=== PATIENT | male | born 1935 | race Caucasian/White ===

== ENCOUNTER → 2016-06-12 | Day surgery (SDC) | payer MEDICARE ==
[~2016-06-12] VITALS: Ht 170.2 cm; Wt 77.3 kg
[~2016-06-12] MED LIST: ASPI1TAB69 PO; ATOR10TA15 PO; DO NOT ADM ANY ANTICOAGULANT DRUGS XX PRN; INSULIN HUMAN REGULAR 1,000 UNITS/10 ML VIAL SQ PRN; LACTATED RINGER'S 1000 ML IV SCH; LANO0.2510 PO; LEVO50TA4 PO; METOPROLOL TARTRATE 25 MG TAB PO PRN; MIDAZOLAM HCL 2 MG/2 ML VIAL ONE; MULT-135 PO; PROPOFOL 200 MG/20 ML AMP IV ONE; RESP: ALBUTEROL 2.5 MG/3 ML NEB (SCH) ONE; RESP: LIDOCAINE HCL 4% PF 5 ML NEB ONE; SODIUM CHLORID 0.9% 500 ML IV SCH; TETRACAINE 0.5% OPTH SOLN 15 ML BTL EACH EYE ONE; TYLE650T9 PO; VITA100T2 PO
[2016-06-12 13:48] VITALS: BP 165/85; PULSE 76; RESP 18; TEMP 98.5; O2SAT 97
[2016-06-12 14:00] LABS: AUTOMATED NEUTROPHIL # 5.6 TH/MM3 (1.8-7.7); BASOPHIL # 0.1 TH/MM3 (0-0.2); BASOPHIL % 1.4 % (0.0-2.0); EOSINOPHIL # 0.2 TH/MM3 (0-0.4); EOSINOPHIL % 2.1 % (0.0-4.0); HEMATOCRIT 35.1 % (39.0-51.0); HEMO FLAGS DIFF FINAL; LYMPH % 29.6 % (9.0-44.0); MEAN CELL VOLUME 90.6 FL (80.0-100.0); MEAN CORPUSCULAR HEMOGLOBIN 30.8 PG (27.0-34.0); MONO % 11.4 % (0.0-8.0); NEUT % 55.5 % (16.0-70.0); PLATELET COUNT 243 TH/MM3 (150-450); RED BLOOD COUNT 3.87 MIL/MM3 (4.50-5.90); RED CELL DISTRIBUTION WIDTH 13.9 % (11.6-17.2)
[2016-06-12 14:09] LABS: APTT (PATIENT) 27.3 SEC (24.3-30.1); PROTHROMBIN TIME - PATIENT 11.6 SEC (9.8-11.6)
--- NOTE | 2016-06-12 16:33 | RADRPT ---
EXAM DATE/TIME: 06/12/2016 15:55 [facility] COMPARISON: CHEST SINGLE AP, July 17, 2012, 13:16. INDICATIONS : Post bronchoscopy. MEDICAL HISTORY : Cardiovascular disease. Cerebrovascular disease. Hypertension. SURGICAL HISTORY : None. ENCOUNTER: Initial ACUITY: 1 day PAIN SCORE: Non-responsive. LOCATION: Bilateral chest FINDINGS: A single view of the chest demonstrates the lungs to be symmetrically aerated without evidence of mas s, infiltrate or effusion. The cardiomediastinal contours are unremarkable. Osseous structures are intact. CONCLUSION: No acute disease. Milton Sams MD on June 12, 2016 at 16:26 Board Certified Radiologist. This report was verified electronically.
--- NOTE | 2016-06-12 16:48 | MR ---
cc: RYAN PALMERMARISELA DATE: 06/12/2016 PROCEDURE PERFORMED Bronchoscopy. PREOPERATIVE DIAGNOSIS: Diagnosis of hemoptysis. POSTOPERATIVE DIAGNOSIS Fresh blood seen at the right lower lobe. No active bleeding seen. PROCEDURE Informed consent was obtained from the patient. The complications including complication. pneumothorax, scarring, chest tube, bleeding complication, injury to the blood vessels, lungs nerves, arrhythmia, hypoxia were explained and he consented for the procedure. PROCEDURE The patient was brought to operating room under general anesthesia and the main tube was placed by anesthesiologist. Bronchoscopy done per LMA tube. Vocal cords are normal. Trachea is normal, main payton is sharp. Bronchoscope advanced to the right lung with some blood seen in the right lung and fresh blood seen at the right lower lobe. No endobronchial lesion was seen. Right lower lobe washings were done, then bronchoscope pulled back and advanced to the left lung. Left upper lingula, lower lobe were visualized a small amount of old blood was suctioned. No endobronchial mucosal lesion was seen. Bronchial washings sent for routine culture, AFB fungal culture and cytology. Postprocedure chest x-rays were ordered to rule out pneumothorax. MD PRAVEEN Veliz/hermes /3:35 PM /1:02 PM
[2016-06-12 17:55] VITALS: BP 178/71; PULSE 63; RESP 18; TEMP 97.3; O2SAT 100
--- NOTE | 2016-06-13 12:20 | MH ---
cc: RYAN PALMER ROXY MD DATE OF ADMISSION: 06/12/2016 HISTORY OF PRESENT ILLNESS Mr. Leach is a pleasant 81-year-old male with history of hypertension, rheumatoid arthritis, atrial fibrillation. The patient was recently admitted at [facility]. He had a CT scan of the chest done which shows multiple lung nodule, largest measured 14 mm. He also had biapical emphysematous changes. The patient started having hemoptysis. He has small amount of bright red blood coming with his sputum. He saw Dr. Jaymie Ramirez and he was given Keflex. PAST MEDICAL HISTORY 1. History of hypertension, 2. Atrial fibrillation 3. Rheumatoid arthritis 4. Knee surgery. MEDICATIONS 1. Aspirin 81 mg a day. 2. Lipitor 10 mg. 3. Digoxin 0.25 mg 4. Levothyroxine 750 mcg. 5. Protonix 40 mg. 6. Keflex 500 mg four times a day. ALLERGIES NO KNOWN DRUG ALLERGIES. SOCIAL HISTORY He is , has history of smoking which he quit at age 27. He used to have his own [employer] FAMILY HISTORY He has three children. Once son of cancer at age 53. REVIEW OF SYSTEMS He has no headache or dizziness. No DVT or pulmonary embolism. PHYSICAL EXAMINATION General: Elderly male not in acute distress. VITAL SIGNS: blood pressure 120/62, heart rate 74, respirations 18, oxygen saturation 92%. HEENT: Examination unremarkable NECK: Supple. JVP not raised. CHEST: Equal bilaterally. No rhonchi. CARDIOVASCULAR: S1, S2 normal. ABDOMEN: Benign. EXTREMITIES: No edema. IMPRESSION 1. Hemoptysis, need to rule out endobronchial lesion. It may very well be related to bronchitis. 2. Multiple lung nodules. 3. Atrial fibrillation. 4. Alcohol use. 5. Rheumatoid arthritis. PLAN I discussed with the patient. He will need bronchoscopy. I explained to him the procedure and the complications including complication of anesthesia, pneumothorax requiring chest tube bleeding complication, injury to the blood vessels, lungs, nerves, arrhythmia, biopsy which he understands well and wants to proceed with it. He will be scheduled for bronchoscopy at [facility]. Ryan Palmer MD ADA/ /11:13 PM /12:19 PM
--- NOTE | 2016-07-13 12:33 | MH ---
cc: RYAN PALMERMARISELA DATE OF ADMISSION: 06/12/2016 CHIEF COMPLAINT The patient will come for CT-guided lung biopsy. HISTORY OF PRESENT ILLNESS Mr. Leach is an 81-year-old male with history of hypertension, rheumatoid arthritis, atrial fibrillation and history of hemoptysis. He had a bronchoscopy done which shows small oozing from the lung but no endobronchial lesion was seen. He was sent for a PET scan which shows he has intense uptake for multiple pulmonary nodules within both lungs consistent with widespread metastatic disease. He also has an intense uptake in the lesion projecting off the capsule of the liver, a small area of induration in the left calf, and large left inguinal hernia. I discussed the findings with Dr. Tomer Faye. The liver lesion is too deep and he suggests that the left lung nodule is accessible with needle biopsy. The patient is agreeable for the biopsy. PAST MEDICAL HISTORY: 1. History of hypertension. 2. Atrial fibrillation. 3. Rheumatoid arthritis. 4. Knee surgery. MEDICATIONS: 1. Aspirin 81 milligrams 2. Lipitor 10 milligrams 3. Digoxin 0.25 milligrams daily. 4. Levothyroxine 50 micrograms a day. 5. Protonix 20 milligrams a day. ALLERGIES NO KNOWN DRUG ALLERGIES. SOCIAL HISTORY He is , has history of smoking which he quit when he was 27 years old. He used to drink heavily which he cut down. 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 FAMILY HISTORY: He has three children. One son of cancer at age 53. REVIEW OF SYSTEMS: He denies any weight loss, no headache or dizziness. He had hemoptysis. PHYSICAL EXAMINATION: An elderly male, not in any acute distress. VITAL SIGNS: Blood pressure 120/70, heart rate 74, respiratory rate 16, oxygen saturation 95%. HEENT: Unremarkable. Neck: Supple. JVP not raised. Chest: Equal air entry. No rhonchi. CV: S1-S2 normal. Abdomen: Benign. Extremities: No edema. IMPRESSION 1 . Multiple lung lesions. Positive on PET scan suggestive of metastatic disease. 5. Liver lesion. 6. Hypertension. 7. Rheumatoid arthritis 8. Atrial fibrillation. PLAN: I discussed with the patient CT guided left lung biopsy. I explained to him the procedure and the complications including complication of hemothorax, pneumothorax requiring chest tube, bleeding complication, blood vessels, lungs, nerves, arrhythmia, hypoxia and possibility of nondiagnostic biopsy. He is agreeable for it and will be scheduled for CT-guided left lung biopsy at [facility]. MD PRAVEEN Veliz/KITTY /11:54 AM /12:22 PM
== END | disposition home or self-care (01) ==
LOC: HSDC 12:56
PROVIDERS: ATTEND Specialist
DX: R91.8 Other nonspecific abnormal finding of lung field (principal); I48.91 Unspecified atrial fibrillation; I25.10 Atherosclerotic heart disease of native coronary artery without angina pectoris; I10 Essential (primary) hypertension; M06.9 Rheumatoid arthritis, unspecified; R04.2 Hemoptysis; Z79.82 Long term (current) use of aspirin; Z87.891 Personal history of nicotine dependence
CPT/HCPCS: 00520; 31622; 71010; 85025; 85610; 85730; 87015; 87070; 87102; 87116; 87205; 87206; 88112; 88305; 94664; J2250; J7613

== ENCOUNTER 2016-07-30 06:27 | Day surgery (SDC) | payer MEDICARE ==
[2016-07-30] VITALS (8 sets, daily range): BP systolic 136–170; BP diastolic 60–79; PULSE 60–85; RESP 16–20; TEMP 97.8; O2SAT 96–100
[~2016-07-30] VITALS: Ht 170.2 cm; Wt 78.6 kg
[~2016-07-30 06:27] MED LIST changes: -DO NOT ADM ANY ANTICOAGULANT DRUGS XX PRN; -INSULIN HUMAN REGULAR 1,000 UNITS/10 ML VIAL SQ PRN; -LACTATED RINGER'S 1000 ML IV SCH; -METOPROLOL TARTRATE 25 MG TAB PO PRN; -MIDAZOLAM HCL 2 MG/2 ML VIAL ONE; -PROPOFOL 200 MG/20 ML AMP IV ONE; -RESP: ALBUTEROL 2.5 MG/3 ML NEB (SCH) ONE; -RESP: LIDOCAINE HCL 4% PF 5 ML NEB ONE; -SODIUM CHLORID 0.9% 500 ML IV SCH; -TETRACAINE 0.5% OPTH SOLN 15 ML BTL EACH EYE ONE
[2016-07-30 07:32] LABS: AUTOMATED NEUTROPHIL # 3.1 TH/MM3 (1.8-7.7); BASOPHIL # 0.2 TH/MM3 (0-0.2); BASOPHIL % 2.4 % (0.0-2.0); EOSINOPHIL # 0.2 TH/MM3 (0-0.4); HEMO FLAGS DIFF FINAL; LYMPH % 42.5 % (9.0-44.0); LYMPHOCYTE # 3.2 TH/MM3 (1.0-4.8); MEAN CELL VOLUME 91.2 FL (80.0-100.0); MEAN CORPUSCULAR HEMOGLOBIN 31.4 PG (27.0-34.0); MEAN CORPUSCULAR HGB CONC 34.5 % (32.0-36.0); MONO % 11.1 % (0.0-8.0); PLATELET COUNT 193 TH/MM3 (150-450); RED BLOOD COUNT 4.06 MIL/MM3 (4.50-5.90); RED CELL DISTRIBUTION WIDTH 12.6 % (11.6-17.2); WHITE BLOOD COUNT 7.5 TH/MM3 (4.0-11.0)
[2016-07-30 07:42] LABS: APTT (PATIENT) 26.7 SEC (24.3-30.1); INTERNATIONAL NORMALIZED RATIO 1.1 RATIO; PROTHROMBIN TIME - PATIENT 11.8 SEC (9.8-11.6)
[2016-07-30] MEDS ORDERED: SODIUM CHLOR 0.9% 1000 ML IV SCH (08:00)
[2016-07-30] MEDS ORDERED: LIDOCAINE 1%/EPINEPHrine 1:100,000 SOLN 20 ML VIAL ONE (08:05)
[2016-07-30] MEDS ORDERED: SODIUM BICARBONATE 8.4% INJ 50 ML ONE (08:06)
[2016-07-30] MEDS ORDERED: fentaNYL CITRATE 250 MCG/5 ML AMP ONE (08:22)
[2016-07-30] MEDS ORDERED: MIDAZOLAM HCL 5 MG/5 ML VIAL ONE (08:22)
--- NOTE | 2016-07-30 09:45 | RADRPT ---
EXAM DATE/TIME: 07/30/2016 08:26 [facility] COMPARISON: CT THORAX W CONTRAST, May 11, 2016, 19:43. INDICATIONS : Left lung nodule. SEDATION TIME: 30 minutes BIOPSY SITE: Left posterior lung. MEDICATION(S): 1.) 100 mcg fentanyl (Sublimaze) IV 2.) 2 mg midazolam (Versed) IV DEVICE(S): 1.) 20 gauge Temno core biopsy needle 15 cm MEDICAL HISTORY : Hypertension. A-fib. Ex smoker. SURGICAL HISTORY : None. ENCOUNTER: Initial ACUITY: 1 day PAIN SCORE: 0/10 LOCATION: Left posterior lung. A total of five core specimen(s) were obtained and sent to the laboratory for pathologic evaluation. PROCEDURE: 1. CT guided lung biopsy. 2. Conscious sedation with continuous EKG and oximetry monitoring. Prior to the procedure informed consent was obtained. Any appropriate prior imaging studies were rev iewed. Using automated exposure control and adjustment of the mA and/or kV according to patient size, radiation dose was kept as low as reasonably achievable to obtain optimal diagnostic quality images. The site was prepped in a sterile fashion. Full sterile technique was used, including cap, mask, oly rile gloves and gown and a large sterile sheet. Hand hygiene and 2% chlorhexidine and/or betadine/al cohol prep was utilized per protocol for cutaneous antisepsis. The skin and subcutaneous tissues wer e infiltrated with local anesthetic solution. With CT guidance the left lower lobe lung nodule was localized. Biopsy was performed using the prescr ibed needle as above. Adequate hemostasis was obtained with compression at the puncture site. Follow-up CT scan reveals no pneumothorax or significant abnormality. Conscious sedation was performed with the prescribed dosages and duration as above in the presence of an independent trained radiology nurse to assist in the monitoring of the patient. EKG and oximetry remained stable throughout the procedure. The patient tolerated the procedure well and there were no complications. The patient was sent to Radiology Outpatient Unit in stable condition. CONCLUSION: Uncomplicated CT guided biopsy of the left lower lobe pulmonary nodule. Eris Sanchez MD on July 30, 2016 at 9:42 Board Certified Radiologist. This report was verified electronically.
[2016-07-30] MEDS ORDERED: oxyCODONE/ACETAMINOPHEN 5 MG/325 MG TAB PO PRN (10:15)
--- NOTE | 2016-07-30 11:10 | RADRPT ---
EXAM DATE/TIME: 07/30/2016 10:38 [facility] COMPARISON: CT NEEDLE BIOPSY LUNG, LEFT, July 30, 2016, 8:26. CHEST SINGLE AP, June 12, 2016, 15:55. INDICATIONS : S/p left side lung bx MEDICAL HISTORY : Cardiovascular disease. Cerebrovascular disease. SURGICAL HISTORY : None. ENCOUNTER: Initial ACUITY: 1 day PAIN SCORE: 0/10 LOCATION: Bilateral chest FINDINGS: A single frontal expiratory view of the chest was performed. The lungs are symmetrically aerated and clear. No evidence of pneumothorax. Mediastinal structures are in the midline. The cardio-mediastinal contours and bronchopulmonary markings are unremarkable for an expiratory exam . Osseous structures are intact. CONCLUSION: No pneumothorax seen after left lung biopsy. Eris Rios MD on July 30, 2016 at 11:07 Board Certified Radiologist. This report was verified electronically.
--- NOTE | 2016-07-30 12:44 | RADRPT ---
EXAM DATE/TIME: 07/30/2016 12:00 [facility] COMPARISON: CHEST EXPIRATION ONLY, July 30, 2016, 10:38. INDICATIONS : Status post lung biopsy. MEDICAL HISTORY : None. SURGICAL HISTORY : Total knee replacement, left. ENCOUNTER: Subsequent ACUITY: 1 day PAIN SCORE: 0/10 LOCATION: chest FINDINGS: Portable upright expiratory view of the chest demonstrates a normal-sized cardiac silhouette. No pneu mothorax is identified following recent left lung nodule biopsy. Overall, stable exam. CONCLUSION: No pneumothorax is visualized. Eris Sanchez MD on July 30, 2016 at 12:40 Board Certified Radiologist. This report was verified electronically.
== END 2016-07-30 13:25 | disposition home or self-care (01) ==
LOC: HRAD 06:27 → HRIP 06:28 → EDSTATUS 07:00 → HRAD 13:25
PROVIDERS: ATTEND Specialist
DX: C34.32 Malignant neoplasm of lower lobe, left bronchus or lung (principal); I10 Essential (primary) hypertension; I48.91 Unspecified atrial fibrillation; Z87.891 Personal history of nicotine dependence
CPT/HCPCS: 32405; 71010; 77012; 85025; 85610; 85730; 88305; 88341; 88342; J2250; J3010; J7030; 81210

== ENCOUNTER 2017-02-27 15:54 | Inpatient (IN) | payer MEDICARE ==
[~2017-02-27] VITALS: Ht 177.8 cm; Wt 92.0 kg
[2017-02-27] VITALS (8 sets, daily range): BP systolic 144–206; BP diastolic 61–86; PULSE 39–60; RESP 14–20; TEMP 97.6–98.1; O2SAT 97–100
[~2017-02-27 15:54] MED LIST changes: -MULT-135 PO; -TYLE650T9 PO; -VITA100T2 PO
--- NOTE | 2017-02-27 16:19 | PD ---
HPI Chief Complaint: Fall Time Seen by Provider: 16:06 Travel History International Travel<30 days: No Contact w/Intl Traveler<30days: No Traveled to known affect area: No History of Present Illness HPI 82-year-old male came to the emergency room with history of fall and hitting his head causing a facial laceration. His brought him in. The is giving most of the history. As per her patient has history of frequent falls. Last fall was 4 days ago. He usually requires a walker to ambulate but frequently trips and falls. No history of chest pain. No history of loss of consciousness. Patient was bradycardic upon arrival but awake and answering questions. [facility] Past Medical History Narrative Medical List of his past medical, surgical, social and family history is reviewed from the nursing note. Hx Anticoagulant Therapy: Yes (aspirin 325 daily) Arthritis: Yes (RA) Asthma: No Atrial Fibrillation: Yes Blood Disorders: No Anxiety: No Depression: No Heart Rhythm Problems: Yes Cancer: Yes (SKIN melanoma) Cardiac Catheterization: No Cardiovascular Problems: No High Cholesterol: Yes Chemotherapy: No Chest Pain: No Congestive Heart Failure: No COPD: No Cerebrovascular Accident: Yes (TIA) Coronary Artery Disease: Yes Diabetes: No Diminished Hearing: Yes (BILAT HEARING AIDS) Gastrointestinal Disorders: Yes GERD: No Glaucoma: No Genitourinary: No Headaches: No Hepatitis: No Hiatal Hernia: Yes Hypertension: Yes Immune Disorder: No Kidney Stones: No Musculoskeletal: Yes (ARTHRITIS) Neurologic: No Psychiatric: No Reproductive: No Respiratory: No Myocardial Infarction: No Radiation Therapy: No Renal Failure: No Seizures: No Sleep Apnea: No Thyroid Disease: Yes (hypothyroid disease) Triglycerides - High: Yes Ulcer: No Past Surgical History Abdominal Surgery: No AICD: No Cardiac Surgery: No Coronary Artery Bypass Graft: No Ear Surgery: No Endocrine Surgery: No Eye Surgery: Yes (Bilateral cataracts) Genitourinary Surgery: No Gynecologic Surgery: No Joint Replacement: Yes (LEFT KNEE) Neurologic Surgery: No Oral Surgery: No Pacemaker: No Thoracic Surgery: No Other Surgery: Yes (RIGHT MIDDLE TOE AMPUTATED) Social History Alcohol Use: Yes (4 BEERS DAILY) Tobacco Use: No Substance Use: No Allergies-Medications (Allergen,Severity, Reaction): Coded Allergies: No Known Allergies (Verified , 02/27/17) Comments No known drug allergies. Reported Meds & Prescriptions Reported Meds & Active Scripts Active Reported Opdivo (Nivolumab) 40 Mg/4 Ml Inj Vitamin B-1 (Thiamine HCl) 100 Mg Tab 100 Mg PO DAILY Multi For Him 50+ (Multiple Vitamins W/ Minerals) 0.4 Mg-2 Mg-250 Mcg Tab Carac (Fluorouracil (Topical)) 0.5 % Cre Aspirin 81 Mg Chew 81 Mg CHEW DAILY Digoxin 0.25 Mg Tab 0.25 Mg PO DAILY Levothyroxine (Levothyroxine Sodium) 50 Mcg Tab 50 Mcg PO DAILY Atorvastatin (Atorvastatin Calcium) 10 Mg Tab 10 Mg PO DAILY Narrative Medication List of his home medications reviewed from the nursing note. Review of Systems Except as stated in HPI: all other systems reviewed are Neg Physical Exam Narrative GENERAL: Awake, alert, elderly, frail SKIN: Focused skin assessment warm/dry. Right eyebrow laceration HEAD: Atraumatic. Normocephalic. EYES: Pupils equal and round. No scleral icterus. No injection or drainage. ENT: No nasal bleeding or discharge. Mucous membranes pink and moist. NECK: Trachea midline. No JVD. CARDIOVASCULAR: Regular rate and rhythm. Bradycardia. No murmur appreciated. RESPIRATORY: No accessory muscle use. Clear to auscultation. Breath sounds equal bilaterally. GASTROINTESTINAL: Abdomen soft, non-tender, nondistended. Hepatic and splenic margins not palpable. MUSCULOSKELETAL: No obvious deformities. No clubbing. No cyanosis. No edema. NEUROLOGICAL: Awake and alert. No obvious cranial nerve deficits. Motor grossly within normal limits. Normal speech. PSYCHIATRIC: Appropriate mood and affect; insight and judgment normal. Data Data Last Documented VS Vital Signs Date Time Temp Pulse Resp B/P (MAP) Pulse Ox O2 Delivery O2 Flow Rate FiO2 02/27/17 17:44 39 18 194/79 (117) 100 Room Air 02/27/17 16:01 97.9 Orders Orders Complete Blood Count With Diff (02/27/17 16:24) Basic Metabolic Panel (Bmp) (02/27/17 16:24) Digoxin (02/27/17 16:24) Ct Brain W/O Iv Contrast(Rout) (02/27/17 ) Electrocardiogram (02/27/17 ) Lidocaine 1% Inj (50 Ml) (Xylocaine 1% I (02/27/17 16:45) Potassium Chlor 20 Meq Premix (Kcl 20 Me (02/27/17 18:00) Potassium Chloride (Kcl) (02/27/17 18:00) Admit Order (Ed Use Only) (02/27/17 18:11) Troponin I (02/27/17 17:04) Creatine Kinase (Cpk) (02/27/17 17:04) Labs Laboratory Tests Test 02/27/17 17:04 White Blood Count 11.1 TH/MM3 Red Blood Count 3.59 MIL/MM3 Hemoglobin 11.4 GM/DL Hematocrit 32.0 % Mean Corpuscular Volume 89.1 FL Mean Corpuscular Hemoglobin 31.6 PG Mean Corpuscular Hemoglobin Concent 35.5 % Red Cell Distribution Width 14.8 % Platelet Count 177 TH/MM3 Mean Platelet Volume 8.4 FL Neutrophils (%) (Auto) 56.4 % Lymphocytes (%) (Auto) 26.9 % Monocytes (%) (Auto) 10.7 % Eosinophils (%) (Auto) 4.9 % Basophils (%) (Auto) 1.1 % Neutrophils # (Auto) 6.2 TH/MM3 Lymphocytes # (Auto) 3.0 TH/MM3 Monocytes # (Auto) 1.2 TH/MM3 Eosinophils # (Auto) 0.5 TH/MM3 Basophils # (Auto) 0.1 TH/MM3 CBC Comment DIFF FINAL Differential Comment Blood Urea Nitrogen 24 MG/DL Creatinine 1.14 MG/DL Random Glucose 101 MG/DL Calcium Level 10.7 MG/DL Sodium Level 141 MEQ/L Potassium Level 2.7 MEQ/L Chloride Level 109 MEQ/L Carbon Dioxide Level 24.0 MEQ/L Anion Gap 8 MEQ/L Estimat Glomerular Filtration Rate 61 ML/MIN Total Creatine Kinase 55 U/L Troponin I 0.07 NG/ML Digoxin Level 1.1 NG/ML [facility] Medical Decision Making Medical Screen Exam Complete: Yes Emergency Medical Condition: Yes Medical Record Reviewed: Yes Interpretation(s) Twelve-lead EKG was reviewed by me. Junctional bradycardia, left axis deviation , questionable digitalis toxicity/left ST depression. Heart rate of 40 bpm. Differential Diagnosis Digitalis toxicity, electrolyte abnormality, intracranial bleed, facial laceration Narrative Course 6 PM blood test results are back. Patient has significant hypokalemia. Patient continues to be bradycardic. I would like to admit him at this point for bradycardia and hypokalemia. I've ordered for potassium replacement. I discussed this with the patient and his and they're okay with the plan. The forehead laceration was sutured by the PA and the medical student. Please refer to his note for the procedure details. Critical Care Narrative Aggregate critical care time was 30 minutes. Time to perform other separately billable procedures was not included in the critical care time. My time did not include minutes spent treating any other patients simultaneously or on activities that did not directly contribute to the patient's treatment. The services I provided to this patient were to treat and/or prevent clinically significant deterioration that could result in: Symptomatic bradycardia, hypokalemia I provided critical care services requiring my management, as noted below: Chart data review, documentation time, medication orders and management, vital sign assessments/reviewing monitor data, ordering and reviewing lab tests, ordering and interpreting/reviewing x-rays and diagnostic studies, care of the patient and discussion of the patient with the admitting physicians. Procedures EKG Prior to Arrival: No Diagnosis Primary Impression: Symptomatic bradycardia Additional Impressions: Hypokalemia Frequent falls Head injury Qualified Codes: S09.90XA - Unspecified injury of head, initial encounter Facial laceration Qualified Codes: S01.81XA - Laceration without foreign body of other part of head, initial encounter Admitting Information Admitting Physician Requests: Observation Colleen Jefferson MD Feb 27, 2017 16:19
[2017-02-27] MEDS ORDERED: NIVO1INJ (16:24)
[2017-02-27] MEDS ORDERED: DIGO0.25 PO (16:24)
[2017-02-27] MEDS ORDERED: ASPI81CH CHEW (16:24)
[2017-02-27] MEDS ORDERED: VITA100T54 PO (16:24)
[2017-02-27] MEDS ORDERED: CARA0.5C (16:24)
[2017-02-27] MEDS ORDERED: MULTTAB23 (16:24)
[2017-02-27] MEDS ORDERED: LIDOCAINE HCL 1% 50 ML VIAL INFIL ONE (16:45)
--- NOTE | 2017-02-27 17:05 | RADRPT ---
EXAM DATE/TIME: 02/27/2017 16:37 [facility] COMPARISON: CT BRAIN W/O CONTRAST, May 11, 2016, 18:28. INDICATIONS : Patient fell, laceration to right side of head. RADIATION DOSE: 41.32 CTDIvol (mGy) MEDICAL HISTORY : Cardiovascular disease. TIA. SURGICAL HISTORY : None. ENCOUNTER: Initial ACUITY: 1 day PAIN SCALE: 2/10 LOCATION: cranial TECHNIQUE: Multiple contiguous axial images were obtained of the head. Using automated exposure control and adj ustment of the mA and/or kV according to patient size, radiation dose was kept as low as reasonably a chievable to obtain optimal diagnostic quality images. DICOM format image data is available electro nically for review and comparison. FINDINGS: CEREBRUM: Moderate diffuse cerebral volume loss. The ventricles are normal for degree of atrophy. No evidence of midline shift, mass lesion, hemorrhage or acute infarction. No extra-axial fluid collections are seen. POSTERIOR FOSSA: The cerebellum and brainstem are intact. The 4th ventricle is midline. The cerebellopontine angle i s unremarkable. EXTRACRANIAL: The visualized portion of the orbits is intact. Small soft tissue hematoma overlying the right fronta l scalp region. SKULL: The calvaria is intact. No evidence of skull fracture. CONCLUSION: 1. No acute intracranial abnormality. Almas Meyers MD on February 27, 2017 at 17:03 Board Certified Radiologist. This report was verified electronically.
[2017-02-27 17:14] LABS: AUTOMATED NEUTROPHIL # 6.2 TH/MM3 (1.8-7.7); BASOPHIL # 0.1 TH/MM3 (0-0.2); BASOPHIL % 1.1 % (0.0-2.0); EOSINOPHIL # 0.5 TH/MM3 (0-0.4); EOSINOPHIL % 4.9 % (0.0-4.0); HEMO FLAGS DIFF FINAL; LYMPH % 26.9 % (9.0-44.0); MEAN CELL VOLUME 89.1 FL (80.0-100.0); MEAN CORPUSCULAR HEMOGLOBIN 31.6 PG (27.0-34.0); MEAN CORPUSCULAR HGB CONC 35.5 % (32.0-36.0); MONO % 10.7 % (0.0-8.0); NEUT % 56.4 % (16.0-70.0); PLATELET COUNT 177 TH/MM3 (150-450); RED BLOOD COUNT 3.59 MIL/MM3 (4.50-5.90); RED CELL DISTRIBUTION WIDTH 14.8 % (11.6-17.2); WHITE BLOOD COUNT 11.1 TH/MM3 (4.0-11.0)
--- NOTE | 2017-02-27 17:40 | PD ---
Physical Exam Date Seen by Provider: Feb 27, 2017 Time Seen by Provider: 17:39 Narrative 82-year-old male that presents to the ED for evaluation of laceration. I was asked by my attending to repair laceration. Please refer to her note. Data Data Last Documented VS Vital Signs Date Time Temp Pulse Resp B/P (MAP) Pulse Ox O2 Delivery O2 Flow Rate FiO2 02/27/17 16:26 (110) 02/27/17 16:09 43 14 99 Room Air 02/27/17 16:01 97.9 Orders Orders Complete Blood Count With Diff (02/27/17 16:24) Basic Metabolic Panel (Bmp) (02/27/17 16:24) Digoxin (02/27/17 16:24) Ct Brain W/O Iv Contrast(Rout) (02/27/17 ) Electrocardiogram (02/27/17 ) Lidocaine 1% Inj (50 Ml) (Xylocaine 1% I (02/27/17 16:45) Labs Laboratory Tests Test 02/27/17 17:04 White Blood Count 11.1 TH/MM3 Red Blood Count 3.59 MIL/MM3 Hemoglobin 11.4 GM/DL Hematocrit 32.0 % Mean Corpuscular Volume 89.1 FL Mean Corpuscular Hemoglobin 31.6 PG Mean Corpuscular Hemoglobin Concent 35.5 % Red Cell Distribution Width 14.8 % Platelet Count 177 TH/MM3 Mean Platelet Volume 8.4 FL Neutrophils (%) (Auto) 56.4 % Lymphocytes (%) (Auto) 26.9 % Monocytes (%) (Auto) 10.7 % Eosinophils (%) (Auto) 4.9 % Basophils (%) (Auto) 1.1 % Neutrophils # (Auto) 6.2 TH/MM3 Lymphocytes # (Auto) 3.0 TH/MM3 Monocytes # (Auto) 1.2 TH/MM3 Eosinophils # (Auto) 0.5 TH/MM3 Basophils # (Auto) 0.1 TH/MM3 CBC Comment DIFF FINAL Differential Comment MDM Medical Record Reviewed: Yes Supervised Visit with NATALIO: No Procedures Procedure Narrative LACERATION LOCATION: Right forehead LENGTH: 1 cm NUMBER OF STITCHES/KODAK: 4 sutures REPAIR: The area of the laceration was prepped with Betadine and sterilely draped. The laceration was infiltrated with 1% Xylocaine. The wound was copiously irrigated and explored without evidence of foreign body, tendon injury or neurovascular injury. The wound was closed using 4-0 Ethilone. This was a 1 layer repair. A sterile dressing was applied. The patient was advised to keep the dressing clean and dry. Patient tolerated the procedure well. Kenneth Brown Feb 27, 2017 17:40
[2017-02-27 17:48] LABS: DIGOXIN 1.1 NG/ML (0.8-2.0)
[2017-02-27 17:50] LABS: POTASSIUM 2.7 MEQ/L (3.5-5.1)
[2017-02-27] MEDS ORDERED: POTASSIUM CHLOR 20 MEQ PREMIX 100 ML IV ONE (18:00)
[2017-02-27] MEDS ORDERED: POTASSIUM CHLORIDE 20 MEQ CONTROLLED RELEASE TAB PO ONE (18:00)
[2017-02-27] MEDS ORDERED: MAGNESIUM HYDROXIDE SUSP 30 ML CUP PO PRN (18:15)
[2017-02-27] MEDS ORDERED: SODIUM CHLORIDE 0.9% FLUSH 10 ML FLUSH IV FLUSH PRN (18:15)
[2017-02-27] MEDS ORDERED: NALOXONE HCL 0.4 MG/ML AMP IV PUSH PRN ×2 (18:15)
[2017-02-27] MEDS ORDERED: ONDANSETRON HCL 4 MG/2 ML VIAL IVP PRN (18:15)
[2017-02-27] MEDS ORDERED: ACETAMINOPHEN 325 MG TAB PO PRN ×2 (18:15)
--- NOTE | 2017-02-27 18:55 | HHI.HP ---
[facility] Jaymie Ramirez MD Admission Diagnosis symptomatically bradycardia, fall, head injury, facial laceration Diagnoses: (1) Symptomatic bradycardia (2) Frequent falls (3) Facial laceration Chief Complaint: Frequent falls Travel History International Travel<30 Days: No Contact w/Intl Traveler <30 Da: No Traveled to Known Affected Are: No History of Present Illness 82-year-old male with a history of melanoma was brought to the ED for evaluation of recurrent and frequent fall. Per 's account, however the past 2 weeks patient has been having frequent falls. He did fall today leading to his right eye. Laceration. However in the ED patient was observed to have heart rate is low 40s. Patient is a poor historian and wasn't able to tell whether he had any symptoms of lightheadedness today prior to his fall. He denies any chest pain or shortness of breath. Review of Systems Except as stated in HPI: all other systems reviewed are Neg Past Family Social History Past Medical History Rheumatoid Arthritis, [place], A. fib, history of melanoma and Alcohol Abuse Past Surgical History Left Knee Surgery, Right Middle Toe Amputation, excision of skin cancer Allergies: Coded Allergies: No Known Allergies (Verified , 02/27/17) Family History No h/o DM or CAD Social History Drinks 2 beers daily. Negative for tobacco or drugs. Lives at home with . Physical Exam Vital Signs Vital Signs Date Time Temp Pulse Resp B/P (MAP) Pulse Ox O2 Delivery O2 Flow Rate FiO2 02/27/17 17:44 39 18 194/79 (117) 100 Room Air 02/27/17 16:26 (110) 02/27/17 16:09 43 14 188/72 (110) 99 Room Air 02/27/17 16:01 97.9 54 15 144/61 (88) 100 Physical Exam GENERAL: Frail elderly appearing patient SKIN: No rashes, ecchymoses or lesions. Cool and dry.Right eyebrow laceration HEAD: Atraumatic. Normocephalic. No temporal or scalp tenderness. EYES: Pupils equal round and reactive. Extraocular motions intact. No scleral icterus. No injection or drainage. ENT: Nose without bleeding, purulent drainage or septal hematoma. Throat without erythema, tonsillar hypertrophy or exudate. Uvula midline. Airway patent. NECK: Trachea midline. No JVD or lymphadenopathy. Supple, nontender, no meningeal signs. CARDIOVASCULAR: Regular rate and rhythm without murmurs, gallops, or rubs. RESPIRATORY: Clear to auscultation. Breath sounds equal bilaterally. No wheezes , rales, or rhonchi. GASTROINTESTINAL: Abdomen soft, non-tender, nondistended. No hepato-splenomegaly , or palpable masses. No guarding. MUSCULOSKELETAL: Extremities without clubbing, cyanosis, or edema. No joint tenderness, effusion, or edema noted. No calf tenderness. Negative Homans sign bilaterally. NEUROLOGICAL: Awake and alert. Cranial nerves II through XII intact. Motor and sensory grossly within normal limits. Five out of 5 muscle strength in all muscle groups. Normal speech. Laboratory Laboratory Tests Test 02/27/17 17:04 White Blood Count 11.1 Red Blood Count 3.59 Hemoglobin 11.4 Hematocrit 32.0 Mean Corpuscular Volume 89.1 Mean Corpuscular Hemoglobin 31.6 Mean Corpuscular Hemoglobin Concent 35.5 Red Cell Distribution Width 14.8 Platelet Count 177 Mean Platelet Volume 8.4 Neutrophils (%) (Auto) 56.4 Lymphocytes (%) (Auto) 26.9 Monocytes (%) (Auto) 10.7 Eosinophils (%) (Auto) 4.9 Basophils (%) (Auto) 1.1 Neutrophils # (Auto) 6.2 Lymphocytes # (Auto) 3.0 Monocytes # (Auto) 1.2 Eosinophils # (Auto) 0.5 Basophils # (Auto) 0.1 CBC Comment DIFF FINAL Differential Comment Blood Urea Nitrogen 24 Creatinine 1.14 Random Glucose 101 Calcium Level 10.7 Sodium Level 141 Potassium Level 2.7 Chloride Level 109 Carbon Dioxide Level 24.0 Anion Gap 8 Estimat Glomerular Filtration Rate 61 Digoxin Level 1.1 Result Diagram: 02/27/17 1704 02/27/17 1704 Imaging Last Impressions Head CT 02/27/17 0000 Signed Impressions: Service Date/Time: Monday, February 27, 2017 16:37 - CONCLUSION: 1. No acute intracranial abnormality. MD Florian Berman VTE Risk Assessment Florian VTE Risk Assessment: Mod/High Risk (score >= 2) Regisrini Risk Assessment Model Point Value = 1 Point Value = 2 Point Value = 3 Point Value = 5 Age 41-60 Minor surgery BMI > 25 kg/m2 Swollen legs Varicose veins or History of unexplained or recurrent spontaneous Oral contraceptives or hormone replacement Sepsis (< 1 month) Serious lung disease, including pneumonia (< 1 month) Abnormal pulmonary function Acute myocardial infarction Congestive heart failure (< 1 month) History of inflammatory bowel disease Medical patient at bed rest Age 61-74 Arthroscopic surgery Major open surgery (> 45 min) Laparoscopic surgery (> 45 min) Malignancy Confined to bed (> 72 hours) Immobilizing plaster cast Central venous access Age >= 75 History of VTE Family history of VTE Factor V Leiden Prothrombin [id number] Lupus anticoagulant Anticardiolipin antibodies Elevated serum homocysteine Heparin-induced thrombocytopenia Other congenital or acquired thrombophilia Stroke (< 1 month) Elective arthroplasty Hip, pelvis, or leg fracture Acute spinal cord injury (< 1 month) Prophylaxis Regimen Total Risk Factor Score Risk Level Prophylaxis Regimen 0-1 Low Early ambulation 2 Moderate Order ONE of the following: *Sequential Compression Device (SCD) *Heparin 5000 units SQ BID 3-4 Higher Order ONE of the following medications: *Heparin 5000 units SQ TID *Enoxaparin/Lovenox 40 mg SQ daily (WT < 150 kg, CrCl > 30 mL/min) *Enoxaparin/Lovenox 30 mg SQ daily (WT < 150 kg, CrCl > 10-29 mL/min) *Enoxaparin/Lovenox 30 mg SQ BID (WT < 150 kg, CrCl > 30 mL/min) AND/OR *Sequential Compression Device (SCD) 5 or more Highest Order ONE of the following medications: *Heparin 5000 units SQ TID (Preferred with Epidurals) *Enoxaparin/Lovenox 40 mg SQ daily (WT < 150 kg, CrCl > 30 mL/min) *Enoxaparin/Lovenox 30 mg SQ daily (WT < 150 kg, CrCl > 10-29 mL/min) *Enoxaparin/Lovenox 30 mg SQ BID (WT < 150 kg, CrCl > 30 mL/min) AND *Sequential Compression Device (SCD) Assessment and Plan Problem List: (1) Symptomatic bradycardia ICD Code: R00.1 - Bradycardia, unspecified Status: Acute (2) Frequent falls ICD Code: R29.6 - Repeated falls Status: Acute (3) Hypokalemia ICD Code: E87.6 - Hypokalemia Status: Acute (4) Facial laceration ICD Code: S01.81XA - Laceration without foreign body of other part of head, initial encounter Status: Acute Assessment and Plan 82-year-old man with Symptomatic bradycardia Check 2-D echo ACS ruled out per protocol with serial cardiac enzyme and EKG Consult cardiology for evaluation for AICD placement versus others Hold digoxin History of atrial fibrillation Currently rate control Hold digoxin pending further evaluation from cardiology Continue aspirin Hyperlipidemia Resume statin Recurrent history of frequent fall Head CT noted and review by me without any acute finding Fall precautions Hypokalemia Replace electrolyte and monitor Right eyebrow laceration Status post repair Start Bactroban Leukocytosis Check UA and treat accordingly DVT prophylaxis: Bilateral SCDs Code Status Full code Discussed Condition With Patient, , ED physician Problem Qualifiers (1) Facial laceration: Qualified Codes: S01.81XA - Laceration without foreign body of other part of head, initial encounter Serafin Jennings MD Feb 27, 2017 18:55
[2017-02-27] MEDS ORDERED: hydrALAZINE HCL 20 MG/ML VIAL IV PUSH ONE (20:00)
[2017-02-27 20:10] LABS: BLOOD, URINE NEG (NEG); COMMENT (UR) CULT NOT INDICATED; CULTURE IF INDICATED CULT NOT INDICATED; GLUCOSE,URINE NEG (NEG); HYALINE CAST, URINE 3 /lpf (RARE); KETONE, URINE NEG (NEG); NITRITE,URINE NEG (NEG); URINE COLOR YELLOW (YELLW/STRAW)
[2017-02-27] MEDS ORDERED: MUPIROCIN 2% OINT 22 GM TUBE TOPICAL SCH (21:00)
[2017-02-27] MEDS: SODIUM CHLORIDE 0.9% FLUSH 10 ML FLUSH IV FLUSH SCH (22:31)
[2017-02-28] VITALS (8 sets, daily range): BP systolic 153–205; BP diastolic 66–79; PULSE 40–60; RESP 18–21; TEMP 96.9–97.9; O2SAT 99–100
[2017-02-28] MEDS: MUPIROCIN 2% CREAM 15 GM TOPICAL SCH ×3 (00:49→21:37)
--- NOTE | 2017-02-28 05:09 | EKG ---
Date Performed: 02/27/2017 Time Performed: 16:54:48 PTAGE: 82 years EKG: SUPRAVENTRICULAR BRADYCARDIA SEPTAL MYOCARDIAL INFARCTION ABNORMAL ECG PREVIOUS TRACING : 05/11/2016 17.33 DOCTOR: Orlando Marrufo Interpretating Date/Time 02/28/2017 05:04:56
[2017-02-28] MEDS: LEVOTHYROXINE SODIUM 50 MCG TAB PO SCH (06:28)
[2017-02-28 07:27] LABS: AUTOMATED NEUTROPHIL # 5.9 TH/MM3 (1.8-7.7); BASOPHIL # 0.1 TH/MM3 (0-0.2); BASOPHIL % 1.2 % (0.0-2.0); EOSINOPHIL # 0.6 TH/MM3 (0-0.4); EOSINOPHIL % 5.2 % (0.0-4.0); HEMATOCRIT 32.5 % (39.0-51.0); HEMO FLAGS DIFF FINAL; LYMPH % 35.4 % (9.0-44.0); LYMPHOCYTE # 4.4 TH/MM3 (1.0-4.8); MEAN CELL VOLUME 89.6 FL (80.0-100.0); MEAN CORPUSCULAR HEMOGLOBIN 32.1 PG (27.0-34.0); MEAN CORPUSCULAR HGB CONC 35.8 % (32.0-36.0); MONO % 9.9 % (0.0-8.0); NEUT % 48.3 % (16.0-70.0); PLATELET COUNT 194 TH/MM3 (150-450); RED BLOOD COUNT 3.63 MIL/MM3 (4.50-5.90); RED CELL DISTRIBUTION WIDTH 14.9 % (11.6-17.2); WHITE BLOOD COUNT 12.3 TH/MM3 (4.0-11.0)
[2017-02-28 08:11] LABS: ALKALINE PHOSPHATASE 80 U/L (45-117); ALT (GPT) 19 U/L (12-78); ANION GAP 10 MEQ/L (5-15); AST (GOT) 14 U/L (15-37); BICARBONATE 20.4 MEQ/L (21.0-32.0); BLOOD UREA NITROGEN 20 MG/DL (7-18); CHLORIDE 111 MEQ/L (98-107); GLOMERULAR FILTRATION RATE 72 ML/MIN (>89); SODIUM (NA) 141 MEQ/L (136-145); TOTAL BILIRUBIN ADULT 1.2 MG/DL (0.2-1.0)
[2017-02-28 08:31] LABS: POTASSIUM 2.8 MEQ/L (3.5-5.1)
[2017-02-28] MEDS: hydrALAZINE HCL 25 MG TAB PO SCH ×2 (08:46→21:36)
[2017-02-28] MEDS: SODIUM CHLORIDE 0.9% FLUSH 10 ML FLUSH IV FLUSH SCH ×2 (08:47→21:36)
[2017-02-28] MEDS: ASPIRIN 81 MG CHEW TAB CHEW SCH (08:47)
[2017-02-28] MEDS: ATORVASTATIN 10 MG TAB PO SCH (08:47)
--- NOTE | 2017-02-28 10:05 | PD.CONS ---
HPI Consult Requested By Primary Care Physician Jaymie Ramirez MD History of Present Illness 82-year-old male with a history of melanoma was brought to the ED for evaluation of recurrent and frequent fall. Per 's account, however the past 2 weeks patient has been having frequent falls. In the ED heart rate is low 40s. He denies any chest pain or shortness of breath. EKG shows slow atrial fibrillation. Review of Systems Consitutional: COMPLAINS OF: Fatigue Eyes: DENIES: Amaurosis [place], Change in vision HEENT: DENIES: Lightheadedness, Change in hearing Respiratory: DENIES: See HPI, Cough, Snoring, Shortness of breath, Wheezing, Sputum production Cardiovascular: DENIES: See HPI, Chest pain, Palpitations, Syncope, Tachycardia Gastrointestinal: DENIES: Nausea, Vomiting, Change in bowel habits, Reflux, Bloody stools, Melena Genitourinary: DENIES: Urinary incontinence, Difficulty voiding Integumentary: DENIES: Rash Neurologic: DENIES: Tingling or numbness, Memory problems, Poor Balance, Stroke symptoms Musculoskeletal: DENIES: Joint pain, Muscle pain, Limited range of motion, Back pain Psychiatric: DENIES: Anxiety, Depression, Sleep disturbances Hematologic: DENIES: Bruising tendencies, Bleeding tendencies Endocrine: DENIES: Weight gain, Weight loss, Thyroid disease Past Family Social History Allergies: Coded Allergies: No Known Allergies (Verified , 02/27/17) Past Medical History Rheumatoid Arthritis, [place], A. fib, history of melanoma and Alcohol Abuse Past Surgical History Left Knee Surgery, Right Middle Toe Amputation, excision of skin cancer Reported Medications Reported Meds & Active Scripts Active Reported Opdivo (Nivolumab) 40 Mg/4 Ml Inj Vitamin B-1 (Thiamine HCl) 100 Mg Tab 100 Mg PO DAILY Multi For Him 50+ (Multiple Vitamins W/ Minerals) 0.4 Mg-2 Mg-250 Mcg Tab Carac (Fluorouracil (Topical)) 0.5 % Cre Aspirin 81 Mg Chew 81 Mg CHEW DAILY Digoxin 0.25 Mg Tab 0.25 Mg PO DAILY Levothyroxine (Levothyroxine Sodium) 50 Mcg Tab 50 Mcg PO DAILY Atorvastatin (Atorvastatin Calcium) 10 Mg Tab 10 Mg PO DAILY Active Ordered Medications Current Medications Medications (Trade) Dose Ordered Sig/Mariela Route Start Time Stop Time Status Last Admin (NS Flush) 2 ml UNSCH PRN IV FLUSH 02/27/17 18:15 (NS Flush) 2 ml BID IV FLUSH 02/27/17 21:00 02/28/17 08:47 (Tylenol) 650 mg Q4H PRN PO 02/27/17 18:15 (Zofran Inj) 4 mg Q6H PRN IVP 02/27/17 18:15 (Tylenol) 650 mg Q6H PRN PO 02/27/17 18:15 (Milk Of Magnesia Liq) 30 ml Q12H PRN PO 02/27/17 18:15 (Narcan Inj) 0.4 mg UNSCH PRN IV PUSH 02/27/17 18:15 (Aspirin Chew) 81 mg DAILY CHEW 02/28/17 09:00 02/28/17 08:47 (Lipitor) 10 mg DAILY PO 02/28/17 09:00 02/28/17 08:47 (Synthroid) 50 mcg DAILY@0600 PO 02/28/17 06:00 02/28/17 06:28 (Bactroban 2% Cream) 1 applic Q12HR TOPICAL 02/27/17 23:45 02/28/17 08:48 (Apresoline) 25 mg Q12HR PO 02/28/17 09:00 02/28/17 08:46 Family History No h/o DM or CAD Social History Drinks 2 beers daily. Negative for tobacco or drugs. Lives at home with . Physical Exam Vital Signs Vital Signs Date Time Temp Pulse Resp B/P (MAP) Pulse Ox O2 Delivery O2 Flow Rate FiO2 02/28/17 08:37 178/72 (107) 02/28/17 08:15 43 179/77 (111) 99 02/28/17 08:00 96.9 60 18 205/79 (121) 100 02/28/17 04:22 97.6 40 20 153/66 (95) 100 02/27/17 23:57 98.1 42 20 164/70 (101) 100 02/27/17 22:05 97.6 56 20 185/77 (113) 98 02/27/17 21:37 02/27/17 20:57 41 18 183/77 (112) 97 Room Air 02/27/17 20:09 44 18 175/75 (108) 97 Room Air 02/27/17 19:46 60 18 206/86 (126) 97 Room Air 02/27/17 17:44 39 18 194/79 (117) 100 Room Air 02/27/17 16:26 (110) 02/27/17 16:09 43 14 188/72 (110) 99 Room Air 02/27/17 16:01 97.9 54 15 144/61 (88) 100 Physical Exam GENERAL: Well-nourished, well-developed patient. SKIN: Warm and dry. HEAD: Normocephalic. EYES: No scleral icterus. No injection or drainage. NECK: Supple, trachea midline. No JVD or lymphadenopathy. CARDIOVASCULAR: Regular rate and rhythm without murmurs, gallops, or rubs. RESPIRATORY: Breath sounds equal bilaterally. No accessory muscle use. GASTROINTESTINAL: Abdomen soft, non-tender, nondistended. EXTREMITIES: No cyanosis, or edema. NEUROLOGICAL: Awake, alert, and oriented x 3. Non-focal. Laboratory Laboratory Tests Test 02/27/17 17:04 02/27/17 19:49 02/28/17 00:58 02/28/17 06:45 White Blood Count 11.1 12.3 Red Blood Count 3.59 3.63 Hemoglobin 11.4 11.6 Hematocrit 32.0 32.5 Mean Corpuscular Volume 89.1 89.6 Mean Corpuscular Hemoglobin 31.6 32.1 Mean Corpuscular Hemoglobin Concent 35.5 35.8 Red Cell Distribution Width 14.8 14.9 Platelet Count 177 194 Mean Platelet Volume 8.4 8.7 Neutrophils (%) (Auto) 56.4 48.3 Lymphocytes (%) (Auto) 26.9 35.4 Monocytes (%) (Auto) 10.7 9.9 Eosinophils (%) (Auto) 4.9 5.2 Basophils (%) (Auto) 1.1 1.2 Neutrophils # (Auto) 6.2 5.9 Lymphocytes # (Auto) 3.0 4.4 Monocytes # (Auto) 1.2 1.2 Eosinophils # (Auto) 0.5 0.6 Basophils # (Auto) 0.1 0.1 CBC Comment DIFF FINAL DIFF FINAL Differential Comment Blood Urea Nitrogen 24 20 Creatinine 1.14 0.99 Random Glucose 101 102 Calcium Level 10.7 11.0 Sodium Level 141 141 Potassium Level 2.7 2.8 Chloride Level 109 111 Carbon Dioxide Level 24.0 20.4 Anion Gap 8 10 Estimat Glomerular Filtration Rate 61 72 Total Creatine Kinase 55 59 Troponin I 0.07 0.08 Digoxin Level 1.1 Urine Color YELLOW Urine Turbidity CLEAR Urine pH 7.0 Urine Specific [place] 1.014 Urine Protein NEG Urine Glucose (UA) NEG Urine Ketones NEG Urine Occult Blood NEG Urine Nitrite NEG Urine Bilirubin NEG Urine Urobilinogen LESS THAN 2.0 Urine Leukocyte Esterase NEG Urine WBC 2 Urine Hyaline Casts 3 Microscopic Urinalysis Comment CULT NOT INDICATED Total Protein 7.4 Albumin 3.3 Alkaline Phosphatase 80 Aspartate Amino Transf (AST/SGOT) 14 Alanine Aminotransferase (ALT/SGPT) 19 Total Bilirubin 1.2 Result Diagram: 02/28/17 0645 02/28/17 0645 Imaging Last Impressions Head CT 02/27/17 0000 Signed Impressions: Service Date/Time: Monday, February 27, 2017 16:37 - CONCLUSION: 1. No acute intracranial abnormality. Almas Meyers MD Assessment and Plan Problem List: (1) Atrial fibrillation ICD Codes: I48.91 - Unspecified atrial fibrillation Status: Acute Plan: slow heart rate in the setting of severe hypokalemia vs. sick sinus syndrome Recommendations: Hold digoxin Avoid AV Blocking agents Telemetry monitoring Avoid electrolytes abnormalities, Replace K+ Not candidate for OAC given frequent falls BP control 2DECHO Lexiscan stress test (2) Failure to thrive in adult ICD Codes: R62.7 - Adult failure to thrive Status: Acute (3) Head injury ICD Codes: S09.90XA - Unspecified injury of head, initial encounter Status: Acute (4) Hypokalemia ICD Codes: E87.6 - Hypokalemia Status: Acute (5) Frequent falls ICD Codes: R29.6 - Repeated falls Status: Acute (6) Symptomatic bradycardia ICD Codes: R00.1 - Bradycardia, unspecified Status: Acute Problem Qualifiers (1) Atrial fibrillation: Qualified Codes: I48.2 - Chronic atrial fibrillation (2) Head injury: Qualified Codes: S09.90XA - Unspecified injury of head, initial encounter Orlando Marrufo MD Feb 28, 2017 10:05
[2017-02-28] MEDS ORDERED: POTASSIUM CHLORIDE 10 MEQ CONTROLLED RELEASE TAB PO ONE (10:30)
--- NOTE | 2017-02-28 11:02 | HHI.PR ---
Subjective Remarks Follow up symptomatic bradycardia/Frequent falls 02/28/17-Patient seen and examined; no acute event overnight. He denies any chest pain or shortness of breath. BP up Objective Vitals Vital Signs Date Time Temp Pulse Resp B/P (MAP) Pulse Ox O2 Delivery O2 Flow Rate FiO2 02/28/17 08:37 178/72 (107) 02/28/17 08:15 43 179/77 (111) 99 02/28/17 08:00 96.9 60 18 205/79 (121) 100 02/28/17 04:22 97.6 40 20 153/66 (95) 100 02/27/17 23:57 98.1 42 20 164/70 (101) 100 02/27/17 22:05 97.6 56 20 185/77 (113) 98 02/27/17 21:37 02/27/17 20:57 41 18 183/77 (112) 97 Room Air 02/27/17 20:09 44 18 175/75 (108) 97 Room Air 02/27/17 19:46 60 18 206/86 (126) 97 Room Air 02/27/17 17:44 39 18 194/79 (117) 100 Room Air 02/27/17 16:26 (110) 02/27/17 16:09 43 14 188/72 (110) 99 Room Air 02/27/17 16:01 97.9 54 15 144/61 (88) 100 I/O 02/27/17 02/27/17 02/27/17 02/28/17 02/28/17 02/28/17 06:59 14:59 22:59 06:59 14:59 22:59 Intake Total 100 ml 240 ml Output Total 400 ml Balance 100 ml -160 ml Intake Oral 240 ml IV Total 100 ml Output Urine Total 400 ml # Bowel Movements 1 Result Diagram: 02/28/17 0645 02/28/17 0645 Imaging Last Impressions Head CT 02/27/17 0000 Signed Impressions: Service Date/Time: Monday, February 27, 2017 16:37 - CONCLUSION: 1. No acute intracranial abnormality. Almas Meyers MD Objective Remarks GENERAL: NAD SKIN: Warm and dry. HEAD: Normocephalic. EYES: No scleral icterus. No injection or drainage. right eye laceration NECK: Supple, trachea midline. No JVD or lymphadenopathy. CARDIOVASCULAR: Regular rate and rhythm without murmurs, gallops, or rubs. RESPIRATORY: Breath sounds equal bilaterally. No accessory muscle use. GASTROINTESTINAL: Abdomen soft, non-tender, nondistended. MUSCULOSKELETAL: No cyanosis, or edema. BACK: Nontender without obvious deformity. No CVA tenderness. A/P Problem List: (1) Symptomatic bradycardia ICD Code: R00.1 - Bradycardia, unspecified Status: Acute (2) Frequent falls ICD Code: R29.6 - Repeated falls Status: Acute (3) Hypokalemia ICD Code: E87.6 - Hypokalemia Status: Acute (4) Facial laceration ICD Code: S01.81XA - Laceration without foreign body of other part of head, initial encounter Status: Acute Assessment and Plan 82-year-old man with Symptomatic bradycardia 2-D echo pending ACS with elevated Troponin I therefore will order Nuclear Stress test for today 02/28/17 Appreciate input from Cardiology Continue to Hold digoxin History of atrial fibrillation Currently rate control continue to Hold digoxin. Appreciate input cardiology Continue aspirin Hyperlipidemia Continue statin Recurrent history of frequent fall Head CT noted and review by me without any acute finding Fall precautions Hypokalemia Replace electrolyte and monitor Right eyebrow laceration Status post repair Continue Bactroban Leukocytosis UA negative Labile Benign Hypertension start Hydralazine 25mg BID today 02/28/17 DVT prophylaxis: Bilateral SCDs Problem Qualifiers (1) Facial laceration: Qualified Codes: S01.81XA - Laceration without foreign body of other part of head, initial encounter Serafin Jennings MD Feb 28, 2017 11:02
--- NOTE | 2017-02-28 14:22 | EKG ---
Date Performed: 02/28/2017 Time Performed: 01:05:12 PTAGE: 82 years EKG: SUPRAVENTRICULAR BRADYCARDIA SEPTAL MYOCARDIAL INFARCTION ST DEPRESSION, CONSIDER SUBENDOCA RDIAL INJURY ABNORMAL ECG PREVIOUS TRACING : 02/27/2017 16.54 DOCTOR: Orlando Marrufo Interpretating Date/Time 02/28/2017 14:16:39
[2017-02-28] MEDS ORDERED: REGADENOSON INJ 0.4 MG/5 ML SYR ONE (14:49)
--- NOTE | 2017-02-28 16:07 | RADRPT ---
EXAM DATE/TIME: 02/28/2017 12:11 [place] COMPARISON: No previous studies available for comparison. INDICATIONS : Frequent falls and syncope. Atrial fibrillation. DOSE: 25.4 mCi Tc99m Myoview at stress. 8.7 mCi Tc99m Myoview at rest. 0.4 mg Lexiscan STRESS SYMPTOMS: Dyspnea. EJECTION FRACTION: > 70% MEDICAL HISTORY : Atrial fibrillation, failure to thrive and hypokalemia. SURGICAL HISTORY : Left knee. ENCOUNTER: Initial ACUITY: 1 day PAIN SCALE: 0/10 LOCATION: chest TECHNIQUE: The patient underwent pharmacologic stress with infusion of prescribed dose. Continuous ECG tracing was monitored during stress. Gated SPECT imaging was performed after stress and conventional SPECT i maging was performed at rest. The examination was performed on a SPECT/CT scanner, both attenuation and non-corrected datasets were reviewed. FINDINGS: DISTRIBUTION: The maximum perfused segment at stress is in the anterolateral wall. PERFUSION STUDY: There is moderately diminished relative perfusion involving the posterolateral wall and the inferior wall extending to the cardiac apex. There is mild-moderate redistribution present GATED STUDY: There is intact wall motion and thickening without hypokinetic or dyskinetic segments. CONCLUSION: Posterolateral, inferior and apical perfusion abnormalities with mild-moderate redistribution present . RISK CATEGORY: Intermediate (1-3% Annual Mortality Rate) Eris Yeager MD on February 28, 2017 at 15:58 Board Certified Radiologist. This report was verified electronically.
[2017-03-01] VITALS (15 sets, daily range): BP systolic 119–191; BP diastolic 46–81; PULSE 40–50; RESP 16–20; TEMP 97.4–98; O2SAT 99–100
[2017-03-01] MEDS: LEVOTHYROXINE SODIUM 50 MCG TAB PO SCH (05:34)
[2017-03-01 08:09] LABS: AUTOMATED NEUTROPHIL # 4.8 TH/MM3 (1.8-7.7); BASOPHIL # 0.1 TH/MM3 (0-0.2); BASOPHIL % 1.4 % (0.0-2.0); EOSINOPHIL # 0.6 TH/MM3 (0-0.4); HEMATOCRIT 31.4 % (39.0-51.0); HEMO FLAGS DIFF FINAL; LYMPH % 33.3 % (9.0-44.0); LYMPHOCYTE # 3.2 TH/MM3 (1.0-4.8); MEAN CELL VOLUME 89.6 FL (80.0-100.0); MEAN CORPUSCULAR HEMOGLOBIN 31.8 PG (27.0-34.0); MEAN CORPUSCULAR HGB CONC 35.4 % (32.0-36.0); MONO % 10.1 % (0.0-8.0); NEUT % 49.2 % (16.0-70.0); PLATELET COUNT 183 TH/MM3 (150-450); RED BLOOD COUNT 3.51 MIL/MM3 (4.50-5.90); RED CELL DISTRIBUTION WIDTH 15.2 % (11.6-17.2); WHITE BLOOD COUNT 9.7 TH/MM3 (4.0-11.0)
[2017-03-01 08:38] LABS: BICARBONATE 21.4 MEQ/L (21.0-32.0)
--- NOTE | 2017-03-01 09:07 | PD.CARD.PN ---
Subjective Subjective Remarks no overnight events stress test results noted Objective Medications Current Medications Medications (Trade) Dose Ordered Sig/Mariela Route Start Time Stop Time Status Last Admin (NS Flush) 2 ml UNSCH PRN IV FLUSH 02/27/17 18:15 (NS Flush) 2 ml BID IV FLUSH 02/27/17 21:00 02/28/17 21:36 (Tylenol) 650 mg Q4H PRN PO 02/27/17 18:15 (Zofran Inj) 4 mg Q6H PRN IVP 02/27/17 18:15 (Tylenol) 650 mg Q6H PRN PO 02/27/17 18:15 (Milk Of Magnesia Liq) 30 ml Q12H PRN PO 02/27/17 18:15 (Narcan Inj) 0.4 mg UNSCH PRN IV PUSH 02/27/17 18:15 (Aspirin Chew) 81 mg DAILY CHEW 02/28/17 09:00 02/28/17 08:47 (Lipitor) 10 mg DAILY PO 02/28/17 09:00 02/28/17 08:47 (Synthroid) 50 mcg DAILY@0600 PO 02/28/17 06:00 03/01/17 05:34 (Bactroban 2% Cream) 1 applic Q12HR TOPICAL 02/27/17 23:45 02/28/17 21:37 (Apresoline) 50 mg Q12HR PO 03/01/17 09:00 Vital Signs / I&O Vital Signs Date Time Temp Pulse Resp B/P (MAP) Pulse Ox O2 Delivery O2 Flow Rate FiO2 03/01/17 07:54 97.5 43 16 191/81 (117) 99 03/01/17 04:10 41 03/01/17 04:00 97.4 45 20 173/72 (105) 99 03/01/17 00:00 97.9 47 20 160/70 (100) 99 02/28/17 20:15 42 02/28/17 20:15 49 02/28/17 20:00 97.9 50 20 178/72 (107) 100 02/28/17 17:21 97.6 56 21 170/73 (105) 100 02/28/17 10:50 52 I/O 02/28/17 02/28/17 02/28/17 03/01/17 03/01/1703/01/17 07:00 15:00 23:00 07:00 15:00 23:00 Intake Total 240 ml 480 ml Output Total 400 ml 150 ml Balance -160 ml 330 ml Intake Oral 240 ml 480 ml Output Urine Total 400 ml 150 ml # Voids 3 # Bowel Movements 1 Physical Exam GENERAL: Well-nourished, well-developed patient. SKIN: Warm and dry. HEAD: Normocephalic. EYES: No scleral icterus. No injection or drainage. NECK: Supple, trachea midline. No JVD or lymphadenopathy. CARDIOVASCULAR: Regular rate and rhythm without murmurs, gallops, or rubs. RESPIRATORY: Breath sounds equal bilaterally. No accessory muscle use. GASTROINTESTINAL: Abdomen soft, non-tender, nondistended. EXTREMITIES: No cyanosis, or edema. NEUROLOGICAL: Awake, alert, and oriented x 3. Non-focal. Laboratory Laboratory Tests Test 03/01/17 07:12 White Blood Count 9.7 TH/MM3 Red Blood Count 3.51 MIL/MM3 Hemoglobin 11.1 GM/DL Hematocrit 31.4 % Mean Corpuscular Volume 89.6 FL Mean Corpuscular Hemoglobin 31.8 PG Mean Corpuscular Hemoglobin Concent 35.4 % Red Cell Distribution Width 15.2 % Platelet Count 183 TH/MM3 Mean Platelet Volume 8.5 FL Neutrophils (%) (Auto) 49.2 % Lymphocytes (%) (Auto) 33.3 % Monocytes (%) (Auto) 10.1 % Eosinophils (%) (Auto) 6.0 % Basophils (%) (Auto) 1.4 % Neutrophils # (Auto) 4.8 TH/MM3 Lymphocytes # (Auto) 3.2 TH/MM3 Monocytes # (Auto) 1.0 TH/MM3 Eosinophils # (Auto) 0.6 TH/MM3 Basophils # (Auto) 0.1 TH/MM3 CBC Comment DIFF FINAL Differential Comment Blood Urea Nitrogen 18 MG/DL Creatinine 0.89 MG/DL Random Glucose 91 MG/DL Calcium Level 10.3 MG/DL Sodium Level 143 MEQ/L Potassium Level 3.0 MEQ/L Chloride Level 113 MEQ/L Carbon Dioxide Level 21.4 MEQ/L Anion Gap 9 MEQ/L Estimat Glomerular Filtration Rate 82 ML/MIN Imaging Last Impressions Myocardial Perfusion Scan Nuc Med 02/28/17 0000 Signed Impressions: Service Date/Time: Tuesday, February 28, 2017 12:11 - CONCLUSION: Posterolateral, inferior and apical perfusion abnormalities with mild-moderate redistribution present. RISK CATEGORY: Intermediate (1-3%% Annual Mortality Rate) Eris Yeager MD Head CT 02/27/17 0000 Signed Impressions: Service Date/Time: Monday, February 27, 2017 16:37 - CONCLUSION: 1. No acute intracranial abnormality. Almas Meyers MD Assessment and Plan Problem List: (1) Atrial fibrillation ICD Codes: I48.91 - Unspecified atrial fibrillation Status: Acute Plan: Slow heart rate in the setting of severe hypokalemia vs. sick sinus syndrome. Lexiscan results noted. Will need LHC for CAD risk stratification if negative will need EP consult for PPM evaluation. Recommendations: Hold digoxin Avoid AV Blocking agents Telemetry monitoring Avoid electrolytes abnormalities, Replace K+ Not candidate for OAC given frequent falls BP control 2DECHO Keep NPO aftermidnight for LHC (2) Failure to thrive in adult ICD Codes: R62.7 - Adult failure to thrive Status: Acute (3) Head injury ICD Codes: S09.90XA - Unspecified injury of head, initial encounter Status: Acute (4) Hypokalemia ICD Codes: E87.6 - Hypokalemia Status: Acute (5) Frequent falls ICD Codes: R29.6 - Repeated falls Status: Acute (6) Symptomatic bradycardia ICD Codes: R00.1 - Bradycardia, unspecified Status: Acute Problem Qualifiers (1) Atrial fibrillation: Qualified Codes: I48.2 - Chronic atrial fibrillation (2) Head injury: Qualified Codes: S09.90XA - Unspecified injury of head, initial encounter Orlando Marrufo MD Mar 01, 2017 09:07
[2017-03-01] MEDS: ASPIRIN 81 MG CHEW TAB CHEW SCH (09:13)
[2017-03-01] MEDS: ATORVASTATIN 10 MG TAB PO SCH (09:14)
[2017-03-01] MEDS: MUPIROCIN 2% CREAM 15 GM TOPICAL SCH ×2 (09:14→21:00)
[2017-03-01] MEDS: hydrALAZINE HCL 25 MG TAB PO SCH ×2 (09:14→22:10)
[2017-03-01] MEDS: SODIUM CHLORIDE 0.9% FLUSH 10 ML FLUSH IV FLUSH SCH ×2 (09:14→22:10)
--- NOTE | 2017-03-01 11:21 | HHI.PR ---
Subjective Remarks Follow up symptomatic bradycardia/Frequent falls 02/28/17-Patient seen and examined; no acute event overnight. He denies any chest pain or shortness of breath. BP up 03/01/17-patient seen and examined, continued to have low heart rate. Nuclear stress test negative. Denies any chest pain, complains of lightheadedness. Case discussed with caseworker protective services Objective Vitals Vital Signs Date Time Temp Pulse Resp B/P (MAP) Pulse Ox O2 Delivery O2 Flow Rate FiO2 03/01/17 08:05 40 03/01/17 07:54 97.5 43 16 191/81 (117) 99 03/01/17 04:10 41 03/01/17 04:00 97.4 45 20 173/72 (105) 99 03/01/17 00:00 97.9 47 20 160/70 (100) 99 02/28/17 20:15 42 02/28/17 20:15 49 02/28/17 20:00 97.9 50 20 178/72 (107) 100 02/28/17 17:21 97.6 56 21 170/73 (105) 100 I/O 02/28/17 02/28/17 02/28/17 03/01/17 03/01/17 03/01/17 07:00 15:00 23:00 07:00 15:00 23:00 Intake Total 240 ml 480 ml Output Total 400 ml 150 ml Balance -160 ml 330 ml Intake Oral 240 ml 480 ml Output Urine Total 400 ml 150 ml # Voids 3 # Bowel Movements 1 Result Diagram: 03/01/1771103/01/17711 Objective Remarks GENERAL: NAD SKIN: Warm and dry. HEAD: Normocephalic. EYES: No scleral icterus. No injection or drainage. right eye laceration NECK: Supple, trachea midline. No JVD or lymphadenopathy. CARDIOVASCULAR: Regular rate and rhythm without murmurs, gallops, or rubs. RESPIRATORY: Breath sounds equal bilaterally. No accessory muscle use. GASTROINTESTINAL: Abdomen soft, non-tender, nondistended. MUSCULOSKELETAL: No cyanosis, or edema. BACK: Nontender without obvious deformity. No CVA tenderness. A/P Problem List: (1) Symptomatic bradycardia ICD Code: R00.1 - Bradycardia, unspecified Status: Acute (2) Frequent falls ICD Code: R29.6 - Repeated falls Status: Acute (3) Hypokalemia ICD Code: E87.6 - Hypokalemia Status: Acute (4) Facial laceration ICD Code: S01.81XA - Laceration without foreign body of other part of head, initial encounter Status: Acute Assessment and Plan 82-year-old man with Symptomatic bradycardia 2-D echo pending Nuclear Stress test negative 02/28/17 As patient continued to be symptomatic from bradycardia, he would have left heart catheterization tomorrow 03/02/17 follow-up possible by AICD placement. Therefore will admit inpatient Appreciate input from Cardiology Continue to Hold digoxin History of atrial fibrillation Currently rate control continue to Hold digoxin. Appreciate input cardiology Continue aspirin Hyperlipidemia Continue statin Recurrent history of frequent fall Head CT noted and review by me without any acute finding Fall precautions Hypokalemia Give potassium 60 mEq 1 now Right eyebrow laceration Status post repair Continue Bactroban Leukocytosis UA negative Labile Benign Hypertension Increase Hydralazine to 50mg BID today 03/01/17 DVT prophylaxis: Bilateral SCDs Change admission to inpatient Problem Qualifiers (1) Facial laceration: Qualified Codes: S01.81XA - Laceration without foreign body of other part of head, initial encounter Serafin Jennings MD Mar 01, 2017 11:21
[2017-03-01] MEDS ORDERED: POTASSIUM CHLORIDE 20 MEQ CONTROLLED RELEASE TAB PO ONE (12:00)
--- NOTE | 2017-03-01 22:51 | ECHRPT ---
Indication: Shortness of breath CONCLUSIONS Normal left ventricular size and wall thickness. The left ventricular systolic function is normal wi th an estimated ejection fraction in the range of 60-65%. Left ventricular diastolic function parameters a re normal. Mild aortic valve regurgitation. Mild mitral valve regurgitation. There is mild to moderate tricuspid valve regurgitation. The estimated pulmonary arterial pressure is 42.3 mmHg. BP: / HR: 47 Rhythm: Sinus MEASUREMENTS (Male / Female) Normal Values Technical Quality:Good 2D ECHO LV Diastolic Diameter PLAX 4.5 cm 4.2 - 5.9 / 3.9 - 5.3 cm LV Systolic Diameter PLAX 3.4 cm IVS Diastolic Thickness 1.0 cm 0.6 - 1.0 / 0.6 - 0.9 cm LVPW Diastolic Thickness 1.0 cm 0.6 - 1.0 / 0.6 - 0.9 cm LV Relative Wall Thickness 0.4 LVOT Diameter 2.2 cm M-MODE Aortic Root Diameter MM 3.7 cm LA Systolic Diameter MM 5.3 cm LA Ao Ratio MM 1.4 AV Cusp Separation MM 2.1 cm DOPPLER AV Peak Velocity 177.0 cm/s AV Peak Gradient 12.5 mmHg AI Peak Velocity 370.0 cm/s AI Peak Gradient 54.8 mmHg AI Pressure Half Time 780.0 ms LVOT Peak Velocity 132.0 cm/s LVOT Peak Gradient 7.0 mmHg AV Area Cont Eq pk 2.8 cm MR Peak Velocity 453.0 cm/s MR Peak Gradient 82.1 mmHg TR Peak Velocity 284.0 cm/s TR Peak Gradient 32.3 mmHg Right Atrial Pressure 10.0 mmHg Pulmonary Artery Systolic Pressu 42.3 mmHg Right Ventricular Systolic Press 42.3 mmHg PV Peak Velocity 97.7 cm/s PV Peak Gradient 3.8 mmHg FINDINGS LEFT VENTRICLE Normal left ventricular size and wall thickness. The left ventricular systolic function is normal wi th an estimated ejection fraction in the range of 60-65%. Left ventricular diastolic function parameters a re normal. RIGHT VENTRICLE Normal right ventricular size and systolic function. LEFT ATRIUM The left atrial size is normal. RIGHT ATRIUM The right atrial size is normal. ATRIAL SEPTUM Normal atrial septal thickness without atrial level shunting by limited color doppler interrogation. AORTA The aortic root and proximal ascending aorta are normal in size on limited imaging. MITRAL VALVE Mild mitral valve regurgitation. AORTIC VALVE Mild aortic valve regurgitation. TRICUSPID VALVE There is mild to moderate tricuspid valve regurgitation. The estimated pulmonary arterial pressure is 42.3 mmHg. PULMONARY VALVE No pulmonary valve regurgitation or stenosis. VESSELS The inferior vena cava is normal in size. Orlando Marrufo MD (Electronically Signed) Final Date:01 March 2017 22:50
[2017-03-02] VITALS (35 sets, daily range): BP systolic 122–171; BP diastolic 44–68; PULSE 40–66; RESP 16; TEMP 97.4–98; O2SAT 97–100
[2017-03-02] MEDS: LEVOTHYROXINE SODIUM 50 MCG TAB PO SCH (06:24)
[2017-03-02 07:34] LABS: BICARBONATE 19.2 MEQ/L (21.0-32.0); POTASSIUM 3.1 MEQ/L (3.5-5.1)
[2017-03-02] MEDS: ATORVASTATIN 10 MG TAB PO SCH (09:30)
[2017-03-02] MEDS: ASPIRIN 81 MG CHEW TAB CHEW SCH (09:30)
[2017-03-02] MEDS: hydrALAZINE HCL 25 MG TAB PO SCH ×2 (09:30→23:13)
[2017-03-02] MEDS: SODIUM CHLORIDE 0.9% FLUSH 10 ML FLUSH IV FLUSH SCH ×2 (09:31→21:31)
[2017-03-02] MEDS: MUPIROCIN 2% CREAM 15 GM TOPICAL SCH ×2 (10:16→21:00)
--- NOTE | 2017-03-02 11:00 | HHI.PR ---
Subjective Remarks Follow up symptomatic bradycardia/Frequent falls 02/28/17-Patient seen and examined; no acute event overnight. He denies any chest pain or shortness of breath. BP up 03/01/17-patient seen and examined, continued to have low heart rate. Nuclear stress test negative. Denies any chest pain, complains of lightheadedness. Case discussed with medical case worker 03/02/17-patient seen and examined, BP improving however patient still with heart rate in the low 40s. Currently nothing by mouth pending left heart catheterization. While by the bedside. No acute event overnight Objective Vitals Vital Signs Date Time Temp Pulse Resp B/P (MAP) Pulse Ox O2 Delivery O2 Flow Rate FiO2 03/02/17 08:40 40 03/02/17 07:32 97.7 42 16 147/58 (87) 97 03/02/17 07:00 42 03/02/17 06:00 44 03/02/17 05:00 40 03/02/17 04:00 42 03/02/17 03:00 40 03/02/17 03:00 98.0 42 16 122/54 (76) 97 03/02/17 02:00 42 03/02/17 01:00 42 03/02/17 00:00 42 03/01/17 23:00 42 03/01/17 23:00 97.8 45 16 149/58 (88) 100 03/01/17 22:00 44 03/01/17 21:00 44 03/01/17 20:00 50 03/01/17 19:00 46 03/01/17 19:00 98.0 49 16 119/46 (70) 99 03/01/17 18:10 44 03/01/17 17:04 45 03/01/17 16:02 48 03/01/17 15:46 97.6 49 18 133/62 (85) 99 03/01/17 15:46 49 03/01/17 11:28 97.4 50 16 153/67 (95) 100 I/O 03/01/17 03/01/17 03/01/17 03/02/17 03/02/17 03/02/17 07:00 15:00 23:00 07:00 15:00 23:00 Intake Total 480 ml 240 ml 480 ml Output Total 150 ml 600 ml 350 ml Balance 330 ml -360 ml 130 ml Intake Oral 480 ml 240 ml 480 ml Output Urine Total 150 ml 600 ml 350 ml # Voids 3 Result Diagram: 03/01/17 0712 03/02/17 0620 Objective Remarks GENERAL: NAD SKIN: Warm and dry. HEAD: Normocephalic. EYES: No scleral icterus. No injection or drainage. right eye laceration NECK: Supple, trachea midline. No JVD or lymphadenopathy. CARDIOVASCULAR: Regular rate and rhythm without murmurs, gallops, or rubs. RESPIRATORY: Breath sounds equal bilaterally. No accessory muscle use. GASTROINTESTINAL: Abdomen soft, non-tender, nondistended. MUSCULOSKELETAL: No cyanosis, or edema. BACK: Nontender without obvious deformity. No CVA tenderness. A/P Problem List: (1) Symptomatic bradycardia ICD Code: R00.1 - Bradycardia, unspecified Status: Acute (2) Frequent falls ICD Code: R29.6 - Repeated falls Status: Acute (3) Hypokalemia ICD Code: E87.6 - Hypokalemia Status: Acute (4) Facial laceration ICD Code: S01.81XA - Laceration without foreign body of other part of head, initial encounter Status: Acute Assessment and Plan 82-year-old man with Symptomatic bradycardia 2-D echo EF 60-65% Nuclear Stress test negative 02/28/17 Plan for left heart catheterization to today 03/02/17 follow-up possible by AICD placement if LHC negative. Appreciate input from Cardiology Continue to Hold digoxin History of atrial fibrillation Currently rate control continue to Hold digoxin. Appreciate input cardiology Continue aspirin Hyperlipidemia Continue statin Recurrent history of frequent fall Head CT without any acute finding Fall precautions PT to treat and eval Hypokalemia Give potassium 60 mEq 1 Right eyebrow laceration Status post repair Continue Bactroban Leukocytosis UA negative Labile Benign Hypertension-improving Currently on Hydralazine 50mg BID DVT prophylaxis: Bilateral SCDs Problem Qualifiers (1) Facial laceration: Qualified Codes: S01.81XA - Laceration without foreign body of other part of head, initial encounter Serafin Jennings MD Mar 02, 2017 11:00
[2017-03-02] MEDS ORDERED: HEPARIN-NS/PF INJ 1,000 ML ONE (11:27)
[2017-03-02] MEDS ORDERED: MIDAZOLAM HCL 2 MG/2 ML VIAL ONE (11:29)
--- NOTE | 2017-03-02 12:21 | CATHPROC ---
Scancell HIS Report Study Information Study Number Admission Scheduled Start Study Start [id number] Mar 01 2017 11:14AM 03/02/2017 Mar 02 2017 11:05AM [place] Service Cardiac Catheterization Admit Source Facility Department Emergency department [facility] - Archivist Economic History Physician and Clinical Staff Initial MD Marrufo, Orlando Construction Technician Fiorella Pimentel,RN Recorder Yoly Cotton,ROCKET ENGINE COMPONENT MECHANIC TECH2 Scrub Hosterman, Abdullahi,RT(R) Procedures Performed Procedure Location (Site) Vessel Name Coronary Angiograms LCA Left Coronary Coronary Angiograms RCA Right Coronary LV Gram-hand inj. LV LV Ventricle Equipment Time Electric Cutter Operator Description Size Mfg Part Number Used/Scraped MYNX ANATOMICAL EMBALMER CLOSURE DEVICE [id number] 12:06 ACCESS CLOSURE INC. FR 5 Used TAVR *[id number] TAVR TRANSDUCER, TRUWAVE [id number] 11:57 RUIZ HINDS * Used W/STOCKCOCK *[id number]- INTRODUCER SET, 11:57 COOK INC. FR 5 SC-NT-U-SST Used MICROPUNCTURE, STIFFENED *[id number] [id number] *[id number] 534-521T *[id number] [id number] *[id number] 11:57 [employer]Now INDUSTRIES PACK, CCL CUSTOM * Used *[id number] 11:57 Experifun MEDICAL WIRE, 3MMJ .035 180CM 180CM Used *[id number] 11:57 NAMIC MANIFOLD, 4 PORT * Used *[id number] 11:57 NYCOMED OMNIPAQUE, 350 MG, 150ML 150ML [id number] Used [id number] 11:57 CHAUDHRY MEDICAL BLANKET,WARM AIR CCL * Used *[id number] 11:57 TERUMO MEDICAL SHEATH, FR5 TERUMO (10CM) FR 5 Used *[id number] Equipment Model, Serial, Lot Number and Expiration Data Description Model Number Serial Number Lot Number Expiration Date MYNX ANATOMICAL EMBALMER CLOSURE DEVICE TAVR [id number] 01-22-2019 History: Allergies Allergy Reaction No Known Allergies History: Risk Factors Family History of Hypertension Dyslipidemia Previous [place] Previous Heart Failure Premature CAD Yes Yes No No No Prior Valve Prior PCI Prior CABG Surgery No No No Cerebrovascular Peripheral Artery Chronic Lung On Dialysis Diabetes Disease Disease Disease No Yes Yes No No History: Symptoms/Diagnosis Selection Items Syncope History: Stress Tests Stress or Imaging Studies Performed Yes Standard Exercise Stress Test No Stress Echo No Stress Test SPECT Stress Test SPECT Result Stress Test SPECT Ischemia Risk/Extent Yes Positive Intermediate Stress Test CMR No Cardiac CTA Coronary Calcium Score No No History: Arrhythmias Selection Items Atrial fibrillation History: Other Current Smoker Method Quit Packs a Day Years Used Pack Years No Cigarettes 50 Years Ago 1 25 25 Labs Hgb (g/dl) Hct (%) WBC (l/cumm) Platelets (thousands) 11.60-17.00 35.00-51.00 4.00-11.00 150.00-450.00 11.1 31.4 9.7 183 Glucose (mg/dl) BUN (mg/dl) Creatinine (mg/dl) BUN:Creatinine (1:x) 74.00-106.00 7.00-18.00 0.50-1.30 10.00-20.00 91 18 0.8 22.5 Na (meq/l) K (meq/l) 136.00-145.00 3.50-5.10 143 3 Troponin I (ng/ml) CPK (u/l) CPK-MB (ng/ML) 0.02-0.05 26.00-308.00 0.50-3.60 0.08 59 Not Drawn Medication Medication Total Dose (Bolus/Oral) Medication Total Dosage/Unit 1% XYLOCAINE 20 mL FENTANYL 100 mcg OXYGEN 2 l/min VERSED 0.5 mg Medications (Bolus/Oral) Medication Time Given Dosage/Unit Administered By Reason OXYGEN 03/02/2017 11:37:38 AM 2 l/min Fiorella Pimentel 2 l/min OXYGEN given in lab by Fiorella Pimentel, ROXANNE via Nasal. FENTANYL 03/02/2017 11:42:08 AM 50 mcg Fiorella Pimentel 50 mcg FENTANYL given in lab by Fiorella Pimentel, ROXANNE in Right Antecubital via Peripheral IV. FENTANYL 03/02/2017 11:54:16 AM 50 mcg Fiorella Pimentel 50 mcg FENTANYL given in lab by Fiorella Pimentel, RN in Right Antecubital via Peripheral IV. 1% XYLOCAINE 03/02/2017 11:55:13 AM 20 mL Lin Marruforo 20 mL 1% XYLOCAINE given in lab by Orlando Marrufo in Right Groin via Subcutaneous. VERSED 03/02/2017 11:58:50 AM 0.5 mg Fiorella Pimentel 0.5 mg VERSED given in lab by Fiorella Pimentel RN in Right Antecubital via Peripheral IV. Ordered by Orlando Marrufo. Medication (Drip) Medication Time Given Dosage/Unit Concentration/Unit Diluent (ml) Solution IV Solutions 03/02/2017 11:24:47 AM 0 mL (IV) NaCl .9 IV Solutions given in lab by Fiorella Pimentel RN in Right Antecubital via Peripheral IV. Pump/Drip Fl ow = 20 ml/hr using NaCl .9. Initial Case Assessment Cardiovascular HR Rhythm NIBP Chest Pain 52 sb 156/84 0 Circulatory - Right Pulses Dorsalis Pedis Femoral 3 3 Scale (0,1,2,3,4,d) Circulatory - Left Pulses Dorsalis Pedis Femoral 1 3 Scale (0,1,2,3,4,d) Neurological State Oriented to time-place- Alert Moves all extremities person Respiration - General Respiration Rate (B/min) 20 Chronological Log Time Study Chronological Log 11:18:10 Patient arrived via Bed. 11:18:11 Patient Name, D.O.B, / Armband Verified By R.N. 11:18:12 Consent signed by the physician and the patient and verified by the Archivist Economic History staff. 11:18:13 Pre-op and post- op instructions given; patient acknowledges understanding of instructions. 11:18:15 Presedation assessment performed by Archivist Economic History RN. 11:18:19 Immediate Presedation assesment performed by physician. 11:18:22 Patient has been NPO for More than 6Hrs. 11:18:24 Skin Breakdown- laceration on the right eye, skin tears bilateral legs, brusing on right león nd, abrasion on right shoulder 11:24:34 A # 20 IV was noted in the Antecubital (right). Grade = 0 IV Solutions given in lab by Fiorella Pimentel RN in Right Antecubital via Peripheral IV. Pump/D rip Flow = 20 ml/hr 11:24:47 using NaCl .9. Vitals capture started with the following parameters, Patient=Adult, Interval=5 min, Initial Pr ispqyk=094 mmHg, 11:26:15 Deflation Rate=5 mmHg 11:26:20 Reference ECG taken 11:26:59 History and physical on the chart or being dictated. Assessment: Initial Case, HR=52 BPM, Rhythm=sb, JDHJ=711/84 mmhg, Chest Pain=0 Right Pulses: Parviz Ped=3, Femoral=3 11:27:01 Left Pulses: Parviz Ped=1, Femoral=3 Neurological: State=Alert, Ox3, HWANG Respiration: Resp=20 B/min 11:27:39 HR=54 bpm, LIBQ=819/84 mmhg, SpO2=92 %, Resp=17 B/min 11:28:00 Bilateral groins prepped with 2% chlorhexidine, and draped after a 3 minute waiting time. 11:32:36 HR=50 bpm, UATG=500/62 mmhg, SpO2=98.0 %, Resp=19 B/min 11:37:00 HR=49 bpm, QMAH=219/56 mmhg, SpO2=95.0 %, Resp=18 B/min 11:37:38 2 l/min OXYGEN given in lab by Fiorella Pimentel RN via Nasal. 11:38:13 Pressure channel 1 zeroed. 11:41:10 MD paged 11:42:03 HR=47 bpm, UAHD=680/54 mmhg, PpW3=717.0 %, Resp=17 B/min 11:42:08 50 mcg FENTANYL given in lab by Fiorella Pimentel, ROXANNE in Right Antecubital via Peripheral IV. 11:46:58 HR=44 bpm, PDZC=599/53 mmhg, FgX8=631.0 %, Resp=15 B/min 11:51:59 HR=43 bpm, NXZP=119/52 mmhg, TcL8=925.0 %, Resp=16 B/min 11:52:02 MD arrived. 11:54:16 50 mcg FENTANYL given in lab by Fiorella Pimentel, ROXANNE in Right Antecubital via Peripheral IV. Time Out. Correct patient, correct procedure, correct physician, power injector not loaded, micki gical team present. Time 11:54:20 Out Concurred by MD and individual staff in procedure. 11:55:12 Case Start 11:55:13 20 mL 1% XYLOCAINE given in lab by Orlando Marrufo in Right Groin via Subcutaneous. 11:56:14 Access site was Right Femoral Artery. A INTRODUCER SET, MICROPUNCTURE, STIFFENED FR 5 was advanced into the Fem Art (right) using the 11:56:20 Percutaneous technique. 11:57:02 HR=47 bpm, UFUH=171/55 mmhg, SpO2=98.0 %, Resp=14 B/min A SHEATH, FR5 TERUMO (10CM) FR 5 was exchanged in the Fem Art (right). This was necessary in or morgan to 11:57:27 accomodate a larger catheter. A JR 4.0 INFINITI CATHETER FR 5 was advanced over a wire. OMNIPAQUE, 350 MG, 150ML 150ML was us ed for 11:57:36 injections. 0.5 mg VERSED given in lab by Fiorella Pimentel RN in Right Antecubital via Peripheral IV. Order ed by Yaron, 11:58:50 Orlando. 11:59:31 The RCA was injected and visualized at various angles. OMNIPAQUE, 350 MG, 150ML 150ML used . After removing the current catheter a JL 4.0 INFINITI CATHETER FR 5 was advanced over a WIRE, 3 MMJ .035 180CM 12:00:01 180CM. Recorded Pressure: Ao, HR=50, Condition=Condition 1 12:00:29 (Aorta) Ao 128/30/68 12:00:56 The LCA was injected and visualized at various angles. OMNIPAQUE, 350 MG, 150ML 150ML used . 12:01:59 HR=44 bpm, VOLZ=903/56 mmhg, ZpX8=328.0 %, Resp=14 B/min After removing the current catheter a PIGTAIL ANG. INFINITI CATHETER FR 5 was advanced over a W KRYSTA, 3MMJ .035 12:02:19 180CM 180CM. Recorded Pressure: LV, HR=49, Condition=Condition 1 12:03:48 (Left Ventricle) LV 125/-3/12 12:03:50 The LV was manually injected with 10 cc's and visualized. OMNIPAQUE, 350 MG, 150ML 150ML us ed. Recorded Pressure: LV, Ao, HR=55, Condition=Condition 1 12:04:27 (Left Ventricle) LV 134/-2/7, (Aorta) Ao 137/22/53 12:05:19 Catheter was removed 12:05:28 MYNX ANATOMICAL EMBALMER CLOSURE DEVICE TAVR FR 5 placement in the Fem Art (right) 12:07:02 HR=45 bpm, IFBX=720/51 mmhg, TkP2=307.0 %, Resp=14 B/min 12:09:34 Case End 12:10:29 Sterile dressing applied to site 12:10:46 Cine recording checked. 12:10:48 Bedside Report will be given. 12:10:49 Implantable Device card placed in patient's chart. 12:11:57 HR=46 bpm, IFGF=421/59 mmhg, IrW9=151.0 %, Resp=15 B/min, Pain=0, Warner=2 12:16:56 Vitals capture stopped. 12:17:52 Patient moved to BED 12:18:49 Patient transported to [facility] End Study - Contrast Media Used In Study Contrast Total Opened (mL) Total Used (mL) Total Wasted (mL) Omnipaque 55 55 0 End Study - Maximum Contrast Load Max Contrast Load (mL) 468.8 End Study - Radiation Exposure Fluoro Time (minutes) 2.6 End Study - Sheaths Sheaths Pulled By Sheath Hold Time (min) Orlando Marrufo End Study - Patient Disposition Complications Transferred To Interventional Outcome No Telemetry Bed No attempt made
[2017-03-02] MEDS ORDERED: ONDANSETRON HCL 4 MG/2 ML VIAL IV PUSH PRN (12:30)
[2017-03-02] MEDS ORDERED: MISC INFORMATION XX ONE (12:30)
[2017-03-02] MEDS ORDERED: ATROPINE SULFATE 1 MG/ML VIAL IV PUSH PRN (12:30)
[2017-03-02] MEDS ORDERED: IOHEXOL 350 MG/ML 100 ML BTL (for Cath Lab) OTHER ONE (12:36)
--- NOTE | 2017-03-02 12:56 | MA ---
cc: CHRISTINEAUGUSTINE Frye DATE: 03/02/2017 DATE OF : 1935 PROCEDURE PERFORMED 1. Left heart catheterization. 2. Selective right and left coronary angiography. 3. Left ventriculogram. APPROACH Right transfemoral. INDICATIONS Syncope, positive stress test, slow atrial fibrillation. DESCRIPTION OF PROCEDURE Consent was signed. The patient was brought into the cardiac labor supervisor in a fasting state. The right groin was prepped and draped in a sterile fashion using 1% lidocaine for local anesthesia and a micropuncture kit. A 5 Maldivian sheath was introduced in the right common femoral artery. Then selective right and left coronary angiography was performed with a JR4 and a JL4 diagnostic catheter. Angiography was performed in multiple views. Then an angled pigtail over a wire was introduced into the ventricle followed by pressure recordings and left ventriculogram on pullback. The patient tolerated the procedure well without complications. ESTIMATED BLOOD LOSS Less than 20 cc. TOTAL CONTRAST 55 cc. HEMOSTASIS The right groin access site was closed with a Mynx. RESULTS LEFT VENTRICLE The left ventricular pressure was 134/-2 with an LVEDP of 7. The aortic pressure was 137/22 with a mean of 53. There was no gradient upon pullback from the left ventricle to the aorta. The left ventriculogram revealed a symmetrically usman ventricle with an estimated ejection fraction of 60%. ANGIOGRAPHY 1. The right coronary artery is mildly calcified. It is a dominant vessel giving off the PDA and a significant PLV branch. There is no significant obstructive coronary artery disease. 2. The left main is long and patent, It is giving off the LAD, the ramus intermedius and the left circumflex artery. 3. The LAD is a transapical vessel. It is mildly calcified. There is a prominent first diagonal vessel which is patent with JIMBO-III flow. The LAD is patent with JIMBO-III flow and nonobstructive coronary artery disease. 4. The left circumflex artery is of adequate size and does not have any obstructive coronary artery disease. It is giving one prominent OM vessel. 5. There is a ramus intermedius vessel which bifurcates into the apex and it is patent with JIMBO-III flow and nonobstructive coronary artery disease. CONCLUSIONS 1. Nonobstructive coronary artery disease. 2. Preserved systolic function. 3. Sick sinus syndrome RECOMMENDATIONS 1. EP consult, Dr. Dickson, for pacemaker evaluation. 2. Post cath care 3. Aggressive medical therapy for primary prevention of CAD MD KALYAN Fontana/BT /12:13 PM /12:36 PM SREEDHAR
[2017-03-02] MEDS ORDERED: POTASSIUM CHLORIDE 10 MEQ CONTROLLED RELEASE TAB PO ONE (16:00)
[2017-03-03] VITALS (27 sets, daily range): BP systolic 111–170; BP diastolic 42–58; PULSE 42–62; RESP 12–16; TEMP 97.1–98.4; O2SAT 95–98
[2017-03-03] MEDS: LEVOTHYROXINE SODIUM 50 MCG TAB PO SCH (06:19)
[2017-03-03] MEDS: hydrALAZINE HCL 25 MG TAB PO SCH ×2 (09:31→20:11)
[2017-03-03] MEDS: ATORVASTATIN 10 MG TAB PO SCH (09:33)
[2017-03-03] MEDS: MUPIROCIN 2% CREAM 15 GM TOPICAL SCH ×2 (09:33→20:11)
[2017-03-03] MEDS: ASPIRIN 81 MG CHEW TAB CHEW SCH (09:34)
[2017-03-03] MEDS: SODIUM CHLORIDE 0.9% FLUSH 10 ML FLUSH IV FLUSH SCH ×2 (09:35→20:17)
--- NOTE | 2017-03-03 11:33 | MB ---
cc: LAMAR HUANG M.D.,MARISELA QUEZADA DATE OF CONSULTATION 03/03/2017 REASON FOR CONSULTATION Atrial fibrillation, symptomatic bradycardia, recurrent falls. HISTORY OF PRESENT ILLNESS Mr. Leach is an 82-year-old gentleman with a history of atrial fibrillation, recurrent falls. Apparently he is not a good candidate for anticoagulation, admitted due to severe bradycardia and shortness of breath. During hospitalization the heart rate dropped in the 30s-40s. Left heart catheterization was done by Dr. Rincon that indicated nonocclusive disease, normal ejection fraction. I was consulted for evaluation and possible pacemaker insertion. The chart was reviewed. The patient was evaluated. I did have a long conversation with the patient, his , his daughter and his son-in-law. ALLERGIES None reported. SOCIAL HISTORY The patient has two beers per day. FAMILY HISTORY Non-contributory to his current medical condition. MEDICATIONS At home he was on - 1. Aspirin. 2. Levoxyl. 3. Atorvastatin. 4. He takes digoxin occasionally. During hospitalization the patient is on heparin subcu. He is on Apresoline 50 mg q. 12 hours. REVIEW OF SYSTEMS He refers feeling better. No chest pain. No chest discomfort. No fever. PHYSICAL EXAMINATION GENERAL: Alert, fully oriented. VITAL SIGNS: Blood pressure this morning 170/56, pulse currently in the telemetry around 48, respiratory rate 18. LUNGS: Ventilated. CARDIOVASCULAR: S1, S2. Irregular. No gallop. ABDOMEN: Soft, no mass. EXTREMITIES: No edema. ELECTROCARDIOGRAM Indicates atrial fibrillation, junctional rhythm, ST-T wave changes. LABORATORY DATA Hemoglobin 11.1, white blood cell count 9.7. Potassium 3.1, creatinine 0.90. 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 He has high blood pressure also. He has severe bradycardia. The gentleman was on no significant negative chronotropic medication except for digoxin he was taking intermittently for rate control. He will need a pacemaker insertion. He has symptomatic bradycardia. The risks, the nature and the benefit of the procedure are clearly stated to him. The risks include pneumothorax, cardiac perforation, stroke and even . He understood and agreed to proceed. A Micra intracardiac pacemaker will be inserted. Also, the patient has atrial fibrillation, VERNA-Vasc 2, 3 at the most, recurrent falls. He is not a good candidate and also the patient is not too enthusiastic about taking anticoagulation. For now we will continue an aspirin. I will closely monitor him during the hospitalization. MD JENNIFER Lindquist/SSB /11:07 AM /11:13 AM
--- NOTE | 2017-03-03 13:16 | HHI.PR ---
Subjective Remarks Follow up symptomatic bradycardia/Frequent falls 02/28/17-Patient seen and examined; no acute event overnight. He denies any chest pain or shortness of breath. BP up 03/01/17-patient seen and examined, continued to have low heart rate. Nuclear stress test negative. Denies any chest pain, complains of lightheadedness. Case discussed with case maker 03/02/17-patient seen and examined, BP improving however patient still with heart rate in the low 40s. Currently nothing by mouth pending left heart catheterization. While by the bedside. No acute event overnight 03/03/17-patient seen and examined, appreciate input from fisher sponge hooking. No acute event overnight. Patient still with heart rate in the lows 40s Objective Vitals Vital Signs Date Time Temp Pulse Resp B/P (MAP) Pulse Ox O2 Delivery O2 Flow Rate FiO2 03/03/17 12:22 49 03/03/17 11:18 62 03/03/17 11:08 97.6 62 14 127/42 (70) 98 03/03/17 10:04 52 03/03/17 09:15 45 03/03/17 08:35 52 03/03/17 07:30 97.1 52 16 170/56 (94) 97 03/03/17 07:30 48 03/03/17 06:00 42 03/03/17 05:00 50 03/03/17 04:00 44 03/03/17 03:30 46 14 131/48 (75) 98 03/03/17 03:00 42 03/03/17 02:00 44 03/03/17 01:00 42 03/03/17 00:00 44 03/02/17 23:00 50 16 171/67 (101) 100 03/02/17 23:00 64 03/02/17 22:00 48 03/02/17 21:00 48 03/02/17 20:00 50 03/02/17 19:30 97.7 51 16 126/45 (72) 100 03/02/17 19:00 66 03/02/17 18:30 49 132/57 (82) 03/02/17 18:00 48 03/02/17 17:30 48 127/44 (71) 03/02/17 17:00 48 03/02/17 16:30 42 135/54 (81) 03/02/17 16:00 46 03/02/17 15:30 48 146/53 (84) 03/02/17 15:05 97.4 42 16 153/54 (87) 03/02/17 15:00 63 165/68 (100) 03/02/17 15:00 43 03/02/17 14:30 41 150/52 (84) 03/02/17 14:00 40 142/51 (81) 03/02/17 14:00 40 03/02/17 13:30 40 152/51 (84) 03/02/17 13:15 44 149/51 (83) I/O 03/02/17 03/02/17 03/02/17 03/03/17 03/03/17 03/03/17 06:59 14:59 22:59 06:59 14:59 22:59 Intake Total 480 ml 480 ml 315 ml Output Total 350 ml 225 ml 325 ml Balance 130 ml 255 ml -10 ml Intake Oral 480 ml 480 ml 315 ml Output Urine Total 350 ml 225 ml 325 ml # Bowel Movements 0 Result Diagram: 03/01/17 0712 03/02/17 0620 Objective Remarks GENERAL: NAD SKIN: Warm and dry. HEAD: Normocephalic. EYES: No scleral icterus. No injection or drainage. right eye laceration NECK: Supple, trachea midline. No JVD or lymphadenopathy. CARDIOVASCULAR: Regular rate and rhythm without murmurs, gallops, or rubs. RESPIRATORY: Breath sounds equal bilaterally. No accessory muscle use. GASTROINTESTINAL: Abdomen soft, non-tender, nondistended. MUSCULOSKELETAL: No cyanosis, or edema. BACK: Nontender without obvious deformity. No CVA tenderness. A/P Problem List: (1) Symptomatic bradycardia ICD Code: R00.1 - Bradycardia, unspecified Status: Acute (2) Frequent falls ICD Code: R29.6 - Repeated falls Status: Acute (3) Hypokalemia ICD Code: E87.6 - Hypokalemia Status: Acute (4) Facial laceration ICD Code: S01.81XA - Laceration without foreign body of other part of head, initial encounter Status: Acute Assessment and Plan 82-year-old man with Symptomatic bradycardia 2-D echo EF 60-65% Nuclear Stress test negative 02/28/17 s/p left heart catheterization 03/02/17 Appreciate input from fisher sponge hooking, and plan for pacemaker placement Appreciate input from Cardiology Continue to Hold digoxin History of atrial fibrillation Currently rate control continue to Hold digoxin. Appreciate input cardiology Continue aspirin Hyperlipidemia Continue statin Recurrent history of frequent fall Head CT without any acute finding Fall precautions PT to treat and eval Hypokalemia Status post replacement Right eyebrow laceration Status post repair Continue Bactroban Leukocytosis UA negative Labile Benign Hypertension-improving Currently on Hydralazine 50mg BID DVT prophylaxis: Bilateral SCDs Problem Qualifiers (1) Facial laceration: Qualified Codes: S01.81XA - Laceration without foreign body of other part of head, initial encounter Serafin Jennings MD Mar 03, 2017 13:16
[2017-03-04] VITALS (34 sets, daily range): BP systolic 111–161; BP diastolic 43–90; PULSE 40–62; RESP 12–20; TEMP 97.9–98.5; O2SAT 97–100
[2017-03-04] MEDS: LEVOTHYROXINE SODIUM 50 MCG TAB PO SCH (05:49)
[2017-03-04] MEDS ORDERED: SODIUM CHLOR 0.9% 250 ML INJ 250 ML ONE (07:18)
[2017-03-04] MEDS ORDERED: VANCOMYCIN HCL 1000 MG VIAL ONE (07:18)
[2017-03-04] MEDS ORDERED: HEPARIN SODIUM - IV 10,000 UNITS/10 ML VIAL ONE (07:46)
[2017-03-04] MEDS ORDERED: ATROPINE SULFATE 1 MG/ML VIAL IV PUSH PRN (08:00)
[2017-03-04] MEDS ORDERED: ONDANSETRON HCL 4 MG/2 ML VIAL IV PUSH PRN (08:00)
[2017-03-04] MEDS ORDERED: METOCLOPRAMIDE HCL 10 MG/2 ML VIAL IV PUSH PRN (08:00)
[2017-03-04] MEDS ORDERED: LIDOCAINE HCL 1% 50 ML VIAL INFIL PRN (08:00)
[2017-03-04] MEDS ORDERED: SODIUM CHLOR 0.9% 250 ML INJ 250 ML IV PRN (08:00)
[2017-03-04] MEDS ORDERED: LORazepam 2 MG/ML VIAL IV PUSH PRN (08:00)
--- NOTE | 2017-03-04 08:11 | CATHPROC ---
[facility] HIS Report Study Information Study Number Admission Scheduled Start Study Start [id number] Mar 01 2017 11:14AM 03/04/2017 Mar 04 2017 6:46AM [place] [facility] Cardiac Pacer/ICD Admit Source Facility Department Other [facility] Physician and Clinical Staff Initial Zafar Lawler Machine Puller Over Randall Dalton,RT(R) Other Anesthesia, DEPORTATION EXAMINER Recorder Giselle Lord,RN Scrub Rebeca Vargas,RT(R) TECH2 Procedures Performed Procedure Location (Site) Vessel Name Wire insertion Fem Vein (right) Femoral Vein Equipment Time Superintendent [employer] Description Size Mfg Part Number Used/Scraped WIRE, GUIDE AMPLATZ STIFF [id number] 07:37 COOK/PACER 3MMJ Used 180CM *[id number] 07:09 ZenCard PACK, CCL CUSTOM * Used *[id number] 07:06 ZenCard SUTURE, STRIP PLUS 1/2" * Used *[id number] 07:06 V[employer] PACER RAM, LIMB * 2530 *[id number] Used SUTURE, 0 ETHIBOND [CT1] (CX21D), 8pk SUTURE, 2-0 VICRYL [CT1] ([id number]) [id number] 07:06 [employer],WARM AIR CCL * Used *[id number] 07:07 VITATRON [employer] SHEATH, INTRODUCER (MICRA) Used *[id number] SYSTEM, TRANS-CATHETER [id number] 07:07 VITATRON [employer] Used PACING (MICRA) *[id number] Equipment Model, Serial, Lot Number and Expiration Data Description Model Number Serial Number Lot Number Expiration Date WIRE, GUIDE AMPLATZ STIFF [id number] 01-05-2022 180CM History: Allergies Allergy Reaction No Known Allergies History: Risk Factors Family History of Hypertension Dyslipidemia Previous ID Previous Heart Failure Premature CAD Yes Yes No No No Prior Valve Prior PCI Prior CABG Surgery No No No Cerebrovascular Peripheral Artery Chronic Lung On Dialysis Diabetes Disease Disease Disease No Yes Yes No No History: Symptoms/Diagnosis Selection Items Syncope History: Stress Tests Stress or Imaging Studies Performed Yes Standard Exercise Stress Test No Stress Echo No Stress Test SPECT Stress Test SPECT Result Stress Test SPECT Ischemia Risk/Extent Yes Positive Intermediate Stress Test CMR No Cardiac CTA Coronary Calcium Score No No History: Arrhythmias Selection Items Atrial fibrillation History: Other Current Smoker Method Quit Packs a Day Years Used Pack Years No Cigarettes 50 Years Ago 1 25 Labs Hgb (g/dl) Hct (%) RBC (MIL/MM3) WBC (l/cumm) Platelets (thousands) 11.60-17.00 35.00-51.00 4.00-5.90 4.00-11.00 150.00-450.00 11.1 31.4 3.5 9.7 183 Glucose (mg/dl) BUN (mg/dl) Creatinine (mg/dl) BUN:Creatinine (1:x) 74.00-106.00 7.00-18.00 0.50-1.30 10.00-20.00 90 18 0.9 20 Na (meq/l) K (meq/l) Cl (meq/l) CO2 (mmol/L) Ca (mg/dl) 136.00-145.00 3.50-5.10 98.00-107.00 21.00-32.00 8.50-10.10 142 3.1 113 19.2 9.8 Troponin I (ng/ml) Troponin T (ng/ml) 0.02-0.05 0.40-2.10 0.07 0.08 Medication (Drip) Medication Time Given Dosage/Unit Concentration/Unit Diluent (ml) Solution VANCOMYCIN DRIP 03/04/2017 7:25:00 AM 1 g 1 g VANCOMYCIN DRIP given in lab by Anesthesia, DEPORTATION EXAMINER in Right Antecubital via Peripheral IV. Ordered by Zafar Dickson. Initial Case Assessment Cardiovascular HR Rhythm NIBP Chest Pain 41 SB 160/71 0 Edema Present Skin color Skin None Normal Warm Dry Circulatory - Right Pulses Dorsalis Pedis 1 Scale (0,1,2,3,4,d) Circulatory - Left Pulses Dorsalis Pedis 1 Scale (0,1,2,3,4,d) Neurological State Oriented to time-place- Alert Moves all extremities person Respiration - General Respiration Rate SpO2 (%) O2 (lpm) (B/min) 18 100 2 Chronological Log Time Study Chronological Log 6:45:00 Patient arrived via Bed. 6:45:10 Patient Name, D.O.B, / Armband Verified By R.N. 6:55:00 Anesthesia at bedside. Assumes care of patient. 7:04:14 Pre-op and post- op instructions given; patient acknowledges understanding of instructions. 7:04:25 Patient has been NPO for More than 6Hrs. Skin Breakdown- RIGHT SHOULDER BANDAGE INTACT, RIGHT EYE BROW STITCHES IN TACT, RIGHT GROIN BA NDAGE 7:04:26 REMOVED FROM HEART CATH WITH MYNX CLOSURE, SCATTERED BRUISES NOTED ON BILAT ARMS 7:05:55 Patient Warmer Placed on the Table. 7:05:56 Disposable Defibrillator Pads Placed On Patient. 7:05:57 Ann Prominences Protected 7:06:02 A # 20 IV was noted in the Antecubital (left). Grade = 0 7:06:10 A # 20 IV was noted in the Antecubital (right). Grade = 0 7:06:15 History and physical on the chart or being dictated. Assessment: Initial Case, HR=41 BPM, Rhythm=SB, SJHE=817/71 mmhg, Chest Pain=0, Edema=None, [place] r=Normal, Skin = Warm, Dry Right Pulses: Parviz Ped=1 7:06:16 Left Pulses: Parviz Ped=1 Neurological: State=Alert, Ox3, HWANG Respiration: Resp=18 B/min, NoW8=646 %, O2=2 lpm 7:09:13 Table restraints applied according to hospital policy 7:09:14 Bilateral groins prepped with 2% chlorhexidine, and draped after a 3 minute waiting time. 7:09:43 Bovie ground pad applied to: RIGHT THIGH 7:24:54 Reference ECG taken 1 g VANCOMYCIN DRIP given in lab by Anesthesia, DEPORTATION EXAMINER in Right Antecubital via Peripheral IV. Ord ered by Randolph, 7:25:00 Zafar. Time Out. Correct patient, procedure, procedure equipment, site and side verified with physician present. Time 7:36:10 concurred by MD, individual staff and DEPORTATION EXAMINER. Time Out #2 - Consents verified, patient in correct position, all results are labled and display ed, safety precautions 7:36:15 taken, antibiotics administered. Time out concurred by MD, individual staff and DEPORTATION EXAMINER in procedur e 7:36:55 Case Start 7:38:12 Vascular access was obtained in the Fem Vein (right). 7:38:34 A WIRE, GUIDE AMPLATZ STIFF 180CM 3MMJ was inserted via Fem Vein (right). 7:39:59 STITCH INSERTED IN GROIN FOR CLOSURE WHEN PROCEDURE COMPLETE DIALATIED FROM 8F TO 12F 7:40:54 7:41:07 DIALATED FROM 12F TO 16F 7:41:56 DIALATED FROM 16F TO 18F 7:44:46 A sheath was advanced into the Fem Vein (right) using the Modified Seldinger technique. 7:47:47 A eps was advanced vis Fem Vein (right) and placed in the LV. Placement was visually confirm ed under fluoroscopy. 7:48:11 MICRA DELIVERY SYSTEM INSERTED 7:49:37 MICRA DEPLOYED 7:49:52 PULL TEST COMPLETE PLACEMENT VERIFIED UNDER FLURO 7:51:07 The RV impedance and threshold being tested. 7:51:23 RATE OF 70 0.5 ACUTE THRESHOLD, 2ND IMPEDANCE 0.5 THRESHOLD RATE RESPONSE 60-110 7:54:30 DELIEVERY DEVICE REMOVED 7:54:40 PACEMAKER DEPLOYED WITH GOOD NUMBERS 7:54:58 FIGURE 8 CREATED AND 20 MIN PRESSURE HELD STURTUE REMOVED AT 4PM 7:55:27 Case End 8:00:52 CIC called. Spoke to DANIEL 8:02:28 Catheter(s) removed without difficulty 8:02:29 Sheath removed; pressure applied to access site. X20 MIN 8:04:58 Sterile dressing applied to site 8:04:59 No case complications noted. 8:05:00 Cine recording checked. 8:05:01 Bedside Report will be given. 8:05:02 Implantable Device card placed in patient's chart. 8:05:06 Defibrillator and ground pads removed. Skin intact. 8:18:15 [facility] Study - Contrast Media Used In Study Contrast Total Opened (mL) Total Used (mL) Total Wasted (mL) Omnipaque 40 40 0 End Study - Maximum Contrast Load Max Contrast Load (mL) 408.3 End Study - Radiation Exposure Fluoro Time (minutes) 2.6 End Study - Patient Disposition Complications Transferred To Interventional Outcome No Telemetry Bed successful
--- NOTE | 2017-03-04 08:29 | MP ---
cc: LAMAR HUANG M.D., ERIC MARRESE, ROXY DATE OF SURGERY: 03/04/2017 PROCEDURE Permanent pacemaker single-chamber Micra insertion. INDICATION Mr. Leach is an 80-year-old gentleman with a history of atrial fibrillation symptomatic, recurrent falls, multiple skin lesions, to undergo a Micra single-chamber permanent pacemaker insertion for symptomatic bradycardia and near syncope. Micra was used because of low risk of infection and scan of patient. Also, the patient's risk of dislodgement is very high. The risks, the nature and the benefit of the procedure were clearly stated to him and his family. The risks include pneumothorax, cardiac perforation, stroke, need for open heart surgery and even . The patient understood and agreed to proceed. DETAILS OF PROCEDURE After written informed consent was obtained, the patient was brought to the EP lab where he was prepped and draped in the usual sterile fashion. Conscious sedation was initiated and maintained throughout the procedure by the anesthesiologist. Once sedation was verified, the right inguinal area was anesthetized with 2% Xylocaine. Using modified Seldinger technique, the right femoral vein was cannulated on one occasion and one guidewire was advanced. The guidewire was advanced all the way to the superior vena cava. A Stiff Amplatz was advanced. Then subsequently a less than a centimeter incision was made at the access point. Them the vein was pre-dilated using a 8, 12, 18 and 20 Upper Sorbian dilator. Subsequently a 27 Upper Sorbian dilator and introducer was advanced over the sheath and placed at the mid right atrium. At that point the dilator and the wire were removed. Through the sheath the Micra delivery system was advanced. It was placed at the mid septal. Venography showed trabeculation and the sheath in good position. Subsequently the Micra was released. After adequate pacing and sensing thresholds were obtained there was good opening and closure of the leg of the device. Subsequently the Micra was tested again. There was adequate pacing and sensing thresholds. At that point the Micra was released. The delivery system and the sheath were removed. 2-0 Ethibond suture was placed at the exit point to prevent back bleeding. No incident report. The patient tolerated the procedure. Blood loss minimal. IMPLANTED HARDWARE The implanted permanent pacemaker is a UKDN Waterflow, model [id number], serial number [id number]. SENSING The device is sensing at 6.6 mV. THRESHOLDS The right ventricular pacing threshold in the bipolar mode was 0.5 volts at 0.24 milliseconds. Lead impedance 610 ohms. R-wave at 6.6 MV. SETTINGS The device is set in a VVIR 60, upper rate limit 110 beats per minute. CONCLUSION Successful permanent pacemaker insertion. COMMENT/RECOMMENDATION The patient is going to be transferred to the telemetry unit. Beta-joshua will be initiated. When stable the patient can be discharged home. Lamar Huang MD HS/BRITTANI /7:58 AM /9:16 AM
[2017-03-04] MEDS: MUPIROCIN 2% CREAM 15 GM TOPICAL SCH ×2 (09:00→21:00)
[2017-03-04] MEDS ORDERED: BACITRACIN OINT 0.9 GM PKT TOP ONE (10:00)
[2017-03-04] MEDS: ATORVASTATIN 10 MG TAB PO SCH (10:58)
[2017-03-04] MEDS: SODIUM CHLORIDE 0.9% FLUSH 10 ML FLUSH IV FLUSH SCH ×2 (10:58→21:00)
[2017-03-04] MEDS: hydrALAZINE HCL 25 MG TAB PO SCH ×2 (10:58→21:00)
[2017-03-04] MEDS: ASPIRIN 81 MG CHEW TAB CHEW SCH (10:59)
--- NOTE | 2017-03-04 12:25 | HHI.PR ---
Subjective Remarks Follow up symptomatic bradycardia/Frequent falls 02/28/17-Patient seen and examined; no acute event overnight. He denies any chest pain or shortness of breath. BP up 03/01/17-patient seen and examined, continued to have low heart rate. Nuclear stress test negative. Denies any chest pain, complains of lightheadedness. Case discussed with case hardener 03/02/17-patient seen and examined, BP improving however patient still with heart rate in the low 40s. Currently nothing by mouth pending left heart catheterization. While by the bedside. No acute event overnight 03/03/17-patient seen and examined, appreciate input from nematologist. No acute event overnight. Patient still with heart rate in the lows 40s 03/04/17-patient seen and examined, he is status post pacer/ICD placement Objective Vitals Vital Signs Date Time Temp Pulse Resp B/P (MAP) Pulse Ox O2 Delivery O2 Flow Rate FiO2 03/04/17 11:11 60 14 161/68 (99) 99 03/04/17 11:10 60 03/04/17 10:05 59 14 151/63 (92) 03/04/17 10:04 59 03/04/17 09:30 60 14 153/56 (88) 100 03/04/17 09:19 60 03/04/17 08:49 98.0 60 16 157/90 (112) 100 03/04/17 08:46 60 03/04/17 08:43 98.0 14 143/90 (107) 100 03/04/17 06:00 42 03/04/17 05:00 40 03/04/17 04:00 42 03/04/17 03:00 41 03/04/17 03:00 97.9 47 12 111/43 (65) 97 03/04/17 02:00 42 03/04/17 01:00 46 03/04/17 00:00 46 03/03/17 23:00 98.4 46 12 111/43 (65) 97 03/03/17 23:00 46 03/03/17 22:00 46 03/03/17 21:00 48 03/03/17 20:00 50 03/03/17 19:00 98.2 51 12 153/58 (89) 98 03/03/17 19:00 52 03/03/17 18:00 48 03/03/17 17:00 48 03/03/17 16:00 52 03/03/17 16:00 52 03/03/17 15:13 98.1 53 16 129/58 (81) 95 03/03/17 15:00 54 03/03/17 14:00 52 03/03/17 13:00 52 I/O 03/03/17 03/03/17 03/03/17 03/04/17 03/04/17 03/04/17 07:00 15:00 23:00 07:00 15:00 23:00 Intake Total 315 ml 240 ml 240 ml Output Total 325 ml 150 ml 250 ml Balance -10 ml 90 ml -10 ml Intake Oral 315 ml 240 ml 240 ml Output Urine Total 325 ml 150 ml 250 ml # Voids 3 # Bowel Movements 0 Result Diagram: 03/01/17 0712 03/02/17 0620 Objective Remarks GENERAL: NAD SKIN: Warm and dry. HEAD: Normocephalic. EYES: No scleral icterus. No injection or drainage. right eye laceration NECK: Supple, trachea midline. No JVD or lymphadenopathy. CARDIOVASCULAR: Regular rate and rhythm without murmurs, gallops, or rubs. Dressing over incision site RESPIRATORY: Breath sounds equal bilaterally. No accessory muscle use. GASTROINTESTINAL: Abdomen soft, non-tender, nondistended. MUSCULOSKELETAL: No cyanosis, or edema. BACK: Nontender without obvious deformity. No CVA tenderness. Procedures Status post Permanent pacemaker single-chamber Micra insertion 03/04/17 A/P Problem List: (1) Symptomatic bradycardia ICD Code: R00.1 - Bradycardia, unspecified Status: Acute (2) Frequent falls ICD Code: R29.6 - Repeated falls Status: Acute (3) Hypokalemia ICD Code: E87.6 - Hypokalemia Status: Acute (4) Facial laceration ICD Code: S01.81XA - Laceration without foreign body of other part of head, initial encounter Status: Acute Assessment and Plan 82-year-old man with Symptomatic bradycardia 2-D echo EF 60-65% Nuclear Stress test negative 02/28/17 s/p left heart catheterization 03/02/17 Status post Permanent pacemaker single-chamber Micra insertion 03/04/17 and appreciate input from nematologist Continue to Hold digoxin History of atrial fibrillation Currently rate control continue to Hold digoxin. Appreciate input cardiology Continue aspirin Hyperlipidemia Continue statin Recurrent history of frequent fall Head CT without any acute finding Fall precautions PT to treat and eval Hypokalemia Status post replacement Right eyebrow laceration Status post repair Continue Bactroban Leukocytosis UA negative Labile Benign Hypertension-improving Currently on Hydralazine 50mg BID DVT prophylaxis: Bilateral SCDs Discharge Planning Likely discharge 03/05/17 Problem Qualifiers (1) Facial laceration: Qualified Codes: S01.81XA - Laceration without foreign body of other part of head, initial encounter Serafin Jennings MD Mar 04, 2017 12:25
[2017-03-04] MEDS ORDERED: POTASSIUM CHLORIDE 25 MEQ EFFERVESCENT TAB PO ONE (13:15)
[2017-03-04] MEDS ORDERED: DO NOT ADM ANY ANTICOAGULANT DRUGS PRN (13:30)
[2017-03-05] VITALS (12 sets, daily range): BP systolic 122–151; BP diastolic 44–62; PULSE 54–63; RESP 16; TEMP 96.7–98.5; O2SAT 100
[2017-03-05] MEDS: LEVOTHYROXINE SODIUM 50 MCG TAB PO SCH (05:56)
[2017-03-05 06:53] LABS: BASOPHIL # 0.1 TH/MM3 (0-0.2); BASOPHIL % 1.4 % (0.0-2.0); EOSINOPHIL # 0.5 TH/MM3 (0-0.4); HEMATOCRIT 32.1 % (39.0-51.0); HEMO FLAGS DIFF FINAL; LYMPH % 29.8 % (9.0-44.0); LYMPHOCYTE # 2.3 TH/MM3 (1.0-4.8); MEAN CELL VOLUME 92.1 FL (80.0-100.0); MEAN CORPUSCULAR HEMOGLOBIN 30.9 PG (27.0-34.0); MEAN CORPUSCULAR HGB CONC 33.5 % (32.0-36.0); NEUT % 50.8 % (16.0-70.0); PLATELET COUNT 174 TH/MM3 (150-450); RED BLOOD COUNT 3.48 MIL/MM3 (4.50-5.90); RED CELL DISTRIBUTION WIDTH 15.4 % (11.6-17.2); WHITE BLOOD COUNT 7.8 TH/MM3 (4.0-11.0)
[2017-03-05 07:43] LABS: BICARBONATE 20.7 MEQ/L (21.0-32.0); POTASSIUM 3.9 MEQ/L (3.5-5.1)
[2017-03-05] MEDS: ATORVASTATIN 10 MG TAB PO SCH (09:46)
[2017-03-05] MEDS: hydrALAZINE HCL 25 MG TAB PO SCH (09:47)
[2017-03-05] MEDS: SODIUM CHLORIDE 0.9% FLUSH 10 ML FLUSH IV FLUSH SCH (09:47)
[2017-03-05] MEDS: ASPIRIN 81 MG CHEW TAB CHEW SCH (09:47)
[2017-03-05] MEDS: MUPIROCIN 2% CREAM 15 GM TOPICAL SCH (09:47)
--- NOTE | 2017-03-05 10:01 | HHI.FF ---
Face to Face Verification Diagnosis: (1) Symptomatic bradycardia (2) Frequent falls (3) Hypokalemia Physical Therapy Order: Evaluate and Treat Home Health Nursing Order: Signs/symptoms of disease process I have seen patient Neel Leach on 03/05/17. My clinical findings support the need for the requested home health care services because: Deconditioned w/ increased weakness I certify that my clinical findings support that this patient is homebound because: Poor cardiac reserve Serafin Jennings MD Mar 05, 2017 10:01
[2017-03-05] MEDS ORDERED: HYDR-3799 PO (10:03)
--- NOTE | 2017-03-05 10:05 | HHI.PR ---
Subjective Remarks Follow up symptomatic bradycardia/Frequent falls 02/28/17-Patient seen and examined; no acute event overnight. He denies any chest pain or shortness of breath. BP up 03/01/17-patient seen and examined, continued to have low heart rate. Nuclear stress test negative. Denies any chest pain, complains of lightheadedness. Case discussed with returned case inspector 03/02/17-patient seen and examined, BP improving however patient still with heart rate in the low 40s. Currently nothing by mouth pending left heart catheterization. While by the bedside. No acute event overnight 03/03/17-patient seen and examined, appreciate input from boiling house hand. No acute event overnight. Patient still with heart rate in the lows 40s 03/04/17-patient seen and examined, he is status post pacer/ICD placement 03/05/17-patient seen and examined, stable and heart rate above 60. Patient denies any shortness of breath. Objective Vitals Vital Signs Date Time Temp Pulse Resp B/P (MAP) Pulse Ox O2 Delivery O2 Flow Rate FiO2 03/05/17 09:00 60 03/05/17 08:00 60 03/05/17 07:00 59 03/05/17 07:00 96.7 63 16 151/62 (91) 03/05/17 06:00 60 03/05/17 05:00 60 03/05/17 04:00 60 03/05/17 03:40 98.2 60 16 122/58 (79) 100 03/05/17 03:00 59 03/05/17 02:00 60 03/05/17 01:00 60 03/05/17 00:00 60 03/05/17 00:00 98.5 60 16 136/44 (74) 100 03/04/17 23:00 59 03/04/17 22:00 60 03/04/17 21:00 60 03/04/17 20:21 98.5 60 16 141/60 (87) 100 03/04/17 20:00 60 03/04/17 19:00 60 03/04/17 18:00 60 03/04/17 17:00 62 03/04/17 16:00 60 03/04/17 15:14 60 20 131/54 (79) 100 03/04/17 15:00 60 03/04/17 14:00 60 03/04/17 13:00 60 03/04/17 12:50 60 03/04/17 12:00 60 03/04/17 11:11 60 14 161/68 (99) 99 03/04/17 11:10 60 03/04/17 11:00 60 03/04/17 10:05 59 14 151/63 (92) I/O 03/04/17 03/04/17 03/04/17 03/05/17 03/05/17 03/05/17 06:59 14:59 22:59 06:59 14:59 22:59 Intake Total 240 ml 680 ml 240 ml Output Total 250 ml 550 ml 650 ml Balance -10 ml 130 ml -410 ml Intake Oral 240 ml 680 ml 240 ml Output Urine Total 250 ml 550 ml 650 ml # Voids 3 Result Diagram: 03/05/17 0602 03/05/17 0602 Imaging Last Impressions Myocardial Perfusion Scan Nuc Med 02/28/17 0000 Signed Impressions: Service Date/Time: Tuesday, February 28, 2017 12:11 - CONCLUSION: Posterolateral, inferior and apical perfusion abnormalities with mild-moderate redistribution present. RISK CATEGORY: Intermediate (1-3%% Annual Mortality Rate) Eris Yeager MD Head CT 02/27/17 0000 Signed Impressions: Service Date/Time: Monday, February 27, 2017 16:37 - CONCLUSION: 1. No acute intracranial abnormality. Almas Meyers MD Objective Remarks GENERAL: NAD SKIN: Warm and dry. HEAD: Normocephalic. EYES: No scleral icterus. No injection or drainage. right eye laceration NECK: Supple, trachea midline. No JVD or lymphadenopathy. CARDIOVASCULAR: Regular rate and rhythm without murmurs, gallops, or rubs. Dressing over incision site RESPIRATORY: Breath sounds equal bilaterally. No accessory muscle use. GASTROINTESTINAL: Abdomen soft, non-tender, nondistended. MUSCULOSKELETAL: No cyanosis, or edema. BACK: Nontender without obvious deformity. No CVA tenderness. Procedures Status post Permanent pacemaker single-chamber Micra insertion 03/04/17 A/P Problem List: (1) Symptomatic bradycardia ICD Code: R00.1 - Bradycardia, unspecified Status: Acute (2) Frequent falls ICD Code: R29.6 - Repeated falls Status: Acute (3) Hypokalemia ICD Code: E87.6 - Hypokalemia Status: Acute (4) Facial laceration ICD Code: S01.81XA - Laceration without foreign body of other part of head, initial encounter Status: Acute Assessment and Plan 82-year-old man with Symptomatic bradycardia-resolved 2-D echo EF 60-65% Nuclear Stress test negative 02/28/17 s/p left heart catheterization 03/02/17 Status post Permanent pacemaker single-chamber Micra insertion 03/04/17 and appreciate input from boiling house hand Continue to Hold digoxin History of atrial fibrillation Currently rate control continue to Hold digoxin. Appreciate input cardiology Continue aspirin Hyperlipidemia Continue statin Recurrent history of frequent fall Head CT without any acute finding Fall precautions PT to treat and eval Hypokalemia Status post replacement Right eyebrow laceration Status post repair Continue Bactroban Leukocytosis UA negative Labile Benign Hypertension-improving Currently on Hydralazine 50mg BID DVT prophylaxis: Bilateral SCDs Discharge Planning Likely discharge 03/05/17 Problem Qualifiers (1) Facial laceration: Qualified Codes: S01.81XA - Laceration without foreign body of other part of head, initial encounter Serafin Jennings MD Mar 05, 2017 10:05
--- NOTE | 2017-03-05 10:07 | HHI.DS ---
Discharge Summary Admission Date Mar 01, 2017 at 11:14 Discharge Date: Mar 05, 2017 Admitting Diagnosis symptomatically bradycardia, fall, head injury, facial laceration (1) Symptomatic bradycardia ICD Code: R00.1 - Bradycardia, unspecified Status: Acute (2) Frequent falls ICD Code: R29.6 - Repeated falls Status: Acute (3) Hypokalemia ICD Code: E87.6 - Hypokalemia Status: Acute (4) Facial laceration ICD Code: S01.81XA - Laceration without foreign body of other part of head, initial encounter Status: Acute Procedures Status post Permanent pacemaker single-chamber Micra insertion 03/04/17 Brief History - From Admission 82-year-old male with a history of melanoma was brought to the ED for evaluation of recurrent and frequent fall. Per 's account, however the past 2 weeks patient has been having frequent falls. He did fall today leading to his right eye. Laceration. However in the ED patient was observed to have heart rate is low 40s. Patient is a poor historian and wasn't able to tell whether he had any symptoms of lightheadedness today prior to his fall. He denies any chest pain or shortness of breath. CBC/BMP: 03/05/17 0602 03/05/17 0602 Significant Findings Laboratory Tests Test 03/05/17 06:02 Red Blood Count 3.48 MIL/MM3 (4.50-5.90) Hemoglobin 10.7 GM/DL (13.0-17.0) Hematocrit 32.1 % (39.0-51.0) Monocytes (%) (Auto) 11.0 % (0.0-8.0) Eosinophils (%) (Auto) 7.0 % (0.0-4.0) Eosinophils # (Auto) 0.5 TH/MM3 (0-0.4) Blood Urea Nitrogen 20 MG/DL (7-18) Chloride Level 114 MEQ/L (98-107) Carbon Dioxide Level 20.7 MEQ/L (21.0-32.0) Estimat Glomerular Filtration Rate 70 ML/MIN (>89) Imaging Last Impressions Myocardial Perfusion Scan Nuc Med 10/7/17 0000 Signed Impressions: Service Date/Time: Tuesday, February 28, 2017 12:11 - CONCLUSION: Posterolateral, inferior and apical perfusion abnormalities with mild-moderate redistribution present. RISK CATEGORY: Intermediate (1-3%% Annual Mortality Rate) Eris Yeager MD Head CT 02/27/17 0000 Signed Impressions: Service Date/Time: Monday, February 27, 2017 16:37 - CONCLUSION: 1. No acute intracranial abnormality. Almas Meyers MD PE at Discharge GENERAL: NAD SKIN: Warm and dry. HEAD: Normocephalic. EYES: No scleral icterus. No injection or drainage. right eye laceration NECK: Supple, trachea midline. No JVD or lymphadenopathy. CARDIOVASCULAR: Regular rate and rhythm without murmurs, gallops, or rubs. Dressing over incision site RESPIRATORY: Breath sounds equal bilaterally. No accessory muscle use. GASTROINTESTINAL: Abdomen soft, non-tender, nondistended. MUSCULOSKELETAL: No cyanosis, or edema. BACK: Nontender without obvious deformity. No CVA tenderness. Hospital Course Patient was admitted secondary to symptomatic bradycardia for which cardiology was consulted and he had a negative stress test. ACS was ruled out per protocol with serial cardiac enzyme and EKGs. Electrophysiology was consulted and patient underwent a placement of ICD. Blood pressure medication was adjusted accordingly and patient was started on hydralazine 50 mg twice a day. DVT and GI prophylaxis were provided. Physical therapy was consulted. Prior to discharge, patient's condition improved and vital remained stable. Pt Condition on Discharge: Stable Discharge Disposition: Disch w/ Home Health Serv Discharge Time: > 30 minutes Discharge Instructions DIET: Follow Instructions for: Heart Healthy Diet Activities you can perform: Regular-No Restrictions Follow up Referrals: PCP Follow-up - 1 Week New Medications: Hydralazine HCl (Hydralazine HCl) 25 Mg Tablet 50 MG PO Q12HR for Blood Pressure Management, #60 MG 11 Refills Continued Medications: Aspirin (Aspirin) 81 Mg Chew 81 MG CHEW DAILY, TAB 0 Refills Atorvastatin (Atorvastatin) 10 Mg Tab 10 MG PO DAILY for Cholesterol Management, #30 TAB 0 Refills Fluorouracil (Topical) (Carac) 0.5 % Cre Levothyroxine (Levothyroxine) 50 Mcg Tab 50 MCG PO DAILY for Thyroid, #30 TAB 0 Refills Multiple Vitamins W/ Minerals (Multi For Him 50+) 0.4 Mg-2 Mg-250 Mcg Tab Nivolumab (Opdivo) 40 Mg/4 Ml Inj Thiamine (Vitamin B-1) 100 Mg Tab 100 MG PO DAILY for Nutritional Supplement, TAB 0 Refills Serafin Jennings MD Mar 05, 2017 10:06
--- NOTE | 2017-03-05 13:38 | EKG ---
Date Performed: 03/05/2017 Time Performed: 06:21:08 PTAGE: 82 years EKG: Ventricular pacing Pacemaker rhythm - no further analysis The underlying rhythm may be atri al fibrillation but it is hard to be certain in the setting of the pacing. Interrogation of the devic e to confirm atrial fibrillation is recommended. This tracing is not directly comparable to the prior tracing as the rhythm is now paced. Abnormal ECG PREVIOUS TRACING : 02/28/2017 01.05 DOCTOR: Taylor Sweet Interpretating Date/Time 03/05/2017 13:37:23
== END 2017-03-05 11:20 | disposition home health service (06) | DRG 244 ==
LOC: NEPE 15:54 → NEDA 18:13 → NEPHCDU 21:47 → OBSVTOIN 03-01 11:14 → HCIN 03-01 15:09
PROVIDERS: ADMIT Hospitalist; ATTEND Hospitalist
PROC: 0HQ1XZZ Repair Face Skin, External Approach (ICD-10-PCS; 2017-02-27)
PROC: 4A023N7 Measurement of Cardiac Sampling and Pressure, Left Heart, Percutaneous Approach (ICD-10-PCS; 2017-03-02)
PROC: B2111ZZ Fluoroscopy of Multiple Coronary Arteries using Low Osmolar Contrast (ICD-10-PCS; 2017-03-02)
PROC: B2151ZZ Fluoroscopy of Left Heart using Low Osmolar Contrast (ICD-10-PCS; 2017-03-02)
PROC: 02HK3JZ Insertion of Pacemaker Lead into Right Ventricle, Percutaneous Approach (ICD-10-PCS; 2017-03-04)
PROC: 0JH604Z Insertion of Pacemaker, Single Chamber into Chest Subcutaneous Tissue and Fascia, Open Approach (ICD-10-PCS; principal; 2017-03-04 07:30)
DX: I49.5 Sick sinus syndrome (principal); I48.2 Chronic atrial fibrillation; M06.9 Rheumatoid arthritis, unspecified; I10 Essential (primary) hypertension; S01.81XA Laceration without foreign body of other part of head, initial encounter; E03.9 Hypothyroidism, unspecified; E87.6 Hypokalemia; K44.9 Diaphragmatic hernia without obstruction or gangrene; H91.93 Unspecified hearing loss, bilateral; I25.10 Atherosclerotic heart disease of native coronary artery without angina pectoris; Z86.73 Personal history of transient ischemic attack (TIA), and cerebral infarction without residual deficits; Z85.820 Personal history of malignant melanoma of skin; E78.00 Pure hypercholesterolemia, unspecified; Z79.82 Long term (current) use of aspirin; Z96.652 Presence of left artificial knee joint; R29.6 Repeated falls; W19.XXXA Unspecified fall, initial encounter; Y92.9 Unspecified place or not applicable; R62.7 Adult failure to thrive; E78.5 Hyperlipidemia, unspecified
CPT/HCPCS: 0387T; 12011; 70450; 78452; 80048; 80053; 80162; 81001; 82550; 84484; 85025; 93005; 93017; 93306; 93458; 96365; 96366; 96375; 96376; A9502; C1760; C1769; C1893; G0269; G0378; J0360; J1644; J2250; J2785; J3010; J3370; J3480; J7050; Q9967

== ENCOUNTER 2017-09-30 12:37 | Inpatient (IN) | payer MEDICARE ==
[~2017-09-30] VITALS: Ht 170.2 cm; Wt 70.0 kg
[~2017-09-30 12:37] MED LIST changes: +ASPI-516 CHEW; -ASPI1TAB69 PO; +CARA0.5C; +DIGO0.25 PO; +HYDR-3799 PO; -LANO0.2510 PO; +MULTTAB23; +NIVO1INJ; +VITA100T54 PO
[2017-09-30 12:46] VITALS: BP 128/60; PULSE 60; RESP 21; TEMP 97.7; O2SAT 97
--- NOTE | 2017-09-30 12:47 | PD ---
HPI Chief Complaint: Fall Time Seen by Provider: 12:45 Travel History International Travel<30 days: No Contact w/Intl Traveler<30days: No Traveled to known affect area: No History of Present Illness HPI Patient was brought in by EMS, from private residence, where the patient had a trip and fall from a low-lying bed. Per patient's is out of town and he is just taking care of himself. Patient accidentally struck the top of his head , however it is unclear if there was any LOC, patient denies however there WERE no witnesses. However per EMS apparently after getting bandaged and placed on the gurney, the patient started to have one episode of vomiting. Patient denies any headache, LOC, fever, rash, chest pain, back pain, diarrhea or rash. No known drug allergy Past medical history significant for hypothyroidism, bilateral cataracts, bilateral hearing aids, TIA, hypercholesterolemia, hyperlipidemia, atrial fibrillation, hiatal hernia, GERD, PFSH Past Medical History Hx Anticoagulant Therapy: Yes (aspirin 325 daily) Arthritis: Yes (RA) Asthma: No Atrial Fibrillation: Yes Blood Disorders: No Anxiety: No Depression: No Heart Rhythm Problems: Yes Cancer: Yes (SKIN melanoma, LUNG ) Cardiac Catheterization: No Cardiovascular Problems: Yes High Cholesterol: Yes Chemotherapy: No Chest Pain: No Congestive Heart Failure: No COPD: No Cerebrovascular Accident: Yes (TIA) Coronary Artery Disease: Yes Diabetes: No Diminished Hearing: Yes (BILAT HEARING AIDS) Endocrine: Yes Gastrointestinal Disorders: Yes (REFLUX) GERD: No Glaucoma: No Genitourinary: No Headaches: No Hepatitis: No Hiatal Hernia: Yes Heparin Induced Thrombocytopen: No Hypertension: Yes Immune Disorder: No Kidney Stones: No Musculoskeletal: Yes (ARTHRITIS) Neurologic: No Psychiatric: No Reproductive: No Respiratory: No Myocardial Infarction: No Radiation Therapy: No Renal Failure: No Seizures: No Sleep Apnea: No Thyroid Disease: Yes (hypothyroid disease) Triglycerides - High: Yes Ulcer: No Past Surgical History Abdominal Surgery: No AICD: No Cardiac Surgery: No Coronary Artery Bypass Graft: No Ear Surgery: No Endocrine Surgery: No Eye Surgery: Yes (Bilateral cataracts) Genitourinary Surgery: No Gynecologic Surgery: No Insulin Pump: No Joint Replacement: Yes (LEFT KNEE) Neurologic Surgery: No Oral Surgery: No Pacemaker: No Thoracic Surgery: No Other Surgery: Yes (RIGHT MIDDLE TOE AMPUTATED) Social History Alcohol Use: Yes (2 BEERS DAILY) Tobacco Use: No Substance Use: No Allergies-Medications (Allergen,Severity, Reaction): Coded Allergies: No Known Allergies (Verified , 02/27/17) Reported Meds & Prescriptions Reported Meds & Active Scripts Active Hydralazine HCl 25 Mg Tablet 50 Mg PO Q12HR Reported Preservision Areds (Multiple Vitamins W/ Minerals) 1 Tab 1 Tab PO DAILY Opdivo (Nivolumab) 40 Mg/4 Ml Inj Vitamin B-1 (Thiamine HCl) 100 Mg Tab 100 Mg PO DAILY Multi For Him 50+ (Multiple Vitamins W/ Minerals) 0.4 Mg-2 Mg-250 Mcg Tab Aspirin 81 Mg Chew 81 Mg CHEW DAILY Levothyroxine (Levothyroxine Sodium) 50 Mcg Tab 50 Mcg PO DAILY Atorvastatin (Atorvastatin Calcium) 10 Mg Tab 10 Mg PO DAILY Review of Systems Except as stated in HPI: all other systems reviewed are Neg General / Constitutional: No: Fever Eyes: No: Visual changes HENT: No: Headaches Cardiovascular: No: Chest Pain or Discomfort Respiratory: No: Shortness of Breath Gastrointestinal: Positive: Vomiting Genitourinary: No: Dysuria Musculoskeletal: No: Pain Skin: Positive Other (Abrasion to the top of scalp) Neurologic: No: Weakness Psychiatric: No: Depression Endocrine: No: Polydipsia Hematologic/Lymphatic: No: Easy Bruising Physical Exam Narrative GENERAL: SKIN: Warm and dry. Y SHAPED SCALP LACERATION 3 CM IN DIAMETER HEAD: Atraumatic. Normocephalic. EYES: Pupils equal and round. No scleral icterus. No injection or drainage. ENT: No nasal bleeding or discharge. Mucous membranes pink and moist. NECK: Trachea midline. No JVD. CARDIOVASCULAR: Regular rate and rhythm. RESPIRATORY: No accessory muscle use. Clear to auscultation. Breath sounds equal bilaterally. GASTROINTESTINAL: Abdomen soft, non-tender, nondistended. Hepatic and splenic margins not palpable. MUSCULOSKELETAL: Extremities without clubbing, cyanosis, or edema. No obvious deformities. NEUROLOGICAL: Awake and alert. No obvious cranial nerve deficits. Motor grossly within normal limits. Five out of 5 muscle strength in the arms and legs. Normal speech. PSYCHIATRIC: Appropriate mood and affect; insight and judgment normal. Data Data Last Documented VS Vital Signs Date Time Temp Pulse Resp B/P (MAP) Pulse Ox O2 Delivery O2 Flow Rate FiO2 09/30/17 12:46 97.7 60 21 128/60 (82) 97 Room Air Orders Orders Complete Blood Count With Diff (09/30/17 12:54) Comprehensive Metabolic Panel (09/30/17 12:54) Troponin I (09/30/17 12:54) B-Type Natriuretic Peptide (09/30/17 12:54) Prothrombin Time / Inr (Pt) (09/30/17 12:54) Act Partial Throm Time (Ptt) (09/30/17 12:54) Lipase (09/30/17 12:54) Urinalysis - C+S If Indicated (09/30/17 12:54) Thyroid Stimulating Hormone (09/30/17 12:54) Ct Brain W/O Iv Contrast(Rout) (09/30/17 12:54) Iv Access Insert/Monitor (09/30/17 12:54) Ecg Monitoring (09/30/17 12:54) Oximetry (09/30/17 12:54) Ct Cerv Spine W/O Contrast (09/30/17 12:54) Chest, Single Ap (09/30/17 12:54) Pelvis, Ap Only (Routine) (09/30/17 12:54) Electrocardiogram (09/30/17 ) Ondansetron Inj (Zofran Inj) (09/30/17 13:26) Ondansetron Odt (Zofran Odt) (09/30/17 13:30) Ondansetron Inj (Zofran Inj) (09/30/17 14:15) Admit Order (Ed Use Only) (09/30/17 16:10) Labs Laboratory Tests Test 09/30/17 13:00 White Blood Count 14.4 TH/MM3 Red Blood Count 3.84 MIL/MM3 Hemoglobin 12.4 GM/DL Hematocrit 37.5 % Mean Corpuscular Volume 97.6 FL Mean Corpuscular Hemoglobin 32.2 PG Mean Corpuscular Hemoglobin Concent 33.0 % Red Cell Distribution Width 15.3 % Platelet Count 211 TH/MM3 Mean Platelet Volume 8.5 FL Neutrophils (%) (Auto) 75.7 % Lymphocytes (%) (Auto) 14.0 % Monocytes (%) (Auto) 9.5 % Eosinophils (%) (Auto) 0.1 % Basophils (%) (Auto) 0.7 % Neutrophils # (Auto) 10.9 TH/MM3 Lymphocytes # (Auto) 2.0 TH/MM3 Monocytes # (Auto) 1.4 TH/MM3 Eosinophils # (Auto) 0.0 TH/MM3 Basophils # (Auto) 0.1 TH/MM3 CBC Comment DIFF FINAL Differential Comment Prothrombin Time 11.6 SEC Prothromb Time International Ratio 1.1 RATIO Activated Partial Thromboplast Time 22.4 SEC Blood Urea Nitrogen 34 MG/DL Creatinine 2.07 MG/DL Random Glucose 95 MG/DL Total Protein 6.8 GM/DL Albumin 3.3 GM/DL Calcium Level 9.9 MG/DL Alkaline Phosphatase 81 U/L Aspartate Amino Transf (AST/SGOT) 32 U/L Alanine Aminotransferase (ALT/SGPT) 18 U/L Total Bilirubin 0.2 MG/DL Sodium Level 151 MEQ/L Potassium Level 3.3 MEQ/L Chloride Level 128 MEQ/L Carbon Dioxide Level 10.7 MEQ/L Anion Gap 12 MEQ/L Estimat Glomerular Filtration Rate 31 ML/MIN Troponin I 0.06 NG/ML B-Type Natriuretic Peptide 149 PG/ML Lipase 146 U/L Thyroid Stimulating Hormone 3rd Gen 1.680 uIU/ML [facility] Medical Decision Making Medical Screen Exam Complete: Yes Emergency Medical Condition: Yes Medical Record Reviewed: Yes Interpretation(s) EKG shows pacemaker rhythm, in the 70s Differential Diagnosis Syncope versus skull fracture versus intracranial hemorrhage versus electrolyte abnormality versus STEMI Narrative Course CBC shows 14,000 white count, H&H 12/38, 76% neutrophil which is not a great left shift Correlation profiles within normal limits Electrolyte abnormalities consistent with GI losses, shows hemoconcentration with hypernatremia 151, chloride of 128 bicarb of 10, anion gap of only 12, BUN of 34, creatinine of 2.07. This is consistent with renal failure, and acute non -anion gap acidosis which may be related to renal tubular acidosis Liver functions are within normal limits lipase function is within normal limits , beta natruretic peptide of 149 which is normal Elevated troponin of 0.06 Chest x-ray read as negative by radiologist Pelvis shows as no fracture read by radiologist Head CT shows no mass, no intracranial hemorrhage, only an extra-axial hemorrhage noted. Cervical C-spine shows some degenerative changes and loss of disc height on bone articulation C5 through C6 inferiorly. There is also high-grade 1 anterolisthesis of C4 on C5. There is also narrowing leftward at C6-C7 with possible compromise of the left C7 nerve root, no fracture, no dislocation, no subluxation. These are all chronic findings Critical Care Narrative CRITICAL CARE NOTE: With evaluation of the patient, labs, EKG, receipt of radiologic studies, administration of medications, reevaluation the patient and discussion of the patient with the admitting physicians, the total critical care time was [45] minutes. Time to perform other separately billable procedures was not included in the critical care time. Procedures Procedure Narrative LACERATION LOCATION: [Top of skull-] LENGTH: [3 cm diameter-] NUMBER OF STITCHES/KODAK: [1 single interrupted, 2 horizontal mattress-] REPAIR: The area of the laceration was prepped with Betadine and sterilely draped. The laceration was infiltrated with [2 mL 1% lidocaine with epi]. The wound was copiously irrigated and explored without evidence of foreign body, tendon injury or neurovascular injury. The wound was closed using [3-0 Ethilon, ]. This was a [-single] layer repair. A sterile dressing was applied. The patient was advised to keep the dressing clean and dry. Patient tolerated the procedure well. Diagnosis Primary Impression: ACUTE RENAL FALURE Additional Impressions: DEHYDRATION ELEV TROPONIN SCALP LAC S/P REPAIR Admitting Information Admitting Physician Requests: Ashish Gray MD September 30, 2017 12:47
[2017-09-30] MEDS ORDERED: OCUVTAB4 PO (13:17)
[2017-09-30] MEDS ORDERED: ONDANSETRON HCL 4 MG/2 ML VIAL ONE ×2 (13:26→18:54)
[2017-09-30 13:28] LABS: AUTOMATED NEUTROPHIL # 10.9 TH/MM3 (1.8-7.7); BASOPHIL # 0.1 TH/MM3 (0-0.2); BASOPHIL % 0.7 % (0.0-2.0); EOSINOPHIL % 0.1 % (0.0-4.0); HEMATOCRIT 37.5 % (39.0-51.0); HEMOGLOBIN 12.4 GM/DL (13.0-17.0); MEAN CELL VOLUME 97.6 FL (80.0-100.0); MEAN CORPUSCULAR HEMOGLOBIN 32.2 PG (27.0-34.0); MEAN PLATELET VOLUME 8.5 FL (7.0-11.0); MONO % 9.5 % (0.0-8.0); MONOCYTE # 1.4 TH/MM3 (0-0.9); NEUT % 75.7 % (16.0-70.0); PLATELET COUNT 211 TH/MM3 (150-450); RED BLOOD COUNT 3.84 MIL/MM3 (4.50-5.90); RED CELL DISTRIBUTION WIDTH 15.3 % (11.6-17.2); WHITE BLOOD COUNT 14.4 TH/MM3 (4.0-11.0)
[2017-09-30] MEDS ORDERED: ONDANSETRON ODT 4 MG TAB PO ONE (13:30)
[2017-09-30 13:34] LABS: INTERNATIONAL NORMALIZED RATIO 1.1 RATIO; PROTHROMBIN TIME - PATIENT 11.6 SEC (9.8-11.6)
[2017-09-30 13:45] LABS: ALBUMIN 3.3 GM/DL (3.4-5.0); AST (GOT) 32 U/L (15-37); BICARBONATE 10.7 MEQ/L (21.0-32.0); BLOOD UREA NITROGEN 34 MG/DL (7-18); CALCIUM 9.9 MG/DL (8.5-10.1); CHLORIDE 128 MEQ/L (98-107); CREATININE 2.07 MG/DL (0.60-1.30); GLOMERULAR FILTRATION RATE 31 ML/MIN (>89); GLUCOSE,RANDOM 95 MG/DL (74-106); SODIUM (NA) 151 MEQ/L (136-145)
[2017-09-30 13:47] LABS: ALT (GPT) 18 U/L (12-78)
[2017-09-30 13:56] LABS: ALKALINE PHOSPHATASE 81 U/L (45-117); TOTAL BILIRUBIN ADULT 0.2 MG/DL (0.2-1.0); TOTAL PROTEIN 6.8 GM/DL (6.4-8.2); TROPONIN I 0.06 NG/ML (0.02-0.05)
--- NOTE | 2017-09-30 14:11 | RADRPT ---
EXAM DATE/TIME: 09/30/2017 13:35 [facility] COMPARISON: CHEST EXPIRATION ONLY, July 30, 2016, 12:00. INDICATIONS : Shortness of breath after fall. MEDICAL HISTORY : Cardiovascular disease. Cerebrovascular disease. Hypertension. SURGICAL HISTORY : None. ENCOUNTER: Initial ACUITY: 1 day PAIN SCORE: 0/10 LOCATION: Bilateral chest FINDINGS: Lungs are focally clear. No pleural effusion is evident. Cardiomediastinal contours are satisfactory for technique and projection. CONCLUSION: No acute disease Eris Yeager MD on September 30, 2017 at 14:08 Board Certified Radiologist. This report was verified electronically.
--- NOTE | 2017-09-30 14:13 | RADRPT ---
EXAM DATE/TIME: 09/30/2017 13:38 [facility] COMPARISON: No previous studies available for comparison. INDICATIONS : Pelvic pain after fall. MEDICAL HISTORY : Cardiovascular disease. Cerebrovascular disease. Hypertension. SURGICAL HISTORY : None. ENCOUNTER: Initial ACUITY: 1 day PAIN SCORE: 5/10 LOCATION: pelvis FINDINGS: Hips are symmetric with mild degenerative changes. There is no evidence of fracture or dislocation. N o displaced pelvic fracture is noted. CONCLUSION: No acute bony injury Eris Yeager MD on September 30, 2017 at 14:09 Board Certified Radiologist. This report was verified electronically.
[2017-09-30] MEDS ORDERED: ONDANSETRON HCL 4 MG/2 ML VIAL IV PUSH ONE (14:15)
--- NOTE | 2017-09-30 14:16 | RADRPT ---
EXAM DATE/TIME: 09/30/2017 13:27 [facility] COMPARISON: No previous studies available for comparison. INDICATIONS : Trauma; fall with vomiting afterwards. RADIATION DOSE: 56.35 CTDIvol (mGy) MEDICAL HISTORY : Cardiovascular disease. SURGICAL HISTORY : Pacemaker. ENCOUNTER: Initial ACUITY: 1 day PAIN SCALE: 4/10 LOCATION: occipital TECHNIQUE: Multiple contiguous axial images were obtained of the head. Using automated exposure control and adj ustment of the mA and/or kV according to patient size, radiation dose was kept as low as reasonably a chievable to obtain optimal diagnostic quality images. DICOM format image data is available electro nically for review and comparison. FINDINGS: There is a small focus of subdural hemorrhage in the high convexity right frontal region near the serge belle with thickness of only about 6 mm the underlying brain parenchyma is atraumatic in appearance. Th e brain is elsewhere symmetric and benign. There is mucosal thickening or fluid in the right maxillar y sinus. Extracranial structures are otherwise unremarkable. CONCLUSION: Small focus of extra-axial hemorrhage in the high convexity right frontal region. Eris Yeager MD on September 30, 2017 at 14:11 Board Certified Radiologist. This report was verified electronically.
--- NOTE | 2017-09-30 14:35 | RADRPT ---
EXAM DATE/TIME: 09/30/2017 13:27 [place] COMPARISON: CT CERVICAL SPINE W/O CONTRAST, May 11, 2016, 18:28. INDICATIONS : Trauma; fall. RADIATION DOSE: 15.83 CTDIvol (mGy) MEDICAL HISTORY : Cardiovascular disease. SURGICAL HISTORY : Pacemaker. ENCOUNTER: Initial ACUITY: 1 day PAIN SCALE: 4/10 LOCATION: neck TECHNIQUE: Volumetric scanning of the cervical spine was performed. Multiplanar reconstructions in the sagittal, coronal and oblique axial planes were performed. Using automated exposure control and adjustment o f the mA and/or kV according to patient size, radiation dose was kept as low as reasonably achievable to obtain optimal diagnostic quality images. DICOM format image data is available electronically f or review and comparison. FINDINGS: Sagittal and coronal reconstructions show multilevel degenerative disc disease with severe loss of di sc height from C5-C6 inferiorly. Associated marginal spurs encroach on the anterior epidural space. H igh grade I. anterolisthesis of C4 on 5. No fracture. C2-C3: The bony spinal canal is normal in size. No evidence of disc bulge or herniation. The neural forami na are bilaterally patent. C3-C4: Right-sided facet hypertrophy with minimal encroachment on the right neural foramina. Spinal canal an d neural foramina are adequate C4-C5: The bony spinal canal is normal in size. No evidence of disc bulge or herniation. The neural forami na are bilaterally patent. C5-C6: Marked uncovertebral ridging with encroachment on the anterior epidural space. Some encroachment on b oth neural foramina bilaterally the spinal canal and neural foramina remain adequate. C6-C7: Marked uncovertebral ridging with some encroachment on both neural foramina, left greater than right. This may narrow the left foramina and compromise the left C7 nerve root. Spinal canal and right neur al foramina are adequate C7-T1: Uncovertebral ridging but the spinal canal and neural foramina are adequate CONCLUSION: 1. Multilevel degenerative disc disease with severe loss of disc height and near bone on bone articul ation C5-C6 inferiorly. High grade one anterolisthesis of C4 on 5. 2. Uncovertebral ridging and facet hypertrophy encroach on the spinal canal and neural foramina at mu ltiple levels. However, I believe the only significant narrowing is leftward C6-7 with possible compr omise of the left C7 nerve root. 3. No fracture. Naveen Ramos MD on September 30, 2017 at 14:21 Board Certified Radiologist. This report was verified electronically.
[2017-09-30] MEDS ORDERED: NALOXONE HCL 0.4 MG/ML AMP IV PUSH PRN (17:15)
[2017-09-30] MEDS ORDERED: BISACODYL 10 MG SUPP RECTAL PRN (17:15)
[2017-09-30] MEDS ORDERED: SODIUM CHLORIDE 0.9% FLUSH 10 ML FLUSH IV FLUSH PRN (17:15)
[2017-09-30] MEDS ORDERED: ACETAMINOPHEN 325 MG TAB PO PRN (17:15)
[2017-09-30] MEDS ORDERED: SODIUM CHLOR 0.9% 1000 ML INJ 1,000 ML IV SCH (17:15)
[2017-09-30] MEDS ORDERED: SENNOSIDES 8.6 MG TAB PO PRN (17:15)
[2017-09-30] MEDS ORDERED: LACTULOSE SYRUP 20 GM/30 ML CUP PO PRN (17:15)
[2017-09-30] MEDS ORDERED: MAGNESIUM HYDROXIDE SUSP 30 ML CUP PO PRN (17:15)
[2017-09-30] MEDS ORDERED: CALCIUM CARBONATE 500 MG CHEWABLE TAB CHEW PRN (17:30)
--- NOTE | 2017-09-30 17:32 | HHI.HP ---
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 Barboza. The patient is a poor historian, most of the History obtained from his daughter and is also limited. He normally lives with his who is currently out of town. 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 Patient reports he got out of bed and tripped. He landed on a carpet floor but sustained a scalp laceration. He denies any LOC. No lightheadedness, no chest pain or shortness of breath. Patient's daughter reports that he has been declining over the past couple of months with worsening appetite and weight loss. Recent CT showed mild progression of the lung lesions and he is due for outpatient PET scan. For the past few weeks the patient also has been having issues with dyspepsia and vomiting episodes. He goes through bottles of tums within days. He denies epigastric pain. He did have an episode of non bloody emesis during my evaluation. He has been worked up outpatient for dysphagia by his PCP and had a normal barium swallow. PCP notes reviewed. Review of Systems Constitutional: COMPLAINS OF: Fatigue, Weight loss, Change in appetite, DENIES : Fever, Chills Respiratory: COMPLAINS OF: Shortness of breath, DENIES: Cough Cardiovascular: DENIES: Chest pain, Palpitations, Syncope, Lower Extremity Edema Neurologic: COMPLAINS OF: Poor Balance, DENIES: Localized weakness Except as stated in HPI: all other systems reviewed are Neg Past Family Social History Past Medical History Hypertension Hypothyroidism Chronic A-fib TIA Hyperlipidemia GERD Lung cancer with mets to liver per family report Past Surgical History Left knee surgery Cataract surgery Pacemaker placement Reported Medications Reported Meds & Active Scripts Active Hydralazine HCl 25 Mg Tablet 50 Mg PO Q12HR Reported Preservision Areds (Multiple Vitamins W/ Minerals) 1 Tab 1 Tab PO DAILY Opdivo (Nivolumab) 40 Mg/4 Ml Inj Vitamin B-1 (Thiamine HCl) 100 Mg Tab 100 Mg PO DAILY Multi For Him 50+ (Multiple Vitamins W/ Minerals) 0.4 Mg-2 Mg-250 Mcg Tab Aspirin 81 Mg Chew 81 Mg CHEW DAILY Levothyroxine (Levothyroxine Sodium) 50 Mcg Tab 50 Mcg PO DAILY Atorvastatin (Atorvastatin Calcium) 10 Mg Tab 10 Mg PO DAILY Allergies: Coded Allergies: No Known Allergies (Verified , 02/27/17) Family History Reviewed and is non contributory Social History Alcohol Use: Yes (2 BEERS DAILY) Tobacco Use: No Substance Use: No Physical Exam Vital Signs Vital Signs Date Time Temp Pulse Resp B/P (MAP) Pulse Ox O2 Delivery O2 Flow Rate FiO2 09/30/17 12:46 97.7 60 21 128/60 (82) 97 Room Air Physical Exam GENERAL: Elderly and frail male SKIN: Bilateral LE with venous stasis changes. HEAD: S/P repair of scalp laceration. Dressing looks intact EYES: Pupils equal round and reactive. Extraocular motions intact. No scleral icterus. No injection or drainage. ENT: Nose without bleeding, purulent drainage or septal hematoma. Throat without erythema, tonsillar hypertrophy or exudate. Uvula midline. Airway patent. NECK: Trachea midline. No JVD or lymphadenopathy. Supple, nontender, no meningeal signs. CARDIOVASCULAR: Regular rate and rhythm without murmurs, gallops, or rubs. RESPIRATORY: Clear to auscultation. Breath sounds equal bilaterally. No wheezes , rales, or rhonchi. GASTROINTESTINAL: Abdomen soft, non-tender, nondistended. No hepato-splenomegaly , or palpable masses. No guarding. MUSCULOSKELETAL: Extremities without clubbing, cyanosis, or edema. No joint tenderness, effusion, or edema noted. No calf tenderness. Negative Homans sign bilaterally. NEUROLOGICAL: Awake and alert. Moves all extremity. Generalized weakness. Some mild short term memory impairment. Chronic per family. Laboratory Laboratory Tests Test 09/30/17 13:00 White Blood Count 14.4 Red Blood Count 3.84 Hemoglobin 12.4 Hematocrit 37.5 Mean Corpuscular Volume 97.6 Mean Corpuscular Hemoglobin 32.2 Mean Corpuscular Hemoglobin Concent 33.0 Red Cell Distribution Width 15.3 Platelet Count 211 Mean Platelet Volume 8.5 Neutrophils (%) (Auto) 75.7 Lymphocytes (%) (Auto) 14.0 Monocytes (%) (Auto) 9.5 Eosinophils (%) (Auto) 0.1 Basophils (%) (Auto) 0.7 Neutrophils # (Auto) 10.9 Lymphocytes # (Auto) 2.0 Monocytes # (Auto) 1.4 Eosinophils # (Auto) 0.0 Basophils # (Auto) 0.1 CBC Comment DIFF FINAL Differential Comment Prothrombin Time 11.6 Prothromb Time International Ratio 1.1 Activated Partial Thromboplast Time 22.4 Blood Urea Nitrogen 34 Creatinine 2.07 Random Glucose 95 Total Protein 6.8 Albumin 3.3 Calcium Level 9.9 Alkaline Phosphatase 81 Aspartate Amino Transf (AST/SGOT) 32 Alanine Aminotransferase (ALT/SGPT) 18 Total Bilirubin 0.2 Sodium Level 151 Potassium Level 3.3 Chloride Level 128 Carbon Dioxide Level 10.7 Anion Gap 12 Estimat Glomerular Filtration Rate 31 Troponin I 0.06 B-Type Natriuretic Peptide 149 Lipase 146 Thyroid Stimulating Hormone 3rd Gen 1.680 Result Diagram: 09/30/17 1300 09/30/17 1300 Caprini VTE Risk Assessment Caprini VTE Risk Assessment: Mod/High Risk (score >= 2) Caprini Risk Assessment Model Point Value = 1 Point Value = 2 Point Value = 3 Point Value = 5 Age 41-60 Minor surgery BMI > 25 kg/m2 Swollen legs Varicose veins or History of unexplained or recurrent spontaneous Oral contraceptives or hormone replacement Sepsis (< 1 month) Serious lung disease, including pneumonia (< 1 month) Abnormal pulmonary function Acute myocardial infarction Congestive heart failure (< 1 month) History of inflammatory bowel disease Medical patient at bed rest Age 61-74 Arthroscopic surgery Major open surgery (> 45 min) Laparoscopic surgery (> 45 min) Malignancy Confined to bed (> 72 hours) Immobilizing plaster cast Central venous access Age >= 75 History of VTE Family history of VTE Factor V Leiden Prothrombin [id number] Lupus anticoagulant Anticardiolipin antibodies Elevated serum homocysteine Heparin-induced thrombocytopenia Other congenital or acquired thrombophilia Stroke (< 1 month) Elective arthroplasty Hip, pelvis, or leg fracture Acute spinal cord injury (< 1 month) Prophylaxis Regimen Total Risk Factor Score Risk Level Prophylaxis Regimen 0-1 Low Early ambulation 2 Moderate Order ONE of the following: *Sequential Compression Device (SCD) *Heparin 5000 units SQ BID 3-4 Higher Order ONE of the following medications: *Heparin 5000 units SQ TID *Enoxaparin/Lovenox 40 mg SQ daily (WT < 150 kg, CrCl > 30 mL/min) *Enoxaparin/Lovenox 30 mg SQ daily (WT < 150 kg, CrCl > 10-29 mL/min) *Enoxaparin/Lovenox 30 mg SQ BID (WT < 150 kg, CrCl > 30 mL/min) AND/OR *Sequential Compression Device (SCD) 5 or more Highest Order ONE of the following medications: *Heparin 5000 units SQ TID (Preferred with Epidurals) *Enoxaparin/Lovenox 40 mg SQ daily (WT < 150 kg, CrCl > 30 mL/min) *Enoxaparin/Lovenox 30 mg SQ daily (WT < 150 kg, CrCl > 10-29 mL/min) *Enoxaparin/Lovenox 30 mg SQ BID (WT < 150 kg, CrCl > 30 mL/min) AND *Sequential Compression Device (SCD) Assessment and Plan Problem List: (1) Fall ICD Code: W19.XXXA - Unspecified fall, initial encounter Plan: Seems to be mechanical. Based on review of records, it appears that he has frequent falls. Family reports that he has been declining over the past few months. Could be related to worsening cancer burden and poor oral intake PT to evaluate. May need SNF or C with PT. (2) Scalp laceration ICD Code: S01.01XA - Laceration without foreign body of scalp, initial encounter Plan: Secondary to fall. Head CT images personally reviewed. Extra axial, small fluid collection. Laceration sutured by ED physician. (3) Chronic a-fib ICD Code: I48.2 - Chronic atrial fibrillation Plan: Records reviewed. Patient is on Aspirin. Per Olap Developer note, not anticoagulated due to frequent falls. S/P Pacemaker placement for history of V-bradycardia. (4) Acute renal failure ICD Code: N17.9 - Acute kidney failure, unspecified Status: Acute Plan: Probably pre-renal azotemia from dehydration Check CK Gentle hydration with IVF and follow up BMP in AM. (5) Debility ICD Code: R53.81 - Other malaise Plan: May be secondary to worsening cancer burden. PT to evaluate. (6) Hypertension ICD Code: I10 - Essential (primary) hypertension Status: Acute Plan: Currently normotensive, given recurrent falls and weight loss, Hold Hydralazine for now and monitor. (7) Hypernatremia ICD Code: E87.0 - Hyperosmolality and hypernatremia Plan: Relative free water deficit. Hypotonic saline. F/U BMP in AM. (8) Lung cancer ICD Code: C34.90 - Malignant neoplasm of unspecified part of unspecified bronchus or lung Plan: Mild progression per recent CT. Due for PET scan outpatient. Will need follow up with Oncologist Dr. Barboza. (9) Dyspepsia ICD Code: R10.13 - Epigastric pain Plan: Has been using tums around the clock. Episodes of vomiting GI consulted Start PPI. Tums PRN (10) Dysphagia ICD Code: R13.10 - Dysphagia, unspecified Plan: GI consulted for ongoing dysphagia and vomiting. Had normal barium swallow outpatient. Has been using tums around the clock. (11) Vomiting ICD Code: R11.10 - Vomiting, unspecified (12) Hypokalemia ICD Code: E87.6 - Hypokalemia Plan: Replace and monitor (13) Hypothyroidism ICD Code: E03.9 - Hypothyroidism, unspecified Status: Chronic Plan: Continue Synthroid, TSH OK (14) Elevated troponin ICD Code: R74.8 - Abnormal levels of other serum enzymes Plan: Likely due to renal failure. No CV complaints. Trend cardiac enzymes. Physician Certification 2 Midnight Certification Type: Admission for Inpatient Services Order for Inpatient Services The services are ordered in accordance with Medicare regulations or non- Medicare payer requirements, as applicable. In the case of services not specified as inpatient-only, they are appropriately provided as inpatient services in accordance with the 2-midnight benchmark. Estimated LOS (days): 3 days is the estimated time the patient will need to remain in the hospital, assuming treatment plan goals are met and no additional complications. Post-Hospital Plan: Not yet determined Problem Qualifiers (1) Vomiting: Samia Valverde MD September 30, 2017 17:32
[2017-09-30] MEDS: D5-1/2 NS + KCL 20 MEQ INJ 1,000 ML IV SCH (19:04)
[2017-09-30 19:05] VITALS: BP 138/65; PULSE 67; RESP 15; O2SAT 100
[2017-09-30] MEDS: ONDANSETRON HCL 4 MG/2 ML VIAL IVP PRN (19:05)
[2017-09-30] MEDS: HEPARIN SODIUM - SQ 10,000 UNITS/ML VIAL SQ SCH (21:00)
[2017-09-30] MEDS: SODIUM CHLORIDE 0.9% FLUSH 10 ML FLUSH IV FLUSH SCH (23:01)
[2017-09-30 23:57] LABS: TROPONIN I 0.13 NG/ML (0.02-0.05)
[2017-10-01] VITALS: BP 124/59; PULSE 72; RESP 18; TEMP 97.4; O2SAT 100
[2017-10-01] MEDS: PANTOPRAZOLE SOD 40 MG DELAYED RELEASE TAB PO SCH ×2 (00:09→08:04)
[2017-10-01] MEDS: ONDANSETRON HCL 4 MG/2 ML VIAL IVP PRN ×3 (00:12→14:42)
[2017-10-01 00:59] LABS: BACTERIA, URINE RARE /hpf; BILIRUBIN, URINE NEG (NEG); BLOOD, URINE MOD (NEG); GLUCOSE,URINE NEG (NEG); HYALINE CAST, URINE 37 /lpf (RARE); KETONE, URINE NEG (NEG); MUCUS URINE FEW /lpf (OCC); NITRITE,URINE NEG (NEG); PH, URINE 6.5 (5.0-8.5); SQUAMOUS EPITHELIAL CELL URINE <1 /hpf (0-5); URINE COLOR YELLOW (YELLW/STRAW); URINE LEUKOCYTE ESTERASE NEG (NEG)
[2017-10-01] MEDS: D5-1/2 NS + KCL 20 MEQ INJ 1,000 ML IV SCH ×2 (03:30→08:12)
[2017-10-01 04:00] VITALS: BP 114/56; PULSE 70; RESP 16; TEMP 97.3; O2SAT 100
[2017-10-01] MEDS: LEVOTHYROXINE SODIUM 50 MCG TAB PO SCH (04:54)
[2017-10-01 08:00] VITALS: BP 116/52; PULSE 67; RESP 16; TEMP 97.1; O2SAT 100
[2017-10-01] MEDS: SODIUM CHLORIDE 0.9% FLUSH 10 ML FLUSH IV FLUSH SCH ×2 (08:03→21:05)
[2017-10-01] MEDS: ATORVASTATIN 10 MG TAB PO SCH (08:04)
[2017-10-01] MEDS: ASPIRIN 81 MG CHEW TAB CHEW SCH (08:04)
[2017-10-01] MEDS: HEPARIN SODIUM - SQ 10,000 UNITS/ML VIAL SQ SCH ×2 (08:06→21:03)
[2017-10-01 08:07] LABS: AUTOMATED NEUTROPHIL # 9.3 TH/MM3 (1.8-7.7); BASOPHIL # 0.1 TH/MM3 (0-0.2); BASOPHIL % 0.6 % (0.0-2.0); HEMATOCRIT 32.9 % (39.0-51.0); HEMOGLOBIN 10.9 GM/DL (13.0-17.0); LYMPH % 20.5 % (9.0-44.0); LYMPHOCYTE # 2.8 TH/MM3 (1.0-4.8); MEAN CORPUSCULAR HEMOGLOBIN 32.2 PG (27.0-34.0); MEAN CORPUSCULAR HGB CONC 33.2 % (32.0-36.0); MEAN PLATELET VOLUME 8.5 FL (7.0-11.0); MONO % 11.7 % (0.0-8.0); MONOCYTE # 1.6 TH/MM3 (0-0.9); NEUT % 67.2 % (16.0-70.0); PLATELET COUNT 189 TH/MM3 (150-450); WHITE BLOOD COUNT 13.8 TH/MM3 (4.0-11.0)
[2017-10-01 08:40] LABS: ALBUMIN 2.8 GM/DL (3.4-5.0); ALKALINE PHOSPHATASE 68 U/L (45-117); ALT (GPT) 32 U/L (12-78); AST (GOT) 107 U/L (15-37); BICARBONATE 10.5 MEQ/L (21.0-32.0); BLOOD UREA NITROGEN 60 MG/DL (7-18); CALCIUM 8.9 MG/DL (8.5-10.1); CHLORIDE 131 MEQ/L (98-107); CREATININE 2.39 MG/DL (0.60-1.30); GLOMERULAR FILTRATION RATE 26 ML/MIN (>89); GLUCOSE,RANDOM 107 MG/DL (74-106); SODIUM (NA) 154 MEQ/L (136-145); TOTAL BILIRUBIN ADULT 0.3 MG/DL (0.2-1.0); TROPONIN I 0.14 NG/ML (0.02-0.05)
[2017-10-01 12:00] VITALS: BP 128/63; PULSE 85; RESP 16; TEMP 97.2; O2SAT 100
[2017-10-01] MEDS ORDERED: DIATRIZOATE MEGLUM/DIATRIZOATE SOD 9 ML CUP PO ONE (13:15)
--- NOTE | 2017-10-01 13:31 | PD.CONS ---
HPI History of Present Illness This is a 82 year old with PMH significant of HTN, lung cancer with metastasis to the liver (per , chronic a-fib, hypothyroidism, GERD, and history of TIA. Pt presented to the ER after a trip and fall at home with scalp laceration. Our service has been consulted to evaluate pt for complaints of vomiting and weight loss. Pt is a poor historian, able to answer some questions, but other history has been obtained through chart review. He reports vomiting has been intermittent for the past week, denies hematemesis or coffee ground emesis. States unrelated to PO intake. He has not had much of an appetite and also has been having issues swallowing and therefore has not been eating much. He reports that he has been losing weight but is unsure of how much weight and states he thinks it is because he hasn't been able to eat. Pt eating ice cream during my exam, he denies food getting stuck when he swallows. States the food seems to stay in his mouth for a long period of time before he is able to get it down. Denies odynophagia. Per admission HPI, pt had a recent barium swallow outpatient which was normal. Reports heartburn that has been increasing in frequency over the past week. According to records pt has been taking a lot of Tums recently. Pt does admit to 2 beers a day. Denies smoking, NSAID use. Does not think he has ever had an EGD or colonoscopy. (Delphine Meneses) PFSH Past Medical History Hypertension Hypothyroidism Chronic A-fib TIA Hyperlipidemia GERD Lung cancer with mets to liver per family report Past Surgical History Left knee surgery Cataract surgery Pacemaker placement (Delphine Meneses) Coded Allergies: No Known Allergies (Verified , 02/27/17) Family History Reviewed and is non contributory Social History Alcohol Use: Yes (2 BEERS DAILY) Tobacco Use: No Substance Use: No (Delphine Meneses) Review of Systems Gastrointestinal: COMPLAINS OF: Nausea, Vomiting, Difficulty Swallowing, Heartburn, DENIES: Abdominal pain, Black stools, Bloody stools, Constipation, Diarrhea, Odynophagia, Swelling of Abdomen, Hematemesis (Delphine Meneses) GI Exam Vitals I&O Vital Signs Date Time Temp Pulse Resp B/P (MAP) Pulse Ox O2 Delivery O2 Flow Rate FiO2 10/01/17 12:00 97.2 85 16 128/63 (84) 100 10/01/17 08:00 97.1 67 16 116/52 (73) 100 10/01/17 04:00 97.3 70 16 114/56 (75) 100 10/01/17 00:00 97.4 72 18 124/59 (80) 100 09/30/17 20:28 09/30/17 19:05 67 15 138/65 (89) 100 I/O 09/30/17 09/30/17 09/30/17 10/01/17 10/01/17 10/01/17 07:00 15:00 23:00 07:00 15:00 23:00 Intake Total 120 ml Output Total 300 ml 100 ml Balance -300 ml 20 ml Intake Oral 120 ml Output Urine Total 300 ml 100 ml Imaging Last Impressions Pelvis X-Ray 09/30/17 1254 Signed Impressions: Service Date/Time: Saturday, September 30, 2017 13:38 - CONCLUSION: No acute bony injury Eris Yeager MD Head CT 09/30/17 1254 Signed Impressions: Service Date/Time: Saturday, September 30, 2017 13:27 - CONCLUSION: Small focus of extra-axial hemorrhage in the high convexity right frontal region. Eris Yeager MD Chest X-Ray 09/30/17 125 Signed Impressions: Service Date/Time: Saturday, September 30, 2017 13:35 - CONCLUSION: No acute disease Eris Yeager MD Cervical Spine CT 09/30/17 1254 Signed Impressions: Service Date/Time: Saturday, September 30, 2017 13:27 - CONCLUSION: 1. Multilevel degenerative disc disease with severe loss of disc height and near bone on bone articulation C5-C6 inferiorly. High grade one anterolisthesis of C4 on 5. 2. Uncovertebral ridging and facet hypertrophy encroach on the spinal canal and neural foramina at multiple levels. However, I believe the only significant narrowing is leftward C6-7 with possible compromise of the left C7 nerve root. 3. No fracture. Naveen Ramos MD Laboratory Test 09/30/17 22:31 10/01/17 00:30 10/01/17 07:35 Total Creatine Kinase 3136 U/L Creatine Kinase MB 28.1 NG/ML Creatine Kinase MB % 0.9 % Troponin I 0.13 NG/ML 0.14 NG/ML Urine Color YELLOW Urine Turbidity CLEAR Urine pH 6.5 Urine Specific [place] 1.015 Urine Protein 30 mg/dL Urine Glucose (UA) NEG mg/dL Urine Ketones NEG mg/dL Urine Occult Blood MOD Urine Nitrite NEG Urine Bilirubin NEG Urine Urobilinogen LESS THAN 2.0 MG/DL Urine Leukocyte Esterase NEG Urine RBC 2 /hpf Urine WBC 3 /hpf Urine Squamous Epithelial Cells <1 /hpf Urine Bacteria RARE /hpf Urine Hyaline Casts 37 /lpf Urine Granular Casts 3 /lpf Urine Mucus FEW /lpf Microscopic Urinalysis Comment CULT NOT INDICATED White Blood Count 13.8 TH/MM3 Red Blood Count 3.40 MIL/MM3 Hemoglobin 10.9 GM/DL Hematocrit 32.9 % Mean Corpuscular Volume 97.0 FL Mean Corpuscular Hemoglobin 32.2 PG Mean Corpuscular Hemoglobin Concent 33.2 % Red Cell Distribution Width 15.0 % Platelet Count 189 TH/MM3 Mean Platelet Volume 8.5 FL Neutrophils (%) (Auto) 67.2 % Lymphocytes (%) (Auto) 20.5 % Monocytes (%) (Auto) 11.7 % Eosinophils (%) (Auto) 0.0 % Basophils (%) (Auto) 0.6 % Neutrophils # (Auto) 9.3 TH/MM3 Lymphocytes # (Auto) 2.8 TH/MM3 Monocytes # (Auto) 1.6 TH/MM3 Eosinophils # (Auto) 0.0 TH/MM3 Basophils # (Auto) 0.1 TH/MM3 CBC Comment DIFF FINAL Differential Comment Blood Urea Nitrogen 60 MG/DL Creatinine 2.39 MG/DL Random Glucose 107 MG/DL Total Protein 6.0 GM/DL Albumin 2.8 GM/DL Calcium Level 8.9 MG/DL Alkaline Phosphatase 68 U/L Aspartate Amino Transf (AST/SGOT) 107 U/L Alanine Aminotransferase (ALT/SGPT) 32 U/L Total Bilirubin 0.3 MG/DL Sodium Level 154 MEQ/L Potassium Level 3.5 MEQ/L Chloride Level 131 MEQ/L Carbon Dioxide Level 10.5 MEQ/L Anion Gap 13 MEQ/L Estimat Glomerular Filtration Rate 26 ML/MIN Physical Examination HEENT: Normocephalic; atraumatic CHEST: Even/unlabored CARDIAC: Irregularly irregular ABDOMEN: Soft, nondistended, nontender; bowel sounds active SKIN: Normal; no rash; no jaundice. BULWARK CARPENTER: Alert and oriented times three. (Delphine Meneses) Assessment and Plan Plan Assessment: - Nausea and vomiting- pt reports for the past week, denies association to food. Denies hematemesis and coffee ground emesis - Heartburn- has been taking a lot of Tums recently. Does not think he has ever had an EGD - Dysphagia- states the food sits in his mouth a long time before he is able to swallow it. Denies odynophagia. Denies food getting stuck. - Weight loss- unsure how much, he attributes this to poor appetite and trouble swallowing - Constipation- takes Prune juice as needed with good relief - Elevated AST- WNL on admission, ETOH- 2 beers a day, reports of lung cancer metastasis to liver, no imaging - Lung cancer, possible mets to the liver per family according to chart, followed by Dr. Barboza - Chronic a-fib- not on anticoagulation at home due to frequent falls - AMI with elevated troponin and electrolyte imbalance Plan: CT abdomen W pelvis WO IV contrast EGD tomorrow Obtain consent NPO after MN Hold morning dose of Heparin Protonix Antiemetics PRN CAREER AGENT evaluation Further recommendations based on clinical course and results of above Pt has been seen and examined by myself and Dr. Taylor and this note is written on his behalf (Delphine Meneses) Physician Comments Seen and examined with PATRICIO, no N/V at this time but family reports N/V and sore throat over a period of time. Family concerned about bowel obstruction. Previous colonoscopy timing unknown. Ct abd/pelvis with po contrast. EGD tomorrow. Discussed with Dr Mccracken. Thank you (Lucas Taylor MD) Delphine Meneses October 01, 2017 13:31 Lucas Taylor MD October 01, 2017 14:50
[2017-10-01] MEDS ORDERED: DEXTROSE 5%-NACL 0.225% INJ 1,000 ML IV SCH (15:00)
[2017-10-01 16:00] VITALS: BP 129/63; PULSE 73; RESP 16; TEMP 97.1; O2SAT 99
--- NOTE | 2017-10-01 17:21 | PD.CONS ---
HPI Service Nephrology Consult Requested By Dr. Jarad Bentley Reason for Consult Worsening acute kidney injury Primary Care Physician Jaymie Ramirez MD History of Present Illness Patient is a 82 Y/O male with a past medical history significant for Hypertension, 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 Barboza. Presented to hospital after he reportedly got out of bed and tripped. He landed on a carpet floor and sustained a scalp laceration. Per family he possibly could have been down for 2 hours. Nephrology is consulted for elevated renal indices with a creatinine of 2.39 from 2.07 on admission. His baseline creatinine from records was 1.02 in February of 2017. Patient is also noted to be hypernatremic at 154 which has increased since admission and CO2 of 10.5. CPK last night was at 3136 so patient has rhabdomyolysis. Will recheck labs in AM. IVF are ordered. (Kristen Howard) Review of Systems Constitutional: COMPLAINS OF: Fatigue Respiratory: DENIES: Cough, Sputum production, Shortness of breath Cardiovascular: DENIES: Chest pain, Dyspnea on Exertion, Lower Extremity Edema Gastrointestinal: COMPLAINS OF: Abdominal pain, Nausea, Vomiting, Difficulty Swallowing Musculoskeletal: COMPLAINS OF: Muscle aches (Kristen Howard) Past Family Social History Allergies: Coded Allergies: No Known Allergies (Verified , 02/27/17) Past Medical History Hypertension Hypothyroidism Chronic A-fib TIA Hyperlipidemia GERD Lung cancer with mets to liver per family report Past Surgical History Left knee surgery Cataract surgery Pacemaker placement Active Ordered Medications Current Medications Medications (Trade) Dose Ordered Sig/Mariela Route Start Time Stop Time Status Last Admin (NS Flush) 2 ml UNSCH PRN IV FLUSH 09/30/17 17:15 (NS Flush) 2 ml BID IV FLUSH 09/30/17 21:00 10/01/17 08:03 (Tylenol) 650 mg Q4H PRN PO 09/30/17 17:15 (Zofran Inj) 4 mg Q6H PRN IVP 09/30/17 17:15 10/01/17 14:42 (Heparin Inj) 5,000 units Q12H SQ 09/30/17 21:00 Future hold (Narcan Inj) 0.4 mg UNSCH PRN IV PUSH 09/30/17 17:15 (Milk Of Magnesia Liq) 30 ml Q12H PRN PO 09/30/17 17:15 (Senokot) 17.2 mg Q12H PRN PO 09/30/17 17:15 (Dulcolax Supp) 10 mg DAILY PRN RECTAL 09/30/17 17:15 (Lactulose Liq) 30 ml DAILY PRN PO 09/30/17 17:15 (Tums Chew) 500 mg Q2H PRN CHEW 09/30/17 17:30 (Lipitor) 10 mg DAILY PO 10/01/17 09:00 10/01/17 08:04 (Synthroid) 50 mcg DAILY@0600 PO 10/01/17 06:00 10/01/17 04:54 (Protonix) 40 mg DAILY PO 09/30/17 23:30 10/01/17 08:04 (Aspirin Chew) 81 mg DAILY CHEW 10/01/17 09:00 10/01/17 08:04 Sodium Bicarbonate 50 meq/Dextrose 1,050 ml @ 100 mls/hr [id number] IV 10/01/17 17:00 Social History Alcohol Use: Yes (2 BEERS DAILY) Tobacco Use: No Substance Use: No (Kristen Howard) Physical Exam Vital Signs Vital Signs Date Time Temp Pulse Resp B/P (MAP) Pulse Ox O2 Delivery O2 Flow Rate FiO2 10/01/17 12:00 97.2 85 16 128/63 (84) 100 10/01/17 08:00 97.1 67 16 116/52 (73) 100 10/01/17 04:00 97.3 70 16 114/56 (75) 100 10/01/17 00:00 97.4 72 18 124/59 (80) 100 09/30/17 20:28 09/30/17 19:05 67 15 138/65 (89) 100 Physical Exam GENERAL: alert and oriented SKIN: Warm and dry. HEAD: Normocephalic. EYES: No scleral icterus. No injection or drainage. NECK: Supple, trachea midline. No JVD or lymphadenopathy. CARDIOVASCULAR: Regular rate and rhythm without murmurs, gallops, or rubs. RESPIRATORY: Breath sounds equal bilaterally. No accessory muscle use. GASTROINTESTINAL: Abdomen soft, non-tender, nondistended. MUSCULOSKELETAL: No cyanosis, or edema. BACK: Nontender without obvious deformity. No CVA tenderness. Laboratory Laboratory Tests Test 09/30/17 22:31 10/01/17 00:30 10/01/17 07:35 Total Creatine Kinase 3136 Creatine Kinase MB 28.1 Creatine Kinase MB % 0.9 Troponin I 0.13 0.14 Urine Color YELLOW Urine Turbidity CLEAR Urine pH 6.5 Urine Specific [place] 1.015 Urine Protein 30 Urine Glucose (UA) NEG Urine Ketones NEG Urine Occult Blood MOD Urine Nitrite NEG Urine Bilirubin NEG Urine Urobilinogen LESS THAN 2.0 Urine Leukocyte Esterase NEG Urine RBC 2 Urine WBC 3 Urine Squamous Epithelial Cells <1 Urine Bacteria RARE Urine Hyaline Casts 37 Urine Granular Casts 3 Urine Mucus FEW Microscopic Urinalysis Comment CULT NOT INDICATED White Blood Count 13.8 Red Blood Count 3.40 Hemoglobin 10.9 Hematocrit 32.9 Mean Corpuscular Volume 97.0 Mean Corpuscular Hemoglobin 32.2 Mean Corpuscular Hemoglobin Concent 33.2 Red Cell Distribution Width 15.0 Platelet Count 189 Mean Platelet Volume 8.5 Neutrophils (%) (Auto) 67.2 Lymphocytes (%) (Auto) 20.5 Monocytes (%) (Auto) 11.7 Eosinophils (%) (Auto) 0.0 Basophils (%) (Auto) 0.6 Neutrophils # (Auto) 9.3 Lymphocytes # (Auto) 2.8 Monocytes # (Auto) 1.6 Eosinophils # (Auto) 0.0 Basophils # (Auto) 0.1 CBC Comment DIFF FINAL Differential Comment Blood Urea Nitrogen 60 Creatinine 2.39 Random Glucose 107 Total Protein 6.0 Albumin 2.8 Calcium Level 8.9 Alkaline Phosphatase 68 Aspartate Amino Transf (AST/SGOT) 107 Alanine Aminotransferase (ALT/SGPT) 32 Total Bilirubin 0.3 Sodium Level 154 Potassium Level 3.5 Chloride Level 131 Carbon Dioxide Level 10.5 Anion Gap 13 Estimat Glomerular Filtration Rate 26 (Kristen Howard) Result Diagram: 10/01/17 0735 10/01/17 0735 Imaging Last Impressions Pelvis X-Ray 09/30/17 1254 Signed Impressions: Service Date/Time: Saturday, September 30, 2017 13:38 - CONCLUSION: No acute bony injury Eris Yeager MD Head CT 09/30/17 1254 Signed Impressions: Service Date/Time: Saturday, September 30, 2017 13:27 - CONCLUSION: Small focus of extra-axial hemorrhage in the high convexity right frontal region. Eris Yeager MD Chest X-Ray 09/30/17 1254 Signed Impressions: Service Date/Time: Saturday, September 30, 2017 13:35 - CONCLUSION: No acute disease Eris Yeager MD Cervical Spine CT 09/30/17 1254 Signed Impressions: Service Date/Time: Saturday, September 30, 2017 13:27 - CONCLUSION: 1. Multilevel degenerative disc disease with severe loss of disc height and near bone on bone articulation C5-C6 inferiorly. High grade one anterolisthesis of C4 on 5. 2. Uncovertebral ridging and facet hypertrophy encroach on the spinal canal and neural foramina at multiple levels. However, I believe the only significant narrowing is leftward C6-7 with possible compromise of the left C7 nerve root. 3. No fracture. Naveen Ramos MD (Kristen Howard) Assessment and Plan Problem List: (1) Acute kidney injury ICD Codes: N17.9 - Acute kidney failure, unspecified Plan: Acute kidney injury with a creatinine of 2.39 from admission creatinine of 2.07 Baseline creatinine 03/10 was 1.02 Acute kidney injury could possibly be prerenal from poor intake with dysphagia but also from rhabdomyolysis. Plan Continue IVF with bicarbonate, CO2 at 10.5 Will need to monitor labs and obtain serial CPK's Will order urine osmolarity, sodium and creatinine Maintain strict I+O's Labs in AM CT of abdomen and pelvis is pending which will visual kidneys Plan for EGD tomorrow. (2) Hypernatremia ICD Codes: E87.0 - Hyperosmolality and hypernatremia Plan: Continue IVF (Kristen Howard) Problem List: (1) Acute kidney injury ICD Codes: N17.9 - Acute kidney failure, unspecified Plan: Acute kidney injury with a creatinine of 2.39 from admission creatinine of 2.07 Baseline creatinine 03/10 was 1.02 Acute kidney injury could possibly be prerenal from poor intake with dysphagia but also from rhabdomyolysis. Plan Continue IVF with bicarbonate, CO2 at 10.5 Will need to monitor labs and obtain serial CPK's Will order urine osmolarity, sodium and creatinine Maintain strict I+O's Labs in AM CT of abdomen and pelvis is pending which will visual kidneys Plan for EGD tomorrow. Patient seen and examined, agree with above. Has AMI, and metabolic acidosis. Follow the urine out put and BMP. Continue IVF with NaHco3. (2) Hypernatremia ICD Codes: E87.0 - Hyperosmolality and hypernatremia Plan: Continue IVF (Yasmin Fishman MD) Kristen Howard October 01, 2017 17:21 Yasmin Fishman MD October 01, 2017 18:49
--- NOTE | 2017-10-01 17:28 | RADRPT ---
EXAM DATE/TIME: 10/01/2017 16:20 [facility] COMPARISON: No previous studies available for comparison. INDICATIONS : Abdominal pain ORAL CONTRAST: Partial prescribed oral contrast ingested. RADIATION DOSE: 7.13 CTDIvol (mGy) MEDICAL HISTORY : Cardiovascular disease. Rheumatoid arthritis. Cerebrovascular disease.Lung cancer, liver mets, skin c ancer, acute renal failure SURGICAL HISTORY : Pacemaker. ENCOUNTER: Initial ACUITY: 1 day PAIN SCALE: 4/10 LOCATION: Bilateral Abdomen TECHNIQUE: Volumetric scanning of the abdomen and pelvis was performed. Using automated exposure control and ad justment of the mA and/or kV according to patient size, radiation dose was kept as low as reasonably achievable to obtain optimal diagnostic quality images. DICOM format image data is available electro nically for review and comparison. FINDINGS: There is a 1 cm nodule right lung base. This area was previously obscured by consolidation but the pr evious lung nodules have decreased in size. No acute findings in the liver, spleen, adrenals, kidneys or pancreas. Lobulated liver characteristic of cirrhosis. Nonobstructing calcifications in both kidneys. No free fluid. No bowel obstruction. No adenopathy. There is a left-sided inguinal hernia containing a loop of distal colon but without evidence for colonic obstruction. No acute bony abnormalities. Deg enerative rotatory dextroscoliosis. CONCLUSION: 1. Decrease in size of nodules at the lung bases since April 2016. Small right pleural effusion. 2. Left inguinal hernia containing loop of colon without evidence for obstruction. 3. 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 No ascites. 4. Enlarged prostate. Mild constipation. 5. Nonobstructing tiny bilateral renal calcifications. Tomer Rincon MD on October 01, 2017 at 17:19 Board Certified Radiologist. This report was verified electronically.
[2017-10-01] MEDS: SODIUM BICARBONATE 8.4% INJ 50 MEQ in DEXTROSE 5% IN WATE 1000ML INJ 1,000 ML IV SCH ×2 (17:55)
--- NOTE | 2017-10-01 19:54 | EKG ---
Date Performed: 09/30/2017 Time Performed: 12:46:07 PTAGE: 82 years EKG: Atrial fibrillation, left ventricular demand pacing. Similar to the previous tracing. ABNOR MAL RHYTHM ECG PREVIOUS TRACING : 03/05/2017 06.21.08 DOCTOR: Hugo Segura Interpretating Date/Time 10/01/2017 19:53:36
[2017-10-01 20:00] VITALS: BP 131/64; PULSE 83; RESP 16; TEMP 97.2; O2SAT 100
[2017-10-01 22:05] LABS: CREATININE, RANDOM URINE 72.3 MG/DL
[2017-10-01] MEDS ORDERED: CHLORHEXIDINE GLUCONATE 2 % 1 PACK (2 CLOTHS) TOPICAL PRN (23:15)
[2017-10-01] MEDS ORDERED: INSULIN HUMAN REGULAR 1,000 UNITS/10 ML VIAL SQ PRN (23:15)
[2017-10-01] MEDS ORDERED: SODIUM CHLORID 0.9% 500 ML IV PRN (23:15)
[2017-10-01] MEDS ORDERED: LACTATED RINGER'S 1000 ML IV PRN (23:15)
[2017-10-01] MEDS ORDERED: POVIDONE IODINE 5% (ANTISEPSIS KIT) 4 APPLICATIONS EACH NARE PRN (23:15)
[2017-10-01] MEDS ORDERED: METOPROLOL TARTRATE 25 MG TAB PO PRN (23:15)
[2017-10-02] VITALS: BP 95/53; PULSE 70; RESP 18; TEMP 97.7; O2SAT 98
[2017-10-02] MEDS: SODIUM BICARBONATE 8.4% INJ 50 MEQ in DEXTROSE 5% IN WATE 1000ML INJ 1,000 ML IV SCH ×6 (03:30→21:01)
[2017-10-02 04:00] VITALS: BP 114/53; PULSE 65; RESP 18; TEMP 98.6; O2SAT 98
[2017-10-02] MEDS: LEVOTHYROXINE SODIUM 50 MCG TAB PO SCH (05:23)
[2017-10-02 06:09] LABS: AUTOMATED NEUTROPHIL # 7.2 TH/MM3 (1.8-7.7); BASOPHIL % 0.4 % (0.0-2.0); EOSINOPHIL # 0.1 TH/MM3 (0-0.4); EOSINOPHIL % 0.6 % (0.0-4.0); HEMATOCRIT 29.6 % (39.0-51.0); HEMOGLOBIN 10.1 GM/DL (13.0-17.0); LYMPH % 30.7 % (9.0-44.0); LYMPHOCYTE # 3.9 TH/MM3 (1.0-4.8); MEAN CELL VOLUME 96.5 FL (80.0-100.0); MEAN CORPUSCULAR HEMOGLOBIN 32.9 PG (27.0-34.0); MEAN CORPUSCULAR HGB CONC 34.1 % (32.0-36.0); MEAN PLATELET VOLUME 8.7 FL (7.0-11.0); MONO % 10.6 % (0.0-8.0); MONOCYTE # 1.3 TH/MM3 (0-0.9); NEUT % 57.7 % (16.0-70.0); PLATELET COUNT 175 TH/MM3 (150-450); RED BLOOD COUNT 3.06 MIL/MM3 (4.50-5.90); RED CELL DISTRIBUTION WIDTH 15.1 % (11.6-17.2); WHITE BLOOD COUNT 12.5 TH/MM3 (4.0-11.0)
[2017-10-02 06:30] LABS: ALBUMIN 2.8 GM/DL (3.4-5.0); ALT (GPT) 36 U/L (12-78); AST (GOT) 97 U/L (15-37); BICARBONATE 11.6 MEQ/L (21.0-32.0); BLOOD UREA NITROGEN 54 MG/DL (7-18); CALCIUM 8.2 MG/DL (8.5-10.1); CHLORIDE 129 MEQ/L (98-107); CREATININE 2.22 MG/DL (0.60-1.30); GLOMERULAR FILTRATION RATE 29 ML/MIN (>89); GLUCOSE,RANDOM 93 MG/DL (74-106); MAGNESIUM 2.6 MG/DL (1.5-2.5); PHOSPHORUS 1.9 MG/DL (2.5-4.9); SODIUM (NA) 152 MEQ/L (136-145)
[2017-10-02 06:43] LABS: ALKALINE PHOSPHATASE 71 U/L (45-117); TOTAL BILIRUBIN ADULT 0.4 MG/DL (0.2-1.0); TOTAL PROTEIN 5.9 GM/DL (6.4-8.2)
[2017-10-02 08:00] VITALS: BP 109/49; PULSE 64; RESP 16; TEMP 97.5; O2SAT 100
[2017-10-02] MEDS: SODIUM CHLORIDE 0.9% FLUSH 10 ML FLUSH IV FLUSH SCH ×2 (09:00→20:54)
--- NOTE | 2017-10-02 09:25 | GIPROC ---
[facility] [address] [facility]. [facility] [place], [address] EGD PROCEDURE REPORT EXAM DATE: 10/02/2017 PATIENT NAME: Neel Leach MR #: [id number] BIRTHDATE: 1935 ATTENDING: Lucas Taylor MD ORDER #: [id number] SUPERVISOR PLASTERING: Kandis Fuller and Carine Rivera STATUS: inpatient INDICATIONS: The patient is a 82 yr old male here for an EGD due to acute post hemorrhagic anemia and iron deficiency anemia PROCEDURE PERFORMED: EGD w/ ablation MEDICATIONS: None and Per Anesthesia. TOPICAL ANESTHETIC: CONSENT: The patient understands the risks and benefits of the procedure and understands that these risks include, but are not limited to: sedation, allergic reaction, infection, perforation and/or bleeding. Alternative means of evaluation and treatment include, among others: physical exam, x-rays, and/or surgical intervention. The patient elects to proceed with this endoscopic procedure. medical equipment was checked for proper function. Hand hygiene and appropriate measures for infection prevention was taken. After the risks, benefits and alternatives of the procedure were thoroughly explained, Informed consent was verified, confirmed and timeout was successfully executed by the treatment team. The patient was anesthetized with topical anesthesia and the Pentax [id number] endoscope was introduced through the mouth and advanced to the second portion of the duodenum. Retroflexed views revealed a hiatal hernia The gastroscope was then slowly withdrawn and removed. ESOPHAGUS: There was LA Class D esophagitis noted. STOMACH: There was erythematous moderate gastritis in the gastric antrum. DUODENUM: A single bleeding, shallow and round ulcer ranging between 5-9mm in size with surrounding edema and a visible vessel was found in the 1st part of the duodenum. Argon plasma coagulation was applied to the site. With complete hemostasis achieved. ADVERSE EVENTS: There were no complications. IMPRESSIONS: 1. There was LA Class D esophagitis noted 2. There was erythematous gastritis in the gastric antrum 3. Single ulcer ranging between 5-9mm in size was found in the 1st part of the duodenum; Argon plasma coagulation was applied to the site; with complete hemostasis achieved 4. Retroflexed views revealed a hiatal hernia RECOMMENDATIONS: 1. Anti-reflux regimen 2. Continue PPI 3. Avoid NSAIDS 4. Carafate 1 gm po tid ac PATIENT CONDITION: stable DISPOSITION: Inpatient REPEAT EXAM: Return 3 months EGD Lucas Taylor MD eSigned: Lucas Taylor MD 10/02/2017 9:24 AM cc: PATIENT NAME: HayleeNeel MR#: [id number]
--- NOTE | 2017-10-02 09:46 | HHI.PR ---
Subjective Remarks late entry - patient seen on 10/01/17 at 3 pm denies cp/sob Sitting in chair daughter at bedside Denies fevers or chills Objective Vitals Vital Signs Date Time Temp Pulse Resp B/P (MAP) Pulse Ox O2 Delivery O2 Flow Rate FiO2 10/02/17 09:32 97.5 66 18 96/49 (65) 100 10/02/17 08:00 97.5 64 16 109/49 (69) 100 10/02/17 04:00 98.6 65 18 114/53 (73) 98 10/02/17 00:00 97.7 70 18 95/53 (67) 98 10/01/17 20:00 97.2 83 16 131/64 (86) 100 10/01/17 16:00 97.1 73 16 129/63 (85) 99 10/01/17 12:00 97.2 85 16 128/63 (84) 100 I/O 10/01/17 10/01/17 10/01/17 10/02/17 10/02/17 10/02/17 07:00 15:00 23:00 07:00 15:00 23:00 Intake Total 120 ml 600 ml 120 ml 300 ml Output Total 300 ml 100 ml 400 ml Balance -300 ml 20 ml 600 ml -280 ml 300 ml Intake Oral 120 ml 100 ml 120 ml IV Total 500 ml Other 300 ml Output Urine Total 300 ml 100 ml 400 ml # Voids 1 # Bowel Movements 2 Result Diagram: 10/02/17 0544 10/02/17 0544 Imaging Last Impressions Abdomen/Pelvis CT 10/01/17 0000 Signed Impressions: Service Date/Time: September 16:20 - CONCLUSION: 1. Decrease in size of nodules at the lung bases since April 2016. Small right pleural effusion. 2. Left inguinal hernia containing loop of colon without evidence for obstruction. 3. 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 No ascites. 4. Enlarged prostate. Mild constipation. 5. Nonobstructing tiny bilateral renal calcifications. Tomer Rincon MD Pelvis X-Ray 09/30/17 1258 Signed Impressions: Service Date/Time: Saturday, September 30, 2017 13:38 - CONCLUSION: No acute bony injury Eris Yeager MD Head CT 09/30/17 1250 Signed Impressions: Service Date/Time: Saturday, September 30, 2017 13:27 - CONCLUSION: Small focus of extra-axial hemorrhage in the high convexity right frontal region. Eris Yeager MD Chest X-Ray 09/30/17 1254 Signed Impressions: Service Date/Time: Saturday, September 30, 2017 13:35 - CONCLUSION: No acute disease Eris Yeager MD Cervical Spine CT 09/30/17 1254 Signed Impressions: Service Date/Time: Saturday, September 30, 2017 13:27 - CONCLUSION: 1. Multilevel degenerative disc disease with severe loss of disc height and near bone on bone articulation C5-C6 inferiorly. High grade one anterolisthesis of C4 on 5. 2. Uncovertebral ridging and facet hypertrophy encroach on the spinal canal and neural foramina at multiple levels. However, I believe the only significant narrowing is leftward C6-7 with possible compromise of the left C7 nerve root. 3. No fracture. Naveen Ramos MD Objective Remarks GENERAL: Elderly and frail male SKIN: Bilateral LE with venous stasis changes. HEAD: S/P repair of scalp laceration. Dressing looks intact EYES: Pupils equal round and reactive. Extraocular motions intact. No scleral icterus. No injection or drainage. ENT: Nose without bleeding, purulent drainage or septal hematoma. Throat without erythema, tonsillar hypertrophy or exudate. Uvula midline. Airway patent. NECK: Trachea midline. No JVD or lymphadenopathy. Supple, nontender, no meningeal signs. CARDIOVASCULAR: Regular rate and rhythm without murmurs, gallops, or rubs. RESPIRATORY: Clear to auscultation. Breath sounds equal bilaterally. No wheezes , rales, or rhonchi. GASTROINTESTINAL: Abdomen soft, non-tender, nondistended. No hepato-splenomegaly , or palpable masses. No guarding. MUSCULOSKELETAL: Extremities without clubbing, cyanosis, or edema. No joint tenderness, effusion, or edema noted. No calf tenderness. Negative Homans sign bilaterally. NEUROLOGICAL: Awake and alert. Moves all extremity. Generalized weakness. Some mild short term memory impairment. Chronic per family. A/P Problem List: (1) Fall ICD Code: W19.XXXA - Unspecified fall, initial encounter Plan: Seems to be mechanical. Based on review of records, it appears that he has frequent falls. Family reports that he has been declining over the past few months. Could be related to worsening cancer burden and poor oral intake PT to evaluate. May need SNF or C with PT. (2) Scalp laceration ICD Code: S01.01XA - Laceration without foreign body of scalp, initial encounter Plan: Secondary to fall. Head CT images personally reviewed. Extra axial, small fluid collection. Laceration sutured by ED physician. (3) Chronic a-fib ICD Code: I48.2 - Chronic atrial fibrillation Plan: Records reviewed. Patient is on Aspirin. Per Public Health Educator note, not anticoagulated due to frequent falls. S/P Pacemaker placement for history of V-bradycardia. (4) Acute renal failure ICD Code: N17.9 - Acute kidney failure, unspecified Status: Acute Plan: 10/01 worsening AMI with worsening metabolic acidosis due to AMI. Switch IV fluids to D5 + Bicarb Strict I's and O's consult nephrology avoid nephrotoxins (5) Debility ICD Code: R53.81 - Other malaise Plan: PT following. (6) Hypertension ICD Code: I10 - Essential (primary) hypertension Status: Acute Plan: Currently normotensive, given recurrent falls and weight loss, Hold Hydralazine for now and monitor. (7) Hypernatremia ICD Code: E87.0 - Hyperosmolality and hypernatremia Plan: 10/01 Worsening hyponatremia. Will change IV fluids to D5 + Bicarb. Monitor sodium. (8) Lung cancer ICD Code: C34.90 - Malignant neoplasm of unspecified part of unspecified bronchus or lung Plan: Mild progression per recent CT. Due for PET scan outpatient. Will need follow up with Oncologist Dr. Barboza. (9) Dyspepsia ICD Code: R10.13 - Epigastric pain Plan: Has been using tums around the clock. Episodes of vomiting GI consulted Continue PPI For EGD in am (10) Dysphagia ICD Code: R13.10 - Dysphagia, unspecified Plan: GI consulted for ongoing dysphagia and vomiting. Had normal barium swallow outpatient. Has been using tums around the clock. (11) Vomiting ICD Code: R11.10 - Vomiting, unspecified Plan: Vomiting much improved and resolved. Continue Zofran as needed. (12) Hypokalemia ICD Code: E87.6 - Hypokalemia Status: Acute Plan: Replace and monitor (13) Hypothyroidism ICD Code: E03.9 - Hypothyroidism, unspecified Status: Chronic Plan: Continue Synthroid, TSH WNR (14) Elevated troponin ICD Code: R74.8 - Abnormal levels of other serum enzymes Plan: Likely due to renal failure. No CV complaints. Trend cardiac enzymes. Consult cardiology (15) Metabolic acidosis ICD Code: E87.2 - Acidosis Status: Acute Plan: Due to AMI. D5 + Bicarb Monitor BMP (16) Rhabdomyolysis ICD Code: M62.82 - Rhabdomyolysis Status: Acute Plan: CK elevated. Continue IV fluids Monitor Total ck Assessment and Plan DVT proph: heparin Sq Discharge Planning Monitor in the medical floor Problem Qualifiers (1) Hypertension: Qualified Codes: I10 - Essential (primary) hypertension (2) Vomiting: Jameel Ovalle MD October 02, 2017 09:46
[2017-10-02] MEDS: PANTOPRAZOLE SOD 40 MG DELAYED RELEASE TAB PO SCH (11:41)
[2017-10-02] MEDS: ATORVASTATIN 10 MG TAB PO SCH (11:42)
[2017-10-02] MEDS: ASPIRIN 81 MG CHEW TAB CHEW SCH (11:42)
[2017-10-02] MEDS: POTASSIUM CHLORIDE 25 MEQ EFFERVESCENT TAB PO SCH (11:43)
[2017-10-02] MEDS: SUCRALFATE 1 GM/10 ML CUP PO SCH ×3 (11:51→20:50)
[2017-10-02 12:00] VITALS: BP 132/61; PULSE 79; RESP 16; TEMP 97.7; O2SAT 100
[2017-10-02] MEDS ORDERED: PROPOFOL 200 MG/20 ML AMP IV ONE (12:00)
[2017-10-02] MEDS ORDERED: PHENYLEPH/NS 1000 MCG/10 ML SYR IV ONE (12:00)
--- NOTE | 2017-10-02 12:35 | HHI.PR ---
Subjective Remarks Denies cp/sob Afebrile Objective Vitals Vital Signs Date Time Temp Pulse Resp B/P (MAP) Pulse Ox O2 Delivery O2 Flow Rate FiO2 10/02/17 12:00 97.7 79 16 132/61 (84) 100 10/02/17 09:32 97.5 66 18 96/49 (65) 100 10/02/17 08:00 97.5 64 16 109/49 (69) 100 10/02/17 04:00 98.6 65 18 114/53 (73) 98 10/02/17 00:00 97.7 70 18 95/53 (67) 98 10/01/17 20:00 97.2 83 16 131/64 (86) 100 10/01/17 16:00 97.1 73 16 129/63 (85) 99 I/O 10/01/17 10/01/17 10/01/17 10/02/17 10/02/17 10/02/17 07:00 15:00 23:00 07:00 15:00 23:00 Intake Total 120 ml 600 ml 120 ml 1300 ml Output Total 300 ml 100 ml 400 ml Balance -300 ml 20 ml 600 ml -280 ml 1300 ml Intake Oral 120 ml 100 ml 120 ml IV Total 500 ml 1000 ml Other 300 ml Output Urine Total 300 ml 100 ml 400 ml # Voids 1 # Bowel Movements 2 Result Diagram: 10/02/1744 10/02/17543 Objective Remarks GENERAL: Elderly and frail male SKIN: Bilateral LE with venous stasis changes. HEAD: S/P repair of scalp laceration. Dressing looks intact EYES: Pupils equal round and reactive. Extraocular motions intact. No scleral icterus. No injection or drainage. ENT: Nose without bleeding, purulent drainage or septal hematoma. Throat without erythema, tonsillar hypertrophy or exudate. Uvula midline. Airway patent. NECK: Trachea midline. No JVD or lymphadenopathy. Supple, nontender, no meningeal signs. CARDIOVASCULAR: Regular rate and rhythm without murmurs, gallops, or rubs. RESPIRATORY: Clear to auscultation. Breath sounds equal bilaterally. No wheezes , rales, or rhonchi. GASTROINTESTINAL: Abdomen soft, non-tender, nondistended. No hepato-splenomegaly , or palpable masses. No guarding. MUSCULOSKELETAL: Extremities without clubbing, cyanosis, or edema. No joint tenderness, effusion, or edema noted. No calf tenderness. Negative Homans sign bilaterally. NEUROLOGICAL: Awake and alert. Moves all extremity. Generalized weakness. Some mild short term memory impairment. Chronic per family. A/P Problem List: (1) Fall ICD Code: W19.XXXA - Unspecified fall, initial encounter Plan: Seems to be mechanical. Based on review of records, it appears that he has frequent falls. Family reports that he has been declining over the past few months. Could be related to worsening cancer burden and poor oral intake PT to evaluate. May need SNF or C with PT. (2) Scalp laceration ICD Code: S01.01XA - Laceration without foreign body of scalp, initial encounter Plan: Secondary to fall. Head CT images personally reviewed. Extra axial, small fluid collection. Laceration sutured by ED physician. (3) Chronic a-fib ICD Code: I48.2 - Chronic atrial fibrillation Plan: Records reviewed. Patient is on Aspirin. Per Cable Tool Driller note, not anticoagulated due to frequent falls. S/P Pacemaker placement for history of V-bradycardia. (4) Acute renal failure ICD Code: N17.9 - Acute kidney failure, unspecified Status: Acute Plan: 10/01 worsening AMI with worsening metabolic acidosis due to AMI. Switch IV fluids to D5 + Bicarb Strict I's and O's consult nephrology avoid nephrotoxins 10/02 appreciate nephrology recommendations. Creatinine trending down. Continue to monitor Bun/Creatinine. (5) Debility ICD Code: R53.81 - Other malaise Plan: PT following. (6) Hypertension ICD Code: I10 - Essential (primary) hypertension Status: Acute (7) Hypernatremia ICD Code: E87.0 - Hyperosmolality and hypernatremia Plan: 10/01 Worsening hypernatremia. Will change IV fluids to D5 + Bicarb. 10/02 Hypernatremia improving. Continue hypotonic fluids with d5 + Na Bicarb. Monitor BMP. (8) Lung cancer ICD Code: C34.90 - Malignant neoplasm of unspecified part of unspecified bronchus or lung Plan: Mild progression per recent CT. Due for PET scan outpatient. Will need follow up with Oncologist Dr. Barboza. (9) Dyspepsia ICD Code: R10.13 - Epigastric pain Plan: Has been using tums around the clock. Episodes of vomiting GI consulted Continue PPI 10/02 SP EGD with the following findings: 1. There was LA Class D esophagitis noted 2. There was erythematous gastritis in the gastric antrum 3. Single ulcer ranging between 5-9mm in size was found in the 1st part of the duodenum; Argon plasma coagulation was applied to the site; with complete hemostasis achieved 4. Retroflexed views revealed a hiatal hernia Continue PPI. (10) Dysphagia ICD Code: R13.10 - Dysphagia, unspecified Plan: GI consulted for ongoing dysphagia and vomiting. Had normal barium swallow outpatient. Has been using tums around the clock. (11) Vomiting ICD Code: R11.10 - Vomiting, unspecified Plan: Vomiting much improved and resolved. Continue Zofran as needed. (12) Hypokalemia ICD Code: E87.6 - Hypokalemia Status: Acute Plan: Replace and monitor (13) Hypothyroidism ICD Code: E03.9 - Hypothyroidism, unspecified Status: Chronic Plan: Continue Synthroid, TSH WNR (14) Elevated troponin ICD Code: R74.8 - Abnormal levels of other serum enzymes Plan: Likely due to renal failure. No CV complaints. Trend cardiac enzymes. Consult cardiology (15) Metabolic acidosis ICD Code: E87.2 - Acidosis Status: Acute Plan: Due to AMI. D5 + Bicarb Monitor BMP (16) Rhabdomyolysis ICD Code: M62.82 - Rhabdomyolysis Status: Acute Plan: CK elevated. Continue IV fluids Monitor Total ck 10/02 CK trending down. Continue IV fluids. Assessment and Plan DVT proph: heparin Sq Discharge Planning Monitor in the medical floor Problem Qualifiers (1) Hypertension: Qualified Codes: I10 - Essential (primary) hypertension (2) Dysphagia: Qualified Codes: R13.13 - Dysphagia, pharyngeal phase (3) Vomiting: Jameel Ovalle MD October 02, 2017 12:35
--- NOTE | 2017-10-02 13:16 | HHI.NPPN ---
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 Barboza. Presented to hospital after he reportedly got out of bed and tripped. He landed on a carpet floor and sustained a scalp laceration. Additional Remarks Patient is alert, no SOB, not eating well, not in distress. Objective Data Data 10/02/17 10/03/17 19:00 07:00 Intake Total 1300 ml Balance 1300 ml IV Total 1000 ml Other 300 ml Vital Signs Date Time Temp Pulse Resp B/P (MAP) Pulse Ox O2 Delivery O2 Flow Rate FiO2 10/02/17 12:00 97.7 79 16 132/61 (84) 100 10/02/17 09:32 97.5 66 18 96/49 (65) 100 10/02/17 08:00 97.5 64 16 109/49 (69) 100 10/02/17 04:00 98.6 65 18 114/53 (73) 98 10/02/17 00:00 97.7 70 18 95/53 (67) 98 10/01/17 20:00 97.2 83 16 131/64 (86) 100 10/01/17 16:00 97.1 73 16 129/63 (85) 99 -: 10/02/17 0544 10/02/17 0544 Physical Exam General Appearance: No Acute Distress, Comfortable, Anxious, Malnourished Eyes Eye Exam: Pupils Equal Pulmonary Resp Exam: Breath Sounds Equal, No Distress, Rhonchi, Decreased Bases Cardiology CV Exam: Regular, Normal Sinus Rhythm Gastrointestinal/Abdomen GI Exam: Soft, Non-Tender, Bowel Sounds Present Extremeties Extremities Exam: Trace Edema Neurologic Neuro Exam: Alert, Awake Assessment/Plan Problem List: (1) Acute kidney injury ICD Codes: N17.9 - Acute kidney failure, unspecified Plan: Acute kidney injury with a creatinine of 2.39 from admission creatinine of 2.07 Baseline creatinine 03/10 was 1.02 Acute kidney injury could possibly be prerenal from poor intake with dysphagia but also from rhabdomyolysis. Plan Continue IVF with bicarbonate, CO2 at 10.5 Will need to monitor labs and obtain serial CPK's Will order urine osmolarity, sodium and creatinine Maintain strict I+O's CT of abdomen and pelvis noted. Creatinine is slightly better. K and Po4 low and replaced. CPK is improving. (2) Hypernatremia ICD Codes: E87.0 - Hyperosmolality and hypernatremia Plan: Continue IVF Yasmin Fishman MD October 02, 2017 13:16
[2017-10-02 16:00] VITALS: BP 121/58; PULSE 62; RESP 16; TEMP 97.7; O2SAT 100
[2017-10-02] MEDS: POTASSIUM PHOSPHATE/SODIUM PHOSPHATE 250 MG TAB PO SCH ×2 (16:17→20:47)
[2017-10-02 20:00] VITALS: BP 148/63; PULSE 72; RESP 22; TEMP 97.3; O2SAT 98
[2017-10-02] MEDS: FAMOTIDINE 20 MG TAB PO SCH (20:47)
[2017-10-03] VITALS (7 sets, daily range): BP systolic 94–152; BP diastolic 42–72; PULSE 60–76; RESP 17–22; TEMP 96.9–98.7; O2SAT 97–100
[2017-10-03] MEDS: LEVOTHYROXINE SODIUM 50 MCG TAB PO SCH (04:27)
[2017-10-03] MEDS: POTASSIUM PHOSPHATE/SODIUM PHOSPHATE 250 MG TAB PO SCH ×3 (04:27→21:41)
[2017-10-03 04:53] LABS: AUTOMATED NEUTROPHIL # 3.8 TH/MM3 (1.8-7.7); BASOPHIL % 0.5 % (0.0-2.0); EOSINOPHIL # 0.2 TH/MM3 (0-0.4); EOSINOPHIL % 1.8 % (0.0-4.0); HEMATOCRIT 26.7 % (39.0-51.0); HEMOGLOBIN 9.1 GM/DL (13.0-17.0); LYMPHOCYTE # 3.6 TH/MM3 (1.0-4.8); MEAN CORPUSCULAR HEMOGLOBIN 32.8 PG (27.0-34.0); MEAN CORPUSCULAR HGB CONC 34.1 % (32.0-36.0); MEAN PLATELET VOLUME 8.8 FL (7.0-11.0); MONO % 11.6 % (0.0-8.0); NEUT % 44.1 % (16.0-70.0); PLATELET COUNT 159 TH/MM3 (150-450); RED BLOOD COUNT 2.78 MIL/MM3 (4.50-5.90); RED CELL DISTRIBUTION WIDTH 14.7 % (11.6-17.2); WHITE BLOOD COUNT 8.6 TH/MM3 (4.0-11.0)
[2017-10-03 05:34] LABS: ALBUMIN 2.4 GM/DL (3.4-5.0); ALKALINE PHOSPHATASE 75 U/L (45-117); ALT (GPT) 38 U/L (12-78); AST (GOT) 73 U/L (15-37); BICARBONATE 14.5 MEQ/L (21.0-32.0); BLOOD UREA NITROGEN 39 MG/DL (7-18); CALCIUM 7.5 MG/DL (8.5-10.1); CHLORIDE 125 MEQ/L (98-107); CREATININE 1.58 MG/DL (0.60-1.30); GLOMERULAR FILTRATION RATE 42 ML/MIN (>89); GLUCOSE,RANDOM 80 MG/DL (74-106); MAGNESIUM 2.3 MG/DL (1.5-2.5); PHOSPHORUS 2.1 MG/DL (2.5-4.9); SODIUM (NA) 151 MEQ/L (136-145); TOTAL BILIRUBIN ADULT 0.3 MG/DL (0.2-1.0); TOTAL PROTEIN 5.5 GM/DL (6.4-8.2)
[2017-10-03] MEDS ORDERED: POTASSIUM CHLORIDE 20 MEQ CONTROLLED RELEASE TAB PO ONE (06:00)
[2017-10-03] MEDS: POTASSIUM CHLOR 20 MEQ PREMIX 100 ML IV SCH ×2 (06:21→08:23)
[2017-10-03] MEDS: ASPIRIN 81 MG CHEW TAB CHEW SCH (08:28)
[2017-10-03] MEDS: SODIUM CHLORIDE 0.9% FLUSH 10 ML FLUSH IV FLUSH SCH ×2 (08:28→21:00)
[2017-10-03] MEDS: SUCRALFATE 1 GM/10 ML CUP PO SCH ×4 (08:28→21:41)
[2017-10-03] MEDS: PANTOPRAZOLE SOD 40 MG DELAYED RELEASE TAB PO SCH (08:29)
[2017-10-03] MEDS: ATORVASTATIN 10 MG TAB PO SCH (08:29)
[2017-10-03] MEDS: POTASSIUM CHLORIDE 25 MEQ EFFERVESCENT TAB PO SCH (08:30)
[2017-10-03] MEDS: HEPARIN SODIUM - SQ 10,000 UNITS/ML VIAL SQ SCH ×2 (08:31→21:41)
--- NOTE | 2017-10-03 08:37 | EKG ---
Date Performed: 10/01/2017 Time Performed: 20:19:47 PTAGE: 82 years EKG: ELECTRONIC VENTRICULAR PACEMAKER ABNORMAL RHYTHM ECG PREVIOUS TRACING : 10/01/2017 15.43 DOCTOR: Zafar Dickson Interpretating Date/Time 10/03/2017 08:33:33
--- NOTE | 2017-10-03 08:42 | EKG ---
Date Performed: 10/01/2017 Time Performed: 15:43:12 PTAGE: 82 years EKG: ELECTRONIC VENTRICULAR PACEMAKER ABNORMAL RHYTHM ECG PREVIOUS TRACING : 09/30/2017 12.46 DOCTOR: Zafar Dickson Interpretating Date/Time 10/03/2017 08:39:40
--- NOTE | 2017-10-03 10:13 | HHI.NPPN ---
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 Barboza. Presented to hospital after he reportedly got out of bed and tripped. He landed on a carpet floor and sustained a scalp laceration. Additional Remarks Patient is alert and doing crossward puzzles this morning. No complaints except questioning when he is getting out of here. (Kristen Howard) Objective Data Data Vital Signs Date Time Temp Pulse Resp B/P (MAP) Pulse Ox O2 Delivery O2 Flow Rate FiO2 10/03/17 08:00 97.7 60 17 95/46 (62) 97 10/03/17 05:05 61 10/03/17 04:00 97.9 60 22 96/50 (65) 100 10/03/17 00:00 98.7 61 22 94/42 (59) 99 10/02/17 20:00 97.3 72 22 148/63 (91) 98 10/02/17 16:00 97.7 62 16 121/58 (79) 100 10/02/17 12:00 97.7 79 16 132/61 (84) 100 (Kristen Howard) -: 10/03/17 0418 10/03/17 0418 Imaging Last Impressions Abdomen/Pelvis CT 10/01/17 0000 Signed Impressions: Service Date/Time: September 16:20 - CONCLUSION: 1. Decrease in size of nodules at the lung bases since April 2016. Small right pleural effusion. 2. Left inguinal hernia containing loop of colon without evidence for obstruction. 3. 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 No ascites. 4. Enlarged prostate. Mild constipation. 5. Nonobstructing tiny bilateral renal calcifications. Tomer Rincon MD Pelvis X-Ray 09/30/17 1254 Signed Impressions: Service Date/Time: Saturday, September 30, 2017 13:38 - CONCLUSION: No acute bony injury Eris Yeager MD Head CT 09/30/17 8721 Signed Impressions: Service Date/Time: Saturday, September 30, 2017 13:27 - CONCLUSION: Small focus of extra-axial hemorrhage in the high convexity right frontal region. Eris Yeager MD Chest X-Ray 09/30/17 1254 Signed Impressions: Service Date/Time: Saturday, September 30, 2017 13:35 - CONCLUSION: No acute disease Eris Yeager MD Cervical Spine CT 09/30/17 1259 Signed Impressions: Service Date/Time: Saturday, September 30, 2017 13:27 - CONCLUSION: 1. Multilevel degenerative disc disease with severe loss of disc height and near bone on bone articulation C5-C6 inferiorly. High grade one anterolisthesis of C4 on 5. 2. Uncovertebral ridging and facet hypertrophy encroach on the spinal canal and neural foramina at multiple levels. However, I believe the only significant narrowing is leftward C6-7 with possible compromise of the left C7 nerve root. 3. No fracture. Naveen Ramos MD (GellerKristen carrillo. EVENT REPRESENTATIVE) Physical Exam General Appearance: No Acute Distress, Comfortable, Malnourished (GellermannKristen M. EVENT REPRESENTATIVE) Eyes Eye Exam: Pupils Equal (GellermannKristen. EVENT REPRESENTATIVE) Pulmonary Resp Exam: Breath Sounds Equal, No Distress, Decreased Bases (GellermannKristen M. EVENT REPRESENTATIVE) Cardiology CV Exam: Regular, Normal Sinus Rhythm (GellermannKristen. EVENT REPRESENTATIVE) Gastrointestinal/Abdomen GI Exam: Soft, Non-Tender, Bowel Sounds Present (JudithlermannKristen. EVENT REPRESENTATIVE) Extremeties Extremities Exam: Trace Edema (JudithlerMellisa carrillone M. EVENT REPRESENTATIVE) Neurologic Neuro Exam: Alert, Awake (GellermannMellisaKristen M. EVENT REPRESENTATIVE) Psychiatric Psych Exam: Appropriate Responses (Kristen Howard EVENT REPRESENTATIVE) Assessment/Plan Problem List: (1) Acute kidney injury ICD Codes: N17.9 - Acute kidney failure, unspecified Plan: Acute kidney injury with a creatinine of 2.39 from admission creatinine of 2.07 Baseline creatinine 03/10 was 1.02 Acute kidney injury could possibly be prerenal from poor intake with dysphagia but also from rhabdomyolysis. FeNA at 0.58 % suggestive of prerenal CT of abdomen: Nonobstructing calcifications in both kidneys. Plan Continue IVF with bicarbonate, CO2 improving at 14.5 today Continue to monitor labs Will order urine osmolarity, sodium and creatinine Maintain strict I+O's Potassium at 2.8 receiving IV replacement PO4 at 2.1 replacement ordered. (2) Hypernatremia ICD Codes: E87.0 - Hyperosmolality and hypernatremia Plan: Continue IVF (Kristen Howard) Problem List: (1) Acute kidney injury ICD Codes: N17.9 - Acute kidney failure, unspecified Plan: Acute kidney injury with a creatinine of 2.39 from admission creatinine of 2.07 Baseline creatinine 03/10 was 1.02 Acute kidney injury could possibly be prerenal from poor intake with dysphagia but also from rhabdomyolysis. FeNA at 0.58 % suggestive of prerenal CT of abdomen: Nonobstructing calcifications in both kidneys. Plan Continue IVF with bicarbonate, CO2 improving at 14.5 today Continue to monitor labs Will order urine osmolarity, sodium and creatinine Maintain strict I+O's Potassium at 2.8 receiving IV replacement PO4 at 2.1 replacement ordered. Patient seen and examined, agree with above, Creatinine is improving. (2) Hypernatremia ICD Codes: E87.0 - Hyperosmolality and hypernatremia Plan: Continue IVF (Yasmin Fishman MD) Kristen Howard October 03, 2017 10:13 Yasmin Fishman MD October 03, 2017 18:37
[2017-10-03] MEDS ORDERED: POTASSIUM PHOSPHATE INJ 30 MMOL in SODIUM CHLOR 0.9% 250 ML INJ 250 ML IV ONE (12:00)
[2017-10-03] MEDS: SODIUM BICARBONATE 8.4% INJ 50 MEQ in DEXTROSE 5% IN WATE 1000ML INJ 1,000 ML IV SCH ×4 (12:15→21:30)
--- NOTE | 2017-10-03 13:55 | HHI.GIFU ---
Subjective Remarks Patient is resting in the bed here with him , patient fair to poor historian No nausea no vomiting Mild constipation noted no BM in 2 days Generalized fatigue (Peggy Mahan) Objective Vitals I&O Vital Signs Date Time Temp Pulse Resp B/P (MAP) Pulse Ox O2 Delivery O2 Flow Rate FiO2 10/03/17 12:00 97.5 60 19 114/53 (73) 97 10/03/17 08:00 97.7 60 17 95/46 (62) 97 10/03/17 05:05 61 10/03/17 04:00 97.9 60 22 96/50 (65) 100 10/03/17 00:00 98.7 61 22 94/42 (59) 99 10/02/17 20:00 97.3 72 22 148/63 (91) 98 10/02/17 16:00 97.7 62 16 121/58 (79) 100 I/O 10/02/17 10/02/17 10/02/17 10/03/17 10/03/17 10/03/17 07:00 15:00 23:00 07:00 15:00 23:00 Intake Total 120 ml 1300 ml 480 ml 0 ml Output Total 400 ml 800 ml 550 ml Balance -280 ml 1300 ml -320 ml -550 ml Intake Oral 120 ml 480 ml 0 ml IV Total 1000 ml Other 300 ml Output Urine Total 400 ml 800 ml 550 ml # Bowel Movements 0 0 Laboratory Laboratory Tests Test 10/03/17 04:18 White Blood Count 8.6 Red Blood Count 2.78 Hemoglobin 9.1 Hematocrit 26.7 Mean Corpuscular Volume 96.0 Mean Corpuscular Hemoglobin 32.8 Mean Corpuscular Hemoglobin Concent 34.1 Red Cell Distribution Width 14.7 Platelet Count 159 Mean Platelet Volume 8.8 Neutrophils (%) (Auto) 44.1 Lymphocytes (%) (Auto) 42.0 Monocytes (%) (Auto) 11.6 Eosinophils (%) (Auto) 1.8 Basophils (%) (Auto) 0.5 Neutrophils # (Auto) 3.8 Lymphocytes # (Auto) 3.6 Monocytes # (Auto) 1.0 Eosinophils # (Auto) 0.2 Basophils # (Auto) 0.0 CBC Comment DIFF FINAL Differential Comment Blood Urea Nitrogen 39 Creatinine 1.58 Random Glucose 80 Total Protein 5.5 Albumin 2.4 Calcium Level 7.5 Phosphorus Level 2.1 Magnesium Level 2.3 Alkaline Phosphatase 75 Aspartate Amino Transf (AST/SGOT) 73 Alanine Aminotransferase (ALT/SGPT) 38 Total Bilirubin 0.3 Sodium Level 151 Potassium Level 2.8 Chloride Level 125 Carbon Dioxide Level 14.5 Anion Gap 12 Estimat Glomerular Filtration Rate 42 Total Creatine Kinase 715 Creatine Kinase MB 7.3 Creatine Kinase MB % 1.0 Imaging Last Impressions Abdomen/Pelvis CT 10/01/17 0000 Signed Impressions: Service Date/Time: September 16:20 - CONCLUSION: 1. Decrease in size of nodules at the lung bases since April 2016. Small right pleural effusion. 2. Left inguinal hernia containing loop of colon without evidence for obstruction. 3. 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 No ascites. 4. Enlarged prostate. Mild constipation. 5. Nonobstructing tiny bilateral renal calcifications. Tomer Rincon MD Pelvis X-Ray 09/30/17 1254 Signed Impressions: Service Date/Time: Saturday, September 30, 2017 13:38 - CONCLUSION: No acute bony injury Eris Yeager MD Head CT 09/30/17 1254 Signed Impressions: Service Date/Time: Saturday, September 30, 2017 13:27 - CONCLUSION: Small focus of extra-axial hemorrhage in the high convexity right frontal region. Eris Yeager MD Chest X-Ray 09/30/17 1254 Signed Impressions: Service Date/Time: Saturday, September 30, 2017 13:35 - CONCLUSION: No acute disease Eris Yeager MD Cervical Spine CT 09/30/17 1254 Signed Impressions: Service Date/Time: Saturday, September 30, 2017 13:27 - CONCLUSION: 1. Multilevel degenerative disc disease with severe loss of disc height and near bone on bone articulation C5-C6 inferiorly. High grade one anterolisthesis of C4 on 5. 2. Uncovertebral ridging and facet hypertrophy encroach on the spinal canal and neural foramina at multiple levels. However, I believe the only significant narrowing is leftward C6-7 with possible compromise of the left C7 nerve root. 3. No fracture. Naveen Ramos MD Physical Exam HEENT: Obese, normocephalic; atraumatic; no jaundice. Speech understandable no hoarseness NECK: Neck is supple, obese CHEST: Diminished breath sounds but no rhonchi CARDIAC: Controlled rate, no obvious murmur ABDOMEN: Obese, round, soft, nontender to light palpation; bowel sounds are present in all four quadrants. EXTREMITIES: Trace lower extremity edema. SKIN: Normal; no rash; no jaundice. 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 Denies hematemesis and coffee ground emesis - Heartburn- has been taking a lot of Tums recently. Does not think he has ever had an EGD - Dysphagia- states the food sits in his mouth a long time before he is able to swallow it. Denies odynophagia. Denies food getting stuck. - Weight loss- unsure how much, he attributes this to poor appetite and trouble swallowing - Constipation- takes Prune juice as needed with good relief - Elevated AST- WNL on admission, ETOH- 2 beers a day, reports of lung cancer metastasis to liver, no imaging - Lung cancer, possible mets to the liver per family according to chart, followed by Dr. Barboza - Chronic a-fib- not on anticoagulation at home due to frequent falls - AMI with elevated troponin and electrolyte imbalance EGD done on 10/02/2017 for anemia, findings include LA class D esophagitis, erythematous gastritis in the gastric antrum, single ulcer found in the first part of the duodenum, coagulation applied to the site with complete hemostasis, hiatal hernia. CT scan done on 10/01/2017 showed decrease in size of lung nodules since April 2016. Left inguinal hernia containing loop of colon without evidence of obstruction. Probable liver cirrhosis but no ascites. Mild constipation nonobstructive bilateral renal stones. 10/03/2017, patient is resting in the bed seems to be feeling somewhat better hemoglobin 9.1 denies any acute nausea or vomiting does note some mild constipation no BM in 2 days. WBC count normalized at 8.6, decreased AST level 73 ALT normal at 38. Could be related to some mild cirrhosis versus, shock versus meds. Patient is weakened and might benefit from physical therapy and some increased activity with assist also with constipation. Plan Diet heart healthy, monitor cough with p.o. fluids Bowel regimen, add MiraLAX daily Consider physical therapy biopsies pending Anti-reflux regimen Antiemetics PPI No NSAIDS Carafate 1 gm po tid ac Repeat EGD in 3 months Antiemetics Patient was seen per myself and Dr. Taylor , note was written on his behalf (Peggy Mahan) Physician Comments Agree with above, no active bleeding reported. Diet as tolerated. Carafate/ protonix and pepcid. Monitor labs. (Lucas Talyor MD) Peggy Mahan October 03, 2017 13:55 Lucas Taylor MD October 03, 2017 15:53
[2017-10-03] MEDS: POLYETHYLENE GLYCOL 17 GM PKG PO SCH (17:38)
--- NOTE | 2017-10-03 21:11 | HHI.PR ---
Subjective Remarks Deferred entry - patient seen earlier at 11 am Patient denies cp/sob good urine output Denies fevers or chills Objective Vitals Vital Signs Date Time Temp Pulse Resp B/P (MAP) Pulse Ox O2 Delivery O2 Flow Rate FiO2 10/03/17 16:00 97.8 60 18 103/54 (70) 99 10/03/17 12:00 97.5 60 19 114/53 (73) 97 10/03/17 08:00 97.7 60 17 95/46 (62) 97 10/03/17 05:05 61 10/03/17 04:00 97.9 60 22 96/50 (65) 100 10/03/17 00:00 98.7 61 22 94/42 (59) 99 I/O 10/02/17 10/02/17 10/02/17 10/03/17 10/03/17 10/03/17 07:00 15:00 23:00 07:00 15:00 23:00 Intake Total 120 ml 1300 ml 480 ml 0 ml 100 ml 400 ml Output Total 400 ml 800 ml 550 ml 625 ml Balance -280 ml 1300 ml -320 ml -550 ml 100 ml -225 ml Intake Oral 120 ml 480 ml 0 ml 400 ml IV Total 1000 ml 100 ml Other 300 ml Output Urine Total 400 ml 800 ml 550 ml 625 ml # Bowel Movements 0 0 0 Result Diagram: 10/03/17 0418 10/03/17 0418 Imaging Last Impressions Abdomen/Pelvis CT 10/01/17 0000 Signed Impressions: Service Date/Time: September 16:20 - CONCLUSION: 1. Decrease in size of nodules at the lung bases since April 2016. Small right pleural effusion. 2. Left inguinal hernia containing loop of colon without evidence for obstruction. 3. 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 No ascites. 4. Enlarged prostate. Mild constipation. 5. Nonobstructing tiny bilateral renal calcifications. Tomer Rincon MD Pelvis X-Ray 09/30/17 1254 Signed Impressions: Service Date/Time: Saturday, September 30, 2017 13:38 - CONCLUSION: No acute bony injury Eris Yeager MD Head CT 09/30/17 1254 Signed Impressions: Service Date/Time: Saturday, September 30, 2017 13:27 - CONCLUSION: Small focus of extra-axial hemorrhage in the high convexity right frontal region. Eris Yeager MD Chest X-Ray 09/30/17 1254 Signed Impressions: Service Date/Time: Saturday, September 30, 2017 13:35 - CONCLUSION: No acute disease Eris Yeager MD Cervical Spine CT 09/30/17 1254 Signed Impressions: Service Date/Time: Saturday, September 30, 2017 13:27 - CONCLUSION: 1. Multilevel degenerative disc disease with severe loss of disc height and near bone on bone articulation C5-C6 inferiorly. High grade one anterolisthesis of C4 on 5. 2. Uncovertebral ridging and facet hypertrophy encroach on the spinal canal and neural foramina at multiple levels. However, I believe the only significant narrowing is leftward C6-7 with possible compromise of the left C7 nerve root. 3. No fracture. Naveen Ramos MD Objective Remarks GENERAL: Elderly and frail male SKIN: Bilateral LE with venous stasis changes. HEAD: S/P repair of scalp laceration. Dressing looks intact EYES: Pupils equal round and reactive. Extraocular motions intact. No scleral icterus. No injection or drainage. ENT: Nose without bleeding, purulent drainage or septal hematoma. Throat without erythema, tonsillar hypertrophy or exudate. Uvula midline. Airway patent. NECK: Trachea midline. No JVD or lymphadenopathy. Supple, nontender, no meningeal signs. CARDIOVASCULAR: Regular rate and rhythm without murmurs, gallops, or rubs. RESPIRATORY: Clear to auscultation. Breath sounds equal bilaterally. No wheezes , rales, or rhonchi. GASTROINTESTINAL: Abdomen soft, non-tender, nondistended. No hepato-splenomegaly , or palpable masses. No guarding. MUSCULOSKELETAL: Extremities without clubbing, cyanosis, or edema. No joint tenderness, effusion, or edema noted. No calf tenderness. Negative Homans sign bilaterally. NEUROLOGICAL: Awake and alert. Moves all extremity. Generalized weakness. Some mild short term memory impairment. Chronic per family. A/P Problem List: (1) Fall ICD Code: W19.XXXA - Unspecified fall, initial encounter (2) Scalp laceration ICD Code: S01.01XA - Laceration without foreign body of scalp, initial encounter (3) Chronic a-fib ICD Code: I48.2 - Chronic atrial fibrillation (4) Acute renal failure ICD Code: N17.9 - Acute kidney failure, unspecified Status: Acute (5) Debility ICD Code: R53.81 - Other malaise (6) Hypertension ICD Code: I10 - Essential (primary) hypertension Status: Acute (7) Hypernatremia ICD Code: E87.0 - Hyperosmolality and hypernatremia (8) Lung cancer ICD Code: C34.90 - Malignant neoplasm of unspecified part of unspecified bronchus or lung (9) Dyspepsia ICD Code: R10.13 - Epigastric pain (10) Dysphagia ICD Code: R13.10 - Dysphagia, unspecified (11) Vomiting ICD Code: R11.10 - Vomiting, unspecified (12) Hypokalemia ICD Code: E87.6 - Hypokalemia Status: Acute (13) Hypothyroidism ICD Code: E03.9 - Hypothyroidism, unspecified Status: Chronic (14) Elevated troponin ICD Code: R74.8 - Abnormal levels of other serum enzymes (15) Metabolic acidosis ICD Code: E87.2 - Acidosis Status: Acute (16) Rhabdomyolysis ICD Code: M62.82 - Rhabdomyolysis Status: Acute Assessment and Plan (1) Fall Plan: Seems to be mechanical. Based on review of records, it appears that he has frequent falls. Family reports that he has been declining over the past few months. Could be related to worsening cancer burden and poor oral intake PT to evaluate. May need SNF or HHC with PT. (2) Scalp laceration Plan: Secondary to fall. Head CT images personally reviewed. Extra axial, small fluid collection. Laceration sutured by ED physician. (3) Chronic a-fib Plan: Records reviewed. Patient is on Aspirin. Per Hopper Attendant note, not anticoagulated due to frequent falls. S/P Pacemaker placement for history of V-bradycardia. (4) Acute renal failure Plan: 10/01 worsening AMI with worsening metabolic acidosis due to AMI. Switch IV fluids to D5 + Bicarb Strict I's and O's consult nephrology avoid nephrotoxins 10/02 appreciate nephrology recommendations. Creatinine trending down. Continue to monitor Bun/Creatinine. (5) Debility ICD Code: R53.81 - Other malaise Plan: PT following. (6) Hypertension ICD Code: I10 - Essential (primary) hypertension Status: Acute (7) Hypernatremia ICD Code: E87.0 - Hyperosmolality and hypernatremia Plan: 10/01 Worsening hypernatremia. Will change IV fluids to D5 + Bicarb. 10/02 Hypernatremia improving. Continue hypotonic fluids with d5 + Na Bicarb. Monitor BMP. (8) Lung cancer ICD Code: C34.90 - Malignant neoplasm of unspecified part of unspecified bronchus or lung Plan: Mild progression per recent CT. Due for PET scan outpatient. Will need follow up with Oncologist Dr. Barboza. (9) Dyspepsia ICD Code: R10.13 - Epigastric pain Plan: Has been using tums around the clock. Episodes of vomiting GI consulted Continue PPI 10/02 SP EGD with the following findings: 1. There was LA Class D esophagitis noted 2. There was erythematous gastritis in the gastric antrum 3. Single ulcer ranging between 5-9mm in size was found in the 1st part of the duodenum; Argon plasma coagulation was applied to the site; with complete hemostasis achieved 4. Retroflexed views revealed a hiatal hernia Continue PPI. (10) Dysphagia ICD Code: R13.10 - Dysphagia, unspecified Plan: GI consulted for ongoing dysphagia and vomiting. Had normal barium swallow outpatient. Has been using tums around the clock. (11) Vomiting ICD Code: R11.10 - Vomiting, unspecified Plan: Vomiting much improved and resolved. Continue Zofran as needed. (12) Hypokalemia ICD Code: E87.6 - Hypokalemia Status: Acute Plan: Replace and monitor (13) Hypothyroidism ICD Code: E03.9 - Hypothyroidism, unspecified Status: Chronic Plan: Continue Synthroid, TSH WNR (14) Elevated troponin ICD Code: R74.8 - Abnormal levels of other serum enzymes Plan: Likely due to renal failure. No CV complaints. Trend cardiac enzymes. Consult cardiology (15) Metabolic acidosis ICD Code: E87.2 - Acidosis Status: Acute Plan: Due to AMI. D5 + Bicarb Monitor BMP (16) Rhabdomyolysis ICD Code: M62.82 - Rhabdomyolysis Status: Acute Plan: CK elevated. Continue IV fluids Monitor Total ck 10/03 CK trending down. Continue IV fluids. Assessment and Plan DVT proph: heparin Sq DVT proph: heparin Sq Discharge Planning Monitor in the medical floor. Patient will need snf placement. Problem Qualifiers (1) Hypertension: Qualified Codes: I10 - Essential (primary) hypertension (2) Dysphagia: Qualified Codes: R13.13 - Dysphagia, pharyngeal phase (3) Vomiting: Jameel Ovalle MD October 03, 2017 20:18
[2017-10-03] MEDS: FAMOTIDINE 20 MG TAB PO SCH (21:42)
[2017-10-04] VITALS (7 sets, daily range): BP systolic 102–128; BP diastolic 51–60; PULSE 60–66; RESP 16–18; TEMP 96–98.6; O2SAT 96–100
[2017-10-04] MEDS: SODIUM BICARBONATE 8.4% INJ 50 MEQ in DEXTROSE 5% IN WATE 1000ML INJ 1,000 ML IV SCH ×6 (01:05→18:14)
[2017-10-04] MEDS: POTASSIUM PHOSPHATE/SODIUM PHOSPHATE 250 MG TAB PO SCH ×3 (05:47→21:19)
[2017-10-04] MEDS: LEVOTHYROXINE SODIUM 50 MCG TAB PO SCH (05:47)
[2017-10-04 07:25] LABS: AUTOMATED NEUTROPHIL # 3.8 TH/MM3 (1.8-7.7); BASOPHIL % 0.5 % (0.0-2.0); EOSINOPHIL # 0.2 TH/MM3 (0-0.4); EOSINOPHIL % 2.4 % (0.0-4.0); HEMATOCRIT 25.7 % (39.0-51.0); HEMOGLOBIN 8.9 GM/DL (13.0-17.0); LYMPH % 40.5 % (9.0-44.0); LYMPHOCYTE # 3.5 TH/MM3 (1.0-4.8); MEAN CELL VOLUME 95.7 FL (80.0-100.0); MEAN CORPUSCULAR HEMOGLOBIN 33.3 PG (27.0-34.0); MEAN CORPUSCULAR HGB CONC 34.8 % (32.0-36.0); MONO % 12.4 % (0.0-8.0); MONOCYTE # 1.1 TH/MM3 (0-0.9); NEUT % 44.2 % (16.0-70.0); PLATELET COUNT 148 TH/MM3 (150-450); RED BLOOD COUNT 2.69 MIL/MM3 (4.50-5.90); RED CELL DISTRIBUTION WIDTH 14.7 % (11.6-17.2); WHITE BLOOD COUNT 8.5 TH/MM3 (4.0-11.0)
[2017-10-04 08:02] LABS: ALBUMIN 2.3 GM/DL (3.4-5.0); BICARBONATE 16.4 MEQ/L (21.0-32.0); CALCIUM 7.1 MG/DL (8.5-10.1); CREATININE 1.18 MG/DL (0.60-1.30); TOTAL BILIRUBIN ADULT 0.4 MG/DL (0.2-1.0); TOTAL PROTEIN 5.4 GM/DL (6.4-8.2)
--- NOTE | 2017-10-04 09:11 | HHI.NPPN ---
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 Barboza. Presented to hospital after he reportedly got out of bed and tripped. He landed on a carpet floor and sustained a scalp laceration. Additional Remarks Sleeping this morning with no complaints. (Kristen Howard) Objective Data Data Vital Signs Date Time Temp Pulse Resp B/P (MAP) Pulse Ox O2 Delivery O2 Flow Rate FiO2 10/04/17 04:59 98.1 62 18 102/51 (68) 98 10/04/17 00:34 98.6 60 18 111/54 (73) 96 10/03/17 20:00 96.9 75 21 152/72 (98) 100 10/03/17 20:00 76 10/03/17 16:00 97.8 60 18 103/54 (70) 99 10/03/17 12:00 97.5 60 19 114/53 (73) 97 (Kristen Howard) -: 10/04/17 0636 10/04/17 0636 Imaging Last Impressions Abdomen/Pelvis CT 10/01/17 0000 Signed Impressions: Service Date/Time: September 16:20 - CONCLUSION: 1. Decrease in size of nodules at the lung bases since April 2016. Small right pleural effusion. 2. Left inguinal hernia containing loop of colon without evidence for obstruction. 3. 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 No ascites. 4. Enlarged prostate. Mild constipation. 5. Nonobstructing tiny bilateral renal calcifications. Tomer Rincon MD Pelvis X-Ray 09/30/17 1254 Signed Impressions: Service Date/Time: Saturday, September 30, 2017 13:38 - CONCLUSION: No acute bony injury Eris Yeager MD Head CT 09/30/17 1254 Signed Impressions: Service Date/Time: Saturday, September 30, 2017 13:27 - CONCLUSION: Small focus of extra-axial hemorrhage in the high convexity right frontal region. Eris Yeager MD Chest X-Ray 09/30/17 1254 Signed Impressions: Service Date/Time: Saturday, September 30, 2017 13:35 - CONCLUSION: No acute disease Eris Yeager MD Cervical Spine CT 09/30/17 1254 Signed Impressions: Service Date/Time: Saturday, September 30, 2017 13:27 - CONCLUSION: 1. Multilevel degenerative disc disease with severe loss of disc height and near bone on bone articulation C5-C6 inferiorly. High grade one anterolisthesis of C4 on 5. 2. Uncovertebral ridging and facet hypertrophy encroach on the spinal canal and neural foramina at multiple levels. However, I believe the only significant narrowing is leftward C6-7 with possible compromise of the left C7 nerve root. 3. No fracture. Naveen Ramos MD (Kristen Howard) Physical Exam General Appearance: No Acute Distress, Comfortable, Malnourished (Kristen Howard) Eyes Eye Exam: Pupils Equal (Kristen Howard) Pulmonary Resp Exam: Breath Sounds Equal, No Distress, Decreased Bases (Kristen Howard) Cardiology CV Exam: Regular, Normal Sinus Rhythm (Kristen Howard) Gastrointestinal/Abdomen GI Exam: Soft, Non-Tender, Bowel Sounds Present (Kristen Howard) Extremeties Extremities Exam: Trace Edema (Kristen Howard) Neurologic Neuro Exam: Alert, Awake (Kristen Howard) Psychiatric Psych Exam: Appropriate Responses (Kristen Howard) Assessment/Plan Problem List: (1) Acute kidney injury ICD Codes: N17.9 - Acute kidney failure, unspecified Plan: Acute kidney injury with a creatinine of 2.39 from admission creatinine of 2.07 on day of consult Baseline creatinine 03/10 was 1.02 Acute kidney injury could possibly be prerenal from poor intake with dysphagia but also from rhabdomyolysis. FeNA at 0.58 % suggestive of prerenal CT of abdomen: Nonobstructing calcifications in both kidneys. Plan Continue IVF with bicarbonate, CO2 slowly improving 16.4 today Continue to monitor labs Maintain strict I+O's Potassium at 3.2 IV replacement ordered Hypernatremia improving at 147 will still continue IVF's Creatinine is at baseline at 1.18 today (2) Hypernatremia ICD Codes: E87.0 - Hyperosmolality and hypernatremia Plan: Continue IVF improving (Kristen Howard) Problem List: (1) Acute kidney injury ICD Codes: N17.9 - Acute kidney failure, unspecified Plan: Acute kidney injury with a creatinine of 2.39 from admission creatinine of 2.07 on day of consult Baseline creatinine 03/10 was 1.02 Acute kidney injury could possibly be prerenal from poor intake with dysphagia but also from rhabdomyolysis. FeNA at 0.58 % suggestive of prerenal CT of abdomen: Nonobstructing calcifications in both kidneys. Plan Continue IVF with bicarbonate, CO2 slowly improving 16.4 today Continue to monitor labs Maintain strict I+O's Potassium at 3.2 IV replacement ordered Hypernatremia improving at 147 will still continue IVF's Creatinine is at baseline at 1.18 today. Patient seen and examined, agree with above. Creatinine is improving, continue IVF and encourage oral intake. (2) Hypernatremia ICD Codes: E87.0 - Hyperosmolality and hypernatremia Plan: Continue IVF improving (Yasmin Fishman MD) Kristen Howard October 04, 2017 09:11 Yasmin Fishman MD October 04, 2017 13:05
[2017-10-04] MEDS: SUCRALFATE 1 GM/10 ML CUP PO SCH ×4 (09:37→21:19)
[2017-10-04] MEDS: POLYETHYLENE GLYCOL 17 GM PKG PO SCH (09:37)
[2017-10-04] MEDS: HEPARIN SODIUM - SQ 10,000 UNITS/ML VIAL SQ SCH ×2 (09:37→21:19)
[2017-10-04] MEDS: ATORVASTATIN 10 MG TAB PO SCH (09:38)
[2017-10-04] MEDS: POTASSIUM CHLORIDE 25 MEQ EFFERVESCENT TAB PO SCH (09:38)
[2017-10-04] MEDS: ASPIRIN 81 MG CHEW TAB CHEW SCH (09:38)
[2017-10-04] MEDS: PANTOPRAZOLE SOD 40 MG DELAYED RELEASE TAB PO SCH (09:38)
[2017-10-04] MEDS ORDERED: POTASSIUM CHLOR 20 MEQ PREMIX 100 ML IV ONE (10:00)
--- NOTE | 2017-10-04 10:06 | HHI.GIFU ---
Subjective Remarks Pt resting in bed Eating his breakfast Denies nausea, vomiting States swallowing seems to be improving Denies abdominal pain Reports normal BM this morning (Delphine Meneses) Objective Vitals I&O Vital Signs Date Time Temp Pulse Resp B/P (MAP) Pulse Ox O2 Delivery O2 Flow Rate FiO2 10/04/17 04:59 98.1 62 18 102/51 (68) 98 10/04/17 00:34 98.6 60 18 111/54 (73) 96 10/03/17 20:00 96.9 75 21 152/72 (98) 100 10/03/17 20:00 76 10/03/17 16:00 97.8 60 18 103/54 (70) 99 10/03/17 12:00 97.5 60 19 114/53 (73) 97 I/O 10/03/17 10/03/17 10/03/17 10/04/17 10/04/17 10/04/17 07:00 15:00 23:00 07:00 15:00 23:00 Intake Total 0 ml 100 ml 400 ml 580 ml Output Total 550 ml 625 ml 700 ml Balance -550 ml 100 ml -225 ml -120 ml Intake Oral 0 ml 400 ml 580 ml IV Total 100 ml Output Urine Total 550 ml 625 ml 700 ml # Bowel Movements 0 0 1 Laboratory Laboratory Tests Test 10/04/17 06:36 White Blood Count 8.5 Red Blood Count 2.69 Hemoglobin 8.9 Hematocrit 25.7 Mean Corpuscular Volume 95.7 Mean Corpuscular Hemoglobin 33.3 Mean Corpuscular Hemoglobin Concent 34.8 Red Cell Distribution Width 14.7 Platelet Count 148 Mean Platelet Volume 9.0 Neutrophils (%) (Auto) 44.2 Lymphocytes (%) (Auto) 40.5 Monocytes (%) (Auto) 12.4 Eosinophils (%) (Auto) 2.4 Basophils (%) (Auto) 0.5 Neutrophils # (Auto) 3.8 Lymphocytes # (Auto) 3.5 Monocytes # (Auto) 1.1 Eosinophils # (Auto) 0.2 Basophils # (Auto) 0.0 CBC Comment DIFF FINAL Differential Comment Blood Urea Nitrogen 28 Creatinine 1.18 Random Glucose 74 Total Protein 5.4 Albumin 2.3 Calcium Level 7.1 Alkaline Phosphatase 86 Aspartate Amino Transf (AST/SGOT) 56 Alanine Aminotransferase (ALT/SGPT) 42 Total Bilirubin 0.4 Sodium Level 147 Potassium Level 3.2 Chloride Level 121 Carbon Dioxide Level 16.4 Anion Gap 10 Estimat Glomerular Filtration Rate 59 Protein Corrected Calcium 8.0 Total Creatine Kinase 438 Creatine Kinase MB 3.7 Creatine Kinase MB % 0.8 Imaging Last Impressions Abdomen/Pelvis CT 10/01/17 0000 Signed Impressions: Service Date/Time: September 16:20 - CONCLUSION: 1. Decrease in size of nodules at the lung bases since April 2016. Small right pleural effusion. 2. Left inguinal hernia containing loop of colon without evidence for obstruction. 3. 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 No ascites. 4. Enlarged prostate. Mild constipation. 5. Nonobstructing tiny bilateral renal calcifications. Tomer Rincon MD Pelvis X-Ray 09/30/17 1254 Signed Impressions: Service Date/Time: Saturday, September 30, 2017 13:38 - CONCLUSION: No acute bony injury Eris Yeager MD Head CT 09/30/17 1254 Signed Impressions: Service Date/Time: Saturday, September 30, 2017 13:27 - CONCLUSION: Small focus of extra-axial hemorrhage in the high convexity right frontal region. Eris Yeager MD Chest X-Ray 09/30/17 1254 Signed Impressions: Service Date/Time: Saturday, September 30, 2017 13:35 - CONCLUSION: No acute disease Eris Yeager MD Cervical Spine CT 09/30/17 1254 Signed Impressions: Service Date/Time: Saturday, September 30, 2017 13:27 - CONCLUSION: 1. Multilevel degenerative disc disease with severe loss of disc height and near bone on bone articulation C5-C6 inferiorly. High grade one anterolisthesis of C4 on 5. 2. Uncovertebral ridging and facet hypertrophy encroach on the spinal canal and neural foramina at multiple levels. However, I believe the only significant narrowing is leftward C6-7 with possible compromise of the left C7 nerve root. 3. No fracture. Naveen Ramos MD Physical Exam HEENT: Normocephalic; atraumatic CHEST: Even/unlabored ABDOMEN: Soft, nontender, bowel sounds active SKIN: Pale FIELD AGRONOMIST: Alert and oriented x 3 (Delphine MenesesP) Assessment and Plan Plan Assessment: - Nausea and vomiting- pt reports for the past week, denies association to food. Denies hematemesis and coffee ground emesis - Heartburn- has been taking a lot of Tums recently. Does not think he has ever had an EGD - Dysphagia- states the food sits in his mouth a long time before he is able to swallow it. Denies odynophagia. Denies food getting stuck. - Weight loss- unsure how much, he attributes this to poor appetite and trouble swallowing - Constipation- takes Prune juice as needed with good relief - Elevated AST- WNL on admission, ETOH- 2 beers a day, reports of lung cancer metastasis to liver, no imaging - Lung cancer, possible mets to the liver per family according to chart, followed by Dr. Barboza - Chronic a-fib- not on anticoagulation at home due to frequent falls - AMI with elevated troponin and electrolyte imbalance EGD (10/02) --> Class D esophagitis noted. Erythematous gastritis in the gastric antrum. single ulcer ranging between 5-9 mm in size in the 1st part of the duodenum, hiatal hernia CT abdomen and pelvis W/O IV contrast (10/01) --> Decrease in size of nodules at the lung bases since April 2016. Small right pleural effusion. Left inguinal hernia containing loop of colon without evidence for obstruction. 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 No ascites. Enlarged prostate. Mild constipation. Nonobstructing tiny bilateral renal calcifications. (10/04) Pt states normal BM earlier today. Swallowing improving, is currently tolerating breakfast, eating Thai muffin and scrambled eggs. Remains on Carafate and Pepcid. LFTs trending down. AST-56 ALT-42 Alk phos-86 T bili-0.4 Plan: GAS PRODUCER recommended soft diet and thin liquids Bowel regimen as needed Carafate Pepcid Repeat EGD in 3 months Avoid NSAIDs Monitor LFTs Avoid ETOH Avoid hepatotoxins GI will sign off, reconsult as needed Have pt follow up with GI after DC Pt has been seen and examined by myself and Dr. Taylor and this note is written on his behalf (Delphine Meneses) Physician Comments Seen and examined with DIRECTOR [employer], doing better, tolerating po. Continue PPI/Carafate? pepcid. Gi will sign off. Fu as rec. Thank you (Lucas Taylor MD) Delphine Meneses October 04, 2017 10:06 Lucas Taylor MD October 04, 2017 20:45
--- NOTE | 2017-10-04 14:35 | HHI.PR ---
Subjective Remarks Denies cp/sob wants to go home afebrile Objective Vitals Vital Signs Date Time Temp Pulse Resp B/P (MAP) Pulse Ox O2 Delivery O2 Flow Rate FiO2 10/04/17 12:00 96.0 62 18 110/56 (74) 100 10/04/17 08:00 97.3 66 16 109/56 (73) 99 10/04/17 04:59 98.1 62 18 102/51 (68) 98 10/04/17 00:34 98.6 60 18 111/54 (73) 96 10/03/17 20:00 96.9 75 21 152/72 (98) 100 10/03/17 20:00 76 10/03/17 16:00 97.8 60 18 103/54 (70) 99 I/O 10/03/17 10/03/17 10/03/17 10/04/17 10/04/17 10/04/17 07:00 15:00 23:00 07:00 15:00 23:00 Intake Total 0 ml 100 ml 400 ml 580 ml Output Total 550 ml 625 ml 700 ml Balance -550 ml 100 ml -225 ml -120 ml Intake Oral 0 ml 400 ml 580 ml IV Total 100 ml Output Urine Total 550 ml 625 ml 700 ml # Bowel Movements 0 0 1 Result Diagram: 10/04/1736 10/04/17635 Objective Remarks GENERAL: Elderly and frail male SKIN: Bilateral LE with venous stasis changes. HEAD: S/P repair of scalp laceration. Dressing looks intact EYES: Pupils equal round and reactive. Extraocular motions intact. No scleral icterus. No injection or drainage. ENT: Nose without bleeding, purulent drainage or septal hematoma. Throat without erythema, tonsillar hypertrophy or exudate. Uvula midline. Airway patent. NECK: Trachea midline. No JVD or lymphadenopathy. Supple, nontender, no meningeal signs. CARDIOVASCULAR: Regular rate and rhythm without murmurs, gallops, or rubs. RESPIRATORY: Clear to auscultation. Breath sounds equal bilaterally. No wheezes , rales, or rhonchi. GASTROINTESTINAL: Abdomen soft, non-tender, nondistended. No hepato-splenomegaly , or palpable masses. No guarding. MUSCULOSKELETAL: Extremities without clubbing, cyanosis, or edema. No joint tenderness, effusion, or edema noted. No calf tenderness. Negative Homans sign bilaterally. NEUROLOGICAL: Awake and alert. Moves all extremity. Generalized weakness. Some mild short term memory impairment. Chronic per family. A/P Problem List: (1) Fall ICD Code: W19.XXXA - Unspecified fall, initial encounter (2) Scalp laceration ICD Code: S01.01XA - Laceration without foreign body of scalp, initial encounter (3) Chronic a-fib ICD Code: I48.2 - Chronic atrial fibrillation (4) Acute renal failure ICD Code: N17.9 - Acute kidney failure, unspecified Status: Acute (5) Debility ICD Code: R53.81 - Other malaise (6) Hypertension ICD Code: I10 - Essential (primary) hypertension Status: Acute (7) Hypernatremia ICD Code: E87.0 - Hyperosmolality and hypernatremia (8) Lung cancer ICD Code: C34.90 - Malignant neoplasm of unspecified part of unspecified bronchus or lung (9) Dyspepsia ICD Code: R10.13 - Epigastric pain (10) Dysphagia ICD Code: R13.10 - Dysphagia, unspecified (11) Vomiting ICD Code: R11.10 - Vomiting, unspecified (12) Hypokalemia ICD Code: E87.6 - Hypokalemia Status: Acute (13) Hypothyroidism ICD Code: E03.9 - Hypothyroidism, unspecified Status: Chronic (14) Elevated troponin ICD Code: R74.8 - Abnormal levels of other serum enzymes (15) Metabolic acidosis ICD Code: E87.2 - Acidosis Status: Acute (16) Rhabdomyolysis ICD Code: M62.82 - Rhabdomyolysis Status: Acute Assessment and Plan (1) Fall Plan: Seems to be mechanical. Based on review of records, it appears that he has frequent falls. Family reports that he has been declining over the past few months. Could be related to worsening cancer burden and poor oral intake PT to evaluate. May need SNF or HHC with PT. (2) Scalp laceration Plan: Secondary to fall. Head CT images personally reviewed. Extra axial, small fluid collection. Laceration sutured by ED physician. (3) Chronic a-fib Plan: Records reviewed. Patient is on Aspirin. Per Mechanical Systems Designer note, not anticoagulated due to frequent falls. S/P Pacemaker placement for history of V-bradycardia. (4) Acute renal failure Plan: 10/01 worsening AMI with worsening metabolic acidosis due to AMI. Switch IV fluids to D5 + Bicarb Strict I's and O's consult nephrology avoid nephrotoxins 10/02 appreciate nephrology recommendations. Creatinine trending down. Continue to monitor Bun/Creatinine. (5) Debility ICD Code: R53.81 - Other malaise Plan: PT following. (6) Hypertension ICD Code: I10 - Essential (primary) hypertension Status: Acute (7) Hypernatremia ICD Code: E87.0 - Hyperosmolality and hypernatremia Plan: 10/01 Worsening hypernatremia. Will change IV fluids to D5 + Bicarb. 10/02 Hypernatremia improving. Continue hypotonic fluids with d5 + Na Bicarb. Monitor BMP. (8) Lung cancer ICD Code: C34.90 - Malignant neoplasm of unspecified part of unspecified bronchus or lung Plan: Mild progression per recent CT. Due for PET scan outpatient. Will need follow up with Oncologist Dr. Barboza. (9) Dyspepsia ICD Code: R10.13 - Epigastric pain Plan: Has been using tums around the clock. Episodes of vomiting GI consulted Continue PPI 10/02 SP EGD with the following findings: 1. There was LA Class D esophagitis noted 2. There was erythematous gastritis in the gastric antrum 3. Single ulcer ranging between 5-9mm in size was found in the 1st part of the duodenum; Argon plasma coagulation was applied to the site; with complete hemostasis achieved 4. Retroflexed views revealed a hiatal hernia Continue PPI. (10) Dysphagia ICD Code: R13.10 - Dysphagia, unspecified Plan: GI consulted for ongoing dysphagia and vomiting. Had normal barium swallow outpatient. Has been using tums around the clock. (11) Vomiting ICD Code: R11.10 - Vomiting, unspecified Plan: Vomiting much improved and resolved. Continue Zofran as needed. (12) Hypokalemia ICD Code: E87.6 - Hypokalemia Status: Acute Plan: Replace and monitor (13) Hypothyroidism ICD Code: E03.9 - Hypothyroidism, unspecified Status: Chronic Plan: Continue Synthroid, TSH WNR (14) Elevated troponin ICD Code: R74.8 - Abnormal levels of other serum enzymes Plan: Likely due to renal failure. No CV complaints. Trend cardiac enzymes. Consult cardiology (15) Metabolic acidosis ICD Code: E87.2 - Acidosis Status: Acute Plan: Due to AMI. D5 + Bicarb Monitor BMP (16) Rhabdomyolysis ICD Code: M62.82 - Rhabdomyolysis Status: Acute Plan: CK elevated. Continue IV fluids Monitor Total ck / CK trending down. Continue IV fluids. DVT proph: heparin Sq Discharge Planning Monitor in the medical floor. Patient will need snf placement. Poss Dc in am. Problem Qualifiers (1) Hypertension: Qualified Codes: I10 - Essential (primary) hypertension (2) Dysphagia: Qualified Codes: R13.13 - Dysphagia, pharyngeal phase (3) Vomiting: Jameel Ovalle MD October 04, 2017 14:35
[2017-10-04] MEDS: SODIUM CHLORIDE 0.9% FLUSH 10 ML FLUSH IV FLUSH SCH ×2 (15:44→21:00)
[2017-10-04] MEDS: FAMOTIDINE 20 MG TAB PO SCH (21:19)
[2017-10-05] VITALS (7 sets, daily range): BP systolic 97–113; BP diastolic 44–55; PULSE 60–71; RESP 16–17; TEMP 97.3–98.8; O2SAT 94–99
[2017-10-05] MEDS: SODIUM BICARBONATE 8.4% INJ 50 MEQ in DEXTROSE 5% IN WATE 1000ML INJ 1,000 ML IV SCH ×2 (04:09)
[2017-10-05] MEDS: LEVOTHYROXINE SODIUM 50 MCG TAB PO SCH (04:10)
[2017-10-05] MEDS: POTASSIUM PHOSPHATE/SODIUM PHOSPHATE 250 MG TAB PO SCH ×3 (04:10→21:36)
[2017-10-05 07:40] LABS: BICARBONATE 17.6 MEQ/L (21.0-32.0); CALCIUM 6.5 MG/DL (8.5-10.1); PHOSPHORUS 1.9 MG/DL (2.5-4.9)
[2017-10-05] MEDS: SUCRALFATE 1 GM/10 ML CUP PO SCH ×4 (08:00→21:36)
[2017-10-05 08:01] LABS: CALCIUM-PROTEIN CORRECTED 7.6 MG/DL (8.5-10.1); TOTAL PROTEIN 4.9 GM/DL (6.4-8.2)
[2017-10-05] MEDS: HEPARIN SODIUM - SQ 10,000 UNITS/ML VIAL SQ SCH (09:00)
[2017-10-05] MEDS: ATORVASTATIN 10 MG TAB PO SCH (09:00)
[2017-10-05] MEDS: SODIUM CHLORIDE 0.9% FLUSH 10 ML FLUSH IV FLUSH SCH ×2 (09:00→21:00)
[2017-10-05] MEDS: POTASSIUM CHLORIDE 25 MEQ EFFERVESCENT TAB PO SCH (09:00)
[2017-10-05] MEDS: ASPIRIN 81 MG CHEW TAB CHEW SCH (09:00)
[2017-10-05] MEDS: POLYETHYLENE GLYCOL 17 GM PKG PO SCH (09:00)
[2017-10-05] MEDS: PANTOPRAZOLE SOD 40 MG DELAYED RELEASE TAB PO SCH (09:00)
[2017-10-05] MEDS ORDERED: CALCIUM CHLORIDE INJ 2 GM in SODIUM CHLORIDE 0.9% INJ 100 ML IV ONE (10:00)
--- NOTE | 2017-10-05 12:13 | HHI.DCPOC ---
Discharge Care Plan Diagnosis: (1) Metabolic acidosis (2) Rhabdomyolysis (3) Hypokalemia (4) Acute kidney injury (5) Elevated troponin (6) Chronic a-fib (7) Scalp laceration (8) Fall (9) Debility (10) Hypertension (11) Lung cancer (12) Hypothyroidism (13) Hypernatremia (14) Dyspepsia (15) Vomiting Goals to Promote Your Health * To prevent worsening of your condition and complications * To maintain your health at the optimal level Directions to Meet Your Goals Take your medications as prescribed Follow your dietary instruction Follow activity as directed Keep your appointments as scheduled Take your immunizations and boosters as scheduled If your symptoms worsen call your PCP, if no PCP go to Urgent Care Center or Emergency Room Smoking is Dangerous to Your Health. Avoid second hand smoke Call the 24-hour hour crisis hotline for domestic abuse at Jameel Ovalle MD October 05, 2017 12:13
[2017-10-05] MEDS ORDERED: SUCR1S PO (12:18)
[2017-10-05] MEDS ORDERED: PANT40TA3 PO (12:18)
[2017-10-05] MEDS ORDERED: MAAL10003 CHEW (12:18)
--- NOTE | 2017-10-05 12:25 | HHI.DS ---
Discharge Summary Admission Date September 30, 2017 at 16:12 Discharge Date: October 05, 2017 Admitting Diagnosis ACUTE RENAL FAILURE, ELEV TROPONIN, HYPERNATREMIA (1) Fall ICD Code: W19.XXXA - Unspecified fall, initial encounter (2) Scalp laceration ICD Code: S01.01XA - Laceration without foreign body of scalp, initial encounter (3) Chronic a-fib ICD Code: I48.2 - Chronic atrial fibrillation (4) Acute renal failure ICD Code: N17.9 - Acute kidney failure, unspecified Status: Acute (5) Debility ICD Code: R53.81 - Other malaise (6) Hypertension ICD Code: I10 - Essential (primary) hypertension Status: Acute (7) Hypernatremia ICD Code: E87.0 - Hyperosmolality and hypernatremia (8) Lung cancer ICD Code: C34.90 - Malignant neoplasm of unspecified part of unspecified bronchus or lung (9) Dyspepsia ICD Code: R10.13 - Epigastric pain (10) Dysphagia ICD Code: R13.10 - Dysphagia, unspecified (11) Vomiting ICD Code: R11.10 - Vomiting, unspecified (12) Hypokalemia ICD Code: E87.6 - Hypokalemia Status: Acute (13) Hypothyroidism ICD Code: E03.9 - Hypothyroidism, unspecified Status: Chronic (14) Elevated troponin ICD Code: R74.8 - Abnormal levels of other serum enzymes (15) Metabolic acidosis ICD Code: E87.2 - Acidosis Status: Acute (16) Rhabdomyolysis ICD Code: M62.82 - Rhabdomyolysis Status: Acute (17) Acute kidney injury ICD Code: N17.9 - Acute kidney failure, unspecified (18) Gastritis ICD Code: K29.70 - Gastritis, unspecified, without bleeding (19) Duodenal ulcer ICD Code: K26.9 - Duodenal ulcer, unspecified as acute or chronic, without hemorrhage or perforation (20) Frequent falls ICD Code: R29.6 - Repeated falls Status: Acute (21) Failure to thrive in adult ICD Code: R62.7 - Adult failure to thrive Status: Acute Brief History - From Admission 82 Y/O male with a medical history significant for Hypertension, 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 Barboza. The patient is a poor historian, most of the History obtained from his daughter and is also limited. He normally lives with his who is currently out of town. 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 Patient reports he got out of bed and tripped. He landed on a carpet floor but sustained a scalp laceration. He denies any LOC. No lightheadedness, no chest pain or shortness of breath. Patient's daughter reports that he has been declining over the past couple of months with worsening appetite and weight loss. Recent CT showed mild progression of the lung lesions and he is due for outpatient PET scan. For the past few weeks the patient also has been having issues with dyspepsia and vomiting episodes. He goes through bottles of tums within days. He denies epigastric pain. He did have an episode of non bloody emesis during my evaluation. He has been worked up outpatient for dysphagia by his PCP and had a normal barium swallow. PCP notes reviewed. CBC/BMP: 10/04/17 0636 10/05/17 0607 Significant Findings Laboratory Tests Test 10/03/17 04:18 10/04/17 06:36 10/05/17 06:07 Red Blood Count 2.78 MIL/MM3 (4.50-5.90) 2.69 MIL/MM3 (4.50-5.90) Hemoglobin 9.1 GM/DL (13.0-17.0) 8.9 GM/DL (13.0-17.0) Hematocrit 26.7 % (39.0-51.0) 25.7 % (39.0-51.0) Monocytes (%) (Auto) 11.6 % (0.0-8.0) 12.4 % (0.0-8.0) Monocytes # (Auto) 1.0 TH/MM3 (0-0.9) 1.1 TH/MM3 (0-0.9) Blood Urea Nitrogen 39 MG/DL (7-18) 28 MG/DL (7-18) 24 MG/DL (7-18) Creatinine 1.58 MG/DL (0.60-1.30) Total Protein 5.5 GM/DL (6.4-8.2) 5.4 GM/DL (6.4-8.2) 4.9 GM/DL (6.4-8.2) Albumin 2.4 GM/DL (3.4-5.0) 2.3 GM/DL (3.4-5.0) Calcium Level 7.5 MG/DL (8.5-10.1) 7.1 MG/DL (8.5-10.1) 6.5 MG/DL (8.5-10.1) Phosphorus Level 2.1 MG/DL (2.5-4.9) 1.9 MG/DL (2.5-4.9) Aspartate Amino Transf (AST/SGOT) 73 U/L (15-37) 56 U/L (15-37) Sodium Level 151 MEQ/L (136-145) 147 MEQ/L (136-145) Potassium Level 2.8 MEQ/L (3.5-5.1) 3.2 MEQ/L (3.5-5.1) Chloride Level 125 MEQ/L (98-107) 121 MEQ/L (98-107) 116 MEQ/L (98-107) Carbon Dioxide Level 14.5 MEQ/L (21.0-32.0) 16.4 MEQ/L (21.0-32.0) 17.6 MEQ/L (21.0-32.0) Estimat Glomerular Filtration Rate 42 ML/MIN (>89) 59 ML/MIN (>89) 72 ML/MIN (>89) Total Creatine Kinase 715 U/L (39-308) 438 U/L (39-308) Creatine Kinase MB 7.3 NG/ML (0.5-3.6) 3.7 NG/ML (0.5-3.6) Platelet Count 148 TH/MM3 (150-450) Protein Corrected Calcium 8.0 MG/DL (8.5-10.1) 7.6 MG/DL (8.5-10.1) PE at Discharge GENERAL: Elderly and frail male SKIN: Bilateral LE with venous stasis changes. HEAD: S/P repair of scalp laceration. Dressing looks intact EYES: Pupils equal round and reactive. Extraocular motions intact. No scleral icterus. No injection or drainage. ENT: Nose without bleeding, purulent drainage or septal hematoma. Throat without erythema, tonsillar hypertrophy or exudate. Uvula midline. Airway patent. NECK: Trachea midline. No JVD or lymphadenopathy. Supple, nontender, no meningeal signs. CARDIOVASCULAR: Regular rate and rhythm without murmurs, gallops, or rubs. RESPIRATORY: Clear to auscultation. Breath sounds equal bilaterally. No wheezes , rales, or rhonchi. GASTROINTESTINAL: Abdomen soft, non-tender, nondistended. No hepato-splenomegaly , or palpable masses. No guarding. MUSCULOSKELETAL: Extremities without clubbing, cyanosis, or edema. No joint tenderness, effusion, or edema noted. No calf tenderness. Negative Homans sign bilaterally. NEUROLOGICAL: Awake and alert. Moves all extremity. Generalized weakness. Some mild short term memory impairment. Chronic per family. Pt Condition on Discharge: Stable Discharge Disposition: Discharge to SNF Discharge Instructions DIET: Follow Instructions for: Heart Healthy Diet Activities you can perform: Regular-No Restrictions, See Additionl Instruction Other Activity Instructions: as per PT instructions Follow up Referrals: PCP Follow-up - 2 Weeks New Medications: Calcium Carbonate-Simethicone (Maalox Advanced Maximum Strength) 1,000-60 Mg Chew 1-2 TAB CHEW Q6HR PRN for INDIGESTION OR UPSET STOMACH, #15 TAB 0 Refills Pantoprazole (Pantoprazole) 40 Mg Tab 40 MG PO DAILY for Reflux, #31 TAB Sucralfate Liq (Sucralfate Liq) 1 Gram/10 Ml Beth 1 GM PO ACHS for peptic ulcer disease, #1 BOTTLE Continued Medications: Aspirin (Aspirin) 81 Mg Chew 81 MG CHEW DAILY, TAB 0 Refills Atorvastatin (Atorvastatin) 10 Mg Tab 10 MG PO DAILY for Cholesterol Management, #30 TAB 0 Refills Hydralazine HCl (Hydralazine HCl) 25 Mg Tablet 50 MG PO Q12HR for Blood Pressure Management, #60 MG 11 Refills Levothyroxine (Levothyroxine) 50 Mcg Tab 50 MCG PO DAILY for Thyroid, #30 TAB 0 Refills Multiple Vitamins W/ Minerals (Multi For Him 50+) 0.4 Mg-2 Mg-250 Mcg Tab Multiple Vitamins W/ Minerals (Preservision Areds) 1 Tab 1 TAB PO DAILY for Nutritional Supplement, TAB 0 Refills Nivolumab (Opdivo) 40 Mg/4 Ml Inj Thiamine (Vitamin B-1) 100 Mg Tab 100 MG PO DAILY for Nutritional Supplement, TAB 0 Refills Jameel Ovalle MD October 05, 2017 12:25
--- NOTE | 2017-10-05 14:59 | HHI.PR ---
Subjective Remarks Patient has no complaints, denies chest pain or shortness of breath. Denies dizziness. As per RN report the patient had a bloody bowel movement today. Objective Vitals Vital Signs Date Time Temp Pulse Resp B/P (MAP) Pulse Ox O2 Delivery O2 Flow Rate FiO2 10/05/17 12:00 98.7 71 16 97/52 (67) 99 10/05/17 08:00 98.0 60 16 107/49 (68) 94 10/05/17 04:00 98.3 62 16 110/53 (72) 98 10/05/17 00:28 98.1 60 17 105/55 (72) 96 10/04/17 20:00 98.2 60 17 128/60 (82) 96 10/04/17 19:39 60 10/04/17 16:00 97.7 61 17 103/51 (68) 99 I/O 10/04/17 10/04/17 10/04/17 10/05/17 10/05/17 10/05/17 06:59 14:59 22:59 06:59 14:59 22:59 Intake Total 580 ml 100 ml 1550 ml 1480 ml 400 ml Output Total 700 ml 600 ml 1600 ml Balance -120 ml 100 ml 950 ml -120 ml 400 ml Intake Oral 580 ml 500 ml 480 ml IV Total 100 ml 1050 ml 1000 ml 400 ml Output Urine Total 700 ml 600 ml 1600 ml # Bowel Movements 1 0 Result Diagram: 10/04/17 0636 10/05/17 0607 Imaging Last Impressions Abdomen/Pelvis CT 10/01/17 0000 Signed Impressions: Service Date/Time: September 16:20 - CONCLUSION: 1. Decrease in size of nodules at the lung bases since April 2016. Small right pleural effusion. 2. Left inguinal hernia containing loop of colon without evidence for obstruction. 3. 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 No ascites. 4. Enlarged prostate. Mild constipation. 5. Nonobstructing tiny bilateral renal calcifications. Tomer Rincon MD Pelvis X-Ray 09/30/17 1259 Signed Impressions: Service Date/Time: Saturday, September 30, 2017 13:38 - CONCLUSION: No acute bony injury Eirs Yeager MD Head CT 09/30/17 1254 Signed Impressions: Service Date/Time: Saturday, September 30, 2017 13:27 - CONCLUSION: Small focus of extra-axial hemorrhage in the high convexity right frontal region. Eris Yeager MD Chest X-Ray 09/30/17 1254 Signed Impressions: Service Date/Time: Saturday, September 30, 2017 13:35 - CONCLUSION: No acute disease Eris Yeager MD Cervical Spine CT 09/30/17 1254 Signed Impressions: Service Date/Time: Saturday, September 30, 2017 13:27 - CONCLUSION: 1. Multilevel degenerative disc disease with severe loss of disc height and near bone on bone articulation C5-C6 inferiorly. High grade one anterolisthesis of C4 on 5. 2. Uncovertebral ridging and facet hypertrophy encroach on the spinal canal and neural foramina at multiple levels. However, I believe the only significant narrowing is leftward C6-7 with possible compromise of the left C7 nerve root. 3. No fracture. Naveen Ramos MD Objective Remarks GENERAL: Elderly and frail male SKIN: Bilateral LE with venous stasis changes. HEAD: S/P repair of scalp laceration. Dressing looks intact EYES: Pupils equal round and reactive. Extraocular motions intact. No scleral icterus. No injection or drainage. ENT: Nose without bleeding, purulent drainage or septal hematoma. Throat without erythema, tonsillar hypertrophy or exudate. Uvula midline. Airway patent. NECK: Trachea midline. No JVD or lymphadenopathy. Supple, nontender, no meningeal signs. CARDIOVASCULAR: Regular rate and rhythm without murmurs, gallops, or rubs. RESPIRATORY: Clear to auscultation. Breath sounds equal bilaterally. No wheezes , rales, or rhonchi. GASTROINTESTINAL: Abdomen soft, non-tender, nondistended. No hepato-splenomegaly , or palpable masses. No guarding. MUSCULOSKELETAL: Extremities without clubbing, cyanosis, or edema. No joint tenderness, effusion, or edema noted. No calf tenderness. Negative Homans sign bilaterally. NEUROLOGICAL: Awake and alert. Moves all extremity. Generalized weakness. Some mild short term memory impairment. Chronic per family. Procedures Status post EGD with ablation. EGD found a class C esophagitis, erythematous gastritis in the gastric antrum. A single ulcer ranging between 5-9 mm in size in the first part of the duodenum. I will can plasma coagulation was applied to the site with complete hemostasis. Retroflexed views revealed a hiatal hernia. A/P Problem List: (1) Fall ICD Code: W19.XXXA - Unspecified fall, initial encounter (2) Scalp laceration ICD Code: S01.01XA - Laceration without foreign body of scalp, initial encounter (3) Chronic a-fib ICD Code: I48.2 - Chronic atrial fibrillation (4) Acute renal failure ICD Code: N17.9 - Acute kidney failure, unspecified Status: Acute (5) Debility ICD Code: R53.81 - Other malaise (6) Hypertension ICD Code: I10 - Essential (primary) hypertension Status: Acute (7) Hypernatremia ICD Code: E87.0 - Hyperosmolality and hypernatremia (8) Lung cancer ICD Code: C34.90 - Malignant neoplasm of unspecified part of unspecified bronchus or lung (9) Dyspepsia ICD Code: R10.13 - Epigastric pain (10) Dysphagia ICD Code: R13.10 - Dysphagia, unspecified (11) Vomiting ICD Code: R11.10 - Vomiting, unspecified (12) Hypokalemia ICD Code: E87.6 - Hypokalemia Status: Acute (13) Hypothyroidism ICD Code: E03.9 - Hypothyroidism, unspecified Status: Chronic (14) Elevated troponin ICD Code: R74.8 - Abnormal levels of other serum enzymes (15) Metabolic acidosis ICD Code: E87.2 - Acidosis Status: Acute (16) Rhabdomyolysis ICD Code: M62.82 - Rhabdomyolysis Status: Acute (17) Acute kidney injury ICD Code: N17.9 - Acute kidney failure, unspecified (18) Gastritis ICD Code: K29.70 - Gastritis, unspecified, without bleeding (19) Duodenal ulcer ICD Code: K26.9 - Duodenal ulcer, unspecified as acute or chronic, without hemorrhage or perforation (20) Frequent falls ICD Code: R29.6 - Repeated falls Status: Acute (21) Failure to thrive in adult ICD Code: R62.7 - Adult failure to thrive Status: Acute (22) BRBPR (bright red blood per rectum) ICD Code: K62.5 - Hemorrhage of anus and rectum Status: Acute Plan: Patient had a bloody bowel movement. Discussed the case with Delphine Cortes, the gastroenterology physician academic support assistant. She will see the patient later today. Possible colonoscopy tomorrow. Monitor CBC and transfuse as needed for hemoglobin less than 8 if active bleeding or less than 7, or symptomatic anemia. Transfuse to a hemoglobin goal of more than 9. (23) Hypotension ICD Code: I95.9 - Hypotension, unspecified Plan: The patient has his blood pressure dropping into the systolic high 90s. Order 250 mL normal saline bolus. Monitor vital signs and rebolus as needed. Assessment and Plan (1) Fall Plan: Seems to be mechanical. Based on review of records, it appears that he has frequent falls. Family reports that he has been declining over the past few months. Could be related to worsening cancer burden and poor oral intake PT to evaluate. May need SNF or C with PT. (2) Scalp laceration Plan: Secondary to fall. Head CT images personally reviewed. Extra axial, small fluid collection. Laceration sutured by ED physician. (3) Chronic a-fib Plan: Records reviewed. Patient is on Aspirin. Per Circular Knife Cutter Machine note, not anticoagulated due to frequent falls. S/P Pacemaker placement for history of V-bradycardia. (4) Acute renal failure Plan: 10/01 worsening AMI with worsening metabolic acidosis due to AMI. Switch IV fluids to D5 + Bicarb Strict I's and O's consult nephrology avoid nephrotoxins 10/02 appreciate nephrology recommendations. Creatinine trending down. Continue to monitor Bun/Creatinine. (5) Debility ICD Code: R53.81 - Other malaise Plan: PT following. (6) Hypertension ICD Code: I10 - Essential (primary) hypertension Status: Acute (7) Hypernatremia ICD Code: E87.0 - Hyperosmolality and hypernatremia Plan: 10/01 Worsening hypernatremia. Will change IV fluids to D5 + Bicarb. Been treated with hypotonic fluids with d5 + Na Bicarb. Monitor BMP. 10/05 hypernatremia resolved. DC IV fluids. (8) Lung cancer ICD Code: C34.90 - Malignant neoplasm of unspecified part of unspecified bronchus or lung Plan: Mild progression per recent CT. Due for PET scan outpatient. Will need follow up with Oncologist Dr. Barboza. (9) Dyspepsia ICD Code: R10.13 - Epigastric pain Plan: Has been using tums around the clock. Episodes of vomiting GI consulted Continue PPI 10/02 SP EGD with the following findings: 1. There was LA Class D esophagitis noted 2. There was erythematous gastritis in the gastric antrum 3. Single ulcer ranging between 5-9mm in size was found in the 1st part of the duodenum; Argon plasma coagulation was applied to the site; with complete hemostasis achieved 4. Retroflexed views revealed a hiatal hernia Continue PPI. (10) Dysphagia ICD Code: R13.10 - Dysphagia, unspecified Plan: GI consulted for ongoing dysphagia and vomiting. Had normal barium swallow outpatient. Has been using tums around the clock. (11) Vomiting ICD Code: R11.10 - Vomiting, unspecified Plan: Vomiting much improved and resolved. Continue Zofran as needed. (12) Hypokalemia ICD Code: E87.6 - Hypokalemia Status: Acute Plan: Replace and monitor (13) Hypothyroidism ICD Code: E03.9 - Hypothyroidism, unspecified Status: Chronic Plan: Continue Synthroid, TSH WNR (14) Elevated troponin ICD Code: R74.8 - Abnormal levels of other serum enzymes Plan: Likely due to renal failure. No CV complaints. Trend cardiac enzymes. Consult cardiology (15) Metabolic acidosis ICD Code: E87.2 - Acidosis Status: Acute Plan: Due to AMI. D5 + Bicarb Monitor BMP (16) Rhabdomyolysis ICD Code: M62.82 - Rhabdomyolysis Status: Acute Plan: CK elevated. Continue IV fluids Monitor Total ck 10/05 DC IV fluids. CK trending down and down to 438. DVT proph: heparin Sq Discharge Planning Monitor in the medical floor. Patient will need snf placement. Poss Dc in am. Problem Qualifiers (1) Acute renal failure: Qualified Codes: N17.9 - Acute kidney failure, unspecified (2) Hypertension: Qualified Codes: I10 - Essential (primary) hypertension (3) Lung cancer: Qualified Codes: C34.90 - Malignant neoplasm of unspecified part of unspecified bronchus or lung (4) Dysphagia: Qualified Codes: R13.13 - Dysphagia, pharyngeal phase (5) Vomiting: (6) Rhabdomyolysis: Qualified Codes: T79.6XXA - Traumatic ischemia of muscle, initial encounter (7) Gastritis: Qualified Codes: K29.70 - Gastritis, unspecified, without bleeding (8) Hypotension: Qualified Codes: I95.9 - Hypotension, unspecified Jameel Ovalle MD October 05, 2017 14:59
[2017-10-05] MEDS ORDERED: SODIUM CHLOR 0.9% 250 ML INJ 250 ML IV ONE (15:00)
[2017-10-05] MEDS ORDERED: POTASSIUM CHLORIDE 10 MEQ CONTROLLED RELEASE TAB PO ONE (15:00)
--- NOTE | 2017-10-05 15:35 | HHI.NPPN ---
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 Barboza. Presented to hospital after he reportedly got out of bed and tripped. He landed on a carpet floor and sustained a scalp laceration. Additional Remarks Complains that he is having leg cramps. Per nursing black stools. (Kristen Howard) Objective Data Data 10/05/17 10/06/17 19:00 07:00 Intake Total 400 ml Balance 400 ml IV Total 400 ml Vital Signs Date Time Temp Pulse Resp B/P (MAP) Pulse Ox O2 Delivery O2 Flow Rate FiO2 10/05/17 12:00 98.7 71 16 97/52 (67) 99 10/05/17 08:00 98.0 60 16 107/49 (68) 94 10/05/17 04:00 98.3 62 16 110/53 (72) 98 10/05/17 00:28 98.1 60 17 105/55 (72) 96 10/04/17 20:00 98.2 60 17 128/60 (82) 96 10/04/17 19:39 60 10/04/17 16:00 97.7 61 17 103/51 (68) 99 (Kristen Howard) -: 10/04/17 0636 10/05/17 0607 Imaging Last Impressions Abdomen/Pelvis CT 10/01/17 0000 Signed Impressions: Service Date/Time: September 16:20 - CONCLUSION: 1. Decrease in size of nodules at the lung bases since April 2016. Small right pleural effusion. 2. Left inguinal hernia containing loop of colon without evidence for obstruction. 3. 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 No ascites. 4. Enlarged prostate. Mild constipation. 5. Nonobstructing tiny bilateral renal calcifications. Tomer Rincon MD Pelvis X-Ray 09/30/17 125 Signed Impressions: Service Date/Time: Saturday, September 30, 2017 13:38 - CONCLUSION: No acute bony injury Eris Yeager MD Head CT 09/30/17 1254 Signed Impressions: Service Date/Time: Saturday, September 30, 2017 13:27 - CONCLUSION: Small focus of extra-axial hemorrhage in the high convexity right frontal region. Eris Yeager MD Chest X-Ray 09/30/17 1254 Signed Impressions: Service Date/Time: Saturday, September 30, 2017 13:35 - CONCLUSION: No acute disease Eris Yeager MD Cervical Spine CT 09/30/17 1254 Signed Impressions: Service Date/Time: Saturday, September 30, 2017 13:27 - CONCLUSION: 1. Multilevel degenerative disc disease with severe loss of disc height and near bone on bone articulation C5-C6 inferiorly. High grade one anterolisthesis of C4 on 5. 2. Uncovertebral ridging and facet hypertrophy encroach on the spinal canal and neural foramina at multiple levels. However, I believe the only significant narrowing is leftward C6-7 with possible compromise of the left C7 nerve root. 3. No fracture. Naveen Ramos MD (Kristen Howard) Physical Exam General Appearance: No Acute Distress, Comfortable, Malnourished (Kristen Howard. INSPECTOR BOILER) Eyes Eye Exam: Pupils Equal (Kristen Howard INSPECTOR BOILER) Pulmonary Resp Exam: Breath Sounds Equal, No Distress, Decreased Bases (JudithlerKristen carrillo. INSPECTOR BOILER) Cardiology CV Exam: Regular, Normal Sinus Rhythm (Kristen Howard. INSPECTOR BOILER) Gastrointestinal/Abdomen GI Exam: Soft, Non-Tender, Bowel Sounds Present (Kristen Howard INSPECTOR BOILER) Extremeties Extremities Exam: Trace Edema (Kristen Howard. INSPECTOR BOILER) Neurologic Neuro Exam: Alert, Awake (Kristen Howard INSPECTOR BOILER) Psychiatric Psych Exam: Appropriate Responses (Kristen Howard) Assessment/Plan Problem List: (1) Acute kidney injury ICD Codes: N17.9 - Acute kidney failure, unspecified Plan: Acute kidney injury with a creatinine of 2.39 from admission creatinine of 2.07 on day of consult Baseline creatinine 03/10 was 1.02 Acute kidney injury could possibly be prerenal from poor intake with dysphagia but also from rhabdomyolysis. FeNA at 0.58 % suggestive of prerenal CT of abdomen: Nonobstructing calcifications in both kidneys. Plan Continue to monitor labs Hypernatremia resolved Creatinine is at baseline, nephrology will sign off. Please reconsult if needed (2) Hypernatremia ICD Codes: E87.0 - Hyperosmolality and hypernatremia Plan: Continue IVF improving (Kristen Howard) Problem List: (1) Acute kidney injury ICD Codes: N17.9 - Acute kidney failure, unspecified Plan: Acute kidney injury with a creatinine of 2.39 from admission creatinine of 2.07 on day of consult Baseline creatinine 03/10 was 1.02 Acute kidney injury could possibly be prerenal from poor intake with dysphagia but also from rhabdomyolysis. FeNA at 0.58 % suggestive of prerenal CT of abdomen: Nonobstructing calcifications in both kidneys. Plan Continue to monitor labs Hypernatremia resolved Creatinine is at baseline, nephrology will sign off. Please reconsult if needed. Patient seen and examined, agree with above. Creatinine is better, encourage oral fluid intake. (2) Hypernatremia ICD Codes: E87.0 - Hyperosmolality and hypernatremia Plan: Continue IVF improving (Yasmin Fishman MD) Kristen Howard October 05, 2017 15:35 Yasmin Fishman MD October 05, 2017 22:19
--- NOTE | 2017-10-05 15:53 | PD.CONS ---
HPI History of Present Illness RECONSULT 10/05 for BRBPR History as below, pt previously followed by our service during this admission, our service signed off yesterday because pt was improving regarding swallowing. Our service has been reconsulted today to evaluate pt for reports of bloody BM this morning. Per pt he only had one episode of this. Denies any associated abdominal pain or cramping. Last colonoscopy done multiple years ago per , she is unsure of the findings. Initial consult: This is a 82 year old with PMH significant of HTN, lung cancer with metastasis to the liver (per , chronic a-fib, hypothyroidism, GERD, and history of TIA. Pt presented to the ER after a trip and fall at home with scalp laceration. Our service has been consulted to evaluate pt for complaints of vomiting and weight loss. Pt is a poor historian, able to answer some questions, but other history has been obtained through chart review. He reports vomiting has been intermittent for the past week, denies hematemesis or coffee ground emesis. States unrelated to PO intake. He has not had much of an appetite and also has been having issues swallowing and therefore has not been eating much. He reports that he has been losing weight but is unsure of how much weight and states he thinks it is because he hasn't been able to eat. Pt eating ice cream during my exam, he denies food getting stuck when he swallows. States the food seems to stay in his mouth for a long period of time before he is able to get it down. Denies odynophagia. Per admission HPI, pt had a recent barium swallow outpatient which was normal. Reports heartburn that has been increasing in frequency over the past week. According to records pt has been taking a lot of Tums recently. Pt does admit to 2 beers a day. Denies smoking, NSAID use. Does not think he has ever had an EGD. Last colonoscopy long time ago per , unsure of findings. (Delphine Meneses) PFSH Past Medical History Hypertension Hypothyroidism Chronic A-fib TIA Hyperlipidemia GERD Lung cancer with mets to liver per family report Past Surgical History Left knee surgery Cataract surgery Pacemaker placement (Delphine Meneses) Coded Allergies: No Known Allergies (Verified , 02/27/17) Family History Reviewed and is non contributory Social History Alcohol Use: Yes (2 BEERS DAILY) Tobacco Use: No Substance Use: No (Delphine Meneses) Review of Systems Gastrointestinal: COMPLAINS OF: Bloody stools, DENIES: Abdominal pain, Constipation, Diarrhea, Nausea, Vomiting, Difficulty Swallowing, Odynophagia, Swelling of Abdomen, Heartburn, Hematemesis (Delphine Meneses) GI Exam Vitals I&O Vital Signs Date Time Temp Pulse Resp B/P (MAP) Pulse Ox O2 Delivery O2 Flow Rate FiO2 10/05/17 12:00 98.7 71 16 97/52 (67) 99 10/05/17 08:00 98.0 60 16 107/49 (68) 94 10/05/17 04:00 98.3 62 16 110/53 (72) 98 10/05/17 00:28 98.1 60 17 105/55 (72) 96 10/04/17 20:00 98.2 60 17 128/60 (82) 96 10/04/17 19:39 60 10/04/17 16:00 97.7 61 17 103/51 (68) 99 I/O 10/04/17 10/04/17 10/04/17 10/05/17 10/05/17 10/05/17 07:00 15:00 23:00 07:00 15:00 23:00 Intake Total 580 ml 100 ml 1550 ml 1480 ml 400 ml Output Total 700 ml 600 ml 1600 ml Balance -120 ml 100 ml 950 ml -120 ml 400 ml Intake Oral 580 ml 500 ml 480 ml IV Total 100 ml 1050 ml 1000 ml 400 ml Output Urine Total 700 ml 600 ml 1600 ml # Bowel Movements 1 0 Imaging Last Impressions Abdomen/Pelvis CT 10/01/17 0000 Signed Impressions: Service Date/Time: September 16:20 - CONCLUSION: 1. Decrease in size of nodules at the lung bases since April 2016. Small right pleural effusion. 2. Left inguinal hernia containing loop of colon without evidence for obstruction. 3. 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 No ascites. 4. Enlarged prostate. Mild constipation. 5. Nonobstructing tiny bilateral renal calcifications. Tomer Rincon MD Pelvis X-Ray 09/30/17 1254 Signed Impressions: Service Date/Time: Saturday, September 30, 2017 13:38 - CONCLUSION: No acute bony injury Eris Yeager MD Head CT 09/30/17 1254 Signed Impressions: Service Date/Time: Saturday, September 30, 2017 13:27 - CONCLUSION: Small focus of extra-axial hemorrhage in the high convexity right frontal region. Eris Yeager MD Chest X-Ray 09/30/17 1254 Signed Impressions: Service Date/Time: Saturday, September 30, 2017 13:35 - CONCLUSION: No acute disease Eris Yeager MD Cervical Spine CT 09/30/174 Signed Impressions: Service Date/Time: Saturday, September 30, 2017 13:27 - CONCLUSION: 1. Multilevel degenerative disc disease with severe loss of disc height and near bone on bone articulation C5-C6 inferiorly. High grade one anterolisthesis of C4 on 5. 2. Uncovertebral ridging and facet hypertrophy encroach on the spinal canal and neural foramina at multiple levels. However, I believe the only significant narrowing is leftward C6-7 with possible compromise of the left C7 nerve root. 3. No fracture. Naveen Ramos MD Laboratory Test 10/05/17 06:07 Blood Urea Nitrogen 24 MG/DL Creatinine 1.00 MG/DL Random Glucose 94 MG/DL Total Protein 4.9 GM/DL Calcium Level 6.5 MG/DL Phosphorus Level 1.9 MG/DL Sodium Level 143 MEQ/L Potassium Level 3.5 MEQ/L Chloride Level 116 MEQ/L Carbon Dioxide Level 17.6 MEQ/L Anion Gap 9 MEQ/L Estimat Glomerular Filtration Rate 72 ML/MIN Protein Corrected Calcium 7.6 MG/DL Physical Examination HEENT: Normocephalic; atraumatic CHEST: Even/unlabored ABDOMEN: Soft, nondistended, nontender; bowel sounds active EXTREMITIES: No clubbing, cyanosis, or edema. SKIN: Pale SENIOR BUYER: Alert and oriented times three. (Delphine Meneses) Assessment and Plan Plan Assessment: - Nausea and vomiting- pt reports for the past week, denies association to food. Denies hematemesis and coffee ground emesis - Heartburn- has been taking a lot of Tums recently. Does not think he has ever had an EGD - Dysphagia- states the food sits in his mouth a long time before he is able to swallow it. Denies odynophagia. Denies food getting stuck. - Weight loss- unsure how much, he attributes this to poor appetite and trouble swallowing - Constipation- takes Prune juice as needed with good relief - Elevated AST- WNL on admission, ETOH- 2 beers a day, reports of lung cancer metastasis to liver, no imaging - Lung cancer, possible mets to the liver per family according to chart, followed by Dr. Barboza - Chronic a-fib- not on anticoagulation at home due to frequent falls - AMI with elevated troponin and electrolyte imbalance EGD (10/02) --> Class D esophagitis noted. Erythematous gastritis in the gastric antrum. single ulcer ranging between 5-9 mm in size in the 1st part of the duodenum, hiatal hernia CT abdomen and pelvis W/O IV contrast (10/01) --> Decrease in size of nodules at the lung bases since April 2016. Small right pleural effusion. Left inguinal hernia containing loop of colon without evidence for obstruction. 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 No ascites. Enlarged prostate. Mild constipation. Nonobstructing tiny bilateral renal calcifications. RECONSULT (10/05) for report of BRBPR Per RN pt had one episode of bloody BM this morning, no more episodes since. Pt denies any associated abdominal pain or cramping. Last colonoscopy several years ago and unsure of findings. Of note, initial consult for dysphagia, pt reports he is eating without difficulty at this time. Plan: Colonoscopy tomorrow Obtain consent Clear liquids today NPO after MN Golytely prep PROBATION COUNSELOR recommended soft diet and thin liquids Bowel regimen as needed Carafate Pepcid Repeat EGD in 3 months Avoid NSAIDs Monitor LFTs Avoid ETOH Avoid hepatotoxins Further recommendations based on clinical course and results of above Pt has been seen and examined by myself and Dr. Bettencourt and this note is written on her behalf (Delphine Meneses) Physician Comments seen, examined agree with above monitor hb closely transfuse prn to keep hemoglobin more than 8 (Maru Bettencourt MD) Delphine Meneses October 05, 2017 15:53 Maru Bettencourt MD October 05, 2017 16:55
[2017-10-05] MEDS ORDERED: PEG (High)/E-LYTE SOLN 4000 ML BTL PO ONE (16:00)
[2017-10-05 18:58] LABS: MEAN CORPUSCULAR HEMOGLOBIN 32.4 PG (27.0-34.0); MEAN CORPUSCULAR HGB CONC 33.4 % (32.0-36.0); MEAN PLATELET VOLUME 9.6 FL (7.0-11.0); PLATELET COUNT 145 TH/MM3 (150-450); RED BLOOD COUNT 2.12 MIL/MM3 (4.50-5.90); RED CELL DISTRIBUTION WIDTH 14.4 % (11.6-17.2); WHITE BLOOD COUNT 10.9 TH/MM3 (4.0-11.0)
[2017-10-05 19:01] LABS: HEMOGLOBIN 6.9 GM/DL (13.0-17.0)
[2017-10-05 19:02] LABS: HEMATOCRIT 20.6 % (39.0-51.0)
[2017-10-05] MEDS: FAMOTIDINE 20 MG TAB PO SCH (21:36)
[2017-10-06] VITALS (13 sets, daily range): BP systolic 95–140; BP diastolic 45–73; PULSE 59–70; RESP 16–20; TEMP 97.2–98.6; O2SAT 92–100
[2017-10-06] MEDS: LEVOTHYROXINE SODIUM 50 MCG TAB PO SCH (05:03)
[2017-10-06] MEDS: POTASSIUM PHOSPHATE/SODIUM PHOSPHATE 250 MG TAB PO SCH ×3 (05:03→21:40)
[2017-10-06 06:43] LABS: HEMATOCRIT 21.5 % (39.0-51.0); HEMOGLOBIN 7.3 GM/DL (13.0-17.0)
[2017-10-06] MEDS: SUCRALFATE 1 GM/10 ML CUP PO SCH ×4 (08:00→21:40)
[2017-10-06] MEDS: POTASSIUM CHLORIDE 25 MEQ EFFERVESCENT TAB PO SCH (09:00)
[2017-10-06] MEDS: ASPIRIN 81 MG CHEW TAB CHEW SCH (09:00)
[2017-10-06] MEDS: ATORVASTATIN 10 MG TAB PO SCH (09:00)
[2017-10-06] MEDS: SODIUM CHLORIDE 0.9% FLUSH 10 ML FLUSH IV FLUSH SCH ×2 (09:00→21:46)
[2017-10-06] MEDS: PANTOPRAZOLE SOD 40 MG DELAYED RELEASE TAB PO SCH (09:00)
[2017-10-06] MEDS: POLYETHYLENE GLYCOL 17 GM PKG PO SCH (09:00)
[2017-10-06 09:14] LABS: HEMATOCRIT 22.7 % (39.0-51.0); HEMOGLOBIN 7.8 GM/DL (13.0-17.0)
--- NOTE | 2017-10-06 09:21 | HHI.GIFU ---
Subjective Remarks Pt resting in bed. No GI complaints. Denies bleeding. Per RN he had scant BM overnight with no visible blood. (Julia Gann) Objective Vitals I&O Vital Signs Date Time Temp Pulse Resp B/P (MAP) Pulse Ox O2 Delivery O2 Flow Rate FiO2 10/06/17 08:00 98.1 60 16 112/54 (73) 97 10/06/17 06:35 97.9 62 20 108/54 100 10/06/17 03:42 98.6 63 20 95/50 99 10/06/17 00:53 98.0 64 20 102/45 100 10/06/17 00:34 98.0 70 20 107/52 100 10/05/17 23:46 69 10/05/17 20:00 98.8 62 16 113/44 (67) 95 10/05/17 16:00 97.3 66 16 100/47 (64) 99 10/05/17 12:00 98.7 71 16 97/52 (67) 99 I/O 10/05/17 10/05/17 10/05/17 10/06/17 10/06/17 10/06/17 07:00 15:00 23:00 07:00 15:00 23:00 Intake Total 1480 ml 400 ml 450 ml 920 ml Output Total 1600 ml 300 ml 400 ml Balance -120 ml 400 ml 150 ml 520 ml Intake Oral 480 ml 200 ml 120 ml IV Total 1000 ml 400 ml 250 ml Packed Cells 800 ml Output Urine Total 1600 ml 300 ml 400 ml # Voids 3 # Bowel Movements 1 Laboratory Laboratory Tests Test 10/05/17 17:04 10/06/17 04:53 10/06/17 08:15 White Blood Count 10.9 Red Blood Count 2.12 Hemoglobin 6.9 7.3 7.8 Hematocrit 20.6 21.5 22.7 Mean Corpuscular Volume 97.0 Mean Corpuscular Hemoglobin 32.4 Mean Corpuscular Hemoglobin Concent 33.4 Red Cell Distribution Width 14.4 Platelet Count 145 Mean Platelet Volume 9.6 Hematology Comments Imaging Last Impressions Abdomen/Pelvis CT 10/01/17 0000 Signed Impressions: Service Date/Time: September 16:20 - CONCLUSION: 1. Decrease in size of nodules at the lung bases since April 2016. Small right pleural effusion. 2. Left inguinal hernia containing loop of colon without evidence for obstruction. 3. 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 No ascites. 4. Enlarged prostate. Mild constipation. 5. Nonobstructing tiny bilateral renal calcifications. Tomer Rincon MD Pelvis X-Ray 09/30/17 1254 Signed Impressions: Service Date/Time: Saturday, September 30, 2017 13:38 - CONCLUSION: No acute bony injury Eris Yeager MD Head CT 09/30/17 1254 Signed Impressions: Service Date/Time: Saturday, September 30, 2017 13:27 - CONCLUSION: Small focus of extra-axial hemorrhage in the high convexity right frontal region. Eris Yeager MD Chest X-Ray 09/30/17 125 Signed Impressions: Service Date/Time: Saturday, September 30, 2017 13:35 - CONCLUSION: No acute disease Eris Yeager MD Cervical Spine CT 09/30/171253 Signed Impressions: Service Date/Time: Saturday, September 30, 2017 13:27 - CONCLUSION: 1. Multilevel degenerative disc disease with severe loss of disc height and near bone on bone articulation C5-C6 inferiorly. High grade one anterolisthesis of C4 on 5. 2. Uncovertebral ridging and facet hypertrophy encroach on the spinal canal and neural foramina at multiple levels. However, I believe the only significant narrowing is leftward C6-7 with possible compromise of the left C7 nerve root. 3. No fracture. 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 Denies hematemesis and coffee ground emesis - Heartburn- has been taking a lot of Tums recently. Does not think he has ever had an EGD - Dysphagia- states the food sits in his mouth a long time before he is able to swallow it. Denies odynophagia. Denies food getting stuck. - Weight loss- unsure how much, he attributes this to poor appetite and trouble swallowing - Constipation- takes Prune juice as needed with good relief - Elevated AST- WNL on admission, ETOH- 2 beers a day, reports of lung cancer metastasis to liver, no imaging - Lung cancer, possible mets to the liver per family according to chart, followed by Dr. Barboza - Chronic a-fib- not on anticoagulation at home due to frequent falls - AMI with elevated troponin and electrolyte imbalance EGD (10/02) --> Class D esophagitis noted. Erythematous gastritis in the gastric antrum. single ulcer ranging between 5-9 mm in size in the 1st part of the duodenum, hiatal hernia CT abdomen and pelvis W/O IV contrast (10/01) --> Decrease in size of nodules at the lung bases since April 2016. Small right pleural effusion. Left inguinal hernia containing loop of colon without evidence for obstruction. 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 No ascites. Enlarged prostate. Mild constipation. Nonobstructing tiny bilateral renal calcifications. RECONSULT (10/05) for report of BRBPR Per RN pt had one episode of bloody BM this morning, no more episodes since. Pt denies any associated abdominal pain or cramping. Last colonoscopy several years ago and unsure of findings. Of note, initial consult for dysphagia, pt reports he is eating without difficulty at this time. 10/06/17 had BM overnight with no visible blood. HH increased 6.9 > 7.8 after 2 units but it appears HH was rechecked prior to units transfusing completely. rck is pending. d/w RN. d/w family and pt - they now want to proceed with colonoscopy tomorrow as pt is feeling better after receiving blood. Plan: colonoscopy tomorrow obtain consent clears today NPO after MN MG citrate prep transfuse 2 units PRBC Bowel regimen as needed Carafate Pepcid Repeat EGD in 3 months Avoid NSAIDs Monitor LFTs Avoid ETOH Avoid hepatotoxins notify GI of active bleeding Pt has been seen and examined by myself and Dr. Bettencourt and this note is written on her behalf (Julia Gann) Physician Comments seen, examined agree with above (Maru Bettencourt MD) Julia Gann October 06, 2017 09:21 Maru Bettencourt MD October 06, 2017 15:20
[2017-10-06] MEDS ORDERED: MAGNESIUM CITRATE SOLN 300 ML BTL PO ONE ×2 (16:15→18:15)
--- NOTE | 2017-10-06 16:27 | HHI.PR ---
Subjective Remarks Patient denies cp/sob Being transfused blood Afebrile Denies having a bowel movement today. Denies dizziness. Objective Vitals Vital Signs Date Time Temp Pulse Resp B/P (MAP) Pulse Ox O2 Delivery O2 Flow Rate FiO2 10/06/17 12:07 97.6 59 17 109/59 99 10/06/17 12:00 97.2 62 18 101/54 (70) 98 10/06/17 11:23 97.9 60 16 107/53 98 10/06/17 11:02 97.2 61 18 101/54 92 10/06/17 08:00 98.1 60 16 112/54 (73) 97 10/06/17 06:35 97.9 62 20 108/54 100 10/06/17 03:42 98.6 63 20 95/50 99 10/06/17 00:53 98.0 64 20 102/45 100 10/06/17 00:34 98.0 70 20 107/52 100 10/05/17 23:46 69 10/05/17 20:00 98.8 62 16 113/44 (67) 95 I/O 10/05/17 10/05/17 10/05/17 10/06/17 10/06/17 10/06/17 07:00 15:00 23:00 07:00 15:00 23:00 Intake Total 1480 ml 400 ml 450 ml 920 ml 400 ml Output Total 1600 ml 300 ml 400 ml Balance -120 ml 400 ml 150 ml 520 ml 400 ml Intake Oral 480 ml 200 ml 120 ml IV Total 1000 ml 400 ml 250 ml Packed Cells 800 ml 400 ml Blood Product IV Normal Saline Flush 0 ml Output Urine Total 1600 ml 300 ml 400 ml # Voids 3 # Bowel Movements 1 Result Diagram: 10/06/17 0815 10/05/17 0607 Imaging Last Impressions Abdomen/Pelvis CT 10/01/17 0000 Signed Impressions: Service Date/Time: September 16:20 - CONCLUSION: 1. Decrease in size of nodules at the lung bases since April 2016. Small right pleural effusion. 2. Left inguinal hernia containing loop of colon without evidence for obstruction. 3. 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 No ascites. 4. Enlarged prostate. Mild constipation. 5. Nonobstructing tiny bilateral renal calcifications. Tomer Rincon MD Pelvis X-Ray 5/9/18 1254 Signed Impressions: Service Date/Time: Saturday, September 30, 2017 13:38 - CONCLUSION: No acute bony injury Eris Yeager MD Head CT 09/30/174 Signed Impressions: Service Date/Time: Saturday, September 30, 2017 13:27 - CONCLUSION: Small focus of extra-axial hemorrhage in the high convexity right frontal region. Eris Yeager MD Chest X-Ray 09/30/171253 Signed Impressions: Service Date/Time: Saturday, September 30, 2017 13:35 - CONCLUSION: No acute disease Eris Yeager MD Cervical Spine CT 09/30/171253 Signed Impressions: Service Date/Time: Saturday, September 30, 2017 13:27 - CONCLUSION: 1. Multilevel degenerative disc disease with severe loss of disc height and near bone on bone articulation C5-C6 inferiorly. High grade one anterolisthesis of C4 on 5. 2. Uncovertebral ridging and facet hypertrophy encroach on the spinal canal and neural foramina at multiple levels. However, I believe the only significant narrowing is leftward C6-7 with possible compromise of the left C7 nerve root. 3. No fracture. Naveen Ramos MD Objective Remarks GENERAL: Elderly and frail male SKIN: Bilateral LE with venous stasis changes. HEAD: S/P repair of scalp laceration. Dressing looks intact EYES: Pupils equal round and reactive. Extraocular motions intact. No scleral icterus. No injection or drainage. ENT: Nose without bleeding, purulent drainage or septal hematoma. Throat without erythema, tonsillar hypertrophy or exudate. Uvula midline. Airway patent. NECK: Trachea midline. No JVD or lymphadenopathy. Supple, nontender, no meningeal signs. CARDIOVASCULAR: Regular rate and rhythm without murmurs, gallops, or rubs. RESPIRATORY: Clear to auscultation. Breath sounds equal bilaterally. No wheezes , rales, or rhonchi. GASTROINTESTINAL: Abdomen soft, non-tender, nondistended. No hepato-splenomegaly , or palpable masses. No guarding. MUSCULOSKELETAL: Extremities without clubbing, cyanosis, or edema. No joint tenderness, effusion, or edema noted. No calf tenderness. Negative Homans sign bilaterally. NEUROLOGICAL: Awake and alert. Moves all extremity. Generalized weakness. Some mild short term memory impairment. Chronic per family. Procedures Status post EGD with ablation. EGD found a class C esophagitis, erythematous gastritis in the gastric antrum. A single ulcer ranging between 5-9 mm in size in the first part of the duodenum. I will can plasma coagulation was applied to the site with complete hemostasis. Retroflexed views revealed a hiatal hernia. Medications and IVs Current Medications Medications (Trade) Dose Ordered Sig/Mariela Route Start Time Stop Time Status Last Admin (NS Flush) 2 ml UNSCH PRN IV FLUSH 09/30/17 17:15 (NS Flush) 2 ml BID IV FLUSH 09/30/17 21:00 10/06/17 09:00 (Tylenol) 650 mg Q4H PRN PO 09/30/17 17:15 10/05/17 17:30 (Zofran Inj) 4 mg Q6H PRN IVP 09/30/17 17:15 10/01/17 14:42 (Narcan Inj) 0.4 mg UNSCH PRN IV PUSH 09/30/17 17:15 (Milk Of Magnesia Liq) 30 ml Q12H PRN PO 09/30/17 17:15 (Senokot) 17.2 mg Q12H PRN PO 09/30/17 17:15 (Dulcolax Supp) 10 mg DAILY PRN RECTAL 09/30/17 17:15 (Lactulose Liq) 30 ml DAILY PRN PO 09/30/17 17:15 (Tums Chew) 500 mg Q2H PRN CHEW 09/30/17 17:30 (Lipitor) 10 mg DAILY PO 10/01/17 09:00 10/05/17 09:00 (Synthroid) 50 mcg DAILY@0600 PO 10/01/17 06:00 10/06/17 05:03 (Protonix) 40 mg DAILY PO 09/30/17 23:30 10/06/17 09:00 (Aspirin Chew) 81 mg DAILY CHEW 10/01/17 09:00 10/06/17 09:00 (Carafate Liq) 1 gm ACHS PO 10/02/17 12:00 10/06/17 12:00 (Pepcid) 20 mg HS PO 10/02/17 21:00 10/05/17 21:36 (K-Phos Neutral) 250 mg Q8HR PO 10/02/17 14:00 10/06/17 14:00 (K-Lyte Cl Eff) 25 meq DAILY PO 10/02/17 10:30 10/06/17 09:00 (Miralax) 17 gm DAILY PO 10/03/17 16:30 10/06/17 09:00 (Citroma Liq) 300 ml ONCE ONCE PO 10/06/17 18:15 10/06/17 18:16 A/P Problem List: (1) Fall ICD Code: W19.XXXA - Unspecified fall, initial encounter (2) Scalp laceration ICD Code: S01.01XA - Laceration without foreign body of scalp, initial encounter (3) Chronic a-fib ICD Code: I48.2 - Chronic atrial fibrillation (4) Acute renal failure ICD Code: N17.9 - Acute kidney failure, unspecified Status: Acute (5) Debility ICD Code: R53.81 - Other malaise (6) Hypertension ICD Code: I10 - Essential (primary) hypertension Status: Acute (7) Hypernatremia ICD Code: E87.0 - Hyperosmolality and hypernatremia (8) Lung cancer ICD Code: C34.90 - Malignant neoplasm of unspecified part of unspecified bronchus or lung (9) Dyspepsia ICD Code: R10.13 - Epigastric pain (10) Dysphagia ICD Code: R13.10 - Dysphagia, unspecified (11) Vomiting ICD Code: R11.10 - Vomiting, unspecified (12) Hypokalemia ICD Code: E87.6 - Hypokalemia Status: Acute (13) Hypothyroidism ICD Code: E03.9 - Hypothyroidism, unspecified Status: Chronic (14) Elevated troponin ICD Code: R74.8 - Abnormal levels of other serum enzymes (15) Metabolic acidosis ICD Code: E87.2 - Acidosis Status: Acute (16) Rhabdomyolysis ICD Code: M62.82 - Rhabdomyolysis Status: Acute (17) Acute kidney injury ICD Code: N17.9 - Acute kidney failure, unspecified (18) Gastritis ICD Code: K29.70 - Gastritis, unspecified, without bleeding (19) Duodenal ulcer ICD Code: K26.9 - Duodenal ulcer, unspecified as acute or chronic, without hemorrhage or perforation (20) Frequent falls ICD Code: R29.6 - Repeated falls Status: Acute (21) Failure to thrive in adult ICD Code: R62.7 - Adult failure to thrive Status: Acute (22) BRBPR (bright red blood per rectum) ICD Code: K62.5 - Hemorrhage of anus and rectum Status: Acute Plan: Patient had a bloody bowel movement. Discussed the case with Delphine Cortes, the gastroenterology physician escrow assistant. She will see the patient later today. Possible colonoscopy tomorrow. 10/06 colonoscopy not performed as family and patient not agreeable yesterday due to the patient's current condition. The patient status post transfusion of a total of 3 units out of 4 units of packed red blood cells ordered. Continue to monitor hemoglobin. Plan is for colonoscopy in a.m. Monitor CBC and transfuse as needed for hemoglobin less than 8 if active bleeding or less than 7, or symptomatic anemia. Transfuse to a hemoglobin goal of more than 9. (23) Hypotension ICD Code: I95.9 - Hypotension, unspecified Plan: The patient has his blood pressure dropping into the systolic high 90s. 10/06 hypotension resolved after 250 mL normal saline IV bolus and packed red blood cells transfusion. Continue to monitor vital signs and bolus as needed. Assessment and Plan (1) Fall Plan: Seems to be mechanical. Based on review of records, it appears that he has frequent falls. Family reports that he has been declining over the past few months. Could be related to worsening cancer burden and poor oral intake PT to evaluate. May need SNF or C with PT. (2) Scalp laceration Plan: Secondary to fall. Head CT images personally reviewed. Extra axial, small fluid collection. Laceration sutured by ED physician. (3) Chronic a-fib Plan: Records reviewed. Patient is on Aspirin. 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 S/P Pacemaker placement for history of V-bradycardia. (4) Acute renal failure Plan: 10/01 worsening AMI with worsening metabolic acidosis due to AMI. Switch IV fluids to D5 + Bicarb Strict I's and O's consult nephrology avoid nephrotoxins 10/02 appreciate nephrology recommendations. Creatinine trending down. Continue to monitor Bun/Creatinine. (5) Debility ICD Code: R53.81 - Other malaise Plan: PT following. (6) Hypertension ICD Code: I10 - Essential (primary) hypertension Status: Acute (7) Hypernatremia ICD Code: E87.0 - Hyperosmolality and hypernatremia Plan: 10/01 Worsening hypernatremia. Will change IV fluids to D5 + Bicarb. Been treated with hypotonic fluids with d5 + Na Bicarb. Monitor BMP. 10/05 hypernatremia resolved. DC IV fluids. (8) Lung cancer ICD Code: C34.90 - Malignant neoplasm of unspecified part of unspecified bronchus or lung Plan: Mild progression per recent CT. Due for PET scan outpatient. Will need follow up with Oncologist Dr. Barboza. (9) Dyspepsia ICD Code: R10.13 - Epigastric pain Plan: Has been using tums around the clock. Episodes of vomiting GI consulted Continue PPI 10/02 SP EGD with the following findings: 1. There was LA Class D esophagitis noted 2. There was erythematous gastritis in the gastric antrum 3. Single ulcer ranging between 5-9mm in size was found in the 1st part of the duodenum; Argon plasma coagulation was applied to the site; with complete hemostasis achieved 4. Retroflexed views revealed a hiatal hernia Continue PPI. (10) Dysphagia ICD Code: R13.10 - Dysphagia, unspecified Plan: GI consulted for ongoing dysphagia and vomiting. Had normal barium swallow outpatient. Has been using tums around the clock. (11) Vomiting ICD Code: R11.10 - Vomiting, unspecified Plan: Vomiting much improved and resolved. Continue Zofran as needed. (12) Hypokalemia ICD Code: E87.6 - Hypokalemia Status: Acute Plan: Replace and monitor (13) Hypothyroidism ICD Code: E03.9 - Hypothyroidism, unspecified Status: Chronic Plan: Continue Synthroid, TSH WNR (14) Elevated troponin ICD Code: R74.8 - Abnormal levels of other serum enzymes Plan: Likely due to renal failure. No CV complaints. Trend cardiac enzymes. Consult cardiology (15) Metabolic acidosis ICD Code: E87.2 - Acidosis Status: Acute Plan: Due to AMI. D5 + Bicarb Monitor BMP (16) Rhabdomyolysis ICD Code: M62.82 - Rhabdomyolysis Status: Acute Plan: CK elevated. Continue IV fluids Monitor Total ck 10/05 DC IV fluids. CK trending down and down to 438. DVT proph: heparin Sq Discharge Planning Monitor in the medical floor. Patient will need snf placement. Poss Dc in am. Problem Qualifiers (1) Acute renal failure: Qualified Codes: N17.9 - Acute kidney failure, unspecified (2) Hypertension: Qualified Codes: I10 - Essential (primary) hypertension (3) Lung cancer: Qualified Codes: C34.90 - Malignant neoplasm of unspecified part of unspecified bronchus or lung (4) Dysphagia: Qualified Codes: R13.13 - Dysphagia, pharyngeal phase (5) Vomiting: (6) Rhabdomyolysis: Qualified Codes: T79.6XXA - Traumatic ischemia of muscle, initial encounter (7) Gastritis: Qualified Codes: K29.70 - Gastritis, unspecified, without bleeding (8) Hypotension: Qualified Codes: I95.9 - Hypotension, unspecified Jameel Ovalle MD October 06, 2017 16:26
[2017-10-06 20:23] LABS: BICARBONATE 16.7 MEQ/L (21.0-32.0); CALCIUM 7.3 MG/DL (8.5-10.1); CREATININE 1.55 MG/DL (0.60-1.30)
[2017-10-06 20:37] LABS: CALCIUM-PROTEIN CORRECTED 8.3 MG/DL (8.5-10.1); TOTAL PROTEIN 5.2 GM/DL (6.4-8.2)
[2017-10-06] MEDS: FAMOTIDINE 20 MG TAB PO SCH (21:40)
[2017-10-07] VITALS (7 sets, daily range): BP systolic 109–118; BP diastolic 53–58; PULSE 61–92; RESP 17–18; TEMP 97.1–98; O2SAT 98–99
[2017-10-07] MEDS: POTASSIUM PHOSPHATE/SODIUM PHOSPHATE 250 MG TAB PO SCH ×3 (04:59→20:38)
[2017-10-07] MEDS: LEVOTHYROXINE SODIUM 50 MCG TAB PO SCH (04:59)
[2017-10-07] MEDS: SUCRALFATE 1 GM/10 ML CUP PO SCH ×5 (09:37→20:39)
[2017-10-07] MEDS: POTASSIUM CHLORIDE 25 MEQ EFFERVESCENT TAB PO SCH (09:37)
[2017-10-07] MEDS: PANTOPRAZOLE SOD 40 MG DELAYED RELEASE TAB PO SCH (09:38)
[2017-10-07] MEDS: ASPIRIN 81 MG CHEW TAB CHEW SCH (09:38)
[2017-10-07] MEDS: ATORVASTATIN 10 MG TAB PO SCH (09:38)
[2017-10-07] MEDS: POLYETHYLENE GLYCOL 17 GM PKG PO SCH (09:39)
[2017-10-07] MEDS: SODIUM CHLORIDE 0.9% FLUSH 10 ML FLUSH IV FLUSH SCH ×2 (09:39→20:40)
[2017-10-07] MEDS ORDERED: LIDOCAINE HCL 1% PF 5 ML SYRINGE OTHER ONE (12:00)
[2017-10-07] MEDS ORDERED: PHENYLEPH/NS 1000 MCG/10 ML SYR IV ONE (12:00)
[2017-10-07] MEDS ORDERED: PROPOFOL 200 MG/20 ML AMP IV ONE (12:00)
--- NOTE | 2017-10-07 12:01 | GIPROC ---
[facility] [address] [facility]. [facility], [address] COLONOSCOPY PROCEDURE REPORT EXAM DATE: 10/07/2017 PATIENT NAME: Neel Leach MR #: [id number] BIRTHDATE: 1935 ENDOSCOPIST: Maru Bettencourt MD ORDER #: [id number] SQL DEVELOPER: Kandis Fuller and Carine Rivera STATUS: inpatient INDICATIONS: The patient is a 82 yr old male here for a colonoscopy due to anemia, gi bleeding PROCEDURE PERFORMED: Colonoscopy, diagnostic MEDICATIONS: None and Per Anesthesia. PREP QUALITY: poor PREP TYPE:Other: ESTIMATED BLOOD LOSS: None CONSENT: The patient understands the risks and benefits of the procedure and understands that these risks include, but are not limited to: sedation, allergic reaction, infection, perforation and/or bleeding. Alternative means of evaluation and treatment include, among others: physical exam, x-rays, and/or surgical intervention. The patient elects to proceed with this endoscopic procedure. medical equipment was checked for proper function. Hand hygiene and appropriate measures for infection prevention was taken. After the risks, benefits and alternatives of the procedure were thoroughly explained, Informed consent was verified, confirmed and timeout was successfully executed by the treatment team. A digital exam revealed external hemorrhoids The Pentax [id number] endoscope was introduced through the anus and advanced to the cecum, which was identified by both the appendix and ileocecal valve. The instrument was then slowly withdrawn as the colon was fully examined. COLON FINDINGS: Very poor prep old blood in colon , agreesive washing done -no fresh blood. Retroflexed views revealed internal hemorrhoids and Retroflexed views revealed small internal hemorrhoids The scope was then completely withdrawn from the patient and the procedure terminated. ADVERSE EVENTS: There were no complications. IMPRESSIONS: 1. Very poor prep old blood in colon , agreesive washing done -no fresh blood 2. Retroflexed views revealed internal hemorrhoids 3. Retroflexed views revealed small internal hemorrhoids 4. Revealed external hemorrhoids RECOMMENDATIONS: Tasha liquid today cbc stat if active bleeding -or hb drops again bleeding scan stat repeat colon in am RECALL: Return 1 day Colonoscopy Maru Bettencourt MD eSigned: Maru Bettencourt MD 10/07/2017 12:01 PM cc:
--- NOTE | 2017-10-07 12:04 | GIPROC ---
[facility] [address] [facility]. [facility], [address] EGD PROCEDURE REPORT EXAM DATE: 10/07/2017 PATIENT NAME: Neel Leach MR #: [id number] BIRTHDATE: 1935 ATTENDING: Maru Bettencourt MD ORDER #: [id number] CRTTS: Kandis Fuller and Carine Rivera STATUS: inpatient INDICATIONS: The patient is a 82 yr old male here for an EGD due to anemia gi bleeding PROCEDURE PERFORMED: EGD w/ biopsy MEDICATIONS: None and Per Anesthesia. TOPICAL ANESTHETIC: none CONSENT: The patient understands the risks and benefits of the procedure and understands that these risks include, but are not limited to: sedation, allergic reaction, infection, perforation and/or bleeding. Alternative means of evaluation and treatment include, among others: physical exam, x-rays, and/or surgical intervention. The patient elects to proceed with this endoscopic procedure. medical equipment was checked for proper function. Hand hygiene and appropriate measures for infection prevention was taken. After the risks, benefits and alternatives of the procedure were thoroughly explained, Informed consent was verified, confirmed and timeout was successfully executed by the treatment team. The patient was anesthetized with topical anesthesia and the [id number] (Pedi C) endoscope was introduced through the mouth and advanced to the second portion of the duodenum. Retroflexed views revealed a hiatal hernia The gastroscope was then slowly withdrawn and removed. Severe esophagitis distal esophagus-biopsy r/o cmv, herpes gastritis antrum-biopsy duodenitis bulb and second portion-biopsy. ADVERSE EVENTS: There were no complications. IMPRESSIONS: 1. Severe esophagitis distal esophagus-biopsy r/o cmv, herpes gastritis antrum-biopsy duodenitis bulb and second portion-biopsy 2. Retroflexed views revealed a hiatal hernia RECOMMENDATIONS: 1. Await biopsy results. Biopsy results will not be ready for 7-10 days. If you don't hear from us in two weeks, call our office for biopsy results. 2. Anti-reflux regimen 3. Continue PPI PATIENT CONDITION: stable DISPOSITION: Inpatient REPEAT EXAM: Return 3 months EGD Maru Bettencourt MD eSigned: Maru Bettencourt MD 10/07/2017 12:04 PM cc:
[2017-10-07] MEDS ORDERED: MAGNESIUM CITRATE SOLN 300 ML BTL PO ONE (12:15)
[2017-10-07] MEDS ORDERED: BISACODYL EC 5 MG TABEC PO ONE (12:15)
[2017-10-07 13:29] LABS: AUTOMATED NEUTROPHIL # 5.6 TH/MM3 (1.8-7.7); BASOPHIL # 0.1 TH/MM3 (0-0.2); BASOPHIL % 0.6 % (0.0-2.0); EOSINOPHIL # 0.2 TH/MM3 (0-0.4); EOSINOPHIL % 1.8 % (0.0-4.0); HEMATOCRIT 26.7 % (39.0-51.0); HEMOGLOBIN 9.2 GM/DL (13.0-17.0); LYMPH % 27.5 % (9.0-44.0); LYMPHOCYTE # 2.6 TH/MM3 (1.0-4.8); MEAN CELL VOLUME 90.7 FL (80.0-100.0); MEAN CORPUSCULAR HEMOGLOBIN 31.2 PG (27.0-34.0); MEAN CORPUSCULAR HGB CONC 34.4 % (32.0-36.0); MEAN PLATELET VOLUME 8.3 FL (7.0-11.0); MONO % 10.9 % (0.0-8.0); NEUT % 59.2 % (16.0-70.0); PLATELET COUNT 148 TH/MM3 (150-450); RED BLOOD COUNT 2.94 MIL/MM3 (4.50-5.90); RED CELL DISTRIBUTION WIDTH 15.9 % (11.6-17.2); WHITE BLOOD COUNT 9.4 TH/MM3 (4.0-11.0)
--- NOTE | 2017-10-07 15:45 | HHI.PR ---
Subjective Remarks Follow-up GI bleed, anemia. The patient denies pain currently. Denies shortness of breath. Objective Vitals Vital Signs Date Time Temp Pulse Resp B/P (MAP) Pulse Ox O2 Delivery O2 Flow Rate FiO2 10/07/17 12:45 97.1 62 17 113/55 (74) 98 10/07/17 08:00 97.6 63 17 118/56 (76) 99 10/07/17 07:56 61 10/07/17 04:00 97.2 62 17 116/58 (77) 99 10/07/17 00:00 97.6 61 18 118/56 (76) 99 10/06/17 20:00 97.3 61 17 110/55 (73) 100 10/06/17 16:00 97.2 60 17 125/58 (80) 100 10/06/17 15:50 97.3 60 18 140/63 100 I/O 10/06/17 10/06/17 10/06/17 10/07/17 10/07/17 10/07/17 06:59 14:59 22:59 06:59 14:59 22:59 Intake Total 920 ml 400 ml 1000 ml 500 ml 200 ml Output Total 400 ml 600 ml 500 ml Balance 520 ml 400 ml 400 ml 0 ml 200 ml Intake Oral 120 ml 600 ml 500 ml IV Total 0 ml Packed Cells 800 ml 400 ml 400 ml Blood Product IV Normal Saline Flush 0 ml 0 ml Other 200 ml Output Urine Total 400 ml 600 ml 500 ml # Bowel Movements 0 Result Diagram: 10/07/17 1315 10/06/17 1916 Imaging Last Impressions Abdomen/Pelvis CT 10/01/17 0000 Signed Impressions: Service Date/Time: September 16:20 - CONCLUSION: 1. Decrease in size of nodules at the lung bases since April 2016. Small right pleural effusion. 2. Left inguinal hernia containing loop of colon without evidence for obstruction. 3. 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 No ascites. 4. Enlarged prostate. Mild constipation. 5. Nonobstructing tiny bilateral renal calcifications. Tomer Rincon MD Pelvis X-Ray 09/30/17 9600 Signed Impressions: Service Date/Time: Saturday, September 30, 2017 13:38 - CONCLUSION: No acute bony injury Eris Yeager MD Head CT 09/30/17 1254 Signed Impressions: Service Date/Time: Saturday, September 30, 2017 13:27 - CONCLUSION: Small focus of extra-axial hemorrhage in the high convexity right frontal region. Eris Yeager MD Chest X-Ray 09/30/17 1254 Signed Impressions: Service Date/Time: Saturday, September 30, 2017 13:35 - CONCLUSION: No acute disease Eris Yeager MD Cervical Spine CT 09/30/17 1254 Signed Impressions: Service Date/Time: Saturday, September 30, 2017 13:27 - CONCLUSION: 1. Multilevel degenerative disc disease with severe loss of disc height and near bone on bone articulation C5-C6 inferiorly. High grade one anterolisthesis of C4 on 5. 2. Uncovertebral ridging and facet hypertrophy encroach on the spinal canal and neural foramina at multiple levels. However, I believe the only significant narrowing is leftward C6-7 with possible compromise of the left C7 nerve root. 3. No fracture. Naveen Ramos MD Objective Remarks General: Elderly male in no acute distress. Hard of hearing. Heart: Regular rate and rhythm. No murmur. Lungs: Clear to auscultation bilaterally. No wheezes, rales, or rhonchi. Breathing is nonlabored. Abdomen: Soft, nontender, nondistended. Extremities: No lower extremity edema. Psych: Alert and oriented. Neuro: Normal speech. No focal deficits noted. Skin: Sutures in place on the posterior scalp. Skin tear on the anterior lower right leg. Procedures 10/02/17 EGD 10/07/17 EGD, colonoscopy Urinary Catheter: No Vascular Central Line Catheter: No A/P Problem List: (1) Fall ICD Code: W19.XXXA - Unspecified fall, initial encounter (2) Scalp laceration ICD Code: S01.01XA - Laceration without foreign body of scalp, initial encounter (3) Chronic a-fib ICD Code: I48.2 - Chronic atrial fibrillation (4) Acute renal failure ICD Code: N17.9 - Acute kidney failure, unspecified Status: Acute (5) Debility ICD Code: R53.81 - Other malaise (6) Hypertension ICD Code: I10 - Essential (primary) hypertension Status: Acute (7) Hypernatremia ICD Code: E87.0 - Hyperosmolality and hypernatremia (8) Lung cancer ICD Code: C34.90 - Malignant neoplasm of unspecified part of unspecified bronchus or lung (9) Dyspepsia ICD Code: R10.13 - Epigastric pain (10) Dysphagia ICD Code: R13.10 - Dysphagia, unspecified (11) Vomiting ICD Code: R11.10 - Vomiting, unspecified (12) Hypokalemia ICD Code: E87.6 - Hypokalemia Status: Acute (13) Hypothyroidism ICD Code: E03.9 - Hypothyroidism, unspecified Status: Chronic (14) Elevated troponin ICD Code: R74.8 - Abnormal levels of other serum enzymes (15) Metabolic acidosis ICD Code: E87.2 - Acidosis Status: Acute (16) Rhabdomyolysis ICD Code: M62.82 - Rhabdomyolysis Status: Acute (17) Acute kidney injury ICD Code: N17.9 - Acute kidney failure, unspecified (18) Gastritis ICD Code: K29.70 - Gastritis, unspecified, without bleeding (19) Duodenal ulcer ICD Code: K26.9 - Duodenal ulcer, unspecified as acute or chronic, without hemorrhage or perforation (20) Frequent falls ICD Code: R29.6 - Repeated falls Status: Acute (21) Failure to thrive in adult ICD Code: R62.7 - Adult failure to thrive Status: Acute (22) BRBPR (bright red blood per rectum) ICD Code: K62.5 - Hemorrhage of anus and rectum Status: Acute (23) Hypotension ICD Code: I95.9 - Hypotension, unspecified Assessment and Plan 1. Mechanical fall: Patient has frequent falls. Continue physical therapy. 2. Scalp laceration: Sutured in the ER on 09/30/17. 3. Abrasion, right lower extremity: Continue dressing changes. 4. GI bleed, anemia: Appreciate gastroenterology recommendations. Patient is reporting bright red blood in his stool. Status post EGD, which showed esophagitis. Colonoscopy to be repeated tomorrow due to poor prep. Monitor H& H. Transfuse if necessary. 5. Acute renal failure: Creatinine increased yesterday. Repeat labs pending today. 6. Chronic atrial fibrillation: Not on anticoagulation secondary to frequent falls. Pacemaker placed for history of ventricular bradycardia. 7. Hypertension: Blood pressure is well controlled. 8. Hypernatremia: Resolved. 9. Lung cancer: Due for outpatient PET scan. Follow-up as outpatient with oncology. 10. Dyspepsia: Continue PPI. 11. Dysphagia: Normal barium swallow as an outpatient. Appreciate GI recommendations. 12. Hypokalemia: Resolved. 13. Hypothyroidism: Continue Synthroid. 14. Elevated troponin: Likely secondary to renal failure. No cardiovascular complaints. 15. Rhabdomyolysis: Resolved. 16. Hypotension: Resolved after IV normal saline bolus and PRBC transfusion. 17. DVT prophylaxis: Chemical prophylaxis on hold secondary to GI bleed, anemia. Problem Qualifiers (1) Acute renal failure: Qualified Codes: N17.9 - Acute kidney failure, unspecified (2) Hypertension: Qualified Codes: I10 - Essential (primary) hypertension (3) Lung cancer: Qualified Codes: C34.90 - Malignant neoplasm of unspecified part of unspecified bronchus or lung (4) Dysphagia: Qualified Codes: R13.13 - Dysphagia, pharyngeal phase (5) Vomiting: (6) Rhabdomyolysis: Qualified Codes: T79.6XXA - Traumatic ischemia of muscle, initial encounter (7) Gastritis: Qualified Codes: K29.70 - Gastritis, unspecified, without bleeding (8) Hypotension: Qualified Codes: I95.9 - Hypotension, unspecified Yevgeniy Boyd MD October 07, 2017 15:45
[2017-10-07] MEDS: FAMOTIDINE 20 MG TAB PO SCH (20:38)
[2017-10-07 21:41] LABS: AUTOMATED NEUTROPHIL # 5.9 TH/MM3 (1.8-7.7); BASOPHIL # 0.1 TH/MM3 (0-0.2); BASOPHIL % 0.7 % (0.0-2.0); EOSINOPHIL # 0.2 TH/MM3 (0-0.4); HEMOGLOBIN 8.8 GM/DL (13.0-17.0); LYMPH % 26.4 % (9.0-44.0); LYMPHOCYTE # 2.6 TH/MM3 (1.0-4.8); MEAN CELL VOLUME 91.2 FL (80.0-100.0); MEAN CORPUSCULAR HEMOGLOBIN 30.6 PG (27.0-34.0); MEAN CORPUSCULAR HGB CONC 33.6 % (32.0-36.0); MEAN PLATELET VOLUME 8.5 FL (7.0-11.0); MONO % 10.1 % (0.0-8.0); NEUT % 60.8 % (16.0-70.0); PLATELET COUNT 154 TH/MM3 (150-450); RED BLOOD COUNT 2.86 MIL/MM3 (4.50-5.90); RED CELL DISTRIBUTION WIDTH 16.4 % (11.6-17.2); WHITE BLOOD COUNT 9.7 TH/MM3 (4.0-11.0)
[2017-10-07 22:08] LABS: BICARBONATE 19.6 MEQ/L (21.0-32.0); CALCIUM 7.2 MG/DL (8.5-10.1); CREATININE 1.38 MG/DL (0.60-1.30)
[2017-10-07 22:27] LABS: CALCIUM-PROTEIN CORRECTED 8.4 MG/DL (8.5-10.1); TOTAL PROTEIN 4.9 GM/DL (6.4-8.2)
[2017-10-07] MEDS ORDERED: CHLORHEXIDINE GLUCONATE 2 % 1 PACK (2 CLOTHS) TOPICAL PRN (22:45)
[2017-10-07] MEDS ORDERED: LACTATED RINGER'S 1000 ML IV PRN (22:45)
[2017-10-07] MEDS ORDERED: POVIDONE IODINE 5% (ANTISEPSIS KIT) 4 APPLICATIONS EACH NARE PRN (22:45)
[2017-10-07] MEDS ORDERED: SODIUM CHLORID 0.9% 500 ML IV PRN (22:45)
[2017-10-08] VITALS (8 sets, daily range): BP systolic 95–130; BP diastolic 46–60; PULSE 61–113; RESP 16–20; TEMP 96.7–98.2; O2SAT 94–99
[2017-10-08 03:32] LABS: AUTOMATED NEUTROPHIL # 4.3 TH/MM3 (1.8-7.7); BASOPHIL # 0.1 TH/MM3 (0-0.2); EOSINOPHIL # 0.2 TH/MM3 (0-0.4); EOSINOPHIL % 2.4 % (0.0-4.0); HEMATOCRIT 22.7 % (39.0-51.0); HEMOGLOBIN 7.8 GM/DL (13.0-17.0); LYMPH % 32.2 % (9.0-44.0); LYMPHOCYTE # 2.7 TH/MM3 (1.0-4.8); MEAN CELL VOLUME 90.8 FL (80.0-100.0); MEAN CORPUSCULAR HEMOGLOBIN 31.1 PG (27.0-34.0); MEAN CORPUSCULAR HGB CONC 34.3 % (32.0-36.0); MEAN PLATELET VOLUME 8.1 FL (7.0-11.0); MONO % 12.6 % (0.0-8.0); MONOCYTE # 1.1 TH/MM3 (0-0.9); NEUT % 51.8 % (16.0-70.0); PLATELET COUNT 147 TH/MM3 (150-450); RED CELL DISTRIBUTION WIDTH 15.5 % (11.6-17.2); WHITE BLOOD COUNT 8.3 TH/MM3 (4.0-11.0)
[2017-10-08 03:54] LABS: BICARBONATE 23.7 MEQ/L (21.0-32.0); CALCIUM 6.9 MG/DL (8.5-10.1); CREATININE 1.31 MG/DL (0.60-1.30)
[2017-10-08 04:06] LABS: CALCIUM-PROTEIN CORRECTED 8.4 MG/DL (8.5-10.1); TOTAL PROTEIN 4.4 GM/DL (6.4-8.2)
[2017-10-08] MEDS: LEVOTHYROXINE SODIUM 50 MCG TAB PO SCH (05:51)
[2017-10-08] MEDS: POTASSIUM PHOSPHATE/SODIUM PHOSPHATE 250 MG TAB PO SCH ×3 (05:51→21:23)
[2017-10-08] MEDS: SUCRALFATE 1 GM/10 ML CUP PO SCH ×4 (08:01→21:17)
[2017-10-08] MEDS: ATORVASTATIN 10 MG TAB PO SCH (08:02)
[2017-10-08] MEDS: ASPIRIN 81 MG CHEW TAB CHEW SCH (08:02)
[2017-10-08] MEDS: POLYETHYLENE GLYCOL 17 GM PKG PO SCH (08:02)
[2017-10-08] MEDS: POTASSIUM CHLORIDE 25 MEQ EFFERVESCENT TAB PO SCH (08:02)
[2017-10-08] MEDS: PANTOPRAZOLE SOD 40 MG DELAYED RELEASE TAB PO SCH (08:02)
[2017-10-08] MEDS: SODIUM CHLORIDE 0.9% FLUSH 10 ML FLUSH IV FLUSH SCH ×2 (08:02→21:17)
--- NOTE | 2017-10-08 09:49 | GIPROC ---
[facility] [address] [facility]. [facility] [place], [address] COLONOSCOPY PROCEDURE REPORT EXAM DATE: 10/08/2017 PATIENT NAME: Neel Leach MR #: [id number] BIRTHDATE: 1935 ENDOSCOPIST: Maru Bettencourt MD ORDER #: [id number] EMBEDDED SOFTWARE TEST ENGINEER: Kandis Fuller and Peterson Malik STATUS: inpatient INDICATIONS: The patient is a 82 yr old male here for a colonoscopy due to bleeding anemia PROCEDURE PERFORMED: Colonoscopy with polypectomy MEDICATIONS: None and Per Anesthesia. PREP QUALITY: good PREP TYPE:Other: ESTIMATED BLOOD LOSS: None CONSENT: The patient understands the risks and benefits of the procedure and understands that these risks include, but are not limited to: sedation, allergic reaction, infection, perforation and/or bleeding. Alternative means of evaluation and treatment include, among others: physical exam, x-rays, and/or surgical intervention. The patient elects to proceed with this endoscopic procedure. medical equipment was checked for proper function. Hand hygiene and appropriate measures for infection prevention was taken. After the risks, benefits and alternatives of the procedure were thoroughly explained, Informed consent was verified, confirmed and timeout was successfully executed by the treatment team. A digital exam revealed external hemorrhoids The Pentax [id number] endoscope was introduced through the anus and advanced to the cecum, which was identified by both the appendix and ileocecal valve. The instrument was then slowly withdrawn as the colon was fully examined. COLON FINDINGS: Diverticulosis sigmoid,descending polyp hepatic flexure -2 cm -hot snare poplypectomy with complete removal. Retroflexed views revealed internal hemorrhoids and Retroflexed views revealed medium internal hemorrhoids The scope was then completely withdrawn from the patient and the procedure terminated. PROCEDURE WITHDRAWAL TIME:10minutes ADVERSE EVENTS: There were no complications. IMPRESSIONS: 1. Diverticulosis sigmoid,descending polyp hepatic flexure -2 cm -hot snare poplypectomy with complete removal 2. Retroflexed views revealed internal hemorrhoids 3. Retroflexed views revealed medium internal hemorrhoids 4. Revealed external hemorrhoids RECOMMENDATIONS: 1. Await biopsy results. Biopsy results will not be ready for 7-10 days. If you don't hear from us in two weeks, call our office for results. 2. Benefiber 2 tsp daily 3. Probiotics from any [employer] or [employer] food store 4. Yearly rectal exams 5. Resume diet capsule endoscopy op if recurrent bleeding-stat bleeding scan has history of melanoma-concern for sb lesion pet scan op if not done RECALL: Return 3 years Colonoscopy Maru Bettencourt MD eSigned: Maru Bettencourt MD 10/08/2017 9:48 AM cc: PATIENT NAME: Neel Leach MR#: [id number]
[2017-10-08] MEDS ORDERED: PROPOFOL 200 MG/20 ML AMP IV ONE (12:00)
[2017-10-08] MEDS ORDERED: PHENYLEPH/NS 1000 MCG/10 ML SYR IV ONE (12:00)
[2017-10-08] MEDS ORDERED: ePHEDrine/NS 25 MG/5 ML SYRINGE IV ONE (12:00)
--- NOTE | 2017-10-08 14:02 | HHI.PR ---
Subjective Remarks Follow-up GI bleed, anemia. The patient has no complaints at this time. Had repeat colonoscopy this morning. Denies active bleeding. Objective Vitals Vital Signs Date Time Temp Pulse Resp B/P (MAP) Pulse Ox O2 Delivery O2 Flow Rate FiO2 10/08/17 09:41 97.9 68 16 127/58 (81) 100 10/08/17 08:10 113 10/08/17 05:56 65 18 99/46 94 10/08/17 04:24 97.9 63 16 95/50 (65) 94 10/08/17 00:13 96.7 66 17 100/52 (68) 98 10/07/17 20:00 97.3 63 17 118/57 (77) 98 10/07/17 16:00 98.0 92 17 109/53 (71) 98 I/O 10/07/17 10/07/17 10/07/17 10/08/17 10/08/17 10/08/17 07:00 15:00 23:00 07:00 15:00 23:00 Intake Total 500 ml 200 ml 1200 ml 5 ml 720 ml Output Total 500 ml 300 ml 800 ml Balance 0 ml 200 ml 900 ml -795 ml 720 ml Intake Oral 500 ml 1200 ml Packed Cells 400 ml Blood Product IV Normal Saline Flush 5 ml 20 ml Other 200 ml 300 ml Output Urine Total 500 ml 300 ml 800 ml # Bowel Movements 7 4 Result Diagram: 10/08/17 0316 10/08/17 0316 Imaging Last Impressions Abdomen/Pelvis CT 10/01/17 0000 Signed Impressions: Service Date/Time: September 16:20 - CONCLUSION: 1. Decrease in size of nodules at the lung bases since April 2016. Small right pleural effusion. 2. Left inguinal hernia containing loop of colon without evidence for obstruction. 3. 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 No ascites. 4. Enlarged prostate. Mild constipation. 5. Nonobstructing tiny bilateral renal calcifications. Tomer Rincon MD Pelvis X-Ray 09/30/17 1257 Signed Impressions: Service Date/Time: Saturday, September 30, 2017 13:38 - CONCLUSION: No acute bony injury Eris Yeager MD Head CT 09/30/17 1251 Signed Impressions: Service Date/Time: Saturday, September 30, 2017 13:27 - CONCLUSION: Small focus of extra-axial hemorrhage in the high convexity right frontal region. Eris Yeager MD Chest X-Ray 09/30/17 1254 Signed Impressions: Service Date/Time: Saturday, September 30, 2017 13:35 - CONCLUSION: No acute disease Eris Yeager MD Cervical Spine CT 09/30/17 1254 Signed Impressions: Service Date/Time: Saturday, September 30, 2017 13:27 - CONCLUSION: 1. Multilevel degenerative disc disease with severe loss of disc height and near bone on bone articulation C5-C6 inferiorly. High grade one anterolisthesis of C4 on 5. 2. Uncovertebral ridging and facet hypertrophy encroach on the spinal canal and neural foramina at multiple levels. However, I believe the only significant narrowing is leftward C6-7 with possible compromise of the left C7 nerve root. 3. No fracture. Naveen Ramos MD Objective Remarks General: Elderly male in no acute distress. Hard of hearing. Heart: Regular rate and rhythm. No murmur. Lungs: Clear to auscultation bilaterally. No wheezes, rales, or rhonchi. Breathing is nonlabored. Abdomen: Soft, nontender, nondistended. Extremities: No lower extremity edema. Psych: Alert and oriented. Neuro: Normal speech. No focal deficits noted. Skin: Sutures in place on the posterior scalp. Skin tear on the anterior lower right leg is bandaged. Procedures 10/02/17 EGD 10/07/17 EGD, colonoscopy 10/08/17 colonoscopy Urinary Catheter: No Vascular Central Line Catheter: No A/P Problem List: (1) Fall ICD Code: W19.XXXA - Unspecified fall, initial encounter (2) Scalp laceration ICD Code: S01.01XA - Laceration without foreign body of scalp, initial encounter (3) Chronic a-fib ICD Code: I48.2 - Chronic atrial fibrillation (4) Acute renal failure ICD Code: N17.9 - Acute kidney failure, unspecified Status: Acute (5) Debility ICD Code: R53.81 - Other malaise (6) Hypertension ICD Code: I10 - Essential (primary) hypertension Status: Acute (7) Hypernatremia ICD Code: E87.0 - Hyperosmolality and hypernatremia (8) Lung cancer ICD Code: C34.90 - Malignant neoplasm of unspecified part of unspecified bronchus or lung (9) Dyspepsia ICD Code: R10.13 - Epigastric pain (10) Dysphagia ICD Code: R13.10 - Dysphagia, unspecified (11) Vomiting ICD Code: R11.10 - Vomiting, unspecified (12) Hypokalemia ICD Code: E87.6 - Hypokalemia Status: Acute (13) Hypothyroidism ICD Code: E03.9 - Hypothyroidism, unspecified Status: Chronic (14) Elevated troponin ICD Code: R74.8 - Abnormal levels of other serum enzymes (15) Metabolic acidosis ICD Code: E87.2 - Acidosis Status: Acute (16) Rhabdomyolysis ICD Code: M62.82 - Rhabdomyolysis Status: Acute (17) Acute kidney injury ICD Code: N17.9 - Acute kidney failure, unspecified (18) Gastritis ICD Code: K29.70 - Gastritis, unspecified, without bleeding (19) Duodenal ulcer ICD Code: K26.9 - Duodenal ulcer, unspecified as acute or chronic, without hemorrhage or perforation (20) Frequent falls ICD Code: R29.6 - Repeated falls Status: Acute (21) Failure to thrive in adult ICD Code: R62.7 - Adult failure to thrive Status: Acute (22) BRBPR (bright red blood per rectum) ICD Code: K62.5 - Hemorrhage of anus and rectum Status: Acute (23) Hypotension ICD Code: I95.9 - Hypotension, unspecified Assessment and Plan 1. Mechanical fall: Patient has had frequent falls. Continue physical therapy. 2. Scalp laceration: Sutured in the ER on 09/30/17. 3. Abrasion, right lower extremity: Continue dressing changes. 4. GI bleed, anemia: Appreciate gastroenterology recommendations. Patient is reporting bright red blood in his stool. Status post EGD, which showed esophagitis. Colonoscopy repeated this morning. Internal hemorrhoids and external hemorrhoids were noted. Repeat H&H pending. 5. Acute renal failure: Creatinine is trending down. 6. Chronic atrial fibrillation: Not on anticoagulation secondary to frequent falls. Pacemaker placed for history of ventricular bradycardia. 7. Hypertension: Blood pressure is well controlled. 8. Hypernatremia: Resolved. 9. Lung cancer: Due for outpatient PET scan. Follow-up as outpatient with oncology. 10. Dyspepsia: Continue PPI. 11. Dysphagia: Normal barium swallow as an outpatient. Appreciate GI recommendations. 12. Hypokalemia: Resolved. 13. Hypothyroidism: Continue Synthroid. 14. Elevated troponin: Likely secondary to renal failure. No cardiovascular complaints. 15. Rhabdomyolysis: Resolved. 16. Hypotension: Resolved after IV normal saline bolus and PRBC transfusion. 17. DVT prophylaxis: Chemical prophylaxis on hold secondary to GI bleed, anemia. Discharge Planning Anticipate discharge to inpatient rehab versus SNF soon, possibly tomorrow if hemoglobin is stable. Problem Qualifiers (1) Acute renal failure: Qualified Codes: N17.9 - Acute kidney failure, unspecified (2) Hypertension: Qualified Codes: I10 - Essential (primary) hypertension (3) Lung cancer: Qualified Codes: C34.90 - Malignant neoplasm of unspecified part of unspecified bronchus or lung (4) Dysphagia: Qualified Codes: R13.13 - Dysphagia, pharyngeal phase (5) Vomiting: (6) Rhabdomyolysis: Qualified Codes: T79.6XXA - Traumatic ischemia of muscle, initial encounter (7) Gastritis: Qualified Codes: K29.70 - Gastritis, unspecified, without bleeding (8) Hypotension: Qualified Codes: I95.9 - Hypotension, unspecified Yevgeniy Boyd MD October 08, 2017 14:02
[2017-10-08 15:12] LABS: HEMATOCRIT 27.1 % (39.0-51.0); HEMOGLOBIN 9.2 GM/DL (13.0-17.0)
[2017-10-08] MEDS: FAMOTIDINE 20 MG TAB PO SCH (21:17)
[2017-10-09 00:34] VITALS: BP 129/60; PULSE 68; RESP 17; TEMP 98.4; O2SAT 96
[2017-10-09 02:51] LABS: AUTOMATED NEUTROPHIL # 4.4 TH/MM3 (1.8-7.7); BASOPHIL # 0.1 TH/MM3 (0-0.2); BASOPHIL % 0.9 % (0.0-2.0); EOSINOPHIL # 0.3 TH/MM3 (0-0.4); EOSINOPHIL % 3.2 % (0.0-4.0); HEMATOCRIT 25.7 % (39.0-51.0); HEMOGLOBIN 8.9 GM/DL (13.0-17.0); LYMPH % 34.1 % (9.0-44.0); LYMPHOCYTE # 3.1 TH/MM3 (1.0-4.8); MEAN CELL VOLUME 89.6 FL (80.0-100.0); MEAN CORPUSCULAR HEMOGLOBIN 31.1 PG (27.0-34.0); MEAN CORPUSCULAR HGB CONC 34.7 % (32.0-36.0); MEAN PLATELET VOLUME 8.1 FL (7.0-11.0); MONO % 13.4 % (0.0-8.0); MONOCYTE # 1.2 TH/MM3 (0-0.9); NEUT % 48.4 % (16.0-70.0); PLATELET COUNT 150 TH/MM3 (150-450); RED BLOOD COUNT 2.87 MIL/MM3 (4.50-5.90); RED CELL DISTRIBUTION WIDTH 15.9 % (11.6-17.2); WHITE BLOOD COUNT 9.1 TH/MM3 (4.0-11.0)
[2017-10-09 03:16] LABS: BICARBONATE 21.1 MEQ/L (21.0-32.0); CREATININE 1.27 MG/DL (0.60-1.30)
[2017-10-09 03:28] LABS: CALCIUM-PROTEIN CORRECTED 8.2 MG/DL (8.5-10.1); TOTAL PROTEIN 4.8 GM/DL (6.4-8.2)
[2017-10-09 04:08] VITALS: BP 101/50; PULSE 64; RESP 16; TEMP 98; O2SAT 95
[2017-10-09] MEDS: LEVOTHYROXINE SODIUM 50 MCG TAB PO SCH (05:39)
[2017-10-09] MEDS: POTASSIUM PHOSPHATE/SODIUM PHOSPHATE 250 MG TAB PO SCH ×2 (05:39→13:33)
[2017-10-09] MEDS: POTASSIUM CHLORIDE 25 MEQ EFFERVESCENT TAB PO SCH (07:56)
[2017-10-09] MEDS: POLYETHYLENE GLYCOL 17 GM PKG PO SCH (07:58)
[2017-10-09] MEDS: SUCRALFATE 1 GM/10 ML CUP PO SCH ×2 (07:58→11:34)
[2017-10-09] MEDS: ASPIRIN 81 MG CHEW TAB CHEW SCH (07:59)
[2017-10-09 08:00] VITALS: BP 92/45; PULSE 60; RESP 17; TEMP 97.5; O2SAT 98
[2017-10-09] MEDS: SODIUM CHLORIDE 0.9% FLUSH 10 ML FLUSH IV FLUSH SCH (08:00)
[2017-10-09] MEDS: PANTOPRAZOLE SOD 40 MG DELAYED RELEASE TAB PO SCH (08:00)
[2017-10-09] MEDS: ATORVASTATIN 10 MG TAB PO SCH (08:00)
--- NOTE | 2017-10-09 09:13 | HHI.GIFU ---
Subjective Remarks Pt sitting up in bed eating breakfast Denies BM since colonoscopy yesterday Swallowing without any issues Denies any GI complaints at this time Objective Vitals I&O Vital Signs Date Time Temp Pulse Resp B/P (MAP) Pulse Ox O2 Delivery O2 Flow Rate FiO2 10/09/17 04:08 98.0 64 16 101/50 (67) 95 10/09/17 00:34 98.4 68 17 129/60 (83) 96 10/08/17 20:00 97.6 63 20 130/60 (83) 99 10/08/17 16:00 97.1 61 18 107/50 (69) 94 10/08/17 12:00 98.2 62 18 108/46 (66) 98 10/08/17 09:41 97.9 68 16 127/58 (81) 100 I/O 10/08/17 10/08/17 10/08/17 10/09/17 10/09/17 10/09/17 07:00 15:00 23:00 07:00 15:00 23:00 Intake Total 5 ml 720 ml 480 ml 480 ml Output Total 800 ml 700 ml Balance -795 ml 720 ml 480 ml -220 ml Intake Oral 480 ml 480 ml Packed Cells 400 ml Blood Product IV Normal Saline Flush 5 ml 20 ml Other 300 ml Output Urine Total 800 ml 700 ml # Voids 4 # Bowel Movements 4 1 0 Laboratory Laboratory Tests Test 10/08/17 14:12 10/09/17 02:36 Hemoglobin 9.2 8.9 Hematocrit 27.1 25.7 White Blood Count 9.1 Red Blood Count 2.87 Mean Corpuscular Volume 89.6 Mean Corpuscular Hemoglobin 31.1 Mean Corpuscular Hemoglobin Concent 34.7 Red Cell Distribution Width 15.9 Platelet Count 150 Mean Platelet Volume 8.1 Neutrophils (%) (Auto) 48.4 Lymphocytes (%) (Auto) 34.1 Monocytes (%) (Auto) 13.4 Eosinophils (%) (Auto) 3.2 Basophils (%) (Auto) 0.9 Neutrophils # (Auto) 4.4 Lymphocytes # (Auto) 3.1 Monocytes # (Auto) 1.2 Eosinophils # (Auto) 0.3 Basophils # (Auto) 0.1 CBC Comment DIFF FINAL Differential Comment Blood Urea Nitrogen 21 Creatinine 1.27 Random Glucose 101 Total Protein 4.8 Calcium Level 7.0 Sodium Level 149 Potassium Level 3.5 Chloride Level 118 Carbon Dioxide Level 21.1 Anion Gap 10 Estimat Glomerular Filtration Rate 54 Protein Corrected Calcium 8.2 Imaging Last Impressions Abdomen/Pelvis CT 10/01/17 0000 Signed Impressions: Service Date/Time: September 16:20 - CONCLUSION: 1. Decrease in size of nodules at the lung bases since April 2016. Small right pleural effusion. 2. Left inguinal hernia containing loop of colon without evidence for obstruction. 3. 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 No ascites. 4. Enlarged prostate. Mild constipation. 5. Nonobstructing tiny bilateral renal calcifications. Tomer Rincon MD Pelvis X-Ray 09/30/17 1254 Signed Impressions: Service Date/Time: Saturday, September 30, 2017 13:38 - CONCLUSION: No acute bony injury Eris Yeager MD Head CT 09/30/17 1254 Signed Impressions: Service Date/Time: Saturday, September 30, 2017 13:27 - CONCLUSION: Small focus of extra-axial hemorrhage in the high convexity right frontal region. Eris Yeager MD Chest X-Ray 09/30/17 1254 Signed Impressions: Service Date/Time: Saturday, September 30, 2017 13:35 - CONCLUSION: No acute disease Eris Yeager MD Cervical Spine CT 09/30/17 1254 Signed Impressions: Service Date/Time: Saturday, September 30, 2017 13:27 - CONCLUSION: 1. Multilevel degenerative disc disease with severe loss of disc height and near bone on bone articulation C5-C6 inferiorly. High grade one anterolisthesis of C4 on 5. 2. Uncovertebral ridging and facet hypertrophy encroach on the spinal canal and neural foramina at multiple levels. However, I believe the only significant narrowing is leftward C6-7 with possible compromise of the left C7 nerve root. 3. No fracture. Naveen Ramos MD Physical Exam HEENT: Normocephalic; atraumatic CHEST: CTA ABDOMEN: Soft, nontender, bowel sounds active SKIN: Pale MANAGER CONSTRUCTION: alert Assessment and Plan Plan Assessment: - Nausea and vomiting- pt reports for the past week, denies association to food. Denies hematemesis and coffee ground emesis - Heartburn- has been taking a lot of Tums recently. Does not think he has ever had an EGD - Dysphagia- states the food sits in his mouth a long time before he is able to swallow it. Denies odynophagia. Denies food getting stuck. - Weight loss- unsure how much, he attributes this to poor appetite and trouble swallowing - Constipation- takes Prune juice as needed with good relief - Elevated AST- WNL on admission, ETOH- 2 beers a day, reports of lung cancer metastasis to liver, no imaging - Lung cancer, possible mets to the liver per family according to chart, followed by Dr. Barboza - Chronic a-fib- not on anticoagulation at home due to frequent falls - AMI with elevated troponin and electrolyte imbalance EGD (10/02) --> Class D esophagitis noted. Erythematous gastritis in the gastric antrum. single ulcer ranging between 5-9 mm in size in the 1st part of the duodenum, hiatal hernia CT abdomen and pelvis W/O IV contrast (10/01) --> Decrease in size of nodules at the lung bases since April 2016. Small right pleural effusion. Left inguinal hernia containing loop of colon without evidence for obstruction. 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 No ascites. Enlarged prostate. Mild constipation. Nonobstructing tiny bilateral renal calcifications. RECONSULT (10/05) for report of BRBPR Per RN pt had one episode of bloody BM this morning, no more episodes since. Pt denies any associated abdominal pain or cramping. Last colonoscopy several years ago and unsure of findings. Of note, initial consult for dysphagia, pt reports he is eating without difficulty at this time. Colonoscopy (10/08) Diverticulosis in the sigmoid and descending colon. Polyp hepatic flexure- 2 cm- hot snare polypectomy with complete removal. Internal and external hemorrhoids. (10/09) Pt denies BM since colonoscopy yesterday. Denies any GI symptoms at this time. H/H remains stable over night. If any active bleeding- recommend STAT bleeding scan Pt with known history of melanoma- if there is concern for small bowel lesion then PET scan can be done outpatient if not done previously Recommend outpatient capsule endoscopy Plan: Colonoscopy biopsy pending Benefiber Probiotics Bowel regimen as needed Carafate Pepcid Repeat EGD in 3 months Avoid NSAIDs Monitor LFTs Avoid ETOH Avoid hepatotoxins GI will sign off, please reconsult as needed Have pt follow up with GI after discharge Recommend outpatient capsule endoscopy Pt has been seen and examined by myself and Dr. Bettencourt and this note is written on her behalf Delphine Meneses October 09, 2017 09:13
[2017-10-09] MEDS ORDERED: KPHOS250 PO (10:42)
[2017-10-09] MEDS ORDERED: KLYTECL PO (10:42)
--- NOTE | 2017-10-09 10:59 | HHI.DS ---
cc: Jaymie Ramirez Jr., MD Discharge Summary Admission Date September 30, 2017 at 16:12 Discharge Date: October 09, 2017 Admitting Diagnosis ACUTE RENAL FAILURE, ELEV TROPONIN, HYPERNATREMIA (1) Fall ICD Code: W19.XXXA - Unspecified fall, initial encounter (2) Scalp laceration ICD Code: S01.01XA - Laceration without foreign body of scalp, initial encounter (3) Chronic a-fib ICD Code: I48.2 - Chronic atrial fibrillation (4) Acute renal failure ICD Code: N17.9 - Acute kidney failure, unspecified Status: Acute (5) Debility ICD Code: R53.81 - Other malaise (6) Hypertension ICD Code: I10 - Essential (primary) hypertension Status: Acute (7) Hypernatremia ICD Code: E87.0 - Hyperosmolality and hypernatremia (8) Lung cancer ICD Code: C34.90 - Malignant neoplasm of unspecified part of unspecified bronchus or lung (9) Dyspepsia ICD Code: R10.13 - Epigastric pain (10) Dysphagia ICD Code: R13.10 - Dysphagia, unspecified (11) Vomiting ICD Code: R11.10 - Vomiting, unspecified (12) Hypokalemia ICD Code: E87.6 - Hypokalemia Status: Acute (13) Hypothyroidism ICD Code: E03.9 - Hypothyroidism, unspecified Status: Chronic (14) Elevated troponin ICD Code: R74.8 - Abnormal levels of other serum enzymes (15) Metabolic acidosis ICD Code: E87.2 - Acidosis Status: Acute (16) Rhabdomyolysis ICD Code: M62.82 - Rhabdomyolysis Status: Acute (17) Acute kidney injury ICD Code: N17.9 - Acute kidney failure, unspecified (18) Gastritis ICD Code: K29.70 - Gastritis, unspecified, without bleeding (19) Duodenal ulcer ICD Code: K26.9 - Duodenal ulcer, unspecified as acute or chronic, without hemorrhage or perforation (20) Frequent falls ICD Code: R29.6 - Repeated falls Status: Acute (21) Failure to thrive in adult ICD Code: R62.7 - Adult failure to thrive Status: Acute (22) BRBPR (bright red blood per rectum) ICD Code: K62.5 - Hemorrhage of anus and rectum Status: Acute (23) Hypotension ICD Code: I95.9 - Hypotension, unspecified Procedures 10/02/17 EGD 10/07/17 EGD, colonoscopy 10/08/17 colonoscopy Brief History - From Admission 82 Y/O male with a medical history significant for Hypertension, 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 Barboza. The patient is a poor historian, most of the History obtained from his daughter and is also limited. He normally lives with his who is currently out of town. He has a ice cream freezer at home. Patient reports he got out of bed and tripped. He landed on a carpet floor but sustained a scalp laceration. He denies any LOC. No lightheadedness, no chest pain or shortness of breath. Patient's daughter reports that he has been declining over the past couple of months with worsening appetite and weight loss. Recent CT showed mild progression of the lung lesions and he is due for outpatient PET scan. For the past few weeks the patient also has been having issues with dyspepsia and vomiting episodes. He goes through bottles of tums within days. He denies epigastric pain. He did have an episode of non bloody emesis during my evaluation. He has been worked up outpatient for dysphagia by his PCP and had a normal barium swallow. PCP notes reviewed. CBC/BMP: 10/09/17 0236 10/09/17 0236 Significant Findings Laboratory Tests Test 10/06/17 19:16 10/07/17 13:15 10/07/17 20:52 10/08/17 03:16 Blood Urea Nitrogen 35 MG/DL (7-18) 33 MG/DL (7-18) 30 MG/DL (7-18) Creatinine 1.55 MG/DL (0.60-1.30) 1.38 MG/DL (0.60-1.30) 1.31 MG/DL (0.60-1.30) Total Protein 5.2 GM/DL (6.4-8.2) 4.9 GM/DL (6.4-8.2) 4.4 GM/DL (6.4-8.2) Calcium Level 7.3 MG/DL (8.5-10.1) 7.2 MG/DL (8.5-10.1) 6.9 MG/DL (8.5-10.1) Chloride Level 114 MEQ/L (98-107) 117 MEQ/L (98-107) 120 MEQ/L (98-107) Carbon Dioxide Level 16.7 MEQ/L (21.0-32.0) 19.6 MEQ/L (21.0-32.0) Estimat Glomerular Filtration Rate 43 ML/MIN (>89) 49 ML/MIN (>89) 52 ML/MIN (>89) Protein Corrected Calcium 8.3 MG/DL (8.5-10.1) 8.4 MG/DL (8.5-10.1) 8.4 MG/DL (8.5-10.1) Red Blood Count 2.94 MIL/MM3 (4.50-5.90) 2.86 MIL/MM3 (4.50-5.90) 2.50 MIL/MM3 (4.50-5.90) Hemoglobin 9.2 GM/DL (13.0-17.0) 8.8 GM/DL (13.0-17.0) 7.8 GM/DL (13.0-17.0) Hematocrit 26.7 % (39.0-51.0) 26.0 % (39.0-51.0) 22.7 % (39.0-51.0) Platelet Count 148 TH/MM3 (150-450) 147 TH/MM3 (150-450) Monocytes (%) (Auto) 10.9 % (0.0-8.0) 10.1 % (0.0-8.0) 12.6 % (0.0-8.0) Monocytes # (Auto) 1.0 TH/MM3 (0-0.9) 1.0 TH/MM3 (0-0.9) 1.1 TH/MM3 (0-0.9) Random Glucose 111 MG/DL (74-106) Sodium Level 149 MEQ/L (136-145) 150 MEQ/L (136-145) Test 10/08/17 14:12 10/09/17 02:36 Hemoglobin 9.2 GM/DL (13.0-17.0) 8.9 GM/DL (13.0-17.0) Hematocrit 27.1 % (39.0-51.0) 25.7 % (39.0-51.0) Red Blood Count 2.87 MIL/MM3 (4.50-5.90) Monocytes (%) (Auto) 13.4 % (0.0-8.0) Monocytes # (Auto) 1.2 TH/MM3 (0-0.9) Blood Urea Nitrogen 21 MG/DL (7-18) Total Protein 4.8 GM/DL (6.4-8.2) Calcium Level 7.0 MG/DL (8.5-10.1) Sodium Level 149 MEQ/L (136-145) Chloride Level 118 MEQ/L (98-107) Estimat Glomerular Filtration Rate 54 ML/MIN (>89) Protein Corrected Calcium 8.2 MG/DL (8.5-10.1) Imaging Last Impressions Abdomen/Pelvis CT 10/01/17 0000 Signed Impressions: Service Date/Time: September 16:20 - CONCLUSION: 1. Decrease in size of nodules at the lung bases since April 2016. Small right pleural effusion. 2. Left inguinal hernia containing loop of colon without evidence for obstruction. 3. 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 No ascites. 4. Enlarged prostate. Mild constipation. 5. Nonobstructing tiny bilateral renal calcifications. Tomer Rincon MD Pelvis X-Ray 09/30/17 1254 Signed Impressions: Service Date/Time: Saturday, September 30, 2017 13:38 - CONCLUSION: No acute bony injury Eris Yeager MD Head CT 09/30/17 125 Signed Impressions: Service Date/Time: Saturday, September 30, 2017 13:27 - CONCLUSION: Small focus of extra-axial hemorrhage in the high convexity right frontal region. Eris Yeager MD Chest X-Ray 09/30/[id number] Signed Impressions: Service Date/Time: Saturday, September 30, 2017 13:35 - CONCLUSION: No acute disease Eris Yeager MD Cervical Spine CT 09/30/17 1254 Signed Impressions: Service Date/Time: Saturday, September 30, 2017 13:27 - CONCLUSION: 1. Multilevel degenerative disc disease with severe loss of disc height and near bone on bone articulation C5-C6 inferiorly. High grade one anterolisthesis of C4 on 5. 2. Uncovertebral ridging and facet hypertrophy encroach on the spinal canal and neural foramina at multiple levels. However, I believe the only significant narrowing is leftward C6-7 with possible compromise of the left C7 nerve root. 3. No fracture. Naveen Ramos MD PE at Discharge General: Elderly male in no acute distress. Hard of hearing. Heart: Regular rate and rhythm. No murmur. Lungs: Clear to auscultation bilaterally. No wheezes, rales, or rhonchi. Breathing is nonlabored. Abdomen: Soft, nontender, nondistended. Extremities: No lower extremity edema. Psych: Alert and oriented. Neuro: Normal speech. No focal deficits noted. Skin: Sutures in place on the posterior scalp. Skin tear on the anterior lower right leg is bandaged. Skin tear on lateral right knee with no active bleeding. Pt update on day of discharge No complaints at this time. No further bleeding reported. Denies chest pain, dyspnea. Wants to go to rehab today. Hospital Course The patient was admitted for management of injuries following fall. He was given gentle IV fluid hydration for acute renal failure felt to be prerenal secondary to dehydration. Patient reported nausea and vomiting. Gastroenterology was consulted. EGD was done. Nephrology was consulted for worsening acute kidney injury. The patient's symptoms improved. Creatinine improved as well. Arrangements were made for discharge to alf facility. Patient then developed blood in his stool. Hemoglobin dropped to 6.9. He was transfused a total of 5 units PRBCs. Gastroenterology was reconsulted. EGD and colonoscopy were done. Patient did not have any further active bleeding. Hemoglobin stabilized. The patient was felt to be stable for discharge to inpatient rehabilitation. Pt Condition on Discharge: Stable Discharge Disposition: Rehab Inpatient Discharge Time: > 30 minutes Discharge Instructions DIET: Follow Instructions for: Heart Healthy Diet Activities you can perform: Regular-No Restrictions, See Additionl Instruction Other Activity Instructions: as per PT instructions Follow up Referrals: Gastroenterology - 2 Weeks with Maru Bettencourt MD Oncology - 1 Week PCP Follow-up - 2 Weeks New Medications: Calcium Carbonate-Simethicone (Maalox Advanced Maximum Strength) 1,000-60 Mg Chew 1-2 TAB CHEW Q6HR PRN for INDIGESTION OR UPSET STOMACH, #15 TAB 0 Refills Pantoprazole (Pantoprazole) 40 Mg Tab 40 MG PO DAILY for Reflux, #31 TAB Potassium Bicarb-Chloride Effervescent (Effervescent Potassium Chloride 25 Meq) 25 Meq Tab 25 MEQ PO DAILY for Nutritional Supplement, #30 TAB Potassium Phosphate-Sodium Phosphate (K-Phos Neutral) 155-852-130 Mg Tab 250 MG PO Q8HR for Nutritional Supplement, #90 TAB Sucralfate Liq (Sucralfate Liq) 1 Gram/10 Ml Beth 1 GM PO ACHS for peptic ulcer disease, #1 BOTTLE Continued Medications: Aspirin (Aspirin) 81 Mg Chew 81 MG CHEW DAILY, TAB 0 Refills Atorvastatin (Atorvastatin) 10 Mg Tab 10 MG PO DAILY for Cholesterol Management, #30 TAB 0 Refills Levothyroxine (Levothyroxine) 50 Mcg Tab 50 MCG PO DAILY for Thyroid, #30 TAB 0 Refills Multiple Vitamins W/ Minerals (Multi For Him 50+) 0.4 Mg-2 Mg-250 Mcg Tab Multiple Vitamins W/ Minerals (Preservision Areds) 1 Tab 1 TAB PO DAILY for Nutritional Supplement, TAB 0 Refills Nivolumab (Opdivo) 40 Mg/4 Ml Inj Thiamine (Vitamin B-1) 100 Mg Tab 100 MG PO DAILY for Nutritional Supplement, TAB 0 Refills Discontinued Medications: Hydralazine HCl (Hydralazine HCl) 25 Mg Tablet 50 MG PO Q12HR for Blood Pressure Management, #60 MG 11 Refills Yevgeniy Boyd MD October 09, 2017 10:59
[2017-10-09 12:00] VITALS: BP 119/67; PULSE 60; RESP 18; TEMP 97.3; O2SAT 94
== END 2017-10-09 14:58 | DRG 682 ==
LOC: NEPC 12:37 → NEDA 16:12 → N07B 20:33
PROVIDERS: ADMIT Family Medicine; ATTEND Family Medicine
PROC: 0HQ0XZZ Repair Scalp Skin, External Approach (ICD-10-PCS; 2017-09-30)
PROC: 0W3P8ZZ Control Bleeding in Gastrointestinal Tract, Via Natural or Artificial Opening Endoscopic (ICD-10-PCS; principal; 2017-10-02 09:10)
PROC: 30233N1 Transfusion of Nonautologous Red Blood Cells into Peripheral Vein, Percutaneous Approach (ICD-10-PCS; 2017-10-05)
PROC: 0DJD8ZZ Inspection of Lower Intestinal Tract, Via Natural or Artificial Opening Endoscopic (ICD-10-PCS; 2017-10-07)
PROC: 0DB98ZX Excision of Duodenum, Via Natural or Artificial Opening Endoscopic, Diagnostic (ICD-10-PCS; 2017-10-07)
PROC: 0DB68ZX Excision of Stomach, Via Natural or Artificial Opening Endoscopic, Diagnostic (ICD-10-PCS; 2017-10-07)
PROC: 0DB58ZX Excision of Esophagus, Via Natural or Artificial Opening Endoscopic, Diagnostic (ICD-10-PCS; 2017-10-07)
PROC: 0DBE8ZX Excision of Large Intestine, Via Natural or Artificial Opening Endoscopic, Diagnostic (ICD-10-PCS; 2017-10-08)
DX: N17.9 Acute kidney failure, unspecified (principal); K26.4 Chronic or unspecified duodenal ulcer with hemorrhage; E87.2 Acidosis; E87.0 Hyperosmolality and hypernatremia; C78.7 Secondary malignant neoplasm of liver and intrahepatic bile duct; M62.82 Rhabdomyolysis; I95.9 Hypotension, unspecified; C34.90 Malignant neoplasm of unspecified part of unspecified bronchus or lung; D62 Acute posthemorrhagic anemia; K74.60 Unspecified cirrhosis of liver; I48.2 Chronic atrial fibrillation; E86.0 Dehydration; R13.10 Dysphagia, unspecified; M43.12 Spondylolisthesis, cervical region; S01.01XA Laceration without foreign body of scalp, initial encounter; W06.XXXA Fall from bed, initial encounter; Y93.89 Activity, other specified; Y92.003 Bedroom of unspecified non-institutional (private) residence as the place of occurrence of the external cause; R74.8 Abnormal levels of other serum enzymes; Z79.82 Long term (current) use of aspirin; E03.9 Hypothyroidism, unspecified; M19.90 Unspecified osteoarthritis, unspecified site; I10 Essential (primary) hypertension; K44.9 Diaphragmatic hernia without obstruction or gangrene; K21.0 Gastro-esophageal reflux disease with esophagitis; H91.93 Unspecified hearing loss, bilateral; I25.10 Atherosclerotic heart disease of native coronary artery without angina pectoris; Z86.73 Personal history of transient ischemic attack (TIA), and cerebral infarction without residual deficits; E78.00 Pure hypercholesterolemia, unspecified; Z85.820 Personal history of malignant melanoma of skin; Z95.0 Presence of cardiac pacemaker; Z85.118 Personal history of other malignant neoplasm of bronchus and lung; R29.6 Repeated falls; R62.7 Adult failure to thrive; E78.5 Hyperlipidemia, unspecified; Z96.652 Presence of left artificial knee joint; I87.8 Other specified disorders of veins; E87.6 Hypokalemia; K40.90 Unilateral inguinal hernia, without obstruction or gangrene, not specified as recurrent; N40.0 Benign prostatic hyperplasia without lower urinary tract symptoms; N28.89 Other specified disorders of kidney and ureter; N20.0 Calculus of kidney; K57.30 Diverticulosis of large intestine without perforation or abscess without bleeding; K29.70 Gastritis, unspecified, without bleeding; K64.4 Residual hemorrhoidal skin tags; K64.8 Other hemorrhoids; K59.00 Constipation, unspecified; N25.89 Other disorders resulting from impaired renal tubular function
CPT/HCPCS: 12002; 36415; 36430; 70450; 71045; 72125; 72170; 74176; 80048; 80053; 81001; 82550; 82552; 82570; 83605; 83690; 83735; 83880; 83935; 84100; 84155; 84300; 84443; 84484; 85014; 85018; 85025; 85027; 85610; 85730; 86850; 86900; 86901; 86920; 88305; 88312; 93005; 96374; J1644; J2370; J2405; J3480; J7050; J7070; P9016; Q9963

== ENCOUNTER 2017-10-11 12:52 | Inpatient (IN) | payer MEDICARE ==
[~2017-10-11 12:52] MED LIST changes: -CARA0.5C; -DIGO0.25 PO; -HYDR-3799 PO; +KLYTECL PO; +KPHOS250 PO; +MAAL10003 CHEW; +OCUVTAB4 PO; +PANT40TA3 PO; +SUCR1S PO
[2017-10-11] MEDS ORDERED: FAMO20TA2 PO (12:53)
[2017-10-11 14:01] VITALS: BP 104/50; PULSE 71; RESP 18; TEMP 97.5; O2SAT 99
[2017-10-11] MEDS ORDERED: LACTULOSE SYRUP 20 GM/30 ML CUP PO PRN (14:30)
[2017-10-11] MEDS ORDERED: METOCLOPRAMIDE HCL 10 MG/2 ML VIAL IV PUSH PRN (14:30)
[2017-10-11] MEDS ORDERED: BISACODYL 10 MG SUPP RECTAL PRN (14:30)
[2017-10-11] MEDS ORDERED: ACETAMINOPHEN 325 MG TAB PO PRN (14:30)
[2017-10-11] MEDS ORDERED: NALOXONE HCL 0.4 MG/ML AMP IV PUSH PRN (14:30)
[2017-10-11] MEDS ORDERED: SODIUM CHLOR 0.9% 250 ML INJ 250 ML IV ONE (14:30)
[2017-10-11] MEDS ORDERED: SODIUM CHLORIDE 0.9% FLUSH 10 ML FLUSH IV FLUSH PRN (14:30)
[2017-10-11] MEDS ORDERED: MAGNESIUM HYDROXIDE SUSP 30 ML CUP PO PRN (14:30)
[2017-10-11] MEDS ORDERED: SENNOSIDES 8.6 MG TAB PO PRN (14:30)
[2017-10-11] MEDS ORDERED: FUROSEMIDE 20 MG/2 ML VIAL IV PUSH ONE (14:30)
[2017-10-11] MEDS: SUCRALFATE 1 GM/10 ML CUP PO SCH ×2 (16:45→23:39)
[2017-10-11] MEDS: PANTOPRAZOLE SODIUM 40 MG VIAL IV PUSH SCH (16:45)
[2017-10-11] MEDS: diphenhydrAMINE HCL 25 MG CAP PO PRN ×2 (16:46→23:38)
[2017-10-11] MEDS: ACETAMINOPHEN 325 MG TAB PO PRN ×2 (16:46→23:38)
[2017-10-11 17:30] VITALS: BP 110/80; PULSE 66; RESP 16; RESP 18; TEMP 98.5; O2SAT 100
[2017-10-11 17:45] VITALS: BP 112/50; PULSE 70; RESP 17; TEMP 98.9; O2SAT 100
[2017-10-11 18:00] VITALS: BP 113/65; PULSE 68; RESP 18; TEMP 98.7; O2SAT 100
--- NOTE | 2017-10-11 18:04 | HHI.HP ---
HPI [facility] Hospitalists Primary Care Physician Unknown Admission Diagnosis Diagnoses: Chief Complaint: Worsening Anemia Travel History International Travel<30 Days: No Contact w/Intl Traveler <30 Da: No Traveled to Known Affected Are: No History of Present Illness Deferred entry - patient seen earlier at 11 am This is an 82-year-old male with past medical history significant for chronic atrial fibrillation on daily aspirin, pacemaker in place, hyperlipidemia, CAD, hypothyroidism and TIA. The patient also has history of lung cancer metastatic to the liver currently on immunotherapy and being followed by Dr. Barboza. The patient was initially brought to the hospital after a fall. The patient family noted that the patient had been declining over the past couple months with worsening appetite and weight loss. Patient at that time was continued nausea and vomiting 1 week prior to fall as well as difficulty swallowing food with food being cocked about in the esophagus. Recent CT showed marked progression of the lung lesions and he is due for an outpatient PET scan. The patient at that time was in his usual state of health which consisted of ambulation with walker short distances and supervision and some help with ADLs until 09/30/17 when the patient was admitted to [facility] after falling from its bed onto a carpeted floor sustaining a head laceration. The patient denied loss of consciousness at the time of the fall or other injuries. The laceration of the scalp was sutured in the emergency department. At that time the patient had the following imaging studies chest x-ray read as negative. Pelvis negative for fracture. Head CT showed no mass, no intracranial hemorrhage, only small subdural bleed at convexity right frontal region. Cervical C-spine showed some degenerative changes and loss of disc height C5 through C6 and degenerative changes of the cervical spine which appeared to be chronic. CBC was 14,000, hemoglobin was 12 on admission with 26% neutrophils. Patient was also noted to be hyponatremic with a sodium of 151, chloride of 128 , bicarb of 10, anion gap of 12, BUN of 34 and creatinine of 2.07. Elevated troponin of 0.06 the patient on the time was admitted with acute renal failure, dehydration, hypernatremia, elevated troponin. The patient's hospital stay nephrology was consulted Dr. Fishman for acute kidney injury, thought to be possibly prerenal from poor intake, dysphagia but also associated to rhabdomyolysis. The patient was treated with IV fluids hydration and creatinine and BUN improved. GI was also consulted. EGD showed class D esophagitis, erythematous gastritis in the gastric antrum, single also ranging between 5-9 mm in size found in the first part of the duodenum treated with argon plasma coagulation to the site with complete hemostasis achieved. Retroflexed views revealed a hiatal hernia. Colonoscopy performed on 10/08/17 showed diverticulosis in the sigmoid, descending polyp hepatic flexure status post polypectomy with complete removal. Internal hemorrhoids, medium internal hemorrhoids as well as external hemorrhoids. Patient was recommended to take fiber, probiotics and have yearly rectal exams. Recommended that the patient has recurrent bleeding a stat bleeding scan should be obtained. The patient currently denies any chest pain, shortness of breath. He states that he wants to go home. Patient also denies any bright red blood per rectum or melena even though hemoglobin has been trending down and this morning's hemoglobin is 6.0. Otherwise the patient denies any diarrhea, dysuria, nausea, vomiting. Patient's appetite is still poor. Past Family Social History Past Medical History Hypertension Hypothyroidism Chronic A-fib TIA Hyperlipidemia GERD Lung cancer with mets to liver Recent Gi bleeding with acute blood loss anemia Past Surgical History Left knee surgery Cataract surgery Pacemaker placement recent EGD/Colonoscopy Reported Medications Reported Meds & Active Scripts Active Famotidine 20 Mg Tab 20 Mg PO HS Effervescent Potassium Chloride 25 Meq (Potassium Bicarb/Potassium Chloride) 25 Meq Tab 25 Meq PO DAILY K-Phos Neutral (Potassium Phos/Sodium Phos) 155-852-130 Mg Tab 250 Mg PO Q8HR Maalox Advanced Maximum Strength (Calcium Carbonate-Simethicone) 1,000-60 Mg Chew 1-2 Tab CHEW Q6HR PRN Pantoprazole (Pantoprazole Sodium) 40 Mg Tab 40 Mg PO DAILY Sucralfate Liq (Sucralfate) 1 Gram/10 Ml Beth 1 Gm PO ACHS Reported Preservision Areds (Multiple Vitamins W/ Minerals) 1 Tab 1 Tab PO DAILY Opdivo (Nivolumab) 40 Mg/4 Ml Inj Vitamin B-1 (Thiamine HCl) 100 Mg Tab 100 Mg PO DAILY Multi For Him 50+ (Multiple Vitamins W/ Minerals) 0.4 Mg-2 Mg-250 Mcg Tab Aspirin 81 Mg Chew 81 Mg CHEW DAILY Levothyroxine (Levothyroxine Sodium) 50 Mcg Tab 50 Mcg PO DAILY Atorvastatin (Atorvastatin Calcium) 10 Mg Tab 10 Mg PO DAILY Allergies: Coded Allergies: No Known Allergies (Verified , 02/27/17) Active Ordered Medications Current Medications Medications (Trade) Dose Ordered Sig/Mariela Route Start Time Stop Time Status Last Admin (NS Flush) 2 ml UNSCH PRN IV FLUSH 10/11/17 14:30 (NS Flush) 2 ml BID IV FLUSH 10/11/17 21:00 (Tylenol) 650 mg Q4H PRN PO 10/11/17 14:30 (Reglan Inj) 5 mg Q6H PRN IV PUSH 10/11/17 14:30 (Narcan Inj) 0.4 mg UNSCH PRN IV PUSH 10/11/17 14:30 (Colleen-Colace) 1 tab BID PO 10/11/17 21:00 (Milk Of Magnesia Liq) 30 ml Q12H PRN PO 10/11/17 14:30 (Senokot) 17.2 mg Q12H PRN PO 10/11/17 14:30 (Dulcolax Supp) 10 mg DAILY PRN RECTAL 10/11/17 14:30 (Lactulose Liq) 30 ml DAILY PRN PO 10/11/17 14:30 Sodium Chloride 250 ml @ 15 mls/hr ONCE ONCE IV 10/11/17 14:30 10/12/17 07:09 10/11/17 17:43 (Tylenol) 650 mg Q4H PRN PO 10/11/17 14:30 10/11/17 16:46 (Benadryl) 25 mg Q4H PRN PO 10/11/17 14:30 10/11/17 16:46 (Tobradex Opth Susp) 1 drop Q8HR RIGHT EYE 10/11/17 22:00 (K-Lyte Cl Eff) 25 meq DAILY PO 10/12/17 09:00 (Synthroid) 50 mcg DAILY@0600 PO 10/12/17 06:00 (Lipitor) 10 mg HS PO 10/11/17 21:00 (Pepcid) 20 mg HS PO 10/11/17 21:00 (Protonix Inj) 40 mg Q12H IV PUSH 10/11/17 18:00 10/11/17 16:45 (Carafate Liq) 1 gm ACHS PO 10/11/17 17:00 10/11/17 16:45 Family History Denies history of diabetes or CAD. Social History Patient drinks 2 beers daily. Negative for tobacco or drugs. Lives at home with . Physical Exam Vital Signs Vital Signs Date Time Temp Pulse Resp B/P (MAP) Pulse Ox O2 Delivery O2 Flow Rate FiO2 10/11/17 17:45 98.9 70 17 112/50 100 10/11/17 17:30 66 18 110/80 100 10/11/17 17:30 98.5 10/11/17 17:30 98.5 66 16 110/80 (90) 100 10/11/17 14:01 97.5 71 18 104/50 (68) 99 Physical Exam GENERAL: Elderly and frail male SKIN: Bilateral LE with venous stasis changes and ecchymosis. There is a wound on the right leg. Skin is very pale. HEAD: S/P repair of scalp laceration. Dressing looks intact EYES: Pupils equal round and reactive. Extraocular motions intact. No scleral icterus. No injection or drainage. ENT: Nose without bleeding, purulent drainage or septal hematoma. Throat without erythema, tonsillar hypertrophy or exudate. Uvula midline. Airway patent. NECK: Trachea midline. No JVD or lymphadenopathy. Supple, nontender, no meningeal signs. CARDIOVASCULAR: Regular rate and rhythm without murmurs, gallops, or rubs. RESPIRATORY: Clear to auscultation. Breath sounds equal bilaterally. No wheezes , rales, or rhonchi. GASTROINTESTINAL: Abdomen soft, non-tender, nondistended. No hepato-splenomegaly , or palpable masses. No guarding. MUSCULOSKELETAL: Extremities without clubbing, cyanosis. There is noted edema in the left lower extremity when compared to the right lower extremity. No joint tenderness, effusion, or edema noted. No calf tenderness. NEUROLOGICAL: Awake and alert. Moves all extremity. Generalized weakness. Some mild short term memory impairment. Chronic per family. Caprini VTE Risk Assessment Caprini VTE Risk Assessment: Mod/High Risk (score >= 2) VTE Pharm Contraindication: Hemorrhage Caprini Risk Assessment Model Point Value = 1 Point Value = 2 Point Value = 3 Point Value = 5 Age 41-60 Minor surgery BMI > 25 kg/m2 Swollen legs Varicose veins or History of unexplained or recurrent spontaneous Oral contraceptives or hormone replacement Sepsis (< 1 month) Serious lung disease, including pneumonia (< 1 month) Abnormal pulmonary function Acute myocardial infarction Congestive heart failure (< 1 month) History of inflammatory bowel disease Medical patient at bed rest Age 61-74 Arthroscopic surgery Major open surgery (> 45 min) Laparoscopic surgery (> 45 min) Malignancy Confined to bed (> 72 hours) Immobilizing plaster cast Central venous access Age >= 75 History of VTE Family history of VTE Factor V Leiden Prothrombin [id number] Lupus anticoagulant Anticardiolipin antibodies Elevated serum homocysteine Heparin-induced thrombocytopenia Other congenital or acquired thrombophilia Stroke (< 1 month) Elective arthroplasty Hip, pelvis, or leg fracture Acute spinal cord injury (< 1 month) Prophylaxis Regimen Total Risk Factor Score Risk Level Prophylaxis Regimen 0-1 Low Early ambulation 2 Moderate Order ONE of the following: *Sequential Compression Device (SCD) *Heparin 5000 units SQ BID 3-4 Higher Order ONE of the following medications: *Heparin 5000 units SQ TID *Enoxaparin/Lovenox 40 mg SQ daily (WT < 150 kg, CrCl > 30 mL/min) *Enoxaparin/Lovenox 30 mg SQ daily (WT < 150 kg, CrCl > 10-29 mL/min) *Enoxaparin/Lovenox 30 mg SQ BID (WT < 150 kg, CrCl > 30 mL/min) AND/OR *Sequential Compression Device (SCD) 5 or more Highest Order ONE of the following medications: *Heparin 5000 units SQ TID (Preferred with Epidurals) *Enoxaparin/Lovenox 40 mg SQ daily (WT < 150 kg, CrCl > 30 mL/min) *Enoxaparin/Lovenox 30 mg SQ daily (WT < 150 kg, CrCl > 10-29 mL/min) *Enoxaparin/Lovenox 30 mg SQ BID (WT < 150 kg, CrCl > 30 mL/min) AND *Sequential Compression Device (SCD) Assessment and Plan Assessment and Plan (1) Anemia ICD Code: D64.9 - Anemia, unspecified Plan: The patient has recent history of GI bleeding status post EGD and colonoscopy. EGD with ablation was performed on 10/02/17 which showed a class D esophagitis, erythematous gastritis, bleeding ulcer the first part of the duodenum treated with argon plasma coagulation with complete hemostasis achieved. Due to continued GI bleeding the patient had a repeat EGD with biopsy performed on 10/07/17 showed severe esophagitis of the distal esophagus status post biopsy , duodenitis and hiatal hernia. Pathology report from samples obtained from duodenum, antrum and distal esophagus shows a duodenum with a small bulb mucosa with peptic duodenitis. Gastric antral biopsies shows antral mucosa with marked active chronic gastritis , negative for Helicobacter. Distal esophagus biopsy showed a acutely ulcerated squamous mucosa however viral inclusions are not identified. A GMS stain was negative for fungal organisms. The patient however denies any GI bleeding, melena or hematochezia. We will also obtain a bleeding scan if hemoglobin truly dropped. Continue PPI Hemoglobin dropped down to 6.0, transfuse 2 units prbc. Consult GI. (2) Deep vein thrombosis (DVT) of popliteal vein of left lower extremity ICD Code: I82.432 - Acute embolism and thrombosis of left popliteal vein Plan: The patient has been started on Lovenox 1 mg/kg subcutaneously every 12 hours. Hold for now. Will order an IVC filter placement in am. (3) Debility ICD Code: R53.81 - Other malaise Status: Acute Plan: PT as per rehab recommendations. (4) Hypothyroidism ICD Code: E03.9 - Hypothyroidism, unspecified Status: Chronic Plan: Continue levothyroxine. Recent TSH within normal range on 09/30/17 (5) Impaired mobility and activities of daily living ICD Code: Z74.09 - Other reduced mobility Status: Acute Plan: Consult PT (6) Chronic a-fib ICD Code: I48.2 - Chronic atrial fibrillation Status: Chronic Plan: Status post pacemaker. Rate controlled. The patient not previously on anti-coagulation due to multiple recurrent falls. Hold aspirin and Lovenox of cutaneously given recent hemoglobin drop. (7) Hypernatremia ICD Code: E87.0 - Hyperosmolality and hypernatremia Status: Acute Plan: Mild hypernatremia with a sodium of 147 which has been trending down from previous admission were sodium went up to 154. Hyponatremia likely secondary to dehydration due to poor oral intake. Encourage po intake. (8) AMI (acute kidney injury) ICD Code: N17.9 - Acute kidney failure, unspecified Status: Acute Plan: Patient's creatinine when up from 1.06 on 10/10-1.56 today 10/11. Suspect possibly due to a combination of prerenal azotemia and hypotension since patient's blood pressure has been in the low 90s yesterday. Started patient on gentle IV fluids and profuse as needed if hemoglobin is less than 7.5. Monitor BUN and creatinine, strict I's and O's, (9) Subdural hematoma ICD Code: S06.5X9A - Traumatic subdural hemorrhage with loss of consciousness of unspecified duration, initial encounter Plan: Which patient sustained after a fall with a subsequent scalp laceration that has been repaired and sutured. Scott head CT obtained on 10/10/17 shows interval resolution of the right high parietal x-ray show hemorrhage. Moderate severity atrophy. (10) Mild traumatic brain injury ICD Code: S06.9X9A - Unspecified intracranial injury with loss of consciousness of unspecified duration, initial encounter Status: Acute Plan: CT of the head obtained and results as detailed above. (11) Dysphagia ICD Code: R13.10 - Dysphagia, unspecified Plan: Patient seen recently by speech therapy who recommended regular food with thin liquids. Patient also status post evaluation by gastroenterology. Results of EGD and colonoscopy detailed above. (12) Frequent falls ICD Code: R29.6 - Repeated falls Status: Acute Plan: Continue PT. Out of bed with assistance. Assessment and Plan DVT prophylaxis: SCDs. No chemoprophylaxis for now given drop in hemoglobin and possible active GI bleeding. Code Status Full Code Discussed Condition With Patient, patient's , PA Shweta Villanueva Physician Certification 2 Midnight Certification Type: Admission for Inpatient Services Order for Inpatient Services The services are ordered in accordance with Medicare regulations or non- Medicare payer requirements, as applicable. In the case of services not specified as inpatient-only, they are appropriately provided as inpatient services in accordance with the 2-midnight benchmark. Estimated LOS (days): 2 days is the estimated time the patient will need to remain in the hospital, assuming treatment plan goals are met and no additional complications. Post-Hospital Plan: Not yet determined Jameel Ovalle MD October 11, 2017 18:04
--- NOTE | 2017-10-11 18:57 | RADRPT ---
EXAM DATE/TIME: 10/11/2017 16:14 [facility] COMPARISON: No previous studies available for comparison. INDICATIONS : Rectal bleed DOSE: 21.3 mCi Tc99m Ultratag labeled red blood cells IV IMAGIN hrs MEDICAL HISTORY : Carcinoma, lung. Hypertension. Afib. SURGICAL HISTORY : Pacemaker. Total knee replacement, left. ENCOUNTER: Initial ACUITY: 1 day PAIN SCALE: 0/10 LOCATION: Bilateral lower quadrant TECHNIQUE: Following the modified in vitro labeling of autologous red cells, dynamic continuous images were acqu ired for the specified interval. FINDINGS: BIODISTRIBUTION: There is a very good labeling of red cells without significant uptake in the gastric wall. There is good delineation of the blood pool of the spleen and abdominal vessels. BLEEDING: Focal tracer accumulation in the mid superior pelvic region. CONCLUSION: 1. Focal tracer attenuation in the mid superior pelvic region likely reflecting active hemorrhage in the sigmoid colon. Almas Meyers MD on October 11, 2017 at 18:53 Board Certified Radiologist. This report was verified electronically.
[2017-10-11 20:00] VITALS: BP 94/45; PULSE 67; RESP 18; TEMP 97.8; O2SAT 94
--- NOTE | 2017-10-11 21:51 | MB ---
cc: Maru Bettencourt MD DATE: 10/11/2017 REFERRING PHYSICIAN: Dr. Abraham REASON FOR CONSULTATION: Recurrent GI bleed. The patient is seen in the bleeding scan. HISTORY OF PRESENT ILLNESS: Mr. Leach is an unfortunate 82-year-old gentleman known to us from previous admission, has multiple problems. He has chronic heart disease and for this he is on anticoagulation. He has also history of melanoma. Recently seen on the medical floor for a GI bleed, underwent upper endoscopy and colonoscopy, workup suggestive of diverticulosis , duodenitis, severe esophagitis and gastritis. Source of bleeding was felt to be diverticular disease. Due to history of melanoma and potential metastasis to the small intestine, a capsule endoscopy was planned as an outpatient. The patient was transferred to the rehabilitation center and this morning hemoglobin was done and was noted to be again anemic. There is no history of bleeding since his transfer to the rehabilitation center. His repeat hemoglobin is 6.5, currently awaiting blood transfusion. No reported episodes of bleeding. PAST MEDICAL HISTORY: He has chronic atrial fibrillation, pacemaker, hyperlipidemia, coronary artery disease, hypothyroidism, TIA, lung cancer -melanoma /metastatic to the liver on immunotherapy. Also the pathology I have here in the hospital showed melanoma. PAST SURGICAL HISTORY: Left knee surgery, cataract surgery, pacemaker. ALLERGIES: NO KNOWN ALLERGIES. MEDICATIONS: PreserVision, nivolumab, vitamin B1, multivitamins, aspirin, levothyroxine, atorvastatin, Lovenox injection also was started on the floor. FAMILY HISTORY: No family history of colon cancer or any GI pathology. SOCIAL HISTORY: The patient drinks 2 beers daily, none since admission to the hospital. REVIEW OF SYSTEMS: CONSTITUTIONAL: He denies any fever, chills, weight loss or weight gain. ENT: No alteration of baseline hearing or visual activity. PULMONARY: Denies any chest pain, shortness of breath. GASTROINTESTINAL: As above. GENITOURINARY: Denies dysuria or hematuria. HEMATOLOGIC: Does have history of anemia, bleeding disorder. SKIN: No alteration of baseline skin lesion. NEUROLOGIC: No history of TIA or CVA kind of symptoms. PHYSICAL EXAMINATION: GENERAL: On clinical exam, he is sitting on the examination table in the bleeding scan lab. VITAL SIGNS: Temperature 98.4, blood pressure 103/50, pulse 69. HEENT: PERRLA. NECK: No JVD. No lymphadenopathy. CHEST: Clear to auscultation and palpation. HEART: S1, S2. No murmur. ABDOMEN: Soft, nontender. Bowel sounds are present. SIGN ERECTOR AND REPAIRER: Awake, alert, oriented x3. No focal signs identified. EXTREMITIES: His left lower extremity has edema, more on the left, compared with the right. LABORATORY FINDINGS: His hemoglobin was 6 in the morning, repeated 6.5, platelets 145. BUN 29, creatinine 1.56, potassium 4.6. The patient had an endoscopy and a colonoscopy prior to his discharge to the rehabilitation center, which showed severe diverticulosis, colonic polyp which was tubular in nature. Also, he had an upper endoscopy which showed severe esophagitis, gastritis and duodenitis. Biopsy negative for herpes, CMV or Kaylie. The patient underwent also CT abdomen and pelvis on 10/01/2017, which showed decrease in size of the nodules at the lung base, small right pleural effusion, left inguinal hernia containing a loop of the colon, probable liver cirrhosis, no ascites. Enlarged prostate. Mild constipation. Nonobstructing bilateral renal calcification. IMPRESSION: Mr. Leach is an 82-year-old gentleman with multiple medical problems, readmitted to the medical floor for anemia. No indication of a gastrointestinal bleed at this time as per nurse's reports. History of gastrointestinal bleed. On recent endoscopy, colonoscopy source of bleeding felt to be diverticular disease. Severe esophagitis, gastritis. No indication for cytomegalovirus or herpes infection. History of metastatic melanoma to the lung and liver . Concerned for possible metastatic lesion to the small intestine. So far workup was negative. Capsule endoscopy was ordered as an outpatient. RECOMMENDATIONS: Transfuse 2 units of PRBC. Bleeding scan in progress, await results. Monitor H and H closely. Consider re-consulting Hematology. Hold anticoagulation for now. Supportive care. May consider, if bleeding scan positive, consider angiogram and General Surgery consultation. I would like to thank Dr. Abraham for referring him to our office for consultation. N.p.o. except medications. Capsule endoscopy outpatient and is not available in the hospital. Thank you again. I will continue to follow the patient along with you. Maru Bettencourt MD BSB/SB , 09:20 PM , 09:50 PM [facility]
[2017-10-11] MEDS: TOBRAMYCIN 0.3%/DEXAMETHASONE 0.1% OPHT SUSP 5 ML BTL RIGHT EYE SCH (23:37)
[2017-10-11] MEDS: FAMOTIDINE 20 MG TAB PO SCH (23:38)
[2017-10-11] MEDS: ATORVASTATIN 10 MG TAB PO SCH (23:38)
[2017-10-11] MEDS: DOCUSATE SODIUM 50 MG/SENNA 8.6 MG TAB PO SCH (23:39)
[2017-10-11] MEDS: SODIUM CHLORIDE 0.9% FLUSH 10 ML FLUSH IV FLUSH SCH (23:39)
[2017-10-12] VITALS (20 sets, daily range): BP systolic 90–143; BP diastolic 50–63; PULSE 60–95; RESP 16–22; TEMP 97.1–98.9; O2SAT 94–100
[2017-10-12] MEDS: LEVOTHYROXINE SODIUM 50 MCG TAB PO SCH (05:47)
[2017-10-12] MEDS: TOBRAMYCIN 0.3%/DEXAMETHASONE 0.1% OPHT SUSP 5 ML BTL RIGHT EYE SCH ×3 (05:47→21:31)
[2017-10-12] MEDS: PANTOPRAZOLE SODIUM 40 MG VIAL IV PUSH SCH ×2 (05:47→17:48)
[2017-10-12 07:25] LABS: HEMATOCRIT 21.5 % (39.0-51.0); HEMOGLOBIN 7.3 GM/DL (13.0-17.0)
[2017-10-12 07:27] LABS: AUTOMATED NEUTROPHIL # 4.3 TH/MM3 (1.8-7.7); BASOPHIL # 0.1 TH/MM3 (0-0.2); BASOPHIL % 1.4 % (0.0-2.0); EOSINOPHIL # 0.2 TH/MM3 (0-0.4); EOSINOPHIL % 2.8 % (0.0-4.0); HEMATOCRIT 21.5 % (39.0-51.0); HEMOGLOBIN 7.3 GM/DL (13.0-17.0); LYMPHOCYTE # 2.7 TH/MM3 (1.0-4.8); MEAN CELL VOLUME 87.9 FL (80.0-100.0); MEAN CORPUSCULAR HGB CONC 34.1 % (32.0-36.0); MEAN PLATELET VOLUME 8.6 FL (7.0-11.0); MONO % 10.1 % (0.0-8.0); MONOCYTE # 0.8 TH/MM3 (0-0.9); NEUT % 52.7 % (16.0-70.0); PLATELET COUNT 129 TH/MM3 (150-450); RED BLOOD COUNT 2.44 MIL/MM3 (4.50-5.90); RED CELL DISTRIBUTION WIDTH 16.9 % (11.6-17.2); WHITE BLOOD COUNT 8.1 TH/MM3 (4.0-11.0)
[2017-10-12 07:54] LABS: ALBUMIN 1.9 GM/DL (3.4-5.0); BICARBONATE 19.4 MEQ/L (21.0-32.0); CALCIUM-PROTEIN CORRECTED 8.7 MG/DL (8.5-10.1); CREATININE 1.73 MG/DL (0.60-1.30); TOTAL BILIRUBIN ADULT 0.4 MG/DL (0.2-1.0); TOTAL PROTEIN 4.1 GM/DL (6.4-8.2)
[2017-10-12] MEDS: DOCUSATE SODIUM 50 MG/SENNA 8.6 MG TAB PO SCH ×2 (08:12→21:00)
[2017-10-12] MEDS: SODIUM CHLORIDE 0.9% FLUSH 10 ML FLUSH IV FLUSH SCH ×2 (08:12→21:00)
[2017-10-12] MEDS: POTASSIUM CHLORIDE 25 MEQ EFFERVESCENT TAB PO SCH (08:12)
[2017-10-12] MEDS: SUCRALFATE 1 GM/10 ML CUP PO SCH ×4 (08:13→21:29)
[2017-10-12] MEDS ORDERED: SODIUM CHLOR 0.9% 250 ML INJ 250 ML IV ONE (09:00)
[2017-10-12] MEDS ORDERED: VERAPAMIL HCL 5 MG/2 ML VIAL ONE (10:29)
[2017-10-12] MEDS ORDERED: MIDAZOLAM HCL 2 MG/2 ML VIAL ONE ×2 (10:32→11:23)
--- NOTE | 2017-10-12 10:34 | HHI.PR ---
Subjective Remarks Pt seen and examined for f/u acute on chronic anemia, questionable GI bleed, atrial fibrillation, and overall debility from metastatic lung cancer. He is seen in recovery following angiogram and IVC filter placement. AFVSS. Denies any current complaints except R knee pain. Denies CP, SOB, abdominal pain, N/V. States he had melena for the past two days. Denies bleeding from anywhere else. Endorses some cold intolerance. Objective Vitals Vital Signs Date Time Temp Pulse Resp B/P (MAP) Pulse Ox O2 Delivery O2 Flow Rate FiO2 10/12/17 08:00 97.3 69 20 124/57 (79) 100 10/12/17 04:00 98.0 67 22 110/51 (70) 98 10/12/17 02:18 98.9 65 18 90/52 98 10/12/17 01:46 97.5 72 18 100/52 94 10/12/17 00:00 98.8 72 18 100/52 (68) 96 10/11/17 20:00 97.8 67 18 94/45 (61) 94 10/11/17 18:00 98.7 68 18 113/65 100 10/11/17 17:45 98.9 70 17 112/50 100 10/11/17 17:30 66 18 110/80 100 10/11/17 17:30 98.5 10/11/17 17:30 98.5 66 16 110/80 (90) 100 10/11/17 14:01 97.5 71 18 104/50 (68) 99 I/O 10/11/17 10/11/17 10/11/17 10/12/17 10/12/17 10/12/17 07:00 15:00 23:00 07:00 15:00 23:00 Intake Total 410 ml 400 ml Output Total 250 ml Balance 160 ml 400 ml Intake Packed Cells 400 ml 400 ml Blood Product IV Normal Saline Flush 10 ml Output Urine Total 250 ml # Voids 1 # Bowel Movements 1 Result Diagram: 10/12/17 0717 10/12/17 0717 Imaging GI Bleed Scan Nuclear Medicine 10/11/17 0000 Signed Impressions: Service Date/Time: Wednesday, October 11, 2017 16:14 - CONCLUSION: 1. Focal tracer attenuation in the mid superior pelvic region likely reflecting active hemorrhage in the sigmoid colon. Almas Meyers MD Objective Remarks GENERAL: WN, WD elderly male resting in bed in NAD. SKIN: Warm and dry. Pale. HEENT: AT/NC. Pupils equal and round. MMM. HEART: Distant heart sounds but otherwise RRR no m/r/g. LUNGS: CTAB without wheezes or crackles. ABDOMEN: +BS, soft, NT, ND. EXTREMITIES: No significant edema. Chronic venous stasis changes and some traumatic ecchymoses. 2+ pedal pulses. NEURO: Awake and alert. A/P Problem List: (1) Anemia ICD Code: D64.9 - Anemia, unspecified (2) Deep vein thrombosis (DVT) of popliteal vein of left lower extremity ICD Code: I82.432 - Acute embolism and thrombosis of left popliteal vein (3) Debility ICD Code: R53.81 - Other malaise Status: Acute (4) Acute kidney injury ICD Code: N17.9 - Acute kidney failure, unspecified Status: Acute Assessment and Plan 82 year old male with metastatic lung cancer, atrial fibrillation, pacemaker, HLD, CAD, hypothyroidism, and h/o TIA initially admitted 09/30-10/09 for a fall, acute renal failure, dehydration, hypernatremia, and GI bleed. GI work-up demonstrated diverticular disease, duodenitis, severe esophagitis, and gastritis. He was discharged to [facility] on 10/09 and was subsequently readmitted on 10/11 for acute drop in his hemoglobin. 1. Acute on chronic anemia - Review of EMR shows hemoglobin dropping gradually since about 10/07 but on was noted to be 6 from 7.8 the day prior - Pt hemodynamically stable - Transfused 2 units with f/u hemoglobin 7.3. Transfusing another 2 units. Follow CBC - EGD with ablation performed on 10/02/17 which showed a class D esophagitis, erythematous gastritis, bleeding ulcer the first part of the duodenum treated with argon plasma coagulation with complete hemostasis achieve - Repeat EGD with biopsy performed on 10/07/17 showed severe esophagitis of the distal esophagus status post biopsy, duodenitis and hiatal hernia. Pathology consistent with peptic duodenitis, marked active chronic gastritis, negative for Helicobacter, and distal esophagus biopsy with acutely ulcerated squamous mucosa however viral inclusions are not identified - Bleeding scan with some attenuation in mid-superior pelvic region likely reflecting active hemorrhage in sigmoid colon - Continue PPI - GI consulted, ordered angiogram to be done by IR as well as a general surgery consult 2. Acute kidney injury - Patient's creatinine when up from 1.06 on 10/10 to 1.56 10/11 and today it has increased further to 1.73 with BUN 30 - He will be getting volume through blood transfusion - Continue to monitor and avoid nephrotoxic agents - Strict I/O - Encourage PO 3. L popliteal DVT - S/p IVC filter - Holding chemical anticoagulation in light of possible GI bleed and acute anemia 4. Atrial fibrillation - Rate controlled without medication - Apparently was not an anticoagulation candidate prior to DVT given history of recurrent falls 5. Hypothyroidism - Continue levothyroxine - Recent TSH within normal range on 09/30/17 6. Subdural hematoma with TBI - Which patient sustained after a fall with a subsequent scalp laceration that has been repaired and sutured on 09/30 - Repeat head CT obtained on 10/10/17 showed interval resolution of right parietal extraaxial hemorrhage 7. Dysphagia - Patient seen recently by speech therapy who recommended regular food with thin liquids 8. Frequent falls/debility/recent decline - PT following - Palliative care consulted DVT prophylaxis: SCDs. No chemoprophylaxis for now given drop in hemoglobin and possible active GI bleeding Margaret Dsouza MD October 12, 2017 10:34
[2017-10-12] MEDS ORDERED: HEPARIN SODIUM - IV 10,000 UNITS/10 ML VIAL ONE (11:05)
[2017-10-12] MEDS ORDERED: SODIUM CHLORIDE 0.9% FLUSH 10 ML FLUSH IV FLUSH PRN ×2 (11:45)
[2017-10-12] MEDS ORDERED: SODIUM BICARBONATE 154 MEQ/1000 ML NS IV SCH ×2 (11:45)
[2017-10-12] MEDS ORDERED: NITROGLYCERIN 1000 MCG/5 ML VIAL OTHER ONE (12:58)
[2017-10-12] MEDS ORDERED: IODIXANOL 320 MG/ML 50 ML VIAL (for RAD SPEC) OTHER ONE (13:44)
--- NOTE | 2017-10-12 14:47 | PD.CONS ---
cc: Rubin Macias MD [facility] Service General Surgery Consult Requested By Dr. Bettencourt Reason for Consult GI bleed Primary Care Physician Unknown History of Present Illness This is an 82 year old male with a past medical history of atrial fibrillation, dyslipidemia, CAD, hypothyroidism, TIA, lung cancer with metastatic disease to the liver and GERD. The patient was in [facility] where he fell and hit his head. Paola were placed. The patient then developed bright red blood per his rectum. He was noted to be pale and complained of dizziness. The patient was transferred to the acute care part of [facility]. His hemoglobin on admission was 6.5 and after to units of PRBCs it is now 7.3. A GI bleeding scan was completed which does show active bleeding in the sigmoid colon. Per the nurse he went down to IR and had an embolization last night. A General Surgery consultation has been requested. Review of Systems Constitutional: DENIES: Fatigue, Chills Endocrine: DENIES: Polydipsia, Polyuria, Polyphagia Eyes: DENIES: Diplopia Ears, nose, mouth, throat: DENIES: Hearing loss Respiratory: DENIES: Apneas, Cough Cardiovascular: DENIES: Chest pain Gastrointestinal: COMPLAINS OF: Bloody stools, DENIES: Abdominal pain, Nausea, Vomiting Genitourinary: DENIES: Urinary frequency Musculoskeletal: DENIES: Joint pain Integumentary: DENIES: Abnormal pigmentation Hematologic/lymphatic: DENIES: Bruising Immunologic/allergic: DENIES: Eczema Neurologic: DENIES: Abnormal gait, Headache Psychiatric: DENIES: Confusion, Mood changes, Depression Past Family Social History Past Medical History Atrial fibrillation GERD Hypothyroidism CAD TIA Dyslipidemia Past Surgical History Pacemaker Left knee surgery Cataract surgery Reported Medications Nivolumab Atorvastatin Potassium replacement Maalox Pepcid Sucralfate Protonix Synthroid Multivitamin Thiamine Allergies: Coded Allergies: No Known Allergies (Verified , 02/27/17) Active Ordered Medications Current Medications Medications (Trade) Dose Ordered Sig/Mariela Route Start Time Stop Time Status Last Admin (NS Flush) 2 ml UNSCH PRN IV FLUSH 10/11/17 14:30 (NS Flush) 2 ml BID IV FLUSH 10/11/17 21:00 10/12/17 08:12 (Tylenol) 650 mg Q4H PRN PO 10/11/17 14:30 (Reglan Inj) 5 mg Q6H PRN IV PUSH 10/11/17 14:30 (Narcan Inj) 0.4 mg UNSCH PRN IV PUSH 10/11/17 14:30 (Colleen-Colace) 1 tab BID PO 10/11/17 21:00 10/12/17 08:12 (Milk Of Magnesia Liq) 30 ml Q12H PRN PO 10/11/17 14:30 (Senokot) 17.2 mg Q12H PRN PO 10/11/17 14:30 (Dulcolax Supp) 10 mg DAILY PRN RECTAL 10/11/17 14:30 (Lactulose Liq) 30 ml DAILY PRN PO 10/11/17 14:30 (Tobradex Opth Susp) 1 drop Q8HR RIGHT EYE 10/11/17 22:00 10/12/17 05:47 (K-Lyte Cl Eff) 25 meq DAILY PO 10/12/17 09:00 10/12/17 08:12 (Synthroid) 50 mcg DAILY@0600 PO 10/12/17 06:00 10/12/17 05:47 (Lipitor) 10 mg HS PO 10/11/17 21:00 10/11/17 23:38 (Pepcid) 20 mg HS PO 10/11/17 21:00 10/11/17 23:38 (Protonix Inj) 40 mg Q12H IV PUSH 10/11/17 18:00 10/12/17 05:47 (Carafate Liq) 1 gm ACHS PO 10/11/17 17:00 10/12/17 08:13 Sodium Chloride 250 ml @ 15 mls/hr ONCE ONCE IV 10/12/17 09:00 10/13/17 01:39 Sodium Bicarbonate 154 meq/Sodium Chloride 1,000 ml @ 0 mls/hr TITRATE IV 10/12/17 11:45 10/13/17 11:44 10/12/17 13:03 (NS Flush) 2 ml UNSCH PRN IV FLUSH 10/12/17 11:45 (NS Flush) 2 ml UNSCH PRN IV FLUSH 10/12/17 11:45 Family History Non contributory Social History Patient did not participate during this portion. Physical Exam Vital Signs Vital Signs Date Time Temp Pulse Resp B/P (MAP) Pulse Ox O2 Delivery O2 Flow Rate FiO2 10/12/17 13:45 68 18 130/50 (76) 98 10/12/17 13:15 65 20 125/58 (80) 98 10/12/17 13:00 61 18 134/59 (84) 97 10/12/17 12:45 67 18 135/60 (85) 98 10/12/17 12:30 97.6 72 20 143/63 (89) 98 10/12/17 08:10 69 10/12/17 08:00 97.3 69 20 124/57 (79) 100 10/12/17 04:00 98.0 67 22 110/51 (70) 98 10/12/17 02:18 98.9 65 18 90/52 98 10/12/17 01:46 97.5 72 18 100/52 94 10/12/17 00:00 98.8 72 18 100/52 (68) 96 10/11/17 20:00 97.8 67 18 94/45 (61) 94 10/11/17 18:00 98.7 68 18 113/65 100 10/11/17 17:45 98.9 70 17 112/50 100 10/11/17 17:30 66 18 110/80 100 10/11/17 17:30 98.5 10/11/17 17:30 98.5 66 16 110/80 (90) 100 Physical Exam GENERAL: Elderly frail male resting in bed in no acute distress. SKIN: Pale. Several BUE and BLE superficial abrasions. HEAD: Normocephalic. Scalp laceration. EYES: Pupils equal and round. No scleral icterus. No injection or drainage. ENT: No nasal bleeding or discharge. Mucous membranes pink and moist. NECK: Trachea midline. CARDIOVASCULAR: Regular rate and rhythm. RESPIRATORY: No accessory muscle use. Clear to auscultation. Breath sounds equal bilaterally. GASTROINTESTINAL: Abdomen soft, non-tender, nondistended. MUSCULOSKELETAL: Bilateral LE with 2+ nonpitting edema. NEUROLOGICAL: Awake and alert. No obvious cranial nerve deficits. Motor grossly within normal limits. Five out of 5 muscle strength in the arms and legs. Normal speech although does not talk much. PSYCHIATRIC: Appropriate mood and affect; insight and judgment normal. Laboratory Laboratory Tests Test 10/12/17 07:17 White Blood Count 8.1 Red Blood Count 2.44 Hemoglobin 7.3 Hematocrit 21.5 Mean Corpuscular Volume 87.9 Mean Corpuscular Hemoglobin 30.0 Mean Corpuscular Hemoglobin Concent 34.1 Red Cell Distribution Width 16.9 Platelet Count 129 Mean Platelet Volume 8.6 Neutrophils (%) (Auto) 52.7 Lymphocytes (%) (Auto) 33.0 Monocytes (%) (Auto) 10.1 Eosinophils (%) (Auto) 2.8 Basophils (%) (Auto) 1.4 Neutrophils # (Auto) 4.3 Lymphocytes # (Auto) 2.7 Monocytes # (Auto) 0.8 Eosinophils # (Auto) 0.2 Basophils # (Auto) 0.1 CBC Comment DIFF FINAL Differential Comment Blood Urea Nitrogen 36 Creatinine 1.73 Random Glucose 90 Total Protein 4.1 Albumin 1.9 Calcium Level 7.0 Alkaline Phosphatase 60 Aspartate Amino Transf (AST/SGOT) 19 Alanine Aminotransferase (ALT/SGPT) 20 Total Bilirubin 0.4 Sodium Level 146 Potassium Level 4.2 Chloride Level 116 Carbon Dioxide Level 19.4 Anion Gap 11 Estimat Glomerular Filtration Rate 38 Protein Corrected Calcium 8.7 Result Diagram: 10/15/17 0905 10/15/17 0638 Imaging Last 48 hours Impressions Abdomen Arteriogram 10/12/17 1343 Signed Impressions: Service Date/Time: Thursday, October 12, 2017 10:44 - CONCLUSION: 1. No angiographic evidence for active hemorrhage from the ISAMAR and SMA territories. Almas Meyers MD IVC Filter Placement X-Ray 10/12/17 0000 Signed Impressions: Service Date/Time: Thursday, October 12, 2017 10:44 - CONCLUSION: Uncomplicated inferior vena cava filter placement as above. Almas Meyers MD GI Bleed Scan Nuclear Medicine 10/11/17 0000 Signed Impressions: Service Date/Time: Wednesday, October 11, 2017 16:14 - CONCLUSION: 1. Focal tracer attenuation in the mid superior pelvic region likely reflecting active hemorrhage in the sigmoid colon. Almas Meyers MD Assessment and Plan Assessment and Plan 82 year old male with multiple chronic medical problems; s/p fall with lower GI bleed -Transfuse as necessary -Currently no active bleeding -S/p arteriogram--- shows no active bleeding from the ISAMAR and SMA territories -Hold anticoagulation -Diet per Primary and GI -Patient is a poor surgical candidate and recommend medical management and optimization -Due to chronic medical problems and recent hospitalization a Palliative Care consult would be of benefit -Thank you for this consult Discussed Condition With Dr. Macias Bhupendra JacobsonLeach Attending Statement patient seen at bedside denies abdominal pain anemic transfusion 2 more u prbcs IR for possible embolization high surgical risk will attempt non op mgnt discuss with patient consider palliative Attestation The exam, history, and the medical decision-making described in the above note were completed with the assistance of the mid-level provider. I reviewed and agree with the findings presented. I attest that I had a [id number] encounter with the patient on the same day, and personally performed and documented my assessment and findings in the medical record. Vee LiP/Primary Care Pediatrician [employer] October 12, 2017 14:47 Rubin Macias MD October 16, 2017 22:56
--- NOTE | 2017-10-12 15:48 | HHI.GIFU ---
Subjective Remarks Pt off the floor for CT angio with embolization and daughter in room (Delphine Meneses PATRICIO) Objective Vitals I&O Vital Signs Date Time Temp Pulse Resp B/P (MAP) Pulse Ox O2 Delivery O2 Flow Rate FiO2 10/12/17 14:45 62 20 126/54 (78) 98 10/12/17 14:15 75 18 120/50 (73) 97 10/12/17 13:45 68 18 130/50 (76) 98 10/12/17 13:15 65 20 125/58 (80) 98 10/12/17 13:00 61 18 134/59 (84) 97 10/12/17 12:45 67 18 135/60 (85) 98 10/12/17 12:30 97.6 72 20 143/63 (89) 98 10/12/17 08:10 69 10/12/17 08:00 97.3 69 20 124/57 (79) 100 10/12/17 04:00 98.0 67 22 110/51 (70) 98 10/12/17 02:18 98.9 65 18 90/52 98 10/12/17 01:46 97.5 72 18 100/52 94 10/12/17 00:00 98.8 72 18 100/52 (68) 96 10/11/17 20:00 97.8 67 18 94/45 (61) 94 10/11/17 18:00 98.7 68 18 113/65 100 10/11/17 17:45 98.9 70 17 112/50 100 10/11/17 17:30 66 18 110/80 100 10/11/17 17:30 98.5 10/11/17 17:30 98.5 66 16 110/80 (90) 100 I/O 10/11/17 10/11/17 10/11/17 10/12/17 10/12/17 10/12/17 07:00 15:00 23:00 07:00 15:00 23:00 Intake Total 410 ml 400 ml Output Total 250 ml Balance 160 ml 400 ml Packed Cells 400 ml 400 ml Blood Product IV Normal Saline Flush 10 ml Output Urine Total 250 ml # Voids 1 # Bowel Movements 1 Laboratory Laboratory Tests Test 10/12/17 07:17 White Blood Count 8.1 Red Blood Count 2.44 Hemoglobin 7.3 Hematocrit 21.5 Mean Corpuscular Volume 87.9 Mean Corpuscular Hemoglobin 30.0 Mean Corpuscular Hemoglobin Concent 34.1 Red Cell Distribution Width 16.9 Platelet Count 129 Mean Platelet Volume 8.6 Neutrophils (%) (Auto) 52.7 Lymphocytes (%) (Auto) 33.0 Monocytes (%) (Auto) 10.1 Eosinophils (%) (Auto) 2.8 Basophils (%) (Auto) 1.4 Neutrophils # (Auto) 4.3 Lymphocytes # (Auto) 2.7 Monocytes # (Auto) 0.8 Eosinophils # (Auto) 0.2 Basophils # (Auto) 0.1 CBC Comment DIFF FINAL Differential Comment Blood Urea Nitrogen 36 Creatinine 1.73 Random Glucose 90 Total Protein 4.1 Albumin 1.9 Calcium Level 7.0 Alkaline Phosphatase 60 Aspartate Amino Transf (AST/SGOT) 19 Alanine Aminotransferase (ALT/SGPT) 20 Total Bilirubin 0.4 Sodium Level 146 Potassium Level 4.2 Chloride Level 116 Carbon Dioxide Level 19.4 Anion Gap 11 Estimat Glomerular Filtration Rate 38 Protein Corrected Calcium 8.7 Imaging Last Impressions GI Bleed Scan Nuclear Medicine 10/11/17 0000 Signed Impressions: Service Date/Time: Wednesday, October 11, 2017 16:14 - CONCLUSION: 1. Focal tracer attenuation in the mid superior pelvic region likely reflecting active hemorrhage in the sigmoid colon. Almas Meyers MD (Delphine Meneses [facility]) Assessment and Plan Plan Assessment: - Anemia- recently seen by our service, underwent EGD and colonoscopy, discharged to [facility], transferred to medical floor at [place] [facility] for drop in H/H, no reports of active rectal bleeding NM bleeding scan (10/11) --> Focal tracer attenuation in the mid superior pelvic region likely reflecting active hemorrhage in the sigmoid colon. CT angio with possible embolization ordered. GS consult pending. EGD (10/07/17) --> Severe esophagitis distal esophagus- biopsy r/o cmv, herpes. gastritis antrum-biopsy duodenitis bulb and second portion-biopsy. Hiatal hernia Pathology (duodenum) Peptic duodenitis (gastric antrum) marked active chronic gastritis (distal esophagus) acutely ulcerated squamous mucosa. Viral inclusions are not identified, negative for fungal organisms Colonoscopy (10/08) --> Diverticulosis sigmoid,descending polyp hepatic flexure -2 cm -hot snare poplypectomy with complete removal. Internal hemorrhoids. External hemorrhoids Pathology colon polyp- tubular adenoma - A-fib- not on anticoagulation - Lung cancer with metastasis to the liver Plan: CT angiogram with embolization by IR GS consult pending Palliative care consult pending (Delphine Meneses) Physician Comments Patient seen and examined Agree with above Continue with current supportive care Monitor labs (Manny Truong MD) Delphine Meneses October 12, 2017 15:48 Manny Truong MD October 12, 2017 22:21
--- NOTE | 2017-10-12 15:58 | RADRPT ---
EXAM DATE/TIME: 10/12/2017 10:44 [facility] COMPARISON: No previous studies available for comparison. INDICATIONS : 82-year-old male with history of popliteal DVT and GI hemorrhage. IVC filter placement has been reque sted due to contraindication to continued anticoagulation. Patient has azotemia, therefore CO2 techni que will be utilized. MEDICAL HISTORY : 1.CAD 2. Hypothyroid 3. HTN 4. intercranial hemorrhage 5. Dysphagia 6. duodenal ulcer 7. lung ca 8. A fib 9.Hiatal hernia 10.GERD SURGICAL HISTORY : 1. Pacemaker 2. lt knee surgery 3. cataract surgery ENCOUNTER: Initial ACUITY: 1 month PAIN SCORE: 4/10 LOCATION: Bilateral knees FLUORO TIME: 8.4 minutes IMAGE SERIES: 2 ACCESS SITE: Left Femoral vein SEDATION TIME: 60 minutes CO2 MEDICATION(S): 1.) 2.5 mg midazolam (Versed) IV 2.) 100 mcg fentanyl (Sublimaze) IV PROCEDURE : 1. Ultrasound-guided venipuncture. 2. Inferior venacavogram. 3. Inferior vena cava filter placement. 4. Conscious sedation with continuous EKG and oximetry monitoring. The risks, benefits and alternatives to the procedure were explained and verbal and written consent w as obtained. The site was prepped in sterile fashion. Full sterile technique was used, including ca p, mask, sterile gloves and gown and a large sterile sheet. Hand hygiene and 2% chlorhexidine and/or betadine/alcohol prep was utilized per protocol for cutaneous antisepsis. Sterile gel and sterile p robe cover were utilized for ultrasound guidance. The skin and subcutaneous tissues were infiltrated with local anesthetic solution. With ultrasound and fluoroscopic guidance the targeted vein was punctured and a vascular sheath was p laced. Inferior venacavogram was performed with CO2 to demonstrate level of renal veins. No caval thr ombus was identified. The prescribed filter was deployed in the infrarenal inferior vena cava. Follow ing deployment the filter was identified in good position. Conscious sedation was performed with the prescribed dosages and duration as above in the presence of an independent trained radiology nurse to assist in the monitoring of the patient. EKG and oximetry remained stable throughout the procedure. The patient tolerated the procedure well and there were n o complications. The patient was sent to post anesthesia recovery in stable condition. CONCLUSION: Uncomplicated inferior vena cava filter placement as above. Almas Meyers MD on October 12, 2017 at 14:50 Board Certified Radiologist. This report was verified electronically.
--- NOTE | 2017-10-12 16:28 | RADRPT ---
EXAM DATE/TIME: 10/12/2017 10:44 [facility] COMPARISON: No previous studies available for comparison. INDICATIONS : 82-year-old male with history of lower GI hemorrhage and bleeding scan indicating a possible sigmoid or rectal source. Angiography with possible embolization has been requested. MEDICAL HISTORY : 1.CAD 2.Melanoma 3. GI bleeds 4. A fib 5. hyperlipidemia 6. TIA 7. lung cancer SURGICAL HISTORY : 1. left knee surgery 2. cataract surgery 3. pacemaker 4. upper endoscopy ENCOUNTER: Initial ACUITY: 1 month PAIN SCORE: 8/10 LOCATION: Bilateral knees FLUORO TIME: 8.4 minutes IMAGE SERIES: 6 ACCESS SITE: Left Femoral artery SEDATION TIME: 60 minutes CONTRAST: 1.) 80 cc Visipaque (iodixanol) MEDICATION(S): 1.) 2.5 mg midazolam (Versed) IV 2.) 100 mcg fentanyl (Sublimaze) IV DEVICE(S): PROCEDURE : 1. Ultrasound-guided puncture of the right common femoral artery and left radial artery. 2. Conscious sedation with continuous EKG and Oximetry monitoring. 3. Selective catheter placement in the ISAMAR with selective angiography 4. selective catheter placement in the SMA with selective angiography The risks, benefits and alternatives to the procedure were explained and verbal and written consent w as obtained. The site was prepped in sterile fashion. Full sterile technique was used, including ca p, mask, sterile gloves and gown and a large sterile sheet. Hand hygiene and 2% chlorhexidine and/or betadine/alcohol prep was utilized per protocol for cutaneous antisepsis. Sterile gel and sterile p robe cover were utilized for ultrasound guidance. The skin and subcutaneous tissues were infiltrated with local anesthetic solution. Originally, left radial artery approach was attempted primarily due to patient's inability to coopera te with instructions and concern for possible groin complications. Milton puncture needle was advanc ed into the left radial artery under direct ultrasound guidance and subsequent exchange for a slim 6 Hungarian sheath. A 4 Hungarian Vas-Cath was then advanced into the abdominal aorta but could only be advan paul to the proximal abdominal aorta due to catheter length restriction. Therefore, right common femor al approach was utilized. The Milton puncture needle was advanced into the right common femoral artery under direct ultrasound kaiser dance and subsequent exchange for a short 4 Hungarian sheath. 4 Hungarian catheter was then used to select the ISAMAR angiography was performed in multiple obliquities. This did not demonstrate evidence for acti ve extravasation to suggest active hemorrhage. Therefore, catheter was repositioned into the SMA and angiography was again performed. No evidence for active extravasation from the SMA territory. Therefo re, wires and catheters were removed. The puncture site was closed with manual pressure and hemostasis was obtained. The patient tolerated the procedure well and there were no complications. Conscious sedation was performed with the prescribed dosages and duration as above in the presence of an independent trained radiology nurse to assist in the monitoring of the patient. EKG and oximetry remained stable throughout the procedure. CONCLUSION: 1. No angiographic evidence for active hemorrhage from the ISAMAR and SMA territories. Almas Meyers MD on October 12, 2017 at 15:56 Board Certified Radiologist. This report was verified electronically.
[2017-10-12 18:59] LABS: INTERNATIONAL NORMALIZED RATIO 1.2 RATIO
[2017-10-12] MEDS: ATORVASTATIN 10 MG TAB PO SCH (21:29)
[2017-10-12] MEDS: FAMOTIDINE 20 MG TAB PO SCH (21:29)
[2017-10-13] VITALS (10 sets, daily range): BP systolic 104–132; BP diastolic 51–69; PULSE 60–70; RESP 18–20; TEMP 97.3–98.3; O2SAT 97–100
[2017-10-13] MEDS: PANTOPRAZOLE SODIUM 40 MG VIAL IV PUSH SCH ×2 (06:12→17:20)
[2017-10-13] MEDS: LEVOTHYROXINE SODIUM 50 MCG TAB PO SCH (06:12)
[2017-10-13] MEDS: TOBRAMYCIN 0.3%/DEXAMETHASONE 0.1% OPHT SUSP 5 ML BTL RIGHT EYE SCH ×3 (06:12→20:28)
[2017-10-13] MEDS: POTASSIUM CHLORIDE 25 MEQ EFFERVESCENT TAB PO SCH (08:17)
[2017-10-13] MEDS: DOCUSATE SODIUM 50 MG/SENNA 8.6 MG TAB PO SCH ×2 (08:17→20:26)
[2017-10-13] MEDS: SUCRALFATE 1 GM/10 ML CUP PO SCH ×4 (08:17→20:26)
[2017-10-13] MEDS: SODIUM CHLORIDE 0.9% FLUSH 10 ML FLUSH IV FLUSH SCH ×2 (08:18→20:26)
[2017-10-13 09:05] LABS: AUTOMATED NEUTROPHIL # 5.1 TH/MM3 (1.8-7.7); BASOPHIL # 0.1 TH/MM3 (0-0.2); BASOPHIL % 0.8 % (0.0-2.0); EOSINOPHIL # 0.3 TH/MM3 (0-0.4); EOSINOPHIL % 3.1 % (0.0-4.0); HEMATOCRIT 25.8 % (39.0-51.0); HEMOGLOBIN 8.9 GM/DL (13.0-17.0); LYMPH % 24.1 % (9.0-44.0); MEAN CELL VOLUME 88.3 FL (80.0-100.0); MEAN CORPUSCULAR HEMOGLOBIN 30.4 PG (27.0-34.0); MEAN CORPUSCULAR HGB CONC 34.4 % (32.0-36.0); MEAN PLATELET VOLUME 8.2 FL (7.0-11.0); MONO % 11.5 % (0.0-8.0); NEUT % 60.5 % (16.0-70.0); PLATELET COUNT 132 TH/MM3 (150-450); RED BLOOD COUNT 2.92 MIL/MM3 (4.50-5.90); RED CELL DISTRIBUTION WIDTH 16.5 % (11.6-17.2); WHITE BLOOD COUNT 8.5 TH/MM3 (4.0-11.0)
--- NOTE | 2017-10-13 09:43 | HHI.PR ---
cc: Rubin Macias MD Subjective Subjective Notes "I just want to go home!" Objective Vitals/I&O Vital Signs Date Time Temp Pulse Resp B/P (MAP) Pulse Ox O2 Delivery O2 Flow Rate FiO2 10/13/17 08:00 98.3 64 18 104/51 (68) 97 Labs Laboratory Tests Test 10/12/17 18:14 10/13/17 08:10 Prothrombin Time 12.0 Prothromb Time International Ratio 1.2 Activated Partial Thromboplast Time 24.7 White Blood Count 8.5 Red Blood Count 2.92 Hemoglobin 8.9 Hematocrit 25.8 Mean Corpuscular Volume 88.3 Mean Corpuscular Hemoglobin 30.4 Mean Corpuscular Hemoglobin Concent 34.4 Red Cell Distribution Width 16.5 Platelet Count 132 Mean Platelet Volume 8.2 Neutrophils (%) (Auto) 60.5 Lymphocytes (%) (Auto) 24.1 Monocytes (%) (Auto) 11.5 Eosinophils (%) (Auto) 3.1 Basophils (%) (Auto) 0.8 Neutrophils # (Auto) 5.1 Lymphocytes # (Auto) 2.0 Monocytes # (Auto) 1.0 Eosinophils # (Auto) 0.3 Basophils # (Auto) 0.1 CBC Comment DIFF FINAL Differential Comment Radiology Last 48 hours Impressions Abdomen Arteriogram 10/12/17 1343 Signed Impressions: Service Date/Time: Thursday, October 12, 2017 10:44 - CONCLUSION: 1. No angiographic evidence for active hemorrhage from the [place] and [place] territories. Almas Meyers MD IVC Filter Placement X-Ray 10/12/17 0000 Signed Impressions: Service Date/Time: Thursday, October 12, 2017 10:44 - CONCLUSION: Uncomplicated inferior vena cava filter placement as above. Almas Meyers MD GI Bleed Scan Nuclear Medicine 10/11/17 0000 Signed Impressions: Service Date/Time: Wednesday, October 11, 2017 16:14 - CONCLUSION: 1. Focal tracer attenuation in the mid superior pelvic region likely reflecting active hemorrhage in the sigmoid colon. Almas Meyers MD Cardiovascular: Regular Lungs: Clear Abdomen: Non-distended, Non-tender Extremities: Other (multiple suprficial abrasions on BLE ) A/P Assessment and Plan 82 year old male with multiple medical problems; lower GI bleed -Diet as tolerated -Hmg 8.9 s/p two additional units of PRBCs -Await Palliative Care consult -If bleeding re-occurs would recommend IR procedure and if unsuccessful would need to discuss possible surgical intervention but again patient is a poor surgical candidate Attending Statement patient seen at bedside hh stable consider repeat ir if bleeding poor surgical candidate will follow Attestation The exam, history, and the medical decision-making described in the above note were completed with the assistance of the mid-level provider. I reviewed and agree with the findings presented. I attest that I had a [id number] encounter with the patient on the same day, and personally performed and documented my assessment and findings in the medical record. Vee Li/Watch Repairer PATRICIO October 13, 2017 09:43 Rubin Macias MD October 16, 2017 22:46
[2017-10-13 10:05] LABS: BICARBONATE 20.8 MEQ/L (21.0-32.0); CALCIUM 6.8 MG/DL (8.5-10.1); CREATININE 1.21 MG/DL (0.60-1.30)
[2017-10-13 10:27] LABS: CALCIUM-PROTEIN CORRECTED 8.4 MG/DL (8.5-10.1); TOTAL PROTEIN 4.1 GM/DL (6.4-8.2)
--- NOTE | 2017-10-13 12:21 | PD.CONS ---
Consult Service Palliative Care Consult Requested By Dr. Dsouza Primary Care Physician Dr. Ramirez Oncologist-Dr. Barboza Reason for Consultation a. To assist with evaluation and management of symptoms including: generalized weakness, debility b. To assist medical decision maker(s) with: better understanding of current medical conditions; weighing benefits/burdens of medical treatment options; making medical treatment decisions. HPI History of Present Illness Mr. Leach is an 82-year-old male with a past medical history significant for lung cancer metastatic to the liver and currently on immunotherapy, chronic atrial fibrillation on aspirin, tachybradycardia syndrome s/p pacemaker placement, popliteal DVT, hyperlipidemia, CAD, hypothyroidism, TIA, and hyperlipidemia. Patient initially presented to the ER on 09/30/17 after a fall at home, with complaints of worsening decreased appetite and weight loss. Patient was also having problems with dyspepsia, dysphagia, nausea and vomiting a week prior to presenting to the ER. He also had modified barium swallow outpatient and passed prior to hospitalization. Head CT was negative for intracranial hemorrhage, only small subdural bleed at convexity right frontal region. Cervical C-spine showed degenerative changes in loss of disc height C5 through C6 and chronic changes of cervical spine. During that hospitalization patient was followed by GI for persistent vomiting and weight loss. He underwent EGD 10/02/17- showed severe esophagitis class D, gastritis in gastric antrum, hiatal hernia, duodenal ulcer with bleeding vessel which was treated with argon plasma with complete hemostasis achieved. On 10/05 patient had blood in his stool, GI was reconsulted. Colonoscopy was done on 10/08/17- showed diverticulosis, internal and external hemorrhoids, and one polyp which was removed and sent for pathology. Pathology reports from duodenum, antrum and distal esophagus shows a duodenum with a small bulb mucosa with peptic duodenitis. Gastric antral biopsies shows antral mucosa with mild active chronic gastritis and negative for Helicobacter. Distal esophagus biopsy showed an acutely ulcerated squamous mucosa however viral inclusions are not identified. He was also was followed by salt cutter for acute kidney injury. Patient was discharged to [facility] in-patient rehabilitation on and admitted to [facility] due to severe anemia, with a hemoglobin of 6.0 on 10/11/17. No history of bleeding reported since patient was transferred to [facility]. GI Dr. Bettencourt was consulted on 10/11/17 for evaluation and management of recurrent GI bleed. GI bleeding scan on 10/11/17 revealed focal tracer attenuation in the mid superior pelvic region likely reflecting active hemorrhage in the sigmoid colon. 2 units PRBC transfused. Inferior vena cava filter placement by interventional radiology on 10/12/2017 due to contraindication of anticoagulation for a patient with a history of popliteal DVT. Abdomen arteriogram on 10/12/17 revealed no angiographic evidence for active hemorrhage from the ISAMAR and SMA territories. General surgery Dr. Macias was consulted on 10/12/2017 for evaluation and management of GI bleed. Hemoglobin currently stable after transfusing another additional 2 units PRBC. General surgery recommending interventional radiology if bleeding recurs and if unsuccessful they would possibly discuss surgical intervention which patient is a poor candidate. Palliative care consulted to assist with symptom management and establish goals of care. Laboratory workup today revealing WBC 8.5, hemoglobin 8.9, hematocrit 25.8, platelet count 132. Vital signs stable. Patient seen and examined in his room. Patient is sleeping, easily arousable. He is alert, oriented to self place and confused to situation. Patient does not know why he is in the hospital. He`s saying that he wants to go home. Patient denies pain. Patient is very hard of hearing and has bilateral hearing aids. Introduced palliative care. Obtained some of patient psychosocial history. Patient unable to provide much of his medical history and unsure if he is limited due to hard of hearing, sleepiness or lacks insight regarding his medical condition. Addressed code status and patient deferred that decision to his . Unsure again if he understood or correctly heard the question asked. Attempted contacting patient` s several times with no response. Telephone call also placed to patient`s daughter Viola Trent, who is the alternate Durable Power of Hog Scraper (DPOA ), left a voice message and contact information for palliative care. Returned to room, patient is more awake. Attempted readdressing code status and patient deferred that decision making to his Haylee Sy who is also his Durable Power of Hog Scraper. Patient's daughter Viola Trent returned call. Introduced palliative care and obtained psychosocial and past medical history. Briefly discussed patient's trajectory of decline even though patient's daughter feels that today patient looked better than the past days he has been in the hospital. Discussed patient's medical conditions and further complications he may be faced with. Explained to patient's daughter that patient was not able to make a decision regarding his code status and he deferred that decision making to his . Patient`s daughter mentioned that patient has a living will and if it was her decision to make, she would make him a DNR considering what he has been through and his extensive medical history. Patient`s daughter would like code status to be addressed with patient` s Haylee Sy who is his DPOA. She provided another contact number for Haylee Sy . Explained to patient's daughter that patient is currently Full code by default and explained to her what it entails in an event of cardiac arrest or respiratory failure. Requested Viola to bring in a copy of patient`s living will. Brief telephone conversation with patient`s Haylee Sy. Introduced palliative care. Patient`s mentioned that she was busy and would like a meeting tomorrow at 1030hrs. Addressed code status and patient`s mentioned that patient has a living will. Explained to her that code status still needs to be addressed and living will can guide her in what patient would want. Patient`s dismissed assembly instructions writer without electing a code status because she was busy and had no time to talk. Case discussed with bedside RN Faye Pantoja and advised her to mention in report that in case of patient going into cardiac arrest or respiratory failure all efforts should be made to contact patient`s immediately. . Function/Cognitive Trajectory Patient was recently in inpatient rehabilitation at [facility] for PT and OT rehab after he fell at home from his bed and sustained a laceration to head. Patient has been declining in the past few months with decreased appetite and weight loss. Prior to 09/30/17 patient was able to ambulate with a walker for short distances and required supervision and some assistance with his ADLs. Patient also had a chief dog license inspector at home. . Review of Systems ROS Limitations: Hearing Impaired, Poor Historian Constitutional: COMPLAINS OF: Weight loss, Change in appetite Eyes: DENIES: Eye inflammation, Eye pain Ears, nose, mouth, throat: COMPLAINS OF: Hearing loss, DENIES: Nasal discharge Respiratory: DENIES: Cough, Wheezing, Shortness of breath Gastrointestinal: COMPLAINS OF: Bloody stools, Nausea, Difficulty Swallowing, DENIES: Vomiting Integumentary: COMPLAINS OF: Abnormal pigmentation Hematologic/Lymphatics: COMPLAINS OF: Bruising, History of transfusions Neurologic: COMPLAINS OF: Poor Balance Psychiatric: DENIES: Hallucinations Past Family Social History Coded Allergies: No Known Allergies (Verified , 02/27/17) Past Medical History Lung cancer with mets to liver Recent Gi bleeding with acute blood loss anemia Hypertension Hypothyroidism Chronic A-fib Tachy-bradycardia syndrome Symptom bradycardia s/p pacemaker placement Osteoarthritis Transient ischemic attack Hyperlipidemia GERD History of melanoma Hard of hearing . Past Surgical History Left knee surgery Right middle toe amputation Excision of skin cancer Cataract surgery Micra single-chamber Pacemaker insertion(Medtronic)-03/04/17 EGD 10/02/17 Colonoscopy 10/08/17 . Reported Medications Famotidine 20 Mg Tab 20 Mg PO HS Effervescent Potassium Chloride 25 Meq (Potassium Bicarb/Potassium Chloride) 25 Meq Tab 25 Meq PO DAILY K-Phos Neutral (Potassium Phos/Sodium Phos) 155-852-130 Mg Tab 250 Mg PO Q8HR Maalox Advanced Maximum Strength (Calcium Carbonate-Simethicone) 1,000-60 Mg Chew 1-2 Tab CHEW Q6HR PRN Pantoprazole (Pantoprazole Sodium) 40 Mg Tab 40 Mg PO DAILY Sucralfate Liq (Sucralfate) 1 Gram/10 Ml Beth 1 Gm PO ACHS Preservision Areds (Multiple Vitamins W/ Minerals) 1 Tab 1 Tab PO DAILY Opdivo (Nivolumab) 40 Mg/4 Ml Inj Vitamin B-1 (Thiamine HCl) 100 Mg Tab 100 Mg PO DAILY Multi For Him 50+ (Multiple Vitamins W/ Minerals) 0.4 Mg-2 Mg-250 Mcg Tab Aspirin 81 Mg Chew 81 Mg CHEW DAILY Levothyroxine (Levothyroxine Sodium) 50 Mcg Tab 50 Mcg PO DAILY Atorvastatin (Atorvastatin Calcium) 10 Mg Tab 10 Mg PO DAILY . Current Medications Medications (Trade) Dose Ordered Sig/Mariela Route Start Time Stop Time Status Last Admin (NS Flush) 2 ml UNSCH PRN IV FLUSH 10/11/17 14:30 (NS Flush) 2 ml BID IV FLUSH 10/11/17 21:00 10/13/17 08:18 (Tylenol) 650 mg Q4H PRN PO 10/11/17 14:30 (Reglan Inj) 5 mg Q6H PRN IV PUSH 10/11/17 14:30 (Narcan Inj) 0.4 mg UNSCH PRN IV PUSH 10/11/17 14:30 (Colleen-Colace) 1 tab BID PO 10/11/17 21:00 10/13/17 08:17 (Milk Of Magnesia Liq) 30 ml Q12H PRN PO 10/11/17 14:30 (Senokot) 17.2 mg Q12H PRN PO 10/11/17 14:30 (Dulcolax Supp) 10 mg DAILY PRN RECTAL 10/11/17 14:30 (Lactulose Liq) 30 ml DAILY PRN PO 10/11/17 14:30 (Tobradex Opth Susp) 1 drop Q8HR RIGHT EYE 10/11/17 22:00 10/13/17 06:12 (K-Lyte Cl Eff) 25 meq DAILY PO 10/12/17 09:00 10/13/17 08:17 (Synthroid) 50 mcg DAILY@0600 PO 10/12/17 06:00 10/13/17 06:12 (Lipitor) 10 mg HS PO 10/11/17 21:00 10/12/17 21:29 (Pepcid) 20 mg HS PO 10/11/17 21:00 10/12/17 21:29 (Protonix Inj) 40 mg Q12H IV PUSH 10/11/17 18:00 10/13/17 06:12 (Carafate Liq) 1 gm ACHS PO 10/11/17 17:00 10/13/17 08:17 Sodium Bicarbonate 154 meq/Sodium Chloride 1,000 ml @ 0 mls/hr TITRATE IV 10/12/17 11:45 10/13/17 11:44 10/12/17 13:03 (NS Flush) 2 ml UNSCH PRN IV FLUSH 10/12/17 11:45 (NS Flush) 2 ml UNSCH PRN IV FLUSH 10/12/17 11:45 Family History Father at age 68 from a stroke Mother at 66 from unknown cause Sister at age 56 from lung cancer . Substance Use Tobacco: None reported Alcohol: Patient drinks 2 beers daily Prescription med abuse: None reported Illicits: None reported . Psychosocial History Patient was born in [place] and has lived in [place], [place]. Patient moved to [place] approximately 40-50 years ago. Patient used to on a [employer]sc[employer].ch. He is now retired. Patient has been twice. He has been to his second Kerrie for the past 4-6 years. Patient has 3 adult children, 2 sons and 1 daughter. Patient's hobbies include golfing and he reports that he is no longer able to play golf. . Spiritual/Cultural Factors Patient is Amish . Living Will: Completed, but not made available Durable Power of Hog Scraper: Copy in medical record Date completed: DPOA- 01/21/2012 . Health Care Surrogate(s): Spouse- Durable Power of Hog Scraper- Kerrie Leach [phone] [facility]/ Home Daughter- Alternate DPOA- iVola Trent - [phone] . Family/friends goals: Patient's and daughter think that patient looked much better today and are hopeful that patient will be transferred to [facility] tomorrow . . Ethical and Legal Issues None identified at this time . Physical Exam Vital Signs Date Time Temp Pulse Resp B/P (MAP) Pulse Ox O2 Delivery O2 Flow Rate FiO2 10/13/17 09:36 62 10/13/17 08:00 98.3 64 18 104/51 (68) 97 10/13/17 04:00 60 10/13/17 04:00 98.1 67 18 113/56 (75) 97 10/13/17 00:00 69 10/13/17 00:00 98.1 70 18 132/61 (84) 100 10/12/17 23:55 98.5 65 18 102/55 (71) 96 10/12/17 23:52 98.5 65 18 102/55 96 10/12/17 23:24 98.4 61 18 91/51 97 10/12/17 20:00 70 10/12/17 20:00 97.8 95 18 113/56 (75) 98 10/12/17 17:15 97.6 65 18 117/58 10/12/17 16:40 98.9 69 16 126/60 10/12/17 16:00 97.1 69 20 134/60 (84) 99 10/12/17 14:45 62 20 126/54 (78) 98 10/12/17 14:15 75 18 120/50 (73) 97 10/12/17 13:45 68 18 130/50 (76) 98 10/12/17 13:15 65 20 125/58 (80) 98 10/12/17 13:00 61 18 134/59 (84) 97 10/12/17 12:45 67 18 135/60 (85) 98 10/12/17 12:30 97.6 72 20 143/63 (89) 98 10/13/17 10/14/17 19:00 07:00 Output Total 150 ml Balance -150 ml Output Urine Total 150 ml # Voids 3 Exam CONSTITUTIONAL/GENERAL: This is a chronically ill elderly patient, in no apparent distress. TUBES/LINES/DRAINS:PIV SKIN: No jaundice. Bruised and ecchymotic bilateral upper extremities with multiple skin tears. Hossein bilateral lower extremities. Cling wrap dressing to RLE. Skin temperature appropriate. HEAD: Atraumatic. Normocephalic. EYES: PERRLA.Extraocular motions intact. No scleral icterus. Fundi not examined. ENT: Hard of hearing even with bilateral hearing aids. No nasal congestion, drainage NECK: Trachea midline. Supple, nontender. CARDIOVASCULAR: Regular rate and rhythm without murmurs, gallops, or rubs. No JVD. RESPIRATORY/CHEST: Symmetric, unlabored respirations. Diminished breath sounds in the bases. No wheezes, rales, or rhonchi. GASTROINTESTINAL: Abdomen soft, non-tender, nondistended. Bowel sounds present. GENITOURINARY: Without palpable bladder distension. Voids in urinal. MUSCULOSKELETAL: Extremities without clubbing, cyanosis, or edema. No calf tenderness. No mottling or clubbing. NEUROLOGICAL: Awake, oriented to self, place, With confusion to why he is here. Follows commands with all 4 extremities PSYCHIATRIC: No obvious anxiety/depression. no apparent hallucinations or other psychotic thought process. Diagnostic Tests Laboratory Laboratory Tests Test 10/12/17 07:17 10/12/17 18:14 10/13/17 08:10 White Blood Count 8.1 TH/MM3 (4.0-11.0) 8.5 TH/MM3 (4.0-11.0) Red Blood Count 2.44 MIL/MM3 (4.50-5.90) 2.92 MIL/MM3 (4.50-5.90) Hemoglobin 7.3 GM/DL (13.0-17.0) 8.9 GM/DL (13.0-17.0) Hematocrit 21.5 % (39.0-51.0) 25.8 % (39.0-51.0) Mean Corpuscular Volume 87.9 FL (80.0-100.0) 88.3 FL (80.0-100.0) Mean Corpuscular Hemoglobin 30.0 PG (27.0-34.0) 30.4 PG (27.0-34.0) Mean Corpuscular Hemoglobin Concent 34.1 % (32.0-36.0) 34.4 % (32.0-36.0) Red Cell Distribution Width 16.9 % (11.6-17.2) 16.5 % (11.6-17.2) Platelet Count 129 TH/MM3 (150-450) 132 TH/MM3 (150-450) Mean Platelet Volume 8.6 FL (7.0-11.0) 8.2 FL (7.0-11.0) Neutrophils (%) (Auto) 52.7 % (16.0-70.0) 60.5 % (16.0-70.0) Lymphocytes (%) (Auto) 33.0 % (9.0-44.0) 24.1 % (9.0-44.0) Monocytes (%) (Auto) 10.1 % (0.0-8.0) 11.5 % (0.0-8.0) Eosinophils (%) (Auto) 2.8 % (0.0-4.0) 3.1 % (0.0-4.0) Basophils (%) (Auto) 1.4 % (0.0-2.0) 0.8 % (0.0-2.0) Neutrophils # (Auto) 4.3 TH/MM3 (1.8-7.7) 5.1 TH/MM3 (1.8-7.7) Lymphocytes # (Auto) 2.7 TH/MM3 (1.0-4.8) 2.0 TH/MM3 (1.0-4.8) Monocytes # (Auto) 0.8 TH/MM3 (0-0.9) 1.0 TH/MM3 (0-0.9) Eosinophils # (Auto) 0.2 TH/MM3 (0-0.4) 0.3 TH/MM3 (0-0.4) Basophils # (Auto) 0.1 TH/MM3 (0-0.2) 0.1 TH/MM3 (0-0.2) CBC Comment DIFF FINAL DIFF FINAL Differential Comment Blood Urea Nitrogen 36 MG/DL (7-18) 28 MG/DL (7-18) Creatinine 1.73 MG/DL (0.60-1.30) 1.21 MG/DL (0.60-1.30) Random Glucose 90 MG/DL (74-106) 76 MG/DL (74-106) Total Protein 4.1 GM/DL (6.4-8.2) 4.1 GM/DL (6.4-8.2) Albumin 1.9 GM/DL (3.4-5.0) Calcium Level 7.0 MG/DL (8.5-10.1) 6.8 MG/DL (8.5-10.1) Alkaline Phosphatase 60 U/L (45-117) Aspartate Amino Transf (AST/SGOT) 19 U/L (15-37) Alanine Aminotransferase (ALT/SGPT) 20 U/L (12-78) Total Bilirubin 0.4 MG/DL (0.2-1.0) Sodium Level 146 MEQ/L (136-145) 148 MEQ/L (136-145) Potassium Level 4.2 MEQ/L (3.5-5.1) 3.7 MEQ/L (3.5-5.1) Chloride Level 116 MEQ/L (98-107) 117 MEQ/L (98-107) Carbon Dioxide Level 19.4 MEQ/L (21.0-32.0) 20.8 MEQ/L (21.0-32.0) Anion Gap 11 MEQ/L (5-15) 10 MEQ/L (5-15) Estimat Glomerular Filtration Rate 38 ML/MIN (>89) 57 ML/MIN (>89) Protein Corrected Calcium 8.7 MG/DL (8.5-10.1) 8.4 MG/DL (8.5-10.1) Prothrombin Time 12.0 SEC (9.8-11.6) Prothromb Time International Ratio 1.2 RATIO Activated Partial Thromboplast Time 24.7 SEC (24.3-30.1) Result Diagram: 10/13/17 0810 10/13/17 0810 Imaging Last Impressions Abdomen Arteriogram 10/12/17 1343 Signed Impressions: Service Date/Time: Thursday, October 12, 2017 10:44 - CONCLUSION: 1. No angiographic evidence for active hemorrhage from the ISAMAR and SMA territories. Almas Meyers MD IVC Filter Placement X-Ray 10/12/17 0000 Signed Impressions: Service Date/Time: Thursday, October 12, 2017 10:44 - CONCLUSION: Uncomplicated inferior vena cava filter placement as above. Almas Meyers MD GI Bleed Scan Nuclear Medicine 10/11/17 0000 Signed Impressions: Service Date/Time: Wednesday, October 11, 2017 16:14 - CONCLUSION: 1. Focal tracer attenuation in the mid superior pelvic region likely reflecting active hemorrhage in the sigmoid colon. Almas Meyers MD Procedures 10/12/17- Inferior vena cava filter placement . Patient/Family Conference Family Conference Location: Telephone Issues Discussed: * Palliative care role, purpose, approach * Additional medical, psychosocial, and spiritual history * Patients general health, functional status, and cognitive changes in the months leading up to the current hospitalization * Patient/family understanding of the current medical problems * Patient/family understanding of prognosis * Patients goals of care as best understood from advance directives and/or conversations and/or values * Current medical treatment options and benefits/burdens of those options * Likely scenarios comparing ongoing aggressive care with a transition to comfort measures only * Questions answered to the best of my ability * Palliative care contact information provided Assessment and Plan Disease Oriented Problem List: (1) Anemia (2) Lung cancer (3) Deep vein thrombosis (DVT) of popliteal vein of left lower extremity (4) AMI (acute kidney injury) (5) Chronic a-fib (6) Hypothyroidism Symptom Scale: (1) Debility 0-10 Scale: Unable to quantify Comment: Progressive . (2) Generalized weakness 0-10 Scale: Unable to quantify Comment: Progressive . Pertinent Non-Medical Issues Psychosocial: Patient was born in [place] and has lived in [place], [place]. Patient moved to [place] approximately 40-50 years ago. Patient used to on a [employer]sc[employer].ch. He is now retired. Patient has been twice. He has been to his second Kerrie for the past 4-6 years. Patient has 3 adult children, 2 sons and 1 daughter. Patient's hobbies include golfing and he reports that he is no longer able to play golf. Spiritual: Patient is Amish Legal: Patient has a signed DPOA form and living will Ethical issues impacting care: None identified at this time . Important Contacts Spouse- Durable Power of Hog Scraper- Kerrie Leach [phone] Cell/ Home Daughter- Alternate DPOA- Viola Trent- [phone] . Prognosis Mr. Leach is an 82-year-old male with a past medical history significant for lung cancer metastatic to the liver and currently on immunotherapy, chronic atrial fibrillation on aspirin, tachybradycardia syndrome s/p pacemaker placement, hyperlipidemia, CAD, hypothyroidism, TIA, and hyperlipidemia. Patient initially presented to the ER on 09/30/17 after a fall at home, with worsening decreased appetite and weight loss. Clinical course complicated with lower GI bleed. If bleeding recurs, recommendations are interventional intervention and if that is unsuccessful possible surgical intervention, of which patient is a poor candidate. Given ongoing multiple comorbidities patient remains at high risk for further complications, deterioration and decline. . Code Status: Full Code Plan PLAN: Legal decision maker: Patient is very hard of hearing. He is confused to why he is here and does not have insight regarding his medical condition. Patient also defers medical decision making to his . Recommending any medical decisions to be done in collaboration with patient's Haylee Sy who is his DPOA or his daughter Viola Trent who is his alternate DPOA. Goals: Aggressive. CODE STATUS: Full Code by default- Case discussed with bedside RN Faye Pantoja and advised her to mention in report that in case of patient going into cardiac arrest or respiratory failure all efforts should be made to contact patient`s immediately. * Attempted readdressing code status and patient deferred that decision making to his Haylee Sy who is also his Durable Power of Hog Scraper * Addressed code status with patient`s and she mentioned that patient has a living will.Explained to her that code status still needs to be addressed and living will can guide her in what patient would want. Patient`s dismissed assembly instructions writer without electing a code status because she was busy and had no time to talk. * Meeting planned for tomorrow 10/14/17 SYMPTOMS: * Generalized weakness: Progressive. Patient is currently on immunotherapy for metastatic lung cancer. Patient has also been anemic due to GI bleed requiring PRBC transfusion. Hgb today 8.9. PT consulted. * Debility: Progressive. Per family's report, patient has been progressively declining in the past few months. Prolonged hospitalization. Patient has multiple comorbidities which are contributing to his debility. Physical therapy and Occupational Therapy consulted. Palliative care will continue to follow the patient during hospital course as condition evolves, to assist patient/decision-maker with understanding of their medical conditions, weighing benefits/burdens of treatment options, for clarification of goals of treatment. Additionally will assist with any symptoms of palliative concern Thank you for the opportunity to participate in the care of Mr. Leach. Attestation To help prompt me to consider important information that might be impacting today's encounter and assessment, information from prior notes written by myself or my colleagues may have been "brought forward" into today's note. My signature on this note, however, is an attestation that I personally performed the exam, history, and/or decision-making noted today, and, unless otherwise indicated, the interactions with patient, family, and staff as well as the review of records all occurred today. I also attest that the listed assessment and stated plan reflect my best clinical judgment today based on the combination of historical information, prior notes, and today's exam/ interactions. When time spent is documented, it refers only to time spent today by the signer, or if indicated, combined time spent today by collaborating physician/nurse practitioner. Marisa Aguirre October 13, 2017 12:21
--- NOTE | 2017-10-13 15:47 | HHI.GIFU ---
Subjective Remarks Pt resting in bed doing a word search. Denies further bleeding. Offers no complaints. (Julia Gann) Objective Vitals I&O Vital Signs Date Time Temp Pulse Resp B/P (MAP) Pulse Ox O2 Delivery O2 Flow Rate FiO2 10/13/17 13:24 61 10/13/17 12:00 97.3 60 18 124/56 (78) 100 10/13/17 09:36 62 10/13/17 08:00 98.3 64 18 104/51 (68) 97 10/13/17 04:00 60 10/13/17 04:00 98.1 67 18 113/56 (75) 97 10/13/17 00:00 69 10/13/17 00:00 98.1 70 18 132/61 (84) 100 10/12/17 23:55 98.5 65 18 102/55 (71) 96 10/12/17 23:52 98.5 65 18 102/55 96 10/12/17 23:24 98.4 61 18 91/51 97 10/12/17 20:00 70 10/12/17 20:00 97.8 95 18 113/56 (75) 98 10/12/17 17:15 97.6 65 18 117/58 10/12/17 16:40 98.9 69 16 126/60 10/12/17 16:00 97.1 69 20 134/60 (84) 99 I/O 10/12/17 10/12/17 10/12/17 10/13/17 10/13/17 10/13/17 07:00 15:00 23:00 07:00 15:00 23:00 Intake Total 400 ml 1083 ml 400 ml Output Total 480 ml 150 ml Balance 400 ml 603 ml 400 ml -150 ml Intake IV Total 683 ml Packed Cells 400 ml 400 ml 400 ml Output Urine Total 480 ml 150 ml # Voids 1 3 # Bowel Movements 1 Laboratory Laboratory Tests Test 10/12/17 18:14 10/13/17 08:10 Prothrombin Time 12.0 Prothromb Time International Ratio 1.2 Activated Partial Thromboplast Time 24.7 White Blood Count 8.5 Red Blood Count 2.92 Hemoglobin 8.9 Hematocrit 25.8 Mean Corpuscular Volume 88.3 Mean Corpuscular Hemoglobin 30.4 Mean Corpuscular Hemoglobin Concent 34.4 Red Cell Distribution Width 16.5 Platelet Count 132 Mean Platelet Volume 8.2 Neutrophils (%) (Auto) 60.5 Lymphocytes (%) (Auto) 24.1 Monocytes (%) (Auto) 11.5 Eosinophils (%) (Auto) 3.1 Basophils (%) (Auto) 0.8 Neutrophils # (Auto) 5.1 Lymphocytes # (Auto) 2.0 Monocytes # (Auto) 1.0 Eosinophils # (Auto) 0.3 Basophils # (Auto) 0.1 CBC Comment DIFF FINAL Differential Comment Blood Urea Nitrogen 28 Creatinine 1.21 Random Glucose 76 Total Protein 4.1 Calcium Level 6.8 Sodium Level 148 Potassium Level 3.7 Chloride Level 117 Carbon Dioxide Level 20.8 Anion Gap 10 Estimat Glomerular Filtration Rate 57 Protein Corrected Calcium 8.4 Imaging Last Impressions Abdomen Arteriogram 10/12/17 1343 Signed Impressions: Service Date/Time: Thursday, October 12, 2017 10:44 - CONCLUSION: 1. No angiographic evidence for active hemorrhage from the ISAMAR and SMA territories. Almas Meyers MD IVC Filter Placement X-Ray 10/12/17 0000 Signed Impressions: Service Date/Time: Thursday, October 12, 2017 10:44 - CONCLUSION: Uncomplicated inferior vena cava filter placement as above. Almas Meyers MD GI Bleed Scan Nuclear Medicine 10/11/17 0000 Signed Impressions: Service Date/Time: Wednesday, October 11, 2017 16:14 - CONCLUSION: 1. Focal tracer attenuation in the mid superior pelvic region likely reflecting active hemorrhage in the sigmoid colon. 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 CT angio with possible embolization ordered. GS consult pending. EGD (10/07/17) --> Severe esophagitis distal esophagus- biopsy r/o cmv, herpes. gastritis antrum-biopsy duodenitis bulb and second portion-biopsy. Hiatal hernia Pathology (duodenum) Peptic duodenitis (gastric antrum) marked active chronic gastritis (distal esophagus) acutely ulcerated squamous mucosa. Viral inclusions are not identified, negative for fungal organisms Colonoscopy (10/08) --> Diverticulosis sigmoid,descending polyp hepatic flexure -2 cm -hot snare poplypectomy with complete removal. Internal hemorrhoids. External hemorrhoids Pathology colon polyp- tubular adenoma - A-fib- not on anticoagulation - Lung cancer with metastasis to the liver 10/13/17 s/p IVC placement, angiography --> no active hemorrhage ISAMAR, SMA. GS consult appreciated, he is poor surg candidate. palliative care now following. no bleeding today. Plan: await palliative care f/u consider outpt capsule endoscopy monitor labs supportive care GI will sign off. please reconsult if needed. pt seen by myself and Dr Truong and this note is on his behalf (Julia Gann) Physician Comments Patient seen and examined Agree with above Continue with current supportive care Monitor labs We will sign off (Manny Truong MD) Juila Gann October 13, 2017 15:47 Manny Truong MD October 13, 2017 21:57
--- NOTE | 2017-10-13 17:08 | HHI.PR ---
Subjective Remarks Patient reports he is feeling better today. No bowel movements today. Objective Vitals Vital Signs Date Time Temp Pulse Resp B/P (MAP) Pulse Ox O2 Delivery O2 Flow Rate FiO2 10/13/17 13:24 61 10/13/17 12:00 97.3 60 18 124/56 (78) 100 10/13/17 09:36 62 10/13/17 08:00 98.3 64 18 104/51 (68) 97 10/13/17 04:00 60 10/13/17 04:00 98.1 67 18 113/56 (75) 97 10/13/17 00:00 69 10/13/17 00:00 98.1 70 18 132/61 (84) 100 10/12/17 23:55 98.5 65 18 102/55 (71) 96 10/12/17 23:52 98.5 65 18 102/55 96 10/12/17 23:24 98.4 61 18 91/51 97 10/12/17 20:00 70 10/12/17 20:00 97.8 95 18 113/56 (75) 98 10/12/17 17:15 97.6 65 18 117/58 I/O 10/12/17 10/12/17 10/12/17 10/13/17 10/13/17 10/13/17 07:00 15:00 23:00 07:00 15:00 23:00 Intake Total 400 ml 1083 ml 400 ml Output Total 480 ml 150 ml Balance 400 ml 603 ml 400 ml -150 ml Intake IV Total 683 ml Packed Cells 400 ml 400 ml 400 ml Output Urine Total 480 ml 150 ml # Voids 1 3 # Bowel Movements 1 Result Diagram: 10/13/17 0810 10/13/17 0810 Imaging GENERAL: Elderly male, in no apparent distress. CARDIOVASCULAR: Normal rate and regular rhythm without murmurs, gallops, or rubs. RESPIRATORY: Good respiratory efforts. Breath sounds equal and clear to auscultation bilaterally. GASTROINTESTINAL: Abdomen soft, non-tender, non-distended. Normal active bowel sounds MUSCULOSKELETAL: Extremities without cyanosis, or edema. NEURO: Alert & Oriented x4 to person, place, time, situation. Moves all ext x4 PSYCH: Appropriate mood and affect. A/P Problem List: (1) Anemia ICD Code: D64.9 - Anemia, unspecified (2) Deep vein thrombosis (DVT) of popliteal vein of left lower extremity ICD Code: I82.432 - Acute embolism and thrombosis of left popliteal vein (3) Debility ICD Code: R53.81 - Other malaise Status: Acute (4) Acute kidney injury ICD Code: N17.9 - Acute kidney failure, unspecified Status: Acute Assessment and Plan 82 year old male with metastatic lung cancer, atrial fibrillation, pacemaker, HLD, CAD, hypothyroidism, and h/o TIA initially admitted 09/30-10/09 for a fall, acute renal failure, dehydration, hypernatremia, and GI bleed. GI work-up demonstrated diverticular disease, duodenitis, severe esophagitis, and gastritis. He was discharged to [facility] on 10/09 and was subsequently readmitted on 10/11 for acute drop in his hemoglobin. 1. Acute on chronic anemia - Review of EMR shows hemoglobin dropping gradually since about 10/07 but on was noted to be 6 from 7.8 the day prior - Pt hemodynamically stable - Transfused 2 units with f/u hemoglobin 7.3. Transfusing another 2 units. CBC stable today - EGD with ablation performed on 10/02/17 which showed a class D esophagitis, erythematous gastritis, bleeding ulcer the first part of the duodenum treated with argon plasma coagulation with complete hemostasis achieve - Repeat EGD with biopsy performed on 10/07/17 showed severe esophagitis of the distal esophagus status post biopsy, duodenitis and hiatal hernia. Pathology consistent with peptic duodenitis, marked active chronic gastritis, negative for Helicobacter, and distal esophagus biopsy with acutely ulcerated squamous mucosa however viral inclusions are not identified - Bleeding scan with some attenuation in mid-superior pelvic region likely reflecting active hemorrhage in sigmoid colon - Continue PPI - GI following, CT angiogram of the abdomen was negative for active bleeding. Therefore embolization was not done. - General surgery was consulted. Patient deemed to be a poor surgical candidate. 2. Acute kidney injury -Likely prerenal azotemia. Improved after blood transfusion. - Continue to monitor and avoid nephrotoxic agents - Strict I/O - Encourage PO 3. L popliteal DVT - S/p IVC filter - Holding chemical anticoagulation in light of possible GI bleed and acute anemia 4. Atrial fibrillation - Rate controlled without medication - Apparently was not an anticoagulation candidate prior to DVT given history of recurrent falls 5. Hypothyroidism - Continue levothyroxine - Recent TSH within normal range on 09/30/17 6. Subdural hematoma with TBI - Which patient sustained after a fall with a subsequent scalp laceration that has been repaired and sutured on 09/30 - Repeat head CT obtained on 10/10/17 showed interval resolution of right parietal extraaxial hemorrhage 7. Dysphagia - Patient seen recently by speech therapy who recommended regular food with thin liquids 8. Frequent falls/debility/recent decline - PT following - Palliative care consulted DVT prophylaxis: SCDs. No chemoprophylaxis for now given drop in hemoglobin and possible active GI bleeding Discharge Planning Possible discharge back to [facility] tomorrow if H&H remained stable and no signs of active bleeding. Samia Valverde MD October 13, 2017 17:08
[2017-10-13] MEDS: FAMOTIDINE 20 MG TAB PO SCH (20:26)
[2017-10-13] MEDS: ATORVASTATIN 10 MG TAB PO SCH (20:26)
[2017-10-14] VITALS (10 sets, daily range): BP systolic 84–132; BP diastolic 46–63; PULSE 60–70; RESP 17–18; TEMP 97.5–98.2; O2SAT 95–99
[2017-10-14] MEDS: PANTOPRAZOLE SODIUM 40 MG VIAL IV PUSH SCH ×2 (06:24→17:36)
[2017-10-14] MEDS: LEVOTHYROXINE SODIUM 50 MCG TAB PO SCH (06:24)
[2017-10-14] MEDS: TOBRAMYCIN 0.3%/DEXAMETHASONE 0.1% OPHT SUSP 5 ML BTL RIGHT EYE SCH ×3 (06:25→22:00)
[2017-10-14 07:31] LABS: HEMATOCRIT 25.2 % (39.0-51.0); HEMOGLOBIN 8.6 GM/DL (13.0-17.0); MEAN CELL VOLUME 88.8 FL (80.0-100.0); MEAN CORPUSCULAR HEMOGLOBIN 30.3 PG (27.0-34.0); MEAN CORPUSCULAR HGB CONC 34.2 % (32.0-36.0); MEAN PLATELET VOLUME 8.5 FL (7.0-11.0); PLATELET COUNT 143 TH/MM3 (150-450); RED BLOOD COUNT 2.84 MIL/MM3 (4.50-5.90); RED CELL DISTRIBUTION WIDTH 16.2 % (11.6-17.2); WHITE BLOOD COUNT 7.6 TH/MM3 (4.0-11.0)
[2017-10-14 08:02] LABS: BICARBONATE 23.9 MEQ/L (21.0-32.0); CALCIUM 6.8 MG/DL (8.5-10.1); CREATININE 1.16 MG/DL (0.60-1.30)
[2017-10-14] MEDS: SODIUM CHLORIDE 0.9% FLUSH 10 ML FLUSH IV FLUSH SCH ×2 (08:13→20:39)
[2017-10-14] MEDS: POTASSIUM CHLORIDE 25 MEQ EFFERVESCENT TAB PO SCH (08:13)
[2017-10-14] MEDS: DOCUSATE SODIUM 50 MG/SENNA 8.6 MG TAB PO SCH ×2 (08:13→21:00)
[2017-10-14] MEDS: SUCRALFATE 1 GM/10 ML CUP PO SCH ×4 (08:13→20:36)
[2017-10-14 08:21] LABS: CALCIUM-PROTEIN CORRECTED 8.4 MG/DL (8.5-10.1); TOTAL PROTEIN 4.2 GM/DL (6.4-8.2)
--- NOTE | 2017-10-14 09:42 | HHI.PR ---
cc: Rubin Macias MD Subjective Subjective Notes no acute issues, hh stable, denies abdominal pain, bm last night no reported blood Objective Vitals/I&O Vital Signs Date Time Temp Pulse Resp B/P (MAP) Pulse Ox O2 Delivery O2 Flow Rate FiO2 10/14/17 08:00 97.6 60 18 106/52 (70) 97 Labs Laboratory Tests Test 10/14/17 06:37 White Blood Count 7.6 Red Blood Count 2.84 Hemoglobin 8.6 Hematocrit 25.2 Mean Corpuscular Volume 88.8 Mean Corpuscular Hemoglobin 30.3 Mean Corpuscular Hemoglobin Concent 34.2 Red Cell Distribution Width 16.2 Platelet Count 143 Mean Platelet Volume 8.5 Blood Urea Nitrogen 18 Creatinine 1.16 Random Glucose 83 Total Protein 4.2 Calcium Level 6.8 Sodium Level 146 Potassium Level 3.5 Chloride Level 115 Carbon Dioxide Level 23.9 Anion Gap 7 Estimat Glomerular Filtration Rate 60 Protein Corrected Calcium 8.4 Radiology Last 48 hours Impressions Abdomen Arteriogram 10/12/17 1343 Signed Impressions: Service Date/Time: Thursday, October 12, 2017 10:44 - CONCLUSION: 1. No angiographic evidence for active hemorrhage from the ISAMAR and SMA territories. Almas Meyers MD IVC Filter Placement X-Ray 10/12/17 0000 Signed Impressions: Service Date/Time: Thursday, October 12, 2017 10:44 - CONCLUSION: Uncomplicated inferior vena cava filter placement as above. Almas Meyers MD GI Bleed Scan Nuclear Medicine 10/11/17 0000 Signed Impressions: Service Date/Time: Wednesday, October 11, 2017 16:14 - CONCLUSION: 1. Focal tracer attenuation in the mid superior pelvic region likely reflecting active hemorrhage in the sigmoid colon. Almas Meyers MD Lungs: Clear Abdomen: Other (soft nt/nd) A/P Assessment and Plan 82 year old male with multiple medical problems; lower GI bleed -Diet as tolerated - abdominal exams -Hmg stable -Await Palliative Care recommendations -If bleeding re-occurs would recommend IR procedure and if unsuccessful would need to discuss possible surgical intervention but again patient is a poor surgical candidat - will continue to follow Rubin Macias MD October 14, 2017 09:42
--- NOTE | 2017-10-14 11:39 | HHI.PR ---
Subjective Remarks Patient had burgundy colored stool overnight. States he is feeling OK this morning. H&H went from 8.9 to 8.6 Objective Vitals Vital Signs Date Time Temp Pulse Resp B/P (MAP) Pulse Ox O2 Delivery O2 Flow Rate FiO2 10/14/17 08:00 97.6 60 18 106/52 (70) 97 10/14/17 05:45 101/56 (71) 10/14/17 04:54 98.2 60 17 84/46 (59) 95 10/14/17 00:42 98.1 60 18 108/53 (71) 97 10/13/17 23:59 62 10/13/17 21:02 64 10/13/17 19:43 97.7 60 18 106/55 (72) 99 10/13/17 16:00 97.5 64 20 121/69 (86) 100 10/13/17 13:24 61 10/13/17 12:00 97.3 60 18 124/56 (78) 100 I/O 10/13/17 10/13/17 10/13/17 10/14/17 10/14/17 10/14/17 07:00 15:00 23:00 07:00 15:00 23:00 Intake Total 400 ml Output Total 150 ml 200 ml Balance 400 ml -150 ml -200 ml Packed Cells 400 ml Output Urine Total 150 ml 200 ml # Voids 3 2 # Bowel Movements 1 Result Diagram: 10/14/17 0637 10/14/17 0637 Objective Remarks GENERAL: Elderly male, in no apparent distress. CARDIOVASCULAR: Normal rate and regular rhythm without murmurs, gallops, or rubs. RESPIRATORY: Good respiratory efforts. Breath sounds equal and clear to auscultation bilaterally. GASTROINTESTINAL: Abdomen soft, non-tender, non-distended. Normal active bowel sounds MUSCULOSKELETAL: Extremities without cyanosis, or edema. NEURO: Alert & Oriented x4 to person, place, time, situation. Moves all ext x4 PSYCH: Appropriate mood and affect. A/P Problem List: (1) Anemia ICD Code: D64.9 - Anemia, unspecified (2) Deep vein thrombosis (DVT) of popliteal vein of left lower extremity ICD Code: I82.432 - Acute embolism and thrombosis of left popliteal vein (3) Debility ICD Code: R53.81 - Other malaise Status: Acute (4) Acute kidney injury ICD Code: N17.9 - Acute kidney failure, unspecified Status: Acute Assessment and Plan 82 year old male with metastatic lung cancer, atrial fibrillation, pacemaker, HLD, CAD, hypothyroidism, and h/o TIA initially admitted 09/30-10/09 for a fall, acute renal failure, dehydration, hypernatremia, and GI bleed. GI work-up demonstrated diverticular disease, duodenitis, severe esophagitis, and gastritis. He was discharged to [facility] on 10/09 and was subsequently readmitted on 10/11 for acute drop in his hemoglobin. 1. Acute on chronic anemia - Review of EMR shows hemoglobin dropping gradually since about 10/07 but on was noted to be 6 from 7.8 the day prior - Pt hemodynamically stable - Transfused 2 units with f/u hemoglobin 7.3. Transfusing another 2 units. CBC stable today - EGD with ablation performed on 10/02/17 which showed a class D esophagitis, erythematous gastritis, bleeding ulcer the first part of the duodenum treated with argon plasma coagulation with complete hemostasis achieve - Repeat EGD with biopsy performed on 10/07/17 showed severe esophagitis of the distal esophagus status post biopsy, duodenitis and hiatal hernia. Pathology consistent with peptic duodenitis, marked active chronic gastritis, negative for Helicobacter, and distal esophagus biopsy with acutely ulcerated squamous mucosa however viral inclusions are not identified - Bleeding scan with some attenuation in mid-superior pelvic region likely reflecting active hemorrhage in sigmoid colon - Continue PPI - GI following, CT angiogram of the abdomen was negative for active bleeding. Therefore embolization was not done. - General surgery was consulted. Patient deemed to be a poor surgical candidate. Patient does not want surgery. DW him and family at bedside. - Suspect the patient continues to have a slow bleed that is not amenable to intervention. Best course may be to continue to monitor and transfuse as needed. 2. Acute kidney injury -Likely prerenal azotemia. Improved after blood transfusion. - Continue to monitor and avoid nephrotoxic agents - Strict I/O - Encourage PO 3. L popliteal DVT - S/p IVC filter - Holding chemical anticoagulation in light of possible GI bleed and acute anemia 4. Atrial fibrillation - Rate controlled without medication - Apparently was not an anticoagulation candidate prior to DVT given history of recurrent falls 5. Hypothyroidism - Continue levothyroxine - Recent TSH within normal range on 09/30/17 6. Subdural hematoma with TBI - Which patient sustained after a fall with a subsequent scalp laceration that has been repaired and sutured on 09/30 - Repeat head CT obtained on 10/10/17 showed interval resolution of right parietal extraaxial hemorrhage 7. Dysphagia - Patient seen recently by speech therapy who recommended regular food with thin liquids 8. Frequent falls/debility/recent decline - PT following - Palliative care consulted DVT prophylaxis: SCDs. No chemoprophylaxis for now given drop in hemoglobin and possible active GI bleeding Discharge Planning Continue to monitor GIB and H&H. Not yet stable for return to [facility]. Samia Valverde MD October 14, 2017 11:38
--- NOTE | 2017-10-14 13:15 | HHI.HCPN ---
Reason for visit a. To assist with evaluation and management of symptoms including: generalized weakness, debility b. To assist medical decision maker(s) with: better understanding of current medical conditions; weighing benefits/burdens of medical treatment options; making medical treatment decisions. Subjective/Interval History Follow-up medically necessary for further clarification of goals. Patient seen and examined in his room in the presence of his . Patient just woke up, alert, oriented to self, place. Patient is able to follow simple commands with all 4 extremities. Patient is very hard of hearing, has bilateral hearing aids. Unable to effectively communicate with him due to hard of hearing and family confirms that he may hear things in bits and pierces. Patient denies pain, mentions that he did not have breakfast and he only had a milkshake that his family brought in for him. Patient endorsing improved appetite, denies nausea/ vomiting. Laboratory workup today revealing WBC 7.6, hemoglobin 8.6 decreased by 0.3 points from yesterday, hematocrit 25.2, platelet count 143, sodium 146, BUN/ creatinine 18/1.16, total protein 4.2. Report of burgundy colored stool overnight. Meeting in patient`s room with patient`s Kerrie Leach who is his DPOA , his daughter Viola Trent alternate DPOA and his son-in law. Reintroduced palliative care. Discussed trajectory of decline in the past few months. Reviewed events leading to patient`s hospitalization and events that transpired throughout his hospitalization inclusive of medical interventions and treatment rendered. Family brought in patient`s living will- copy obtained. Explained to family that patient`s living will guides his health care surrogates and medical provider on what his wishes are. Readdressed code status with patient`s , discussed complications, limitations and benefits of such an intervention given patient`s ongoing comorbidities. Patient`s initially wanted code status addressed with the patient, explained to her that patient deferred medical decision making to her. Patient`s elected do not resuscitate and do not intubate with the support of patient`s daughter Viola. Patient is also agreeable to DNR.Shared concerns regarding a possibility of bleeding recurring and possible options for treatment available as well as patient`s ongoing comorbidities. Patient with the support of his and daughter would not want any surgical intervention if bleeding recurs. Broached hospice subject. Family are not ready yet for hospice, they are hopeful that patient will improve, go back to rehabilitation and then be discharged home. Patient`s daughter enquiring about care after patient leaves rehabilitation. Patient`s daughter is concerned that patient may not be strong enough to be able to go home after rehab and may need follow up. Informed her that family service caseworker will closely work with family while working on discharge planning. Community DNR signed- yello copies provided to daughter and - original on chart. . Family/friend interactions Meeting with family at bedside. . Advance Directives Living Will: Copy in medical record Health Care Surrogate: Copy in medical record Durable Power of Flight Operations Dispatch Clerk: Copy in medical record Advance Directive Specifics Date completed: DPOA- 01/21/2012 Living will- 02/02/2008 . Health Care Surrogate(s): Spouse- Durable Power of Flight Operations Dispatch Clerk- Kerrie Leach [phone] Cell/ [phone] Home Daughter- Alternate DPOA- Viola Trent - [phone] . Documented care wishes: Standard verbiage-copy on EMR . Objective Vital Signs Date Time Temp Pulse Resp B/P (MAP) Pulse Ox O2 Delivery O2 Flow Rate FiO2 10/14/17 08:00 97.6 60 18 106/52 (70) 97 10/14/17 05:45 101/56 (71) 10/14/17 04:54 98.2 60 17 84/46 (59) 95 10/14/17 00:42 98.1 60 18 108/53 (71) 97 10/13/17 23:59 62 10/13/17 21:02 64 10/13/17 19:43 97.7 60 18 106/55 (72) 99 10/13/17 16:00 97.5 64 20 121/69 (86) 100 10/13/17 13:24 61 Intake & Output 10/14/17 10/14/17 07:00 19:00 Output Total 200 ml Balance -200 ml Output Urine Total 200 ml # Voids 2 # Bowel Movements 1 Physical Exam CONSTITUTIONAL/GENERAL: This is a chronically ill elderly patient, in no apparent distress. TUBES/LINES/DRAINS:PIV SKIN: No jaundice. Bruised and ecchymotic bilateral upper extremities with multiple skin tears. Hossein bilateral lower extremities. Cling wrap dressing to RLE. Normothermic. HEAD: Atraumatic. Normocephalic. EYES: PERRLA.Extraocular motions intact. No scleral icterus. Fundi not examined. ENT: Hard of hearing even with bilateral hearing aids. No nasal congestion. NECK: Trachea midline. Supple, nontender. CARDIOVASCULAR: Irregular rate and rhythm without murmurs, gallops, or rubs. No JVD. RESPIRATORY/CHEST:Diminished breath sounds in the bases. No wheezes, rales, or rhonchi. GASTROINTESTINAL: Abdomen soft, non-tender, nondistended. Positive BSX4 GENITOURINARY: Without palpable bladder distension. Voids in urinal. MUSCULOSKELETAL: Extremities without clubbing, cyanosis. Trace edema to LLE. No calf tenderness. No mottling or clubbing. NEUROLOGICAL: Awake, oriented to self, place,with some confusion. Follows commands with all 4 extremities PSYCHIATRIC: No obvious anxiety/depression. no apparent hallucinations or other psychotic thought process. Diagnostic Tests Laboratory Laboratory Tests Test 10/12/17 07:17 10/12/17 18:14 10/13/17 08:10 10/14/17 06:37 White Blood Count 8.1 TH/MM3 (4.0-11.0) 8.5 TH/MM3 (4.0-11.0) 7.6 TH/MM3 (4.0-11.0) Red Blood Count 2.44 MIL/MM3 (4.50-5.90) 2.92 MIL/MM3 (4.50-5.90) 2.84 MIL/MM3 (4.50-5.90) Hemoglobin 7.3 GM/DL (13.0-17.0) 8.9 GM/DL (13.0-17.0) 8.6 GM/DL (13.0-17.0) Hematocrit 21.5 % (39.0-51.0) 25.8 % (39.0-51.0) 25.2 % (39.0-51.0) Mean Corpuscular Volume 87.9 FL (80.0-100.0) 88.3 FL (80.0-100.0) 88.8 FL (80.0-100.0) Mean Corpuscular Hemoglobin 30.0 PG (27.0-34.0) 30.4 PG (27.0-34.0) 30.3 PG (27.0-34.0) Mean Corpuscular Hemoglobin Concent 34.1 % (32.0-36.0) 34.4 % (32.0-36.0) 34.2 % (32.0-36.0) Red Cell Distribution Width 16.9 % (11.6-17.2) 16.5 % (11.6-17.2) 16.2 % (11.6-17.2) Platelet Count 129 TH/MM3 (150-450) 132 TH/MM3 (150-450) 143 TH/MM3 (150-450) Mean Platelet Volume 8.6 FL (7.0-11.0) 8.2 FL (7.0-11.0) 8.5 FL (7.0-11.0) Neutrophils (%) (Auto) 52.7 % (16.0-70.0) 60.5 % (16.0-70.0) Lymphocytes (%) (Auto) 33.0 % (9.0-44.0) 24.1 % (9.0-44.0) Monocytes (%) (Auto) 10.1 % (0.0-8.0) 11.5 % (0.0-8.0) Eosinophils (%) (Auto) 2.8 % (0.0-4.0) 3.1 % (0.0-4.0) Basophils (%) (Auto) 1.4 % (0.0-2.0) 0.8 % (0.0-2.0) Neutrophils # (Auto) 4.3 TH/MM3 (1.8-7.7) 5.1 TH/MM3 (1.8-7.7) Lymphocytes # (Auto) 2.7 TH/MM3 (1.0-4.8) 2.0 TH/MM3 (1.0-4.8) Monocytes # (Auto) 0.8 TH/MM3 (0-0.9) 1.0 TH/MM3 (0-0.9) Eosinophils # (Auto) 0.2 TH/MM3 (0-0.4) 0.3 TH/MM3 (0-0.4) Basophils # (Auto) 0.1 TH/MM3 (0-0.2) 0.1 TH/MM3 (0-0.2) CBC Comment DIFF FINAL DIFF FINAL Differential Comment Blood Urea Nitrogen 36 MG/DL (7-18) 28 MG/DL (7-18) 18 MG/DL (7-18) Creatinine 1.73 MG/DL (0.60-1.30) 1.21 MG/DL (0.60-1.30) 1.16 MG/DL (0.60-1.30) Random Glucose 90 MG/DL (74-106) 76 MG/DL (74-106) 83 MG/DL (74-106) Total Protein 4.1 GM/DL (6.4-8.2) 4.1 GM/DL (6.4-8.2) 4.2 GM/DL (6.4-8.2) Albumin 1.9 GM/DL (3.4-5.0) Calcium Level 7.0 MG/DL (8.5-10.1) 6.8 MG/DL (8.5-10.1) 6.8 MG/DL (8.5-10.1) Alkaline Phosphatase 60 U/L (45-117) Aspartate Amino Transf (AST/SGOT) 19 U/L (15-37) Alanine Aminotransferase (ALT/SGPT) 20 U/L (12-78) Total Bilirubin 0.4 MG/DL (0.2-1.0) Sodium Level 146 MEQ/L (136-145) 148 MEQ/L (136-145) 146 MEQ/L (136-145) Potassium Level 4.2 MEQ/L (3.5-5.1) 3.7 MEQ/L (3.5-5.1) 3.5 MEQ/L (3.5-5.1) Chloride Level 116 MEQ/L (98-107) 117 MEQ/L (98-107) 115 MEQ/L (98-107) Carbon Dioxide Level 19.4 MEQ/L (21.0-32.0) 20.8 MEQ/L (21.0-32.0) 23.9 MEQ/L (21.0-32.0) Anion Gap 11 MEQ/L (5-15) 10 MEQ/L (5-15) 7 MEQ/L (5-15) Estimat Glomerular Filtration Rate 38 ML/MIN (>89) 57 ML/MIN (>89) 60 ML/MIN (>89) Protein Corrected Calcium 8.7 MG/DL (8.5-10.1) 8.4 MG/DL (8.5-10.1) 8.4 MG/DL (8.5-10.1) Prothrombin Time 12.0 SEC (9.8-11.6) Prothromb Time International Ratio 1.2 RATIO Activated Partial Thromboplast Time 24.7 SEC (24.3-30.1) Result Diagram: 10/14/17 0637 10/14/17 0637 Procedures 10/12/17- Inferior vena cava filter placement . Assessment and Plan Disease Oriented Problem List: (1) Anemia (2) Lung cancer (3) Deep vein thrombosis (DVT) of popliteal vein of left lower extremity (4) AMI (acute kidney injury) (5) Chronic a-fib (6) Hypothyroidism Symptom Scale: (1) Debility 0-10 Scale: Unable to quantify Comment: Progressive . (2) Generalized weakness 0-10 Scale: Unable to quantify Comment: Progressive . Pertinent Non-Medical Issues Psychosocial: Patient was born in [place] and has lived in [place], [place]. Patient moved to [place] approximately 40-50 years ago. Patient used to on a [employer]. He is now retired. Patient has been twice. He has been to his second Kerrie for the past 4-6 years. Patient has 3 adult children, 2 sons and 1 daughter. Patient's hobbies include golfing and he reports that he is no longer able to play golf. Spiritual: Patient is [employer] Legal: Patient has a signed DPOA form and living will Ethical issues impacting care: None identified at this time . Important Contacts Spouse- Durable Power of Flight Operations Dispatch Clerk- Kerrie Leach [phone] Cell/ [phone] Home Daughter- Alternate DPOA- NeginColin jahverin g- [phone] . Prognosis Mr. Leach is an 82-year-old male with a past medical history significant for lung cancer metastatic to the liver and currently on immunotherapy, chronic atrial fibrillation on aspirin, tachybradycardia syndrome s/p pacemaker placement, hyperlipidemia, CAD, hypothyroidism, TIA, and hyperlipidemia. Patient initially presented to the ER on 09/30/17 after a fall at home, with worsening decreased appetite and weight loss. Clinical course complicated with lower GI bleed. If bleeding recurs, recommendations are interventional intervention and if that is unsuccessful possible surgical intervention, of which patient is a poor candidate. Given ongoing multiple comorbidities patient remains at high risk for further complications, deterioration and decline. . Code Status: No Code Plan PLAN: Legal decision maker: Patient is very hard of hearing and unsure if he he hears everything said or comprehends it. Recommending any medical decisions to be done in collaboration with patient's Haylee Sy who is his DPOA or his daughter Viola Trent who is his alternate DPOA. Goals: Aggressive short of no code CODE STATUS: No code DNR/DNI Readdressed code status with patient`s , discussed complications, limitations and benefits of such an intervention given patient`s ongoing comorbidities. Patient`s initially wanted code status addressed with the patient, explained to her that patient deferred medical decision making to her. Patient`s elected do not resuscitate and do not intubate with the support of patient`s daughter Viola. Patient is also agreeable to DNR.Shared concerns regarding a possibility of bleeding recurring and possible options for treatment available as well as patient`s ongoing comorbidities. Patient with the support of his and daughter would not want any surgical intervention if bleeding recurs. Broached hospice subject. Family are not ready yet for hospice, they are hopeful that patient will improve, go back to rehabilitation and then be discharged home. Patient`s daughter enquiring about care after patient leaves rehabilitation. SYMPTOMS: * Generalized weakness: Progressive. Patient is currently on immunotherapy for metastatic lung cancer. Patient has also been anemic due to GI bleed requiring PRBC transfusion. Hgb dropped from 8.9-8.6. PT consulted recommended PT at rehab * Debility: Progressive. Per family's report, patient has been progressively declining in the past few months. Prolonged hospitalization. Patient has multiple comorbidities which are contributing to his debility. Unsure if patient will be able to fully participate in rehabilitation due to ongoing comorbidities. Patient is at high risk for further deterioration. Family hopeful that patient will be in rehab for a short time and will go home. Palliative care will continue to follow the patient during hospital course as condition evolves, to assist patient/decision-maker with understanding of their medical conditions, weighing benefits/burdens of treatment options, for clarification of goals of treatment. Additionally will assist with any symptoms of palliative concern Marisa Aguirre October 14, 2017 13:15
[2017-10-14] MEDS: FAMOTIDINE 20 MG TAB PO SCH (20:36)
[2017-10-14] MEDS: ATORVASTATIN 10 MG TAB PO SCH (20:36)
[2017-10-15 00:09] VITALS: PULSE 60
[2017-10-15 00:11] VITALS: BP 101/53; PULSE 60; RESP 18; TEMP 98.2; O2SAT 96
[2017-10-15 04:00] VITALS: PULSE 60
[2017-10-15 05:31] VITALS: BP 113/63; PULSE 64; RESP 18; TEMP 97; O2SAT 97
[2017-10-15] MEDS: TOBRAMYCIN 0.3%/DEXAMETHASONE 0.1% OPHT SUSP 5 ML BTL RIGHT EYE SCH (06:00)
[2017-10-15] MEDS: LEVOTHYROXINE SODIUM 50 MCG TAB PO SCH (06:15)
[2017-10-15] MEDS: PANTOPRAZOLE SODIUM 40 MG VIAL IV PUSH SCH (06:16)
[2017-10-15 07:51] LABS: BICARBONATE 23.6 MEQ/L (21.0-32.0); CALCIUM 5.8 MG/DL (8.5-10.1); CREATININE 1.1 MG/DL (0.60-1.30)
[2017-10-15 08:00] VITALS: BP 99/51; PULSE 60; RESP 17; TEMP 98.5; O2SAT 97
[2017-10-15 08:30] LABS: CALCIUM-PROTEIN CORRECTED 9.2 MG/DL (8.5-10.1); TOTAL PROTEIN 1.3 GM/DL (6.4-8.2)
[2017-10-15] MEDS ORDERED: POTASSIUM CHLORIDE 20 MEQ CONTROLLED RELEASE TAB PO SCH (09:00)
[2017-10-15 09:35] LABS: HEMATOCRIT 25.9 % (39.0-51.0); HEMOGLOBIN 8.7 GM/DL (13.0-17.0); MEAN CELL VOLUME 89.8 FL (80.0-100.0); MEAN CORPUSCULAR HEMOGLOBIN 30.1 PG (27.0-34.0); MEAN CORPUSCULAR HGB CONC 33.5 % (32.0-36.0); MEAN PLATELET VOLUME 8.2 FL (7.0-11.0); PLATELET COUNT 163 TH/MM3 (150-450); RED BLOOD COUNT 2.89 MIL/MM3 (4.50-5.90); RED CELL DISTRIBUTION WIDTH 16.5 % (11.6-17.2); WHITE BLOOD COUNT 7.8 TH/MM3 (4.0-11.0)
[2017-10-15] MEDS: DOCUSATE SODIUM 50 MG/SENNA 8.6 MG TAB PO SCH (09:42)
[2017-10-15] MEDS: SUCRALFATE 1 GM/10 ML CUP PO SCH ×2 (09:42→12:13)
[2017-10-15] MEDS: SODIUM CHLORIDE 0.9% FLUSH 10 ML FLUSH IV FLUSH SCH (09:43)
--- NOTE | 2017-10-15 11:28 | HHI.PR ---
cc: Rubin Macias MD Subjective Subjective Notes Resting in bed doing crossword puzzle In much better spirits Eating well; likes pot roast at bedside Objective Vitals/I&O Vital Signs Date Time Temp Pulse Resp B/P (MAP) Pulse Ox O2 Delivery O2 Flow Rate FiO2 10/15/17 08:00 98.5 60 17 99/51 (67) 97 Labs Laboratory Tests Test 10/15/17 06:38 10/15/17 09:05 Blood Urea Nitrogen 14 Creatinine 1.10 Random Glucose 88 Total Protein 1.3 Calcium Level 5.8 Sodium Level 148 Potassium Level 3.8 Chloride Level 117 Carbon Dioxide Level 23.6 Anion Gap 7 Estimat Glomerular Filtration Rate 64 Protein Corrected Calcium 9.2 White Blood Count 7.8 Red Blood Count 2.89 Hemoglobin 8.7 Hematocrit 25.9 Mean Corpuscular Volume 89.8 Mean Corpuscular Hemoglobin 30.1 Mean Corpuscular Hemoglobin Concent 33.5 Red Cell Distribution Width 16.5 Platelet Count 163 Mean Platelet Volume 8.2 Radiology Last 48 hours Impressions Abdomen Arteriogram 10/12/17 1343 Signed Impressions: Service Date/Time: Thursday, October 12, 2017 10:44 - CONCLUSION: 1. No angiographic evidence for active hemorrhage from the ISAMAR and SMA territories. Almas Meyers MD IVC Filter Placement X-Ray 10/12/17 0000 Signed Impressions: Service Date/Time: Thursday, October 12, 2017 10:44 - CONCLUSION: Uncomplicated inferior vena cava filter placement as above. Almas Meyers MD GI Bleed Scan Nuclear Medicine 10/11/17 0000 Signed Impressions: Service Date/Time: Wednesday, October 11, 2017 16:14 - CONCLUSION: 1. Focal tracer attenuation in the mid superior pelvic region likely reflecting active hemorrhage in the sigmoid colon. Almas Meyers MD Cardiovascular: Regular Lungs: Clear Abdomen: Non-distended, Non-tender Extremities: Other (several superficial abrasions with dressings in place ) A/P Assessment and Plan 82 year old male with multiple medical problems; lower GI bleed -Diet as tolerated -Hmg 8.7 s/p two additional units of PRBCs -Palliative Care following -GS clear for DC -Patient plans to return to [facility] Attending Statement patient seen at bedside no abdominal pain hh stable no more blood bms plan for dc from surgical stand point Attestation The exam, history, and the medical decision-making described in the above note were completed with the assistance of the mid-level provider. I reviewed and agree with the findings presented. I attest that I had a [id number] encounter with the patient on the same day, and personally performed and documented my assessment and findings in the medical record. Vee Li. PATRICIO/Audio Visual Specialist PATRICIO October 15, 2017 11:28 Rubin Macias MD October 19, 2017 09:36
[2017-10-15] MEDS ORDERED: POTA20TA5 PO (11:29)
[2017-10-15] MEDS ORDERED: PANT40TA3 PO (11:29)
--- NOTE | 2017-10-15 11:30 | HHI.DS ---
Discharge Summary Admission Date October 11, 2017 at 14:00 Discharge Date: October 15, 2017 Admitting Diagnosis (1) Anemia ICD Code: D64.9 - Anemia, unspecified (2) Deep vein thrombosis (DVT) of popliteal vein of left lower extremity ICD Code: I82.432 - Acute embolism and thrombosis of left popliteal vein (3) Debility ICD Code: R53.81 - Other malaise Status: Acute (4) Acute kidney injury ICD Code: N17.9 - Acute kidney failure, unspecified Status: Acute Procedures None Brief History - From Admission HPI from the admitting physician This is an 82-year-old male with past medical history significant for chronic atrial fibrillation on daily aspirin, pacemaker in place, hyperlipidemia, CAD, hypothyroidism and TIA. The patient also has history of lung cancer metastatic to the liver currently on immunotherapy and being followed by Dr. Barboza. The patient was initially brought to the hospital after a fall. The patient family noted that the patient had been declining over the past couple months with worsening appetite and weight loss. Patient at that time was continued nausea and vomiting 1 week prior to fall as well as difficulty swallowing food with food being cocked about in the esophagus. Recent CT showed marked progression of the lung lesions and he is due for an outpatient PET scan. The patient at that time was in his usual state of health which consisted of ambulation with walker short distances and supervision and some help with ADLs until 09/30/17 when the patient was admitted to [facility] after falling from its bed onto a carpeted floor sustaining a head laceration. The patient denied loss of consciousness at the time of the fall or other injuries. The laceration of the scalp was sutured in the emergency department. At that time the patient had the following imaging studies chest x-ray read as negative. Pelvis negative for fracture. Head CT showed no mass, no intracranial hemorrhage, only small subdural bleed at convexity right frontal region. Cervical C-spine showed some degenerative changes and loss of disc height C5 through C6 and degenerative changes of the cervical spine which appeared to be chronic. CBC was 14,000, hemoglobin was 12 on admission with 26% neutrophils. Patient was also noted to be hyponatremic with a sodium of 151, chloride of 128 , bicarb of 10, anion gap of 12, BUN of 34 and creatinine of 2.07. Elevated troponin of 0.06 the patient on the time was admitted with acute renal failure, dehydration, hypernatremia, elevated troponin. The patient's hospital stay nephrology was consulted Dr. Fishman for acute kidney injury, thought to be possibly prerenal from poor intake, dysphagia but also associated to rhabdomyolysis. The patient was treated with IV fluids hydration and creatinine and BUN improved. GI was also consulted. EGD showed class D esophagitis, erythematous gastritis in the gastric antrum, single also ranging between 5-9 mm in size found in the first part of the duodenum treated with argon plasma coagulation to the site with complete hemostasis achieved. Retroflexed views revealed a hiatal hernia. Colonoscopy performed on 10/08/17 showed diverticulosis in the sigmoid, descending polyp hepatic flexure status post polypectomy with complete removal. Internal hemorrhoids, medium internal hemorrhoids as well as external hemorrhoids. Patient was recommended to take fiber, probiotics and have yearly rectal exams. Recommended that the patient has recurrent bleeding a stat bleeding scan should be obtained. The patient currently denies any chest pain, shortness of breath. He states that he wants to go home. Patient also denies any bright red blood per rectum or melena even though hemoglobin has been trending down and this morning's hemoglobin is 6.0. Otherwise the patient denies any diarrhea, dysuria, nausea, vomiting. Patient's appetite is still poor. CBC/BMP: 10/15/17 0905 10/15/17 0638 Significant Findings Laboratory Tests Test 10/12/17 18:14 10/13/17 08:10 10/14/17 06:37 10/15/17 06:38 Prothrombin Time 12.0 SEC (9.8-11.6) Red Blood Count 2.92 MIL/MM3 (4.50-5.90) 2.84 MIL/MM3 (4.50-5.90) Hemoglobin 8.9 GM/DL (13.0-17.0) 8.6 GM/DL (13.0-17.0) Hematocrit 25.8 % (39.0-51.0) 25.2 % (39.0-51.0) Platelet Count 132 TH/MM3 (150-450) 143 TH/MM3 (150-450) Monocytes (%) (Auto) 11.5 % (0.0-8.0) Monocytes # (Auto) 1.0 TH/MM3 (0-0.9) Blood Urea Nitrogen 28 MG/DL (7-18) Total Protein 4.1 GM/DL (6.4-8.2) 4.2 GM/DL (6.4-8.2) 1.3 GM/DL (6.4-8.2) Calcium Level 6.8 MG/DL (8.5-10.1) 6.8 MG/DL (8.5-10.1) 5.8 MG/DL (8.5-10.1) Sodium Level 148 MEQ/L (136-145) 146 MEQ/L (136-145) 148 MEQ/L (136-145) Chloride Level 117 MEQ/L (98-107) 115 MEQ/L (98-107) 117 MEQ/L (98-107) Carbon Dioxide Level 20.8 MEQ/L (21.0-32.0) Estimat Glomerular Filtration Rate 57 ML/MIN (>89) 60 ML/MIN (>89) 64 ML/MIN (>89) Protein Corrected Calcium 8.4 MG/DL (8.5-10.1) 8.4 MG/DL (8.5-10.1) Test 10/15/17 09:05 Red Blood Count 2.89 MIL/MM3 (4.50-5.90) Hemoglobin 8.7 GM/DL (13.0-17.0) Hematocrit 25.9 % (39.0-51.0) Imaging Last Impressions Abdomen Arteriogram 10/12/17 1343 Signed Impressions: Service Date/Time: Thursday, October 12, 2017 10:44 - CONCLUSION: 1. No angiographic evidence for active hemorrhage from the ISAMAR and SMA territories. Almas Meyers MD IVC Filter Placement X-Ray 10/12/17 0000 Signed Impressions: Service Date/Time: Thursday, October 12, 2017 10:44 - CONCLUSION: Uncomplicated inferior vena cava filter placement as above. Almas Meyers MD GI Bleed Scan Nuclear Medicine 10/11/17 0000 Signed Impressions: Service Date/Time: Wednesday, October 11, 2017 16:14 - CONCLUSION: 1. Focal tracer attenuation in the mid superior pelvic region likely reflecting active hemorrhage in the sigmoid colon. Almas Meyers MD PE at Discharge GENERAL: Elderly male, in no apparent distress. CARDIOVASCULAR: Normal rate and regular rhythm without murmurs, gallops, or rubs. RESPIRATORY: Good respiratory efforts. Breath sounds equal and clear to auscultation bilaterally. GASTROINTESTINAL: Abdomen soft, non-tender, non-distended. Normal active bowel sounds MUSCULOSKELETAL: Extremities without cyanosis, or edema. NEURO: Alert & Oriented x4 to person, place, time, situation. Moves all ext x4 PSYCH: Appropriate mood and affect. Pt update on day of discharge Patient reports he is feeling well. Eating well. Discussed with his at bedside. They are eager to go back to rehab to eventually get back home. No more bloody stools. Hospital Course 82 year old male with metastatic lung cancer, atrial fibrillation, pacemaker, HLD, CAD, hypothyroidism, and h/o TIA initially admitted 09/30-10/09 for a fall, acute renal failure, dehydration, hypernatremia, and GI bleed. GI work-up demonstrated diverticular disease, duodenitis, severe esophagitis, and gastritis. He was discharged to [facility] on 10/09 and was subsequently readmitted on 10/11 for acute drop in his hemoglobin. Evaluation and treatment course detailed below: 1. Acute on chronic anemia - Review of EMR shows hemoglobin dropping gradually since about 10/07 but on was noted to be 6 from 7.8 the day prior - Pt hemodynamically stable - Transfused 2 units with f/u hemoglobin 7.3. Transfusing another 2 units. CBC stable today - EGD with ablation performed on 10/02/17 which showed a class D esophagitis, erythematous gastritis, bleeding ulcer the first part of the duodenum treated with argon plasma coagulation with complete hemostasis achieve - Repeat EGD with biopsy performed on 10/07/17 showed severe esophagitis of the distal esophagus status post biopsy, duodenitis and hiatal hernia. Pathology consistent with peptic duodenitis, marked active chronic gastritis, negative for Helicobacter, and distal esophagus biopsy with acutely ulcerated squamous mucosa however viral inclusions are not identified - Bleeding scan with some attenuation in mid-superior pelvic region likely reflecting active hemorrhage in sigmoid colon - Continue PPI - GI following, CT angiogram of the abdomen was negative for active bleeding. Therefore embolization was not done. - General surgery was consulted. Patient deemed to be a poor surgical candidate. Patient does not want surgery. DW him and family at bedside. -H&H stabilized with no obvious signs of bleeding. I do suspect that there is a possibility that he may have a slow and chronic bleed that may eventually require more transfusion. However he appeared to be stable for now. Recommend serial H&H every 3-5 days to ensure her hemoglobin is staying stable and to monitor his bowel movements. 2. Acute kidney injury -Likely prerenal azotemia. Improved after blood transfusion. - Encourage PO 3. L popliteal DVT - S/p IVC filter - No chemical anticoagulation in light of possible GI bleed and acute anemia 4. Atrial fibrillation - Rate controlled without medication - Apparently was not an anticoagulation candidate prior to DVT given history of recurrent falls and now with significant anemia. 5. Hypothyroidism - Continue levothyroxine - Recent TSH within normal range on 09/30/17 6. Subdural hematoma with TBI - Which patient sustained after a fall with a subsequent scalp laceration that has been repaired and sutured on 09/30 - Repeat head CT obtained on 10/10/17 showed interval resolution of right parietal extraaxial hemorrhage 7. Dysphagia - Patient seen recently by speech therapy who recommended regular food with thin liquids 8. Frequent falls/debility/recent decline - PT following - Palliative care consulted on the patient. They made the decision for DNR status with immediate goal to continue physical therapy to eventually make it back home. Pt Condition on Discharge: Good Discharge Disposition: Rehab Inpatient Discharge Time: > 30 minutes Discharge Instructions DIET: Follow Instructions for: Heart Healthy Diet Activities you can perform: Regular-No Restrictions New Medications: Potassium Chloride Microencaps (Potassium Chloride Microencaps) 20 Meq Tab 20 MEQ PO DAILY, #30 TAB Changed Medications: Pantoprazole (Pantoprazole) 40 Mg Tab 40 MG PO BID for Reflux, #31 TAB (Changed from: DAILY) Continued Medications: Atorvastatin (Atorvastatin) 10 Mg Tab 10 MG PO DAILY for Cholesterol Management, #30 TAB 0 Refills Calcium Carbonate-Simethicone (Maalox Advanced Maximum Strength) 1,000-60 Mg Chew 1-2 TAB CHEW Q6HR PRN for INDIGESTION OR UPSET STOMACH, #15 TAB 0 Refills Levothyroxine (Levothyroxine) 50 Mcg Tab 50 MCG PO DAILY for Thyroid, #30 TAB 0 Refills Multiple Vitamins W/ Minerals (Multi For Him 50+) 0.4 Mg-2 Mg-250 Mcg Tab Multiple Vitamins W/ Minerals (Preservision Areds) 1 Tab 1 TAB PO DAILY for Nutritional Supplement, TAB 0 Refills Nivolumab (Opdivo) 40 Mg/4 Ml Inj Sucralfate Liq (Sucralfate Liq) 1 Gram/10 Ml Beth 1 GM PO ACHS for peptic ulcer disease, #1 BOTTLE Thiamine (Vitamin B-1) 100 Mg Tab 100 MG PO DAILY for Nutritional Supplement, TAB 0 Refills Discontinued Medications: Aspirin (Aspirin) 81 Mg Chew 81 MG CHEW DAILY, TAB 0 Refills Famotidine (Famotidine) 20 Mg Tab 20 MG PO HS, #30 TAB Potassium Bicarb-Chloride Effervescent (Effervescent Potassium Chloride 25 Meq) 25 Meq Tab 25 MEQ PO DAILY for Nutritional Supplement, #30 TAB Potassium Phosphate-Sodium Phosphate (K-Phos Neutral) 155-852-130 Mg Tab 250 MG PO Q8HR for Nutritional Supplement, #90 TAB Samia Valverde MD October 15, 2017 11:30
[2017-10-15 12:00] VITALS: BP 108/54; PULSE 60; RESP 17; TEMP 97.5; O2SAT 99
== END 2017-10-15 14:27 | DRG 802 ==
LOC: N05B 14:00
PROVIDERS: ADMIT Family Medicine; ATTEND Family Medicine
PROC: 06H03DZ Insertion of Intraluminal Device into Inferior Vena Cava, Percutaneous Approach (ICD-10-PCS; principal; 2017-10-11)
PROC: 30233N1 Transfusion of Nonautologous Red Blood Cells into Peripheral Vein, Percutaneous Approach (ICD-10-PCS; 2017-10-11)
PROC: B4241ZZ Computerized Tomography (CT Scan) of Superior Mesenteric Artery using Low Osmolar Contrast (ICD-10-PCS; 2017-10-12)
DX: D62 Acute posthemorrhagic anemia (principal); S06.5X0A Traumatic subdural hemorrhage without loss of consciousness, initial encounter; N17.9 Acute kidney failure, unspecified; I82.432 Acute embolism and thrombosis of left popliteal vein; C78.7 Secondary malignant neoplasm of liver and intrahepatic bile duct; E87.0 Hyperosmolality and hypernatremia; I49.5 Sick sinus syndrome; K57.31 Diverticulosis of large intestine without perforation or abscess with bleeding; C34.90 Malignant neoplasm of unspecified part of unspecified bronchus or lung; I48.2 Chronic atrial fibrillation; R13.10 Dysphagia, unspecified; R63.0 Anorexia; E03.9 Hypothyroidism, unspecified; K21.0 Gastro-esophageal reflux disease with esophagitis; K29.80 Duodenitis without bleeding; K29.50 Unspecified chronic gastritis without bleeding; S01.01XA Laceration without foreign body of scalp, initial encounter; I25.10 Atherosclerotic heart disease of native coronary artery without angina pectoris; E78.5 Hyperlipidemia, unspecified; K64.4 Residual hemorrhoidal skin tags; K64.8 Other hemorrhoids; K44.9 Diaphragmatic hernia without obstruction or gangrene; H91.90 Unspecified hearing loss, unspecified ear; R63.4 Abnormal weight loss; R29.6 Repeated falls; R26.9 Unspecified abnormalities of gait and mobility; R53.81 Other malaise; Z51.5 Encounter for palliative care; M19.90 Unspecified osteoarthritis, unspecified site; E86.0 Dehydration; I10 Essential (primary) hypertension; Z96.652 Presence of left artificial knee joint; W19.XXXA Unspecified fall, initial encounter; Z86.73 Personal history of transient ischemic attack (TIA), and cerebral infarction without residual deficits; Z95.0 Presence of cardiac pacemaker; Z79.01 Long term (current) use of anticoagulants; Z86.010 Personal history of colon polyps; Z85.820 Personal history of malignant melanoma of skin; Z79.82 Long term (current) use of aspirin; Z85.118 Personal history of other malignant neoplasm of bronchus and lung; Z87.11 Personal history of peptic ulcer disease; Z97.4 Presence of external hearing-aid; Z80.1 Family history of malignant neoplasm of trachea, bronchus and lung; Z82.3 Family history of stroke
CPT/HCPCS: 36011; 36245; 36430; 37191; 75726; 75774; 76937; 78278; 80048; 80053; 84155; 85014; 85018; 85025; 85027; 85610; 85730; 86920; 99152; 99153; A9560; C1769; C1880; C1887; C1894; C9113; J1644; J1940; J2250; J3010; J7030; J7050; P9016; Q9967